=== PATIENT | male | born 1950 | race Caucasian/White ===

== ENCOUNTER 2016-08-23 11:29 | Outpatient (RCR) | payer BC ==
[2016-05-28 23:00] LABS: INR 1.6 (0.8-1.4)
[2016-06-01 10:42] LABS: INR 1.6 (0.8-1.4); PROTHROMBIN TIME PATIENT 19.2 SEC (12.2-14.7)
[2016-06-26 10:25] LABS: INR 2.5 (0.8-1.4); PROTHROMBIN TIME PATIENT 26.7 SEC (12.2-14.7)
[2016-07-26 11:50] LABS: INR 2.7 (0.8-1.4); PROTHROMBIN TIME PATIENT 28.3 SEC (12.2-14.7)
[~2016-08-23 11:29] MED LIST: AMOX1TAB12 PO; ASCO-262 PO; CLIN150C17 PO; CYAN10006 PO; DIGO0.25 PO; DIGO250T PO; FENO145T20 PO; GABA-486 PO; LORA10TA7 PO; LOSA50TA2 PO; LOSA50TA36 PO; MULT-633 PO; NEBI5TAB8 PO; OMEG-9 PO; OMEP20TA33 PO; SERT50TA2 PO; SERT50TA9 PO; WARF2.5T8 PO; WARF5TAB8 PO; [UNRECOGNIZED DRUG - OTHER] PO
[2016-08-23 12:02] LABS: INR 3.3 (0.8-1.4); PROTHROMBIN TIME PATIENT 33.7 SEC (12.2-14.7)
== END 2016-08-26 | disposition home or self-care (01) ==
LOC: LAB 11:29
PROVIDERS: ATTEND Internal Medicine Cardiovascular Disease
DX: Z48.812 Encounter for surgical aftercare following surgery on the circulatory system (principal); Z95.2 Presence of prosthetic heart valve
CPT/HCPCS: 36415; 85610

== ENCOUNTER 2016-12-17 10:28 | Outpatient (CLI) | payer BC ==
[~2016-12-17] VITALS: Ht 175.3 cm; Wt 83.7 kg
[2016-12-17] MEDS ORDERED: NEBI5TAB8 PO (10:39)
[2016-12-17 10:44] VITALS: BP 135/95
--- NOTE | 2016-12-17 19:30 | HISTORY AND PHYSICAL ---
DATE OF SERVICE: The patient is to have outpatient surgery by Dr. Gregory. CHIEF COMPLAINT: Right foot bone spur is hurting and want them corrected. ALLERGIC TO MEDICATIONS: Denies. MEDICATIONS: Now on losartan 50 mg one daily, digoxin 0.25 mg one daily, Bystolic 5 mg one daily, Zoloft 50 mg one at bedtime, Coumadin 2.5 and 5 mg at bedtime, gabapentin 100 mg one at bedtime, fenofibrate 145 mg one at bedtime, Prilosec 20 mg 30 mins before breakfast. The patient is now off his warfarin and now on enoxaparin, Lovenox daily in the evening. SURGERIES: Foot surgery, both feet, scope both knees; T and A; five bypass and aortic valve replacement; hernia on the left; three pacemaker defibrillators; bilateral cataracts. FAMILY HISTORY: Father with massive heart attack; mother age 91, has dementia now. Denies asthma, TB, diabetes, lung disease, cancer. REVIEW OF SYSTEMS: HEAD: Denies headache, dizziness or fainting. EYES, EARS, NOSE AND THROAT: Denies diplopia, sore throat and tinnitus. RESPIRATORY: Denies asthma, TB, cough, congestive, smoking, or wheezing. Did smoke previously hard, now having no heart problems, chest pain or shortness breath. GASTROINTESTINAL: Appetite is good. Denies blood in stools, diarrhea, constipation, nausea or vomiting. GENITOURINARY: Denies blood, pain or frequency. PHYSICAL EXAMINATION: GENERAL: The patient is a thin white male in no acute respiratory distress at rest. VITAL SIGNS: Pulse 72, blood pressure 110/80. HEENT: Ears are not inflamed. Eyes, no conjunctivitis or icterus. Throat is not inflamed. NECK: Thyroid not enlarged. Normal cervical lymphadenopathy noted. HEART: Regular rate and rhythm with a click. LUNGS: Clear to auscultation. ABDOMEN: Soft. Liver and spleen are not palpable. EXTREMITIES: No pretibial edema. Feet are warm. Good dorsalis pedis pulses. ASSESSMENT AND PLAN: The patient sees Dr. Tracy and said okay to have surgery. The patient is doing good. If he has any problems, will be on stand-by. Job ID: [id number] DocumentID: [id number] Dictated Date: 12/17/2016 13:45:40 Atmospheric Chemist Date: 12/17/2016 15:32:53 Dictated By: LISA STOCKTON DO
== END 2016-12-17 11:10 | disposition home or self-care (01) ==
LOC: PREOP 10:28
PROVIDERS: ATTEND Podiatrist Foot Surgery
DX: Z01.818 Encounter for other preprocedural examination (principal); Z11.2 Encounter for screening for other bacterial diseases; M20.11 Hallux valgus (acquired), right foot; M20.41 Other hammer toe(s) (acquired), right foot
CPT/HCPCS: 87081

== ENCOUNTER 2016-12-21 06:00 | Day surgery (SDC) | payer BC ==
--- NOTE | 2016-12-13 09:02 | HISTORY AND PHYSICAL ---
DATE OF SERVICE: 12/21/2016 REASON FOR ADMISSION: Outpatient surgery on November 2016 for left shoulder arthroscopy with rotator cuff repair, biceps tenodesis. HISTORY OF PRESENT ILLNESS: The patient is a 66-year-old right-hand dominant gentleman with complaints of longstanding progressive left shoulder pain. He reports for several year history of progressively worsening pain and weakness. He reports pain with overhead activities. He denies paresthesias, but does reports some night pain at times. He reports night pain began after his shoulder pain by several years. He reports marked activity limitations because of the shoulder and due to progressive symptoms and failure to improve with conservative measures and because of functional impairment, the patient has elected to proceed with surgical intervention. REVIEW OF SYSTEMS: No chest pain. No shortness of breath. No dysuria. PAST MEDICAL HISTORY: Coronary artery disease, congestive heart failure. PAST SURGICAL HISTORY: Knee arthroscopy, coronary artery bypass, herniorrhaphy, tonsillectomy. FAMILY HISTORY: Ischemic heart disease, dementia. PRIMARY CARE PROVIDER: Sonia Montoya MD. ALLERGIES: No known drug allergies. SOCIAL HISTORY: The patient denies alcohol or tobacco use. RADIOGRAPHS: No acute or chronic changes of the left shoulder. PHYSICAL EXAMINATION: GENERAL: The patient is well-developed and well-nourished, in no acute distress. HEENT: Normocephalic, atraumatic. Pupils are equal, round and reactive to light. Oropharynx is clear. NECK: Supple with no lymphadenopathy. LUNGS: Clear to auscultation bilaterally. HEART: Regular rate and rhythm. ABDOMEN: Soft, nontender, and nondistended. EXTREMITIES: The left shoulder demonstrates no gross atrophy. He has negative Spurling's maneuver. No skin lesions are noted, active forward elevation of 170 degrees, but painful beyond 90. External rotation is 80 degrees. Internal rotation is to his upper lumbar spine. He has weakness with abduction and external rotation. He has a positive [place]'s maneuver, mildly positive Neer's and positive Mohan sign. He is nontender over his acromioclavicular joint and has no pain with cross-body adduction. IMPRESSION: Left shoulder rotator cuff tear and superior labral anterior posterior tear. PLAN: Right shoulder arthroscopy, biceps tenodesis and rotator cuff repair. The risks, benefits, options, ramifications, and recovery have been discussed at length with the patient. He understands and wishes to proceed. Job ID: [id number] DocumentID: [id number] Dictated Date: 12/11/2016 09:36:50 Grain Scooper Date: 12/11/2016 11:23:25 Dictated By: CARLOS EDUARDO JOSEPH MD
[~2016-12-21] VITALS: Ht 175.3 cm; Wt 83.7 kg
--- OUTSIDE RECORDS SUMMARY | 2016-12-21 06:12 | XMS REPORT | Continuity of Care Document ---
Author Author [facility] Organization [facility] Address Unknown Phone Unavailable Allergies Active Description Code Type Severity Reaction Onset Reported/Identified Relationship to Patient Clinical Status Yes UNKNOWN ANTIBIOTIC UNKNOWN ANTIBIOTIC Drug Allergy Unknown N/A 04/21/2009 Yes No Known Drug Allergies [id number] Drug Allergy Unknown N/ A 03/10/2016 Yes No Known Allergies No Known Allergies Drug Allergy Unknown N/A 05/29/2016 Medications Problems Date Dx Coded Attending Type Code Diagnosis Diagnosed By 01/05/2010 Ot V43.3 01/05/2010 Ot V67.09 04/23/2010 Ot V43.3 04/23/2010 Ot V67.09 07/24/2010 Ot V43.3 07/24/2010 Ot V67.09 10/26/2010 Ot V43.3 HEART VALVE REPLAC NEC 10/26/2010 Ot V67.09 SURGERY FOLLOW-UP, OTHER SURGERY 02/25/2011 Ot V43.3 HEART VALVE REPLAC NEC 02/25/2011 Ot V67.09 SURGERY FOLLOW-UP, OTHER SURGERY 05/28/2011 Ot V43.3 HEART VALVE REPLAC NEC 05/28/2011 Ot V67.09 SURGERY FOLLOW-UP, OTHER SURGERY 08/27/2011 Ot V43.3 HEART VALVE REPLAC NEC 08/27/2011 Ot V67.09 SURGERY FOLLOW-UP, OTHER SURGERY 12/11/2011 Ot V43.3 HEART VALVE REPLAC NEC 12/11/2011 Ot V67.09 SURGERY FOLLOW-UP, OTHER SURGERY 03/23/2012 Ot V43.3 HEART VALVE REPLAC NEC 03/23/2012 Ot V67.09 SURGERY FOLLOW-UP, OTHER SURGERY 06/24/2012 Ot V43.3 HEART VALVE REPLAC NEC 06/24/2012 Ot V67.09 SURGERY FOLLOW-UP, OTHER SURGERY 09/28/2012 Ot V43.3 HEART VALVE REPLAC NEC 09/28/2012 Ot V67.09 SURGERY FOLLOW-UP, OTHER SURGERY 01/20/2013 ALANA MCCURDY, PERLA Sheffield Ot V43.3 HEART VALVE REPLAC NEC 01/20/2013 ALANA MCCURDY, PERLA P Ot V67.09 SURGERY FOLLOW-UP, OTHER SURGERY 04/26/2013 ALANA MCCURDY, PERLA Sheffield Ot V43.3 HEART VALVE REPLAC NEC 04/26/2013 ALANA MCCURDY, PERLA P Ot V67.09 SURGERY FOLLOW-UP, OTHER SURGERY 07/09/2013 DEE ROLAND [employer] ECONOMIST Ot 327.23 OBSTRUCTIVE SLEEP APNEA (ADULT) ( PEDIATR 07/09/2013 DEE ROLAND [employer]CIAL ECONOMIST Ot 401.9 HYPERTENSION NOS 07/26/2013 ALANA MCCURDY, PERLA P Ot V43.3 HEART VALVE REPLAC NEC 07/26/2013 ALANA MCCURDY, PERLA P Ot V67.09 SURGERY FOLLOW-UP, OTHER SURGERY 10/25/2013 ALANA MCCURDY, PERLA P Ot V43.3 HEART VALVE REPLAC NEC 10/25/2013 ALANA MCCURDY, PERLA P Ot V67.09 SURGERY FOLLOW-UP, OTHER SURGERY 02/23/2014 ALANA MCCURDY, PERLA P Ot V43.3 HEART VALVE REPLAC NEC 02/23/2014 ALANA MCCURDY, PERLA P Ot V67.09 SURGERY FOLLOW-UP, OTHER SURGERY 05/25/2014 ALANA MCCURDY, PERLA P Ot V43.3 HEART VALVE REPLAC NEC 05/25/2014 ALANA MCCURDY, PERLA P Ot V67.09 SURGERY FOLLOW-UP, OTHER SURGERY 06/29/2014 ALANA MCCURDY, PERLA P Ot V43.3 06/29/2014 ALANA MCCURDY, PERLA P Ot V67.09 06/30/2014 ALANA MCCURDY, PERLA P Ot V43.3 06/30/2014 ALANA MCCURDY, PERLA P Ot V67.09 07/01/2014 ALANA MCCURDY, PERLA P Ot V43.3 07/01/2014 ALANA MCCURDY, PERLA P Ot V67.09 08/12/2014 ALANA MCCURDY, PERLA P Ot V43.3 08/12/2014 ALANA MCCURDY, PERLA P Ot V67.09 09/27/2014 ALANA MCCURDY, PERLA P Ot V43.3 HEART VALVE REPLAC NEC 09/27/2014 ALANA MCCURDY, PERLA P Ot V67.09 SURGERY FOLLOW-UP, OTHER SURGERY 10/22/2014 ALANA MCCURDY, PERLA P Ot V43.3 10/22/2014 ALANA MCCURDY, PERLA P Ot V67.09 11/20/2014 ALANA MCCURDY, PERLA P Ot V43.3 11/20/2014 ALANA MCCURDY, PERLA P Ot V67.09 12/14/2014 ALANA MCCURDY, PERLA P Ot V43.3 12/14/2014 ALANA MCCURDY, PERLA P Ot V67.09 01/19/2015 ALANA MCCURDY, PERLA P Ot V43.3 HEART VALVE REPLAC NEC 01/19/2015 ALANA MCCURDY, PERLA Sheffield Ot V67.09 SURGERY FOLLOW-UP, OTHER SURGERY 01/24/2015 ALANA MCCURDY, PERLA P Ot V43.3 01/24/2015 ALANA MCCURDY, PERLA P Ot V67.09 01/25/2015 ALANA MCCURDY, PERLA P Ot V43.3 01/25/2015 ALANA MCCURDY, PERLA P Ot V67.09 02/01/2015 ALANA MCCURDY, PERLA P Ot V43.3 02/01/2015 ALANA MCCURDY, PERLA P Ot V67.09 03/10/2015 ALANA MCCURDY, PERLA P Ot V43.3 03/10/2015 ALANA MCCURDY, PERLA Sheffield Ot V67.09 03/23/2015 ALANA MCCURDY, PERLA Sheffield Ot V43.3 HEART VALVE REPLAC NEC 03/23/2015 ALANA MCCURDY, PERLA P Ot V67.09 SURGERY FOLLOW-UP, OTHER SURGERY 03/30/2015 Ot 780.79 03/30/2015 Ot 414.00 03/30/2015 Ot V58.61 03/30/2015 Ot V58.69 03/30/2015 Ot V43.3 03/30/2015 Ot V67.09 03/30/2015 ALANA MCCURDY, PERLA P Ot V43.3 03/30/2015 ALANA MCCURDY, PERLA P Ot V67.09 04/05/2015 ALANA MCCURDY, PERLA P Ot V43.3 04/05/2015 ALANA MCCURDY, PERLA P Ot V67.09 04/24/2015 ALANA MCCURDY, PERLA P Ot V43.3 04/24/2015 ALANA MCCURDY, PERLA P Ot V67.09 05/11/2015 ALANA MCCURDY, PERLA Sheffield Ot Z95.2 06/28/2015 ALANA MCCURDY, PERLA Sheffield Ot Z48.812 ENCNTR FOR SURGICAL AFTCR FOLLOWING SURG 06/28/2015 ALANA MCCURDY, PERLA Sheffield Ot Z95.2 PRESENCE OF PROSTHETIC HEART VALVE 06/29/2015 ALANA MCCURDY, PERLA Sheffield Ot Z95.2 06/30/2015 ALANA MCCURDY, PERLA Sheffield Ot Z95.2 08/18/2015 ALANA MCCURDY, PERLA Sheffield Ot Z95.2 09/01/2015 ALANA MCCURDY, PERLA Sheffield Ot Z48.812 09/01/2015 ALANA MCCURDY, PERLA Sheffield Ot Z95.2 09/20/2015 ALANA MCCURDY, PERLA Sheffield Ot Z48.812 09/20/2015 ALANA MCCURDY, PERLA Sheffield Ot Z95.2 09/27/2015 ALANA MCCURDY, PERLA Sheffield Ot Z48.812 ENCNTR FOR SURGICAL AFTCR FOLLOWING SURG 09/27/2015 ALANA MCCURDY, PERLA Sheffield Ot Z95.2 PRESENCE OF PROSTHETIC HEART VALVE 11/09/2015 TANESHA MCCURDY, SILAS Araiza Ot Z48.812 ENCNTR FOR SURGICAL AFTCR FOLLOWING SURG 11/09/2015 SILAS ALMENDAREZ MD Ot Z95.2 PRESENCE OF PROSTHETIC HEART VALVE 11/23/2015 SILAS ALMENDAREZ MD Ot Z48.812 ENCNTR FOR SURGICAL AFTCR FOLLOWING SURG 11/23/2015 SILAS ALMENDAREZ MD Ot Z95.2 PRESENCE OF PROSTHETIC HEART VALVE 01/27/2016 ALANA MCCURDY, PERLA Sheffield Ot Z48.812 ENCNTR FOR SURGICAL AFTCR FOLLOWING SURG 01/27/2016 PERLA WARNER MD Ot Z95.2 PRESENCE OF PROSTHETIC HEART VALVE 01/31/2016 ALANA MCCURDY, PERLA Sheffield Ot Z48.812 ENCNTR FOR SURGICAL AFTCR FOLLOWING SURG 01/31/2016 ALANA MCCURDY, PERLA Sheffield Ot Z95.2 PRESENCE OF PROSTHETIC HEART VALVE 03/10/2016 Ot 414.00 CORON ATHEROSCLER NOS TYPE VESSEL, NATIV 03/10/2016 Ot V58.61 ANTICOAGULANTS,LT,CURRENT USE 03/10/2016 Ot V58.69 OTH MED,LT,CURRENT USE 03/10/2016 Ot V43.3 HEART VALVE REPLAC NEC 03/10/2016 Ot V67.09 SURGERY FOLLOW-UP, OTHER SURGERY 03/10/2016 SILAS ALMENDAREZ MD Ot Z48.812 ENCNTR FOR SURGICAL AFTCR FOLLOWING SURG 03/10/2016 SILAS ALMENDAREZ MD Ot Z95.2 PRESENCE OF PROSTHETIC HEART VALVE 03/10/2016 PERLA WARNER MD Ot Z48.812 ENCNTR FOR SURGICAL AFTCR FOLLOWING SURG 03/10/2016 PERLA WARNER MD Ot Z95.2 PRESENCE OF PROSTHETIC HEART VALVE 03/10/2016 Ot V43.3 HEART VALVE REPLAC NEC 03/10/2016 Ot V67.09 SURGERY FOLLOW-UP, OTHER SURGERY 03/10/2016 Ot 414.00 CORON ATHEROSCLER NOS TYPE VESSEL, NATIV 03/10/2016 Ot V58.61 ANTICOAGULANTS,LT,CURRENT USE 03/10/2016 Ot V58.69 OTH MED,LT,CURRENT USE 03/10/2016 Ot V43.3 HEART VALVE REPLAC NEC 03/10/2016 Ot V67.09 SURGERY FOLLOW-UP, OTHER SURGERY 03/10/2016 TANESHA MCCURDY, SILAS Araiza Ot Z48.812 ENCNTR FOR SURGICAL AFTCR FOLLOWING SURG 03/10/2016 SILAS ALMENDAREZ MD Ot Z95.2 PRESENCE OF PROSTHETIC HEART VALVE 03/10/2016 PERLA WARNER MD Ot Z48.812 ENCNTR FOR SURGICAL AFTCR FOLLOWING SURG 03/10/2016 PERLA WARNER MD Ot Z95.2 PRESENCE OF PROSTHETIC HEART VALVE 03/12/2016 MIREILLE MCCURDY, JACKIE Moscoso Ot I10 ESSENTIAL (PRIMARY) HYPERTENSION 03/12/2016 MIREILLE MCCURDY, JACKIE Moscoso Ot L03.114 CELLULITIS OF LEFT UPPER LIMB 03/12/2016 JACKIE KENDRICK MD Ot M70.22 OLECRANON BURSITIS, LEFT ELBOW 03/12/2016 JACKIE KENDRICK MD Ot Z79.01 NURSING HOME (CURRENT) USE OF ANTICOAGULANT 03/12/2016 JACKIE KENDRICK MD Ot Z87.891 PERSONAL HISTORY OF NICOTINE DEPENDENCE 03/12/2016 JACKIE KENDRICK MD Ot Z95.1 PRESENCE OF AORTOCORONARY BYPASS GRAFT 03/12/2016 JACKIE KENDRICK MD Ot Z95.2 PRESENCE OF PROSTHETIC HEART VALVE 03/12/2016 JACKIE KENDRICK MD Ot Z95.810 PRESENCE OF AUTOMATIC (IMPLANTABLE) CARD 04/02/2016 PERLA WARNER MD Ot Z48.812 ENCNTR FOR SURGICAL AFTCR FOLLOWING SURG 04/02/2016 PERLA WARNER MD Ot Z95.2 PRESENCE OF PROSTHETIC HEART VALVE 04/12/2016 GALICHIA MD, PERLA P Ot Z48.812 ENCNTR FOR SURGICAL AFTCR FOLLOWING SURG 04/12/2016 ALANA MCCURDY, PERLA P Ot Z95.2 PRESENCE OF PROSTHETIC HEART VALVE 05/23/2016 ALANA MCCURDY, PERLA P Ot Z48.812 ENCNTR FOR SURGICAL AFTCR FOLLOWING SURG 05/23/2016 ALANA MCCURDY, PERLA P Ot Z95.2 PRESENCE OF PROSTHETIC HEART VALVE 05/24/2016 ALANA MCCURDY, PERLA P Ot Z48.812 ENCNTR FOR SURGICAL AFTCR FOLLOWING SURG 05/24/2016 ALANA MCCURDY, PERLA P Ot Z95.2 PRESENCE OF PROSTHETIC HEART VALVE 05/29/2016 ALANA MCCURDY, PERLA P Ot Z48.812 ENCNTR FOR SURGICAL AFTCR FOLLOWING SURG 05/29/2016 ALANA MCCURDY, PERLA P Ot Z95.2 PRESENCE OF PROSTHETIC HEART VALVE 07/03/2016 ALANA MCCURDY, PERLA P Ot Z48.812 ENCNTR FOR SURGICAL AFTCR FOLLOWING SURG 07/03/2016 ALANA MCCURDY, PERLA P Ot Z95.2 PRESENCE OF PROSTHETIC HEART VALVE 07/16/2016 ALANA MCCURDY, PERLA P Ot Z48.812 ENCNTR FOR SURGICAL AFTCR FOLLOWING SURG 07/16/2016 ALANA MCCURDY, PERLA P Ot Z95.2 PRESENCE OF PROSTHETIC HEART VALVE 08/08/2016 ALANA MCCURDY, PERLA P Ot Z48.812 ENCNTR FOR SURGICAL AFTCR FOLLOWING SURG 08/08/2016 PERLA WARNER MD P Ot Z95.2 PRESENCE OF PROSTHETIC HEART VALVE 08/26/2016 PERLA WARNER MD P Ot Z48.812 ENCNTR FOR SURGICAL AFTCR FOLLOWING SURG 08/26/2016 PERLA WARNER MD P Ot Z95.2 PRESENCE OF PROSTHETIC HEART VALVE 10/22/2016 ALANA MCCURDY, PERLA P Ot Z48.812 ENCNTR FOR SURGICAL AFTCR FOLLOWING SURG 10/22/2016 ALANA MCCURDY, PERLA P Ot Z95.2 PRESENCE OF PROSTHETIC HEART VALVE 10/22/2016 ALANA MCCURDY, PERLA P Ot Z48.812 ENCNTR FOR SURGICAL AFTCR FOLLOWING SURG 10/22/2016 ALANA MCCURDY, PERLA P Ot Z95.2 PRESENCE OF PROSTHETIC HEART VALVE 10/29/2016 ALANA MCCURDY, PERLA P Ot Z48.812 ENCNTR FOR SURGICAL AFTCR FOLLOWING SURG 10/29/2016 PERLA WARNER MD, Ot Z95.2 PRESENCE OF PROSTHETIC HEART VALVE 11/08/2016 PERLA WARNER MD, Ot Z48.812 ENCNTR FOR SURGICAL AFTCR FOLLOWING SURG 11/08/2016 PERLA WARNER MD Ot Z95.2 PRESENCE OF PROSTHETIC HEART VALVE 12/05/2016 PERLA WARNER MD, Ot Z48.812 ENCNTR FOR SURGICAL AFTCR FOLLOWING SURG 12/05/2016 PERLA WARNER MD, Ot Z95.2 PRESENCE OF PROSTHETIC HEART VALVE Procedures Results Test Result Range PT panel in platelet poor plasma by coagulation assay - 01/23/16 11:03 Prothrombin time (PT) in platelet poor plasma by coagulation assay 33.6 s 12.2-14.7 INR in platelet poor plasma or blood by coagulation assay 3.3 0.8-1.4 PT panel in platelet poor plasma by coagulation assay - 02/23/16 15:47 Prothrombin time (PT) in platelet poor plasma by coagulation assay 38.6 s 12.2-14.7 INR in platelet poor plasma or blood by coagulation assay 3.9 0.8-1.4 Body fluid cell count - 03/10/16 11:38 Specimen source identification of body fluid SYNOVIAL NRG Evaluation of color of body fluid RED NRG Determination of appearance of body fluid MOD CLDY NRG Body fluid leukocytes count (number/volume) QNS NRG Body fluid erythrocytes count (number/volume) QNS NRG * Body fluid crystals type by light microscopy - 03/10/16 11:38 * Body fluid crystals type by light microscopy NOT SEEN NRG Gram stain microscopy - 03/10/16 11:38 GRAM STAIN RESULT NO BACTERIA NRG Bacterial body fluid culture - 03/10/16 11:38 Bacterial body fluid culture [facility] Complete blood count (CBC) with automated white blood cell (WBC) differential - 03/10/16 11:44 Blood leukocytes automated count (number/volume) 6.1 10*3/ uL 4.3-11.0 Blood erythrocytes automated count (number/volume) 3.87 10*6 /uL 4.35-5.85 Venous blood hemoglobin measurement (mass/volume) 12.8 g/dL 13.3-17.7 Blood hematocrit (volume fraction) 36 % 40-54 Automated erythrocyte mean corpuscular volume 93 [foz_us] 80-99 Automated erythrocyte mean corpuscular hemoglobin (mass per erythrocyte) 33 pg 25-34 Automated erythrocyte mean corpuscular hemoglobin concentration measurement ( mass/volume) 36 g/dL 32-36 Automated erythrocyte distribution width ratio 12.2 % 10.0-14.5 Automated blood platelet count (count/volume) 198 10*3/uL 130-400 Automated blood platelet mean volume measurement 10.6 [foz_ us] 7.4-10.4 Automated blood neutrophils/100 leukocytes 65 % 42-75 Automated blood lymphocytes/100 leukocytes 21 % 12-44 Blood monocytes/100 leukocytes 12 % 0-12 Automated blood eosinophils/100 leukocytes 2 % 0-10 Automated blood basophils/100 leukocytes 0 % 0-10 Blood neutrophils automated count (number/volume) 4.0 10*3 1.8-7.8 Blood lymphocytes automated count (number/volume) 1.3 10*3 1.0-4.0 Blood monocytes automated count (number/volume) 0.7 10*3 0.0-1.0 Automated eosinophil count 0.1 10*3/uL 0.0-0.3 Automated blood basophil count (count/volume) 0.0 10*3/uL 0.0-0.1 PT panel in platelet poor plasma by coagulation assay - 03/10/16 11:44 Prothrombin time (PT) in platelet poor plasma by coagulation assay 36.8 s 12.2-14.7 INR in platelet poor plasma or blood by coagulation assay 3.7 0.8-1.4 Comprehensive metabolic panel - 03/10/16 11:44 Serum or plasma sodium measurement (moles/volume) 136 mmol/ L 135-145 Serum or plasma potassium measurement (moles/volume) 4.0 mmol/L 3.6-5.0 Serum or plasma chloride measurement (moles/volume) 106 mmol /L 98-107 Carbon dioxide 19 mmol/L 21-32 Serum or plasma anion gap determination (moles/volume) 11 mmol/L 5-14 Serum or plasma urea nitrogen measurement (mass/volume) 20 mg/dL 7-18 Serum or plasma creatinine measurement (mass/volume) 1.31 mg /dL 0.60-1.30 Serum or plasma urea nitrogen/creatinine mass ratio 15 NRG Serum or plasma creatinine measurement with calculation of estimated glomerular filtration rate 55 NRG Serum or plasma glucose measurement (mass/volume) 115 mg/dL 70-105 Serum or plasma calcium measurement (mass/volume) 8.9 mg/dL 8.5-10.1 Serum or plasma total bilirubin measurement (mass/volume) 0.7 mg/dL 0.1-1.0 Serum or plasma alkaline phosphatase measurement (enzymatic activity/volume) 83 U/L 40-136 Serum or plasma aspartate aminotransferase measurement (enzymatic activity/ volume) 78 U/L 5-34 Serum or plasma alanine aminotransferase measurement (enzymatic activity/volume ) 71 U/L 0-55 Serum or plasma protein measurement (mass/volume) 6.7 g/dL 6.4-8.2 Serum or plasma albumin measurement (mass/volume) 3.9 g/dL 3.2-4.5 Bacterial blood culture - 03/10/16 11:44 Bacterial blood culture NG NRG Bacterial blood culture - 03/10/16 12:00 Bacterial blood culture NG NR PT panel in platelet poor plasma by coagulation assay - 03/11/16 07:10 Prothrombin time (PT) in platelet poor plasma by coagulation assay 30.7 s 12.2-14.7 INR in platelet poor plasma or blood by coagulation assay 3.0 0.8-1.4 Vancomycin trough - 03/11/16 11:25 Vancomycin trough 9.8 ug/mL 10.0-20.0 PT panel in platelet poor plasma by coagulation assay - 03/12/16 07:44 Prothrombin time (PT) in platelet poor plasma by coagulation assay 26.9 s 12.2-14.7 INR in platelet poor plasma or blood by coagulation assay 2.5 0.8-1.4 Vancomycin trough - 03/12/16 10:54 Vancomycin trough 17.5 ug/mL 10.0-20.0 PT panel in platelet poor plasma by coagulation assay - 03/15/16 08:42 Prothrombin time (PT) in platelet poor plasma by coagulation assay 26.4 s 12.2-14.7 INR in platelet poor plasma or blood by coagulation assay 2.5 0.8-1.4 PT panel in platelet poor plasma by coagulation assay - 04/09/16 09:33 Prothrombin time (PT) in platelet poor plasma by coagulation assay 41.2 s 12.2-14.7 INR in platelet poor plasma or blood by coagulation assay 4.3 0.8-1.4 PT panel in platelet poor plasma by coagulation assay - 04/24/16 15:00 Prothrombin time (PT) in platelet poor plasma by coagulation assay 36.7 s 12.2-14.7 INR in platelet poor plasma or blood by coagulation assay 3.7 0.8-1.4 PT panel in platelet poor plasma by coagulation assay - 05/28/16 17:23 Prothrombin time (PT) in platelet poor plasma by coagulation assay 19.0 s 12.2-14.7 INR in platelet poor plasma or blood by coagulation assay 1.6 0.8-1.4 PT panel in platelet poor plasma by coagulation assay - 05/28/16 18:00 Prothrombin time (PT) in platelet poor plasma by coagulation assay 19.0 s 12.2-14.7 INR in platelet poor plasma or blood by coagulation assay 1.6 0.8-1.4 CBC W/DIFF - 05/29/16 13:24 EOSINOPHIL # 0.1 k/cumm 0.1-0.5 EOSINOPHIL % 2 % 2-4 GRANULOCYTE # 3.1 k/cumm 2.0-9.0 GRANULOCYTE % 54 % 50-75 LYMPHOCYTE # 1.8 k/cumm 1.0-4.0 LYMPHOCYTE % 32 % 20-30 MEAN CELL HGB 32.5 pg 27.0-33.0 MEAN CELL HGB CONCENTRATION 35.9 g/dL 32.0-37.0 MEAN CELL VOLUME 90.4 fl 80.0-100.0 MONOCYTE # 0.7 k/cumm 0.1-1.0 MONOCYTE % 12 % 4-6 RED BLOOD CELL 4.28 m/cumm 4.00-6.00 RED CELL DISTRIBUTION WIDTH 12.5 % 11.0- 15.6 WHITE BLOOD CELL 5.8 k/cumm 5.0-10.0 HEMOGLOBIN 13.9 gm/dL 14.0-18.0 HEMATOCRIT 38.7 % 40.0-54.0 PLATELET COUNT 199 k/cumm 150-450 METABOLIC PANEL, BASIC - 05/29/16 13:24 POTASSIUM 4.1 mmol/L 3.5-5.3 EST GFR (MDRD) > 60 mL/min > 59 ANION GAP 10 mmol/L 5-15 EST CrCl (CG) > 60 mL/min > 59 GLUCOSE 98 mg/dL 70-99 CALCIUM 9.3 mg/dL 8.5-10.1 BLOOD UREA NITROGEN 26 mg/dL 7-20 CREATININE 1.2 mg/dL 0.7-1.3 SODIUM 137 mmol/L 135-148 CHLORIDE 102 mmol/L 98-110 CARBON DIOXIDE 25 mmol/L 21-32 LIPID PANEL - 05/29/16 13:24 CHOLESTEROL/HDL RATIO 4.1 < 5.0 LDL CHOLESTEROL 112 mg/dL < 100 VLDL CHOLESTEROL 32 mg/dL < 30 TRIGLYCERIDES 162 mg/dL < 150 CHOLESTEROL 191 mg/dL < 200 HDL CHOLESTEROL 47 mg/dL > 39 PROTHROMBIN TIME WITH INR - 05/29/16 13:24 INTERNATIONAL NORMAL RATIO 1.4 0.9-1.1 PROTHROMBIN TIME 15.9 sec 10.0-12.9 PT panel in platelet poor plasma by coagulation assay - 06/01/16 10:24 Prothrombin time (PT) in platelet poor plasma by coagulation assay 19.2 s 12.2-14.7 INR in platelet poor plasma or blood by coagulation assay 1.6 0.8-1.4 PT panel in platelet poor plasma by coagulation assay - 06/26/16 10:04 Prothrombin time (PT) in platelet poor plasma by coagulation assay 26.7 s 12.2-14.7 INR in platelet poor plasma or blood by coagulation assay 2.5 0.8-1.4 PT panel in platelet poor plasma by coagulation assay - 07/26/16 11:37 Prothrombin time (PT) in platelet poor plasma by coagulation assay 28.3 s 12.2-14.7 INR in platelet poor plasma or blood by coagulation assay 2.7 0.8-1.4 PT panel in platelet poor plasma by coagulation assay - 08/23/16 11:35 Prothrombin time (PT) in platelet poor plasma by coagulation assay 33.7 s 12.2-14.7 INR in platelet poor plasma or blood by coagulation assay 3.3 0.8-1.4 PT panel in platelet poor plasma by coagulation assay - 09/24/16 10:49 Prothrombin time (PT) in platelet poor plasma by coagulation assay 37.7 s 12.2-14.7 INR in platelet poor plasma or blood by coagulation assay 3.8 0.8-1.4 PT panel in platelet poor plasma by coagulation assay - 10/22/16 10:01 Prothrombin time (PT) in platelet poor plasma by coagulation assay 43.8 s 12.2-14.7 INR in platelet poor plasma or blood by coagulation assay 4.6 0.8-1.4 PT panel in platelet poor plasma by coagulation assay - 10/30/16 09:20 Prothrombin time (PT) in platelet poor plasma by coagulation assay 25.3 s 12.2-14.7 INR in platelet poor plasma or blood by coagulation assay 2.3 0.8-1.4 PT panel in platelet poor plasma by coagulation assay - 11/23/16 09:44 Prothrombin time (PT) in platelet poor plasma by coagulation assay 34.6 s 12.2-14.7 INR in platelet poor plasma or blood by coagulation assay 3.4 0.8-1.4 Methicillin resistant Staphylococcus aureus (MRSA) screening culture - 10:50 Methicillin resistant Staphylococcus aureus (MRSA) screening culture NEG NRG Encounters ACCT No. Visit Date/Time Discharge Status Pt. Type Provider Facility Loc./Unit Complaint [id number] 08/23/2016 11:29:00 2016 00:01:00 DIS Outpatient PERLA WARNER MD [facility] LAB HEART VALVE REPLACEMENT [id number] 04/24/2016 14:45:00 2015 00:01:00 DIS Outpatient PERLA WARNER MD [facility] HEART VALVE REPLACEMENT [id number] 03/10/2016 12:21:00 2015 14:35:00 DIS Inpatient JACKIE KENDRICK MD [facility] 4TH CELLULITIS L ELBOW [id number] 01/23/2016 11:11:00 2015 00:01:00 DIS Outpatient PERLA WARNER MD [facility] LAB HEART VALVE REPLACEMENT [id number] 09/27/2015 11:09:00 2015 00:01:00 DIS Outpatient PERLA WARNER MD [facility] LAB HEART VALVE REPLACEMENT [id number] 04/25/2015 11:21:00 2015 00:01:00 DIS Outpatient PERLA WARNER MD [facility] HEART VALVE REPLACEMENT [id number] 02/22/2015 14:17:00 2014 00:01:00 DIS Outpatient PERLA WARNER MD [facility] LAB HEART VALVE REPLACEMENT [id number] 12/22/2014 11:01:00 2014 00:01:00 DIS Outpatient PERLA WARNER MD [facility] LAB HEART VALVE REPLACEMENT [id number] 08/23/2014 11:21:00 2014 00:01:00 DIS Outpatient PERLA WARNER MD [facility] LAB HEART VALVE REPLACEMENT [id number] 05/24/2014 15:07:00 2013 00:01:00 DIS Outpatient PERLA WARNER MD [facility] LAB HEART VALVE REPLACEMENT [id number] 02/08/2014 11:40:00 2013 00:01:00 DIS Outpatient PERLA WARNER MD [facility] HEART VALVE REPLACEMENT [id number] 09/24/2013 10:35:00 2013 00:01:00 DIS Outpatient PERLA WARNER MD [facility] LAB HEART VALVE REPLACEMENT [id number] 06/25/2013 11:57:00 2013 00:01:00 DIS Outpatient PERLA WARNER MD [facility] LAB HEART VALVE REPLACEMENT [id number] 07/08/2013 20:42:00 2013 05:20:00 DIS Outpatient DEE ROLAND [facility] SLEEP SNORING,HTN [id number] 03/30/2013 10:38:00 2012 00:01:00 DIS Outpatient PERLA WARNER MD [facility] LAB HEART VALVE REPLACEMENT [id number] 12/24/2012 10:07:00 2012 00:01:00 DIS Outpatient PERLA WARNER MD [facility] LAB HEART VALVE REPLACEMENT [id number] 12/21/2016 08:00:00 PEN Preadmit LISA DÍAZ DPM [facility] HALLUX VALGUS DEFORMITY [id number] 12/17/2016 10:30:00 PEN Preadmit LISA DÍAZ DPM [facility] PREOP HALLUX VALGUS DEFORMITY, HAMMERTOE RIGHT FOOT [id number] 11/23/2016 09:41:00 ACT Outpatient ALANA MCCURDY PERLA Sheffield [facility] LAB HEART VALVE REPLACEMENT [id number] 11/08/2015 11:12:00 ACT Outpatient TANESHA MCCURDY , SILAS Araiza [facility] LAB AV REPLACEMENT [id number] 03/30/2015 15:13:00 Document Registration [id number] 02/24/2014 00:00:00 Document Registration [id number] 09/23/2012 09:29:00 Document Registration [id number] 05/28/2012 09:50:00 Document Registration [id number] 02/27/2012 10:02:00 Document Registration [id number] 08/27/2011 10:41:00 Document Registration [id number] 04/24/2011 14:01:00 Document Registration [id number] 02/05/2011 10:37:00 Document Registration [id number] 11/16/2010 07:49:00 Document Registration [id number] 10/26/2010 10:25:00 Document Registration [id number] 06/30/2010 11:17:00 Document Registration [id number] 06/30/2010 11:03:00 Document Registration [id number] 03/27/2010 14:22:00 Document Registration [id number] 12/23/2009 10:17:00 Document Registration
[2016-12-21 06:20] VITALS: BP 133/86
[2016-12-21] MEDS ORDERED: ceFAZolin 2 GM/50 ML NS 50 ML ONE (06:20)
[2016-12-21] MEDS ORDERED: fentaNYL INJECTION 100 MCG/2 ML AMP ONE (06:22)
[2016-12-21] MEDS ORDERED: ONDANSETRON 4 MG/2 ML (SDV) Z0FRAN ONE (06:22)
[2016-12-21] MEDS ORDERED: SEVOFLURANE (ULTANE) 15 ML INHAL SOLN ONE (06:22)
[2016-12-21] MEDS ORDERED: MIDAZOLAM 2 MG/2 ML (VERSED) VIAL ONE (06:22)
[2016-12-21] MEDS ORDERED: proPOfol 200 MG/20 ML (DIPRIVAN) VIAL IV ONE (06:22)
[2016-12-21] MEDS ORDERED: LACTATED RINGERS 1,000 ML IV ONE (06:22)
[2016-12-21 06:44] LABS: PROTHROMBIN TIME PATIENT 12.8 SEC (12.2-14.7)
[2016-12-21] MEDS ORDERED: PROPOFOL INJECTION 50 ML IV ONE ×2 (06:50→08:18)
[2016-12-21] MEDS ORDERED: FAMOTIDINE 20MG/2ML IV (PEPCID) IV ONE (07:00)
[2016-12-21] MEDS: LACTATED RINGERS 1,000 ML IV PRN ×2 (07:00→08:38)
[2016-12-21] MEDS ORDERED: ceFAZolin 2 GM/NS 50 ML IV ONE (07:00)
[2016-12-21] MEDS ORDERED: MEPIVACAINE (CARBOCAINE) 2% 50 ML VIAL ONE (07:10)
[2016-12-21] MEDS ORDERED: BUPIVACAINE 0.5% 30 ML (SENSORCAINE) VIAL ONE (07:11)
--- NOTE | 2016-12-21 07:29 | Progress Note-Pre Operative ---
Pre-Operative Progress Note H&P Reviewed The H&P was reviewed, patient examined and no changes noted. Date Seen by Provider: Dec 21, 2016 Time Seen by Provider: 07:25 Date H&P Reviewed: Dec 21, 2016 Time H&P Reviewed: 07:26 Pre-Operative Diagnosis: hallux rigidis right foot, osteophytic lipping of second metatarsdal head r LISA DÍAZ DPM Dec 21, 2016 7:29 am
[2016-12-21] MEDS ORDERED: DEXAMETHASONE PF 10 MG/ML (DECADRON) VIAL ONE (08:37)
[2016-12-21] MEDS ORDERED: ONDANSETRON 4 MG/2 ML (SDV) Z0FRAN IVP PRN (09:15)
[2016-12-21] MEDS ORDERED: morphine INJ 10 MG/ML 1ML (SYR OR VIAL) IVP PRN ×2 (09:15→15:45)
[2016-12-21] MEDS ORDERED: MEPERIDINE (DEMEROL) INJ 50 MG/ML IVP PRN (09:15)
--- NOTE | 2016-12-21 09:16 | Progress Note-Post Operative ---
Post-Operative Progess Note Surgeon (s)/Adjunct Lecturer (s) Surgeon LISA DÍAZ DPM Adjunct Lecturer: none Pre-Operative Diagnosis hallux rigidis right foot, osteophytic lipping of second metatarsdal head r Post-Operative Diagnosis same Procedure & Operative Findings Date of Procedure 12/21/16 Procedure Performed/Findings wiley bunionectomy right foot capsulotomy and cheilectomy 2nd mpj right foot bLOCKED WITH RIGHT HALLUX AND SECOND DIGIT WITH 10 CC OF 50/50/ MIX OF 1% CARBOCAINE PLAIN AND .5%MARCAINE PLAIN WITH ANETHESIA ASSIST. STEIRLE PREP AND DRAP AND ROBERTH BANDAGE APPLIED ABOVE THE NIKI. A 7 CM LINEAR INCISION MADE MED TO THE EHL TENDON EXTENDED ONTO THE HALLUX AND DEEPOENED WITH SHARP AND BLUNT DISSECTION VITAL STRUCTURES IDENTIFIED AND RETRACTED SUPERFICIAL VEINS CAUTERIZED. DISSECTION DEP TO THE MPJ JOINT CAPSULE AND A LINEAR INCISION MADE INTO THE CAPSULE. CAPSULE AND PERIOSTEUM FREED FROM THE FIRST METATARSALHEAD AND THE BASE OF THE DISTAL PHALANX. FIRSH HEAD REMODELED TO NORMAL CONTOURS AND THE BASE OFD THE PROXIMAL PHALANX RESECTED 6MM DISTAL TO THE ARTICULAR SURFACE. BASE OF THE PHALANX RESECTED. DRILL HOLE PLACED IN THE PLANT MED CORTEX OF THE PROXIMAL PHALANX 2-0 PROLINE USED TO SECURE THE BASE OF THE PHALANX TO THE MED HEAD OF THE SHORT FLEXOR. INCIISON FLUSHED AND CAPSULE CLOSED WITH CONT LOCK SUTURE OF 3-0 VICRYL. SUP FASCIA CLOSED WITH 4-0 VICRYL AND SKIN REAPPROX WITH DERMABOND. 4 CM CURVOLINEAR INCISION MADE OVER THE 2ND MPJ RIGHT DEEPENED WITHSHARP AND LBUNT DISSECTION THE CAPSULE INCISED LINEARLLY AND CAPSULE AND PERIOSTEUM FREED FROM THE BONE THE HEAD OF THE SECOND METATARSAL AND THE BASE OF THE PROXIMLA PHALANX WERE REMODELED AND SEVERAL OSTEOPHYTIES WERE RESECTED WITH RONGEUR. ROM WAS RESTORED AND INCISION FLUSED WITH SALINE. CAPSULE CLOSED WITH CONTINUOUS SUTURE OF 3-0 VICRYL, SUPERFICIAL FASCIA AND SKIN CLOSED WITH CONT SUTURE OF 4- 0 VICRYL. TOURNIQUET REMOVED,BLOOD FLOW RETURN WNL, ADAPTIC, BETADINE WET/DRY DRESSING APPLIED AND CARRIED ABOVE THE NIKI, COVERED WITH COBAN. THE PT TOLERATED THE PROCEDURE WELL AND LEFT THE OR TO PAR IN GOOD CONDITION. Anesthesia Type regional with assist Estimated Blood Loss Estimated blood loss (mL): min Specimens/Packing Specimens Removed none LISA DÍAZ DPM Dec 21, 2016 9:16 am
[2016-12-21] MEDS ORDERED: LACTATED RINGERS 1,000 ML IV SCH (09:17)
[2016-12-21] MEDS ORDERED: hydrALAZINE (APESOLINE) 20 MG/ML VIAL ONE (09:18)
--- NOTE | 2016-12-21 09:19 | Discharge Instructions ---
Discharge Instructions Discharge Medications New, Converted or Re-Newed RX: RX Given to Pt/Family Patient Instructions Patient Instructions 1. Follow up in office in 2 weeks. 2. Diet as tolerated. 3. Activity as tolerated. Activity & Diet Activity as Tolerated: Yes LISA DÍAZ DPM Dec 21, 2016 9:19 am
[2016-12-21] MEDS ORDERED: HYDROcodone/APAP 5 MG/325 MG (LORTAB) TAB PO PRN (09:30)
[2016-12-21 09:40] VITALS: BP 150/95
[2016-12-21] MEDS ORDERED: HYDR-3816 PO (09:58)
[2016-12-21] MEDS ORDERED: hydrALAZINE (APESOLINE) 20 MG/ML VIAL IV ONE (10:00)
[2016-12-21 10:10] VITALS: BP 158/95
[2016-12-21] MEDS ORDERED: fentaNYL INJECTION 100 MCG/2 ML AMP IVP PRN (15:45)
--- NOTE | 2016-12-21 17:48 | Diagnostic Imaging Report ---
Two views of the right foot. INDICATION: Correction for hallux valgus. FINDINGS: There is osteotomy noted at the proximal aspect of the proximal phalanx of the great toe and suggestion of osteotomies along the head of the first metatarsal. The alignment at this point is satisfactory. There is otherwise no fracture, dislocation or radiopaque foreign body. There is slightly flattened plantar arch. IMPRESSION: Post corrective surgery and osteotomies for hallux valgus in good alignment at this point. Dictated by: Dictated on workstation # [id number]
== END 2016-12-21 10:25 | disposition home or self-care (01) ==
LOC: SDC 06:00
PROVIDERS: ATTEND Podiatrist Foot Surgery
DX: M20.11 Hallux valgus (acquired), right foot (principal); M25.774 Osteophyte, right foot; I25.10 Atherosclerotic heart disease of native coronary artery without angina pectoris; I50.9 Heart failure, unspecified; Z95.1 Presence of aortocoronary bypass graft
CPT/HCPCS: 36415; 73620; 85610

== ENCOUNTER 2016-12-24 05:50 | Outpatient (CLI) | payer BC ==
[~2016-12-24] VITALS: Ht 175.3 cm; Wt 83.2 kg
[~2016-12-24 05:50] MED LIST changes: +HYDR-3816 PO
[2016-12-24 08:49] VITALS: BP 133/90
== END 2016-12-24 08:50 | disposition home or self-care (01) ==
LOC: PREOP 05:50
PROVIDERS: ATTEND Orthopaedic Surgery
DX: Z01.818 Encounter for other preprocedural examination (principal); Z11.2 Encounter for screening for other bacterial diseases; M75.102 Unspecified rotator cuff tear or rupture of left shoulder, not specified as traumatic; M75.82 Other shoulder lesions, left shoulder
CPT/HCPCS: 87081

== ENCOUNTER 2016-12-26 07:25 | Day surgery (SDC) | payer BC ==
[~2016-12-26] VITALS: Ht 175.3 cm; Wt 83.2 kg
--- NOTE | 2016-12-26 07:32 | Progress Note-Pre Operative ---
Pre-Operative Progress Note H&P Reviewed The H&P was reviewed, patient examined and no changes noted. Date Seen by Provider: Dec 26, 2016 Time Seen by Provider: 07:32 Date H&P Reviewed: Dec 26, 2016 Time H&P Reviewed: 07:32 Pre-Operative Diagnosis: left rotator cuff tear and SLAP tear CARLOS EDUARDO JOSEPH MD Dec 26, 2016 07:32
--- NOTE | 2016-12-26 07:33 | Progress Note-Post Operative ---
Post-Operative Progess Note Surgeon (s)/Griddle Attendant (s) Surgeon CARLOS EDUARDO JOSEPH MD Griddle Attendant: None Pre-Operative Diagnosis left rotator cuff tear and SLAP tear Post-Operative Diagnosis left shoulder SLAP tear and labral tear Procedure & Operative Findings Date of Procedure 12/26/16 Procedure Performed/Findings left shoulder arthroscopic assisted biceps tenodesis and arthroscopic labral debridement Anesthesia Type GETA Estimated Blood Loss Estimated blood loss (mL): minimal Specimens/Packing Specimens Removed none Packing: none CARLOS EDUARDO JOSEPH MD Dec 26, 2016 07:33
[2016-12-26] MEDS ORDERED: OXYC-197 PO (07:35)
[2016-12-26 07:40] VITALS: BP 137/86
[2016-12-26] MEDS ORDERED: oxyCODONE/APAP 5/325MG (PERCOCET 5) TABLET PO PRN (07:45)
[2016-12-26] MEDS ORDERED: FAMOTIDINE 20MG/2ML IV (PEPCID) ONE (07:53)
[2016-12-26] MEDS ORDERED: CATHETER FLUSH 10 ML SYR IV PRN (08:00)
[2016-12-26] MEDS ORDERED: ceFAZolin 1 GM/NS 50 ML IVPB IV ONE ×2 (08:00)
[2016-12-26] MEDS ORDERED: LACTATED RINGERS 1,000 ML IV PRN (08:01)
[2016-12-26] MEDS ORDERED: FAMOTIDINE 20MG/2ML IV (PEPCID) IV ONE (08:15)
[2016-12-26] MEDS ORDERED: fentaNYL INJECTION 100 MCG/2 ML AMP ONE (08:38)
[2016-12-26] MEDS ORDERED: DEXAMETHASONE PF 10 MG/ML (DECADRON) VIAL ONE (08:38)
[2016-12-26] MEDS ORDERED: LIDOCAINE PF 2% 5 ML (XYLOCAINE) VIAL ONE (08:38)
[2016-12-26] MEDS ORDERED: proPOfol 200 MG/20 ML (DIPRIVAN) VIAL IV ONE (08:38)
[2016-12-26] MEDS ORDERED: ONDANSETRON 4 MG/2 ML (SDV) Z0FRAN ONE (08:38)
[2016-12-26] MEDS ORDERED: MIDAZOLAM 2 MG/2 ML (VERSED) VIAL ONE (08:39)
[2016-12-26] MEDS ORDERED: morphine PF (DURAMORPH) 10 MG/10 ML AMP ONE (09:06)
[2016-12-26] MEDS ORDERED: BUPIVACAINE 0.5% 30 ML (SENSORCAINE) VIAL ONE (09:06)
[2016-12-26] MEDS ORDERED: LACTATED RINGERS 1,000 ML IV ONE ×2 (09:07→10:36)
[2016-12-26] MEDS ORDERED: SEVOFLURANE (ULTANE) 15 ML INHAL SOLN ONE ×5 (09:07→10:36)
[2016-12-26] MEDS ORDERED: PHENYLEPHRINE 100 MCG/ML 10 ML (ANESTHESIA) SYR ONE (09:47)
[2016-12-26] MEDS ORDERED: NEOSTIGMINE (BLOXIVERZ ) 1 MG/1ML 10 ML VIAL ONE (10:36)
[2016-12-26] MEDS ORDERED: GLYCOPYRROLATE 0.2 MG/ML (ROBINUL) 2 ML VIAL ONE (10:36)
[2016-12-26] MEDS ORDERED: ONDANSETRON 4 MG/2 ML (SDV) Z0FRAN IVP PRN (11:00)
[2016-12-26] MEDS ORDERED: fentaNYL INJECTION 100 MCG/2 ML AMP IVP PRN (11:00)
[2016-12-26] MEDS: morphine INJ 10 MG/ML 1ML (SYR OR VIAL) IVP PRN ×2 (11:15→11:20)
[2016-12-26 11:50] VITALS: BP 154/91
[2016-12-26 12:20] VITALS: BP 153/95
[2016-12-26 12:50] VITALS: BP 155/93
--- NOTE | 2016-12-26 13:11 | OPERATIVE REPORT ---
PROCEDURE PHYSICIAN: CARLOS EDUARDO JOSEPH DATE OF PROCEDURE: PREOPERATIVE DIAGNOSES: 1. Left shoulder SLAP tear. 2. Left shoulder rotator cuff tear. POSTOPERATIVE DIAGNOSES: 1. Left shoulder SLAP tear. 2. Left shoulder rotator cuff tear. 3. Left shoulder labral tear. PROCEDURE: 1. Left shoulder arthroscopic-assisted biceps tenodesis. 2. Left shoulder arthroscopic labral debridement. SURGEON: Dr. Joseph. COLOR DRUM WORKER: None. ANESTHESIA: General endotracheal by Melina Mariscal CRNA ESTIMATED BLOOD LOSS: Minimal. DRAINS: None. COMPLICATIONS: None. POSTOPERATIVE PLAN: Sling wear for 2 weeks with passive range of motion followed by active range of motion at week 3. The patient was transported to the recovery room, awake, in stable condition. STATEMENT OF MEDICAL NECESSITY: The patient is a 66-year-old, [id number] gentleman with complaints of left shoulder pain, worse with overhead activities. He had a positive [place]'s maneuver, pain with apprehension and also a positive Neer and positive Mohan sign. It is felt that the patient likely had a SLAP tear with probable rotator cuff tear and due to functional impairment, the patient elected to proceed with surgical intervention. Examination under anesthesia revealed forward elevation of 170 degrees, external rotation 90 degrees and internal rotation 70 degrees. Arthroscopic findings demonstrated a type II SLAP tear with a longitudinal split of the biceps into the bicipital groove with 50% detachment. In addition, there was an anterior labral tear at the 9 o'clock position, but no further detachment of the capsule labral complex. The glenoid and humeral head demonstrated no gross chondral abnormalities. The rotator cuff was intact throughout. PROCEDURE: After risks and benefits of the procedure were discussed and questions were answered, an informed consent was signed and placed on the chart. The operative site was confirmed in the preoperative holding and initialed by the surgeon. The patient was then transported to the operating room and after adequate levels of general endotracheal anesthetic were seen at obtained, a timeout was called confirming the operative site. Examination under anesthesia was performed with the above findings noted. The left shoulder and upper extremity were prepped and draped usual sterile fashion. The shoulder joint was injected 20 mL of fluid and a standard posterior portal was placed under direct visualization. Anterior portal was created in the interval between biceps subscapularis and glenoid. The biceps anchor was released and the stump was debrided with a shaver. The anterior labral flap was debrided with a shaver, back to a stable edge as well. The shoulder joint was then copiously irrigated. The portal sites were closed with 4-0 nylon in simple interrupted fashion. A longitudinal incision was then made just distal to the pectoralis major insertion on the upper medial aspect of the arm. The underlying soft tissues were carefully dissected. The long head of the biceps was identified and pulled into the wound. This was then whipstitch from the musculotendinous approximately 2.5 cm proximally. A unicortical drill hole was then made just distal to the pectoralis in the bicipital groove. The suture ends were passed through the endo-button device which was then passed unicortically and flipped. This brought the biceps to the cortical surface. This was then oversewn on itself. The excessive tendon was excised. The elbow was taken through range of motion as was the shoulder and the repair was found to be stable. The wound was copiously irrigated and closed with 4-0 nylon in running, alternating horizontal mattress fashion. The incisions were infiltrated with plain Marcaine. The shoulder joint was injected with Duramorph. A soft dressing and sling were applied. The patient was transported to the recovery room, awake, in stable condition. Job ID: [id number] Dictated Date: 12/26/2016 10:48:33 Head Housekeeper Date: 12/26/2016 12:47:22 / clint
--- NOTE | 2016-12-27 09:25 | HISTORY AND PHYSICAL ---
DATE OF SERVICE: 12/21/2016 REASON FOR ADMISSION: Outpatient surgery on November 2016 for left shoulder arthroscopy with rotator cuff repair, biceps tenodesis. HISTORY OF PRESENT ILLNESS: The patient is a 66-year-old right-hand dominant gentleman with complaints of longstanding progressive left shoulder pain. He reports for several year history of progressively worsening pain and weakness. He reports pain with overhead activities. He denies paresthesias, but does reports some night pain at times. He reports night pain began after his shoulder pain by several years. He reports marked activity limitations because of the shoulder and due to progressive symptoms and failure to improve with conservative measures and because of functional impairment, the patient has elected to proceed with surgical intervention. REVIEW OF SYSTEMS: No chest pain. No shortness of breath. No dysuria. PAST MEDICAL HISTORY: Coronary artery disease, congestive heart failure. PAST SURGICAL HISTORY: Knee arthroscopy, coronary artery bypass, herniorrhaphy, tonsillectomy. FAMILY HISTORY: Ischemic heart disease, dementia. PRIMARY CARE PROVIDER: Sonia Montoya MD. ALLERGIES: No known drug allergies. SOCIAL HISTORY: The patient denies alcohol or tobacco use. RADIOGRAPHS: No acute or chronic changes of the left shoulder. PHYSICAL EXAMINATION: GENERAL: The patient is well-developed and well-nourished, in no acute distress. HEENT: Normocephalic, atraumatic. Pupils are equal, round and reactive to light. Oropharynx is clear. NECK: Supple with no lymphadenopathy. LUNGS: Clear to auscultation bilaterally. HEART: Regular rate and rhythm. ABDOMEN: Soft, nontender, and nondistended. EXTREMITIES: The left shoulder demonstrates no gross atrophy. He has negative Spurling's maneuver. No skin lesions are noted, active forward elevation of 170 degrees, but painful beyond 90. External rotation is 80 degrees. Internal rotation is to his upper lumbar spine. He has weakness with abduction and external rotation. He has a positive Gage's maneuver, mildly positive Neer's and positive Mohan sign. He is nontender over his acromioclavicular joint and has no pain with cross-body adduction. IMPRESSION: Left shoulder rotator cuff tear and superior labral anterior posterior tear. PLAN: Right shoulder arthroscopy, biceps tenodesis and rotator cuff repair. The risks, benefits, options, ramifications, and recovery have been discussed at length with the patient. He understands and wishes to proceed. Job ID: [id number] DocumentID: [id number] Dictated Date: 12/11/2016 09:36:50 Land Planner Date: 12/11/2016 11:23:25 Dictated By: CARLOS EDUARDO JOSEPH MD <Dictated by CARLOS EDUARDO JOSEPH MD> <Electronically signed by CARLOS EDUARDO JOSEPH MD> 12/13/16 1935
== END 2016-12-26 13:15 | disposition home or self-care (01) ==
LOC: SDC 07:25
PROVIDERS: ATTEND Orthopaedic Surgery
DX: M75.102 Unspecified rotator cuff tear or rupture of left shoulder, not specified as traumatic (principal); S43.432A Superior glenoid labrum lesion of left shoulder, initial encounter; I50.9 Heart failure, unspecified; I25.10 Atherosclerotic heart disease of native coronary artery without angina pectoris; Z95.1 Presence of aortocoronary bypass graft; Z79.899 Other long term (current) drug therapy; Z87.891 Personal history of nicotine dependence; K21.9 Gastro-esophageal reflux disease without esophagitis

== ENCOUNTER 2016-12-31 10:07 | Outpatient (RCR) | payer BC ==
[2016-09-24 11:08] LABS: INR 3.8 (0.8-1.4); PROTHROMBIN TIME PATIENT 37.7 SEC (12.2-14.7)
[2016-10-22 10:18] LABS: INR 4.6 (0.8-1.4); PROTHROMBIN TIME PATIENT 43.8 SEC (12.2-14.7)
[2016-10-30 09:35] LABS: INR 2.3 (0.8-1.4); PROTHROMBIN TIME PATIENT 25.3 SEC (12.2-14.7)
[2016-11-23 10:03] LABS: INR 3.4 (0.8-1.4); PROTHROMBIN TIME PATIENT 34.6 SEC (12.2-14.7)
[2016-12-28 09:45] LABS: PROTHROMBIN TIME PATIENT 13.3 SEC (12.2-14.7)
[~2016-12-31 10:07] MED LIST changes: +OXYC-197 PO
[2016-12-31 12:26] LABS: INR 2.2 (0.8-1.4); PROTHROMBIN TIME PATIENT 24.3 SEC (12.2-14.7)
== END 2017-01-20 | disposition home or self-care (01) ==
LOC: LAB 10:07
PROVIDERS: ATTEND Internal Medicine Cardiovascular Disease
DX: Z48.812 Encounter for surgical aftercare following surgery on the circulatory system (principal); Z95.2 Presence of prosthetic heart valve
CPT/HCPCS: 36415; 85610

== ENCOUNTER 2017-02-22 10:36 | Outpatient (RCR) | payer BC ==
[2017-01-23 10:10] LABS: INR 3.9 (0.8-1.4); PROTHROMBIN TIME PATIENT 38.2 SEC (12.2-14.7)
[2017-02-04 10:26] LABS: PROTHROMBIN TIME PATIENT 31.1 SEC (12.2-14.7)
[2017-02-22 11:04] LABS: INR 2.3 (0.8-1.4); PROTHROMBIN TIME PATIENT 25.4 SEC (12.2-14.7)
== END 2017-03-23 | disposition home or self-care (01) ==
LOC: LAB 10:36
PROVIDERS: ATTEND Internal Medicine Cardiovascular Disease
DX: Z48.812 Encounter for surgical aftercare following surgery on the circulatory system (principal); Z95.2 Presence of prosthetic heart valve
CPT/HCPCS: 36415; 85610

== ENCOUNTER → 2017-03-04 | Outpatient (CLI) | payer BC ==
--- NOTE | 2017-03-04 10:31 | Diagnostic Imaging Report ---
PROCEDURE: CT cervical spine without contrast. TECHNIQUE: Multiple contiguous axial images were obtained through the cervical spine without the use of intravenous contrast. Sagittal and coronal reformations were then performed. INDICATION: Left-sided neck pain. FINDINGS: There is straightening of cervical lordosis without listheses. There is no cervical fracture or facet dislocation. There is chronic Atherosclerotic carotid vascular calcifications greater left than right. The Visualized mastoid air cells clear. Skull base appeared intact. There was no cervical fracture or paravertebral hemorrhage. The craniocervical relationship to C1-C2 level appeared unremarkable. C2-C3: There is moderate right and mild left foraminal stenosis. The canal patent. C3-C4: There is mild biforaminal stenosis perhaps greater on the left. No substantial canal narrowing. C4-C5: Left greater than right facet arthrosis is present with moderate left and mild/ moderate right foraminal stenosis. No significant canal narrowing. C5-C6: There is mild canal stenosis with mild degrees of biforaminal narrowing relatively symmetric. C6-C7: There is mild canal stenosis with at least moderate severity right and mild/moderate left foraminal narrowing owing to uncovertebral joint spurring and disc material. C7-T1: Unremarkable. IMPRESSION: Marcus-cervical spondylosis, facet arthrosis, and uncovertebral joint spurring and hypertrophy result in multilevels of canal and foraminal encroachment as described. No fracture or acute bony abnormality. Dictated by: Dictated on workstation # [id number]
== END ==
LOC: RAD 08:09
PROVIDERS: ATTEND Nurse Practitioner
DX: M47.812 Spondylosis without myelopathy or radiculopathy, cervical region (principal); M48.02 Spinal stenosis, cervical region
CPT/HCPCS: 72125

== ENCOUNTER → 2017-03-15 | Outpatient (CLI) | payer BC ==
[~2017-03-15] MED LIST changes: +IOHEXOL 350 MG/ML 150 ML (OMNIPAQUE 350) VIAL IV ONE; +NS 100 ML (IVPB) BAG IV ONE
[2017-03-15 07:07] LABS: BLOOD UREA NITROGEN 28 MG/DL (7-18); BUN/CREATININE RATIO 26; CREATININE SERUM 1.07 MG/DL (0.60-1.30); GFR ESTIMATED > 60
--- NOTE | 2017-03-15 11:36 | Diagnostic Imaging Report ---
PROCEDURE: CT angiography of the chest with contrast. TECHNIQUE: Multiple contiguous axial images were obtained through the chest after uneventful bolus administration of intravenous contrast. Reconstructed CTA MIP acquisitions were also performed. INDICATION: Aortic dilatation. COMPARISON: I have no previous for comparison. FINDINGS: Apparent postsurgical changes to the aortic valve. Ascending aorta is dilated measuring 4.9 cm maximal. Root measures maximal transverse diameter 4.6 cm at its sinotubular junction. Previous sternotomy appears healed. There is tortuosity of the aortic arch with immediate post ductal arch measuring a diameter of 3 cm, the proximal descending thoracic aorta 3.6 cm. Descending aorta just above the hiatus is 2.5 cm. The descending aorta as well as its arch are very tortuous. No dissection, mural hemorrhage or vessel rupture. There is no pleural or mediastinal fluid. No pericardial effusion. No suspicious lung mass. There is some mild air trapping. No acute infiltrate. No thoracic adenopathy. Visualized upper abdomen reveals atherosclerotic upper abdominal aorta with no acute appearing abnormality. IMPRESSION: Aneurysmal dilatation of the ascending aorta. Ectasia and tortuosity of the descending aorta. No dissection, rupture or mural hemorrhage. Previous surgical changes with no acute chest wall pathology. Air trapping and COPD with no mass or infiltrate. No pleural or pericardial effusion. Dictated by: Dictated on workstation # [id number]
== END ==
LOC: RAD 06:37
PROVIDERS: ATTEND Internal Medicine Cardiovascular Disease
DX: I71.4 Abdominal aortic aneurysm, without rupture; J44.9 Chronic obstructive pulmonary disease, unspecified
CPT/HCPCS: 36415; 71275; 82565; 84520

== ENCOUNTER 2017-05-28 09:28 | Outpatient (RCR) | payer BC ==
[2017-03-26 11:11] LABS: INR 2.6 (0.8-1.4); PROTHROMBIN TIME PATIENT 27.5 SEC (12.2-14.7)
[2017-04-24 10:06] LABS: INR 3.1 (0.8-1.4); PROTHROMBIN TIME PATIENT 31.9 SEC (12.2-14.7)
[~2017-05-28 09:28] MED LIST changes: -IOHEXOL 350 MG/ML 150 ML (OMNIPAQUE 350) VIAL IV ONE; -NS 100 ML (IVPB) BAG IV ONE
[2017-05-28 09:46] LABS: INR 2.8 (0.8-1.4); PROTHROMBIN TIME PATIENT 29.2 SEC (12.2-14.7)
== END 2017-06-24 | disposition home or self-care (01) ==
LOC: LAB 09:28
PROVIDERS: ATTEND Internal Medicine Cardiovascular Disease
DX: Z48.812 Encounter for surgical aftercare following surgery on the circulatory system (principal); Z95.2 Presence of prosthetic heart valve
CPT/HCPCS: 36415; 85610

== ENCOUNTER 2017-08-20 10:50 | Outpatient (RCR) | payer BC ==
[2017-06-25 10:54] LABS: INR 3.4 (0.8-1.4); PROTHROMBIN TIME PATIENT 33.7 SEC (12.2-14.7)
[2017-07-29 16:48] LABS: INR 4.2 (0.8-1.4); PROTHROMBIN TIME PATIENT 39.9 SEC (12.2-14.7)
[~2017-08-20 10:50] MED LIST changes: +HYDR-34 PO; -HYDR-3816 PO
[2017-08-20 11:19] LABS: PROTHROMBIN TIME PATIENT 30.9 SEC (12.2-14.7)
== END 2017-09-23 | disposition home or self-care (01) ==
LOC: LAB 10:50
PROVIDERS: ATTEND Internal Medicine Cardiovascular Disease
DX: Z48.812 Encounter for surgical aftercare following surgery on the circulatory system (principal); Z95.2 Presence of prosthetic heart valve
CPT/HCPCS: 36415; 85610

== ENCOUNTER 2017-09-30 19:58 | Emergency (ER) | payer BC ==
[~2017-09-30] VITALS: Ht 177.8 cm; Wt 86.2 kg
--- OUTSIDE RECORDS SUMMARY | 2017-09-30 20:06 | XMS REPORT | Continuity of Care Document ---
Author Author [facility] Organization [facility] Address Unknown Phone Unavailable Allergies Active Description Code Type Severity Reaction Onset Reported/Identified Relationship to Patient Clinical Status Yes UNKNOWN ANTIBIOTIC UNKNOWN ANTIBIOTIC Drug Allergy Unknown N/A 2008 Yes No Known Allergies No Known Allergies Drug Allergy Unknown N/A 2015 Yes No Known Drug Allergies [id number] Drug Allergy Unknown N/A 12/17/2016 Medications There is no data. Problems Date Dx Coded Attending Type Code [...] FOLLOW-UP, OTHER SURGERY 01/20/2013 ALANA MCCURDY, PERLA P Ot V43.3 HEART VALVE REPLAC NEC 01/20/2013 ALANA MCCURDY, PERLA P Ot V67.09 SURGERY FOLLOW-UP, OTHER SURGERY 04/26/2013 ALANA MCCURDY, PERLA [place] Ot V43.3 HEART VALVE REPLAC NEC 04/26/2013 ALANA MCCURDY, PERLA P Ot V67.09 SURGERY FOLLOW-UP, OTHER SURGERY 07/09/2013 DEE ROLAND CRIME LABORATORY ANALYST Ot 327.23 OBSTRUCTIVE SLEEP APNEA (ADULT) (PEDIATR 07/09/2013 DEE ROLAND CRIME LABORATORY ANALYST Ot 401.9 HYPERTENSION NOS 07/26/2013 ALANA MCCURDY, PERLA [place] Ot V43.3 HEART VALVE REPLAC NEC 07/26/2013 ALANA MCCURDY, PERLA P Ot V67.09 SURGERY FOLLOW-UP, OTHER SURGERY 10/25/2013 ALANA MCCURDY, PERLA [place] Ot V43.3 HEART VALVE REPLAC NEC 10/25/2013 ALANA MCCURDY, PERLA P Ot V67.09 SURGERY FOLLOW-UP, OTHER SURGERY 02/23/2014 PERLA WARNER MD Ot V43.3 HEART VALVE REPLAC NEC 02/23/2014 ALANA MCUCRDY, PERLA P Ot V67.09 SURGERY FOLLOW-UP, OTHER [...] P Ot V67.09 01/19/2015 ALANA MCCURDY, PERLA Sheffield Ot V43.3 HEART VALVE REPLAC NEC 01/19/2015 [...] P Ot V43.3 03/10/2015 ALANA MCCURDY, PERLA P Ot V67.09 03/23/2015 ALANA MCCURDY, PERLA [place] Ot V43.3 HEART VALVE REPLAC NEC 03/23/2015 ALANA MCCURDY, PERLA P Ot V67.09 SURGERY FOLLOW-UP, OTHER SURGERY 03/30/2015 Ot 780.79 03/30/2015 Ot 414.00 03/30/2015 Ot V58.61 03/30/2015 Ot V58.69 03/30/2015 Ot V43.3 03/30/2015 Ot V67.09 03/30/2015 ALANA MCCURDY, PERLA [place] Ot V43.3 03/30/2015 ALANA MCCURDY, PERLA P [...] PROSTHETIC HEART VALVE 06/29/2015 ALANA MCCURDY, PERLA P Ot Z95.2 06/30/2015 ALANA MCCURDY, PERLA P Ot Z95.2 08/18/2015 ALANA MCCURDY, PERLA P Ot Z95.2 09/01/2015 ALANA MCCURDY, PERLA P Ot Z48.812 09/01/2015 ALANA MCCURDY, PERLA P Ot Z95.2 09/20/2015 ALANA MCCURDY, PERLA [place] Ot Z48.812 09/20/2015 ALANA MCCURDY, PERLA [place] Ot Z95.2 09/27/2015 ALANA MCCURDY, PERLA P Ot Z48.812 ENCNTR [...] ENCNTR FOR SURGICAL AFTCR FOLLOWING SURG 01/27/2016 ALANA MCCURDY, PERLA Sheffield Ot Z95.2 PRESENCE OF PROSTHETIC HEART VALVE 01/31/2016 ALANA MCCURDY, PERLA Sheffield Ot Z48.812 ENCNTR FOR SURGICAL AFTCR FOLLOWING SURG 01/31/2016 ALANA MCCURDY, PERLA Sheffield Ot Z95.2 PRESENCE OF PROSTHETIC HEART VALVE 03/10/2016 Ot 414.00 CORON ATHEROSCLER NOS TYPE VESSEL, NATIV 03/10/2016 Ot V58.61 ANTICOAGULANTS,LT,CURRENT USE 03/10/2016 Ot V58.69 OTH MED,LT, CURRENT USE 03/10/2016 Ot V43.3 HEART VALVE REPLAC NEC 03/10/2016 Ot V67.09 SURGERY FOLLOW-UP, OTHER SURGERY 03/10/2016 SILAS ALMENDAREZ MD Ot Z48.812 ENCNTR FOR SURGICAL AFTCR FOLLOWING SURG 03/10/2016 SILAS ALMENDAREZ MD Ot Z95.2 PRESENCE OF PROSTHETIC HEART VALVE 03/10/2016 PERLA WARNER MD Ot Z48.812 ENCNTR FOR SURGICAL AFTCR FOLLOWING SURG 03/10/2016 ALANA MCCURDY, PERLA Sheffield Ot Z95.2 PRESENCE OF PROSTHETIC HEART VALVE 03/10/2016 Ot V43.3 HEART VALVE REPLAC NEC 03/10/2016 Ot V67.09 SURGERY FOLLOW-UP, OTHER SURGERY 03/10/2016 Ot 414.00 CORON ATHEROSCLER NOS TYPE VESSEL, NATIV 03/10/2016 Ot V58.61 ANTICOAGULANTS,LT,CURRENT USE 03/10/2016 Ot V58.69 OTH MED,LT, CURRENT USE 03/10/2016 Ot V43.3 HEART VALVE REPLAC [...] Ot M70.22 OLECRANON BURSITIS, LEFT ELBOW 03/12/2016 MIREILLE MCCURDY, JACKIE Moscoso Ot Z79.01 MCC (CURRENT) USE OF ANTICOAGULANT 03/12/2016 MIREILLE MCCURDY, JACKIE Moscoso Ot Z87.891 PERSONAL HISTORY OF NICOTINE DEPENDENCE 03/12/2016 MIREILLE MCCURDY, JACKIE Moscoso Ot Z95.1 PRESENCE OF AORTOCORONARY BYPASS GRAFT 03/12/2016 MIREILLE MCCURDY, JACKIE Moscoso Ot Z95.2 PRESENCE OF PROSTHETIC HEART VALVE 03/12/2016 JACKIE KENDRICK MD Ot Z95.810 PRESENCE OF AUTOMATIC (IMPLANTABLE) CARD 04/02/2016 PERLA WARNER MD Ot Z48.812 ENCNTR FOR SURGICAL AFTCR FOLLOWING SURG 04/02/2016 PERLA WARNER MD Ot Z95.2 PRESENCE OF PROSTHETIC HEART VALVE 04/12/2016 ALANA MCCURDY, PERLA P Ot Z48.812 ENCNTR [...] ENCNTR FOR SURGICAL AFTCR FOLLOWING SURG 08/08/2016 ALANA MCCURDY, PERLA P Ot Z95.2 PRESENCE OF PROSTHETIC HEART VALVE 08/26/2016 ALANA MCCURDY, PERLA P Ot Z48.812 ENCNTR FOR SURGICAL AFTCR FOLLOWING SURG 08/26/2016 ALANA MCCURDY, PERLA P Ot Z95.2 PRESENCE [...] ENCNTR FOR SURGICAL AFTCR FOLLOWING SURG 10/29/2016 ALANA MCCURDY, PERLA [place] Ot Z95.2 PRESENCE OF PROSTHETIC HEART VALVE 11/08/2016 ALANA MCCURDY, PERLA [place] Ot Z48.812 ENCNTR FOR SURGICAL AFTCR FOLLOWING SURG 11/08/2016 ALANA MCCURDY, PERLA [place] Ot Z95.2 PRESENCE OF PROSTHETIC HEART VALVE 12/05/2016 ALANA MCCURDY, PERLA [place] Ot Z48.812 ENCNTR FOR SURGICAL AFTCR FOLLOWING SURG 12/05/2016 ALANA MCCURDY, PERLA [place] Ot Z95.2 PRESENCE OF PROSTHETIC HEART VALVE 12/17/2016 Ot V43.3 HEART VALVE REPLAC NEC 12/17/2016 Ot V67.09 SURGERY FOLLOW-UP, OTHER SURGERY 12/17/2016 DÍAZ DPJonas, LISA P Ot M20.11 HALLUX VALGUS (ACQUIRED), RIGHT FOOT 12/17/2016 DÍAZ DPM, LISA P Ot M20.41 OTHER HAMMER TOE(S) (ACQUIRED), RIGHT FO 12/17/2016 DÍAZ DPM, LISA P Ot Z01.818 ENCOUNTER FOR OTHER PREPROCEDURAL EXAMIN 12/17/2016 DÍAZ DPM, LISA P Ot Z11.2 ENCOUNTER FOR SCREENING FOR OTHER BACTER 12/18/2016 DÍAZ DPM, LISA P Ot M20.11 HALLUX VALGUS (ACQUIRED), RIGHT FOOT 12/18/2016 DÍAZ DPM, LISA P Ot M20.41 OTHER HAMMER TOE(S) (ACQUIRED), RIGHT FO 12/18/2016 DÍAZ DPM, LISA P Ot Z01.818 ENCOUNTER FOR OTHER PREPROCEDURAL EXAMIN 12/18/2016 DÍAZ DPM, LISA P Ot Z11.2 ENCOUNTER FOR SCREENING FOR OTHER BACTER 12/21/2016 DÍAZ DPM, LISA P Ot I25.10 ATHSCL HEART DISEASE OF [place] CORONARY 12/21/2016 DÍAZ DPM, LISA P Ot I50.9 HEART FAILURE, UNSPECIFIED 12/21/2016 DÍAZ DPM, LISA P Ot M20.11 HALLUX VALGUS (ACQUIRED), RIGHT FOOT 12/21/2016 DÍAZ DPM, LISA P Ot M25.774 OSTEOPHYTE, RIGHT FOOT 12/21/2016 DÍAZ DPM, LISA P Ot Z95.1 PRESENCE OF AORTOCORONARY BYPASS GRAFT 12/24/2016 ZACARLOS EDUARDO GALLO MD, Ot M75.102 UNSP ROTATR-CUFF TEAR/RUPTR OF LEFT SHOU 12/24/2016 CARLOS EDUARDO JOSEPH MD Ot M75.82 OTHER SHOULDER LESIONS, LEFT SHOULDER 12/24/2016 CARLOS EDUARDO JOSEPH MD, Ot Z01.818 ENCOUNTER FOR OTHER PREPROCEDURAL EXAMIN 12/24/2016 CARLOS EDUARDO JOSEPH MD, Ot Z11.2 ENCOUNTER FOR SCREENING FOR OTHER BACTER 12/24/2016 LISA DÍAZ DPM Ot I25.10 ATHSCL HEART DISEASE OF [place] CORONARY 12/24/2016 LISA DÍAZ DPM Ot I50.9 HEART FAILURE, UNSPECIFIED 12/24/2016 LISA DÍAZ DPM Ot M20.11 HALLUX VALGUS (ACQUIRED), RIGHT FOOT 12/24/2016 LISA DÍAZ DPM Ot M25.774 OSTEOPHYTE, RIGHT FOOT 12/24/2016 LISA DÍAZ DPM Ot Z95.1 PRESENCE OF AORTOCORONARY BYPASS GRAFT 12/26/2016 CARLOS EDUARDO JOSEPH MD Ot I25.10 ATHSCL HEART DISEASE OF [place] CORONARY 12/26/2016 CARLOS EDUARDO JOSEPH MD, Ot I50.9 HEART FAILURE, UNSPECIFIED 12/26/2016 CARLOS EDUARDO JOSEPH MD Ot K21.9 GASTRO-ESOPHAGEAL REFLUX DISEASE WITHOUT 12/26/2016 CARLOS EDUARDO JOSEPH MD, Ot M75.102 UNSP ROTATR-CUFF TEAR/RUPTR OF LEFT SHOU 12/26/2016 CARLOS EDUARDO JOSEPH MD Ot S43.432A SUPERIOR GLENOID LABRUM LESION OF LEFT S 12/26/2016 CARLOS EDUARDO JOSEPH MD Ot Z79.899 OTHER FLIGHT TEST MECHANIC (CURRENT) DRUG THERAPY 12/26/2016 CARLOS EDUARDO JOSEPH MD, Ot Z87.891 PERSONAL HISTORY OF NICOTINE DEPENDENCE 12/26/2016 CARLOS EDUARDO JOSEPH MD Ot Z95.1 PRESENCE OF AORTOCORONARY BYPASS GRAFT 12/27/2016 LISA DÍAZ DPM Ot I25.10 ATHSCL HEART DISEASE OF [place] CORONARY 12/27/2016 LISA DÍAZ DPM Ot I50.9 HEART FAILURE, UNSPECIFIED 12/27/2016 LISA DÍAZ DPM Ot M20.11 HALLUX VALGUS (ACQUIRED), RIGHT FOOT 12/27/2016 LISA DÍAZ DPM Ot M25.774 OSTEOPHYTE, RIGHT FOOT 12/27/2016 ARJUN NATION, LISA [place] Ot Z95.1 PRESENCE OF AORTOCORONARY BYPASS GRAFT 12/27/2016 CARLOS EDUARDO JOSEPH MD Ot I25.10 ATHSCL HEART DISEASE OF [place] CORONARY 12/27/2016 CARLOS EDUARDO JOSEPH MD, Ot I50.9 HEART FAILURE, UNSPECIFIED 12/27/2016 CARLOS EDUARDO JOSEPH MD Ot K21.9 GASTRO-ESOPHAGEAL REFLUX DISEASE WITHOUT 12/27/2016 CARLOS EDUARDO JOSEPH MD Ot M75.102 UNSP ROTATR-CUFF TEAR/RUPTR OF LEFT SHOU 12/27/2016 CARLOS EDUARDO JOSEPH MD Ot S43.432A SUPERIOR GLENOID LABRUM LESION OF LEFT S 12/27/2016 CARLOS EDUARDO JOSEPH MD Ot Z79.899 OTHER MCC (CURRENT) DRUG THERAPY 12/27/2016 CARLOS EDUARDO JOSEPH MD Ot Z87.891 PERSONAL HISTORY OF NICOTINE DEPENDENCE 12/27/2016 CARLOS EDUARDO JOSEPH MD Ot Z95.1 PRESENCE OF AORTOCORONARY BYPASS GRAFT 12/28/2016 CARLOS EDUARDO JOSEPH MD Ot I25.10 ATHSCL HEART DISEASE OF [place] CORONARY 12/28/2016 CARLOS EDUARDO JOSEPH MD, Ot I50.9 HEART FAILURE, UNSPECIFIED 12/28/2016 CARLOS EDUARDO JOSEPH MD, Ot K21.9 GASTRO-ESOPHAGEAL REFLUX DISEASE WITHOUT 12/28/2016 CARLOS EDUARDO JOSEPH MD Ot M75.102 UNSP ROTATR-CUFF TEAR/RUPTR OF LEFT SHOU 12/28/2016 CARLOS EDUARDO JOSEPH MD Ot S43.432A SUPERIOR GLENOID LABRUM LESION OF LEFT S 12/28/2016 CARLOS EDUARDO JOSEPH MD Ot Z79.899 OTHER MCC (CURRENT) DRUG THERAPY 12/28/2016 CARLOS EDUARDO JOSEPH MD Ot Z87.891 PERSONAL HISTORY OF NICOTINE DEPENDENCE 12/28/2016 CARLOS EDUARDO JOSEPH MD Ot Z95.1 PRESENCE OF AORTOCORONARY BYPASS GRAFT 01/20/2017 PERLA WARNER MD, Ot Z48.812 ENCNTR FOR SURGICAL AFTCR FOLLOWING SURG 01/20/2017 PERLA WARNER MD Ot Z95.2 PRESENCE OF PROSTHETIC HEART VALVE 01/23/2017 GALICHIA MD, PERLA P Ot Z48.812 ENCNTR FOR SURGICAL AFTCR FOLLOWING SURG 01/23/2017 PERLA WARNER MD Ot Z95.2 PRESENCE OF PROSTHETIC HEART VALVE 01/28/2017 ALANA MCCURDY, PERLA [place] Ot Z48.812 ENCNTR FOR SURGICAL AFTCR FOLLOWING SURG 01/28/2017 PERLA WARNER MD Ot Z95.2 PRESENCE OF PROSTHETIC HEART VALVE 02/27/2017 PERLA WARNER MD Ot Z48.812 ENCNTR FOR SURGICAL AFTCR FOLLOWING SURG 02/27/2017 PERLA WARNER MD Ot Z95.2 PRESENCE OF PROSTHETIC HEART VALVE 03/04/2017 Ot V43.3 HEART VALVE REPLAC NEC 03/04/2017 Ot V67.09 SURGERY FOLLOW-UP, OTHER SURGERY 03/04/2017 SILAS ALMENDAREZ MD, Ot Z48.812 ENCNTR FOR SURGICAL AFTCR FOLLOWING SURG 03/04/2017 SILAS ALMENDAREZ MD Ot Z95.2 PRESENCE OF PROSTHETIC HEART VALVE 03/04/2017 PERLA WARNER MD Ot Z48.812 ENCNTR FOR SURGICAL AFTCR FOLLOWING SURG 03/04/2017 ALANA MCCURDY, PERLA [place] Ot Z95.2 PRESENCE OF PROSTHETIC HEART VALVE 03/05/2017 DEE ROLANDP Ot M47.812 SPONDYLOSIS W/O MYELOPATHY OR RADICULOPA 03/05/2017 DEE ROLANDP Ot M48.02 SPINAL STENOSIS, CERVICAL REGION 03/06/2017 PERLA WARNER MD Ot Z48.812 ENCNTR FOR SURGICAL AFTCR FOLLOWING SURG 03/06/2017 PERLA WARNER MD Ot Z95.2 PRESENCE OF PROSTHETIC HEART VALVE 03/15/2017 Ot V43.3 HEART VALVE REPLAC NEC 03/15/2017 Ot V67.09 SURGERY FOLLOW-UP, OTHER SURGERY 03/15/2017 SILAS ALMENDAREZ MD, Ot Z48.812 ENCNTR FOR SURGICAL AFTCR FOLLOWING SURG 03/15/2017 SILAS ALMENDAREZ MD Ot Z95.2 PRESENCE OF PROSTHETIC HEART VALVE 03/15/2017 PERLA WARNER MD Ot Z48.812 ENCNTR FOR SURGICAL AFTCR FOLLOWING SURG 03/15/2017 PERLA WARNER MD Ot Z95.2 PRESENCE OF PROSTHETIC HEART VALVE 03/15/2017 DEE ROLANDP Ot M47.812 SPONDYLOSIS W/O MYELOPATHY OR RADICULOPA 03/15/2017 DEE ROLANDP Ot M48.02 SPINAL STENOSIS, CERVICAL REGION 03/20/2017 TANESHA MCCURDY, SILAS Araiza Ot I71.4 ABDOMINAL AORTIC ANEURYSM, WITHOUT RUPTU 03/20/2017 TANESHA MCCURDY, SILAS Araiza Ot J44.9 CHRONIC OBSTRUCTIVE PULMONARY DISEASE, U 03/20/2017 DEE ROLANDP Ot M47.812 SPONDYLOSIS W/O MYELOPATHY OR RADICULOPA 03/20/2017 DEE ROLANDP Ot M48.02 SPINAL STENOSIS, CERVICAL REGION 03/23/2017 PERLA WARNER MD Ot Z48.812 ENCNTR FOR SURGICAL AFTCR FOLLOWING SURG 03/23/2017 PERLA WARNER MD Ot Z95.2 PRESENCE OF PROSTHETIC HEART VALVE 03/27/2017 TANESHA MCCURDY, SILAS Araiza Ot I71.4 ABDOMINAL AORTIC ANEURYSM, WITHOUT RUPTU 03/27/2017 SILAS ALMENDAREZ MD, Ot J44.9 CHRONIC OBSTRUCTIVE PULMONARY DISEASE, U 05/10/2017 PERLA WARNER MD Ot Z48.812 ENCNTR FOR SURGICAL AFTCR FOLLOWING SURG 05/10/2017 PERLA WARNER MD Ot Z95.2 PRESENCE OF PROSTHETIC HEART VALVE 05/14/2017 PERLA WARNER MD Ot Z48.812 ENCNTR FOR SURGICAL AFTCR FOLLOWING SURG 05/14/2017 PERLA WARNER MD Ot Z95.2 PRESENCE OF PROSTHETIC HEART VALVE 05/23/2017 PERLA WARNER MD Ot Z48.812 ENCNTR FOR SURGICAL AFTCR FOLLOWING SURG 05/23/2017 PERLA WARNER MD Ot Z95.2 PRESENCE OF PROSTHETIC HEART VALVE 06/24/2017 PERLA WARNER MD Ot Z48.812 ENCNTR FOR SURGICAL AFTCR FOLLOWING SURG 06/24/2017 PERLA WARNER MD Ot Z95.2 PRESENCE OF PROSTHETIC HEART VALVE 08/02/2017 PERLA WARNER MD Ot Z48.812 ENCNTR FOR SURGICAL AFTCR FOLLOWING SURG 08/02/2017 PERLA WARNER MD Ot Z95.2 PRESENCE OF PROSTHETIC HEART VALVE 08/06/2017 PERLA WARNER MD Ot Z48.812 ENCNTR FOR SURGICAL AFTCR FOLLOWING SURG 08/06/2017 PERLA WARNER MD Ot Z95.2 PRESENCE OF PROSTHETIC HEART VALVE 08/14/2017 PERLA WARNER MD Ot Z48.812 ENCNTR FOR SURGICAL AFTCR FOLLOWING SURG 08/14/2017 PERLA WARNER MD Ot Z95.2 PRESENCE OF PROSTHETIC HEART VALVE 08/29/2017 DEE ROLAND CRIME LABORATORY ANALYST Ot M54.2 CERVICALGIA 09/24/2017 PERLA WARNER MD Ot Z48.812 ENCNTR FOR SURGICAL AFTCR FOLLOWING SURG 09/24/2017 PERLA WARNER MD Ot Z95.2 PRESENCE OF PROSTHETIC HEART VALVE 09/24/2017 PERLA WARNER MD Ot Z48.812 ENCNTR FOR SURGICAL AFTCR FOLLOWING SURG 09/24/2017 PERLA WARNER MD Ot Z95.2 PRESENCE OF PROSTHETIC HEART VALVE Procedures There is no data. Results Test Result Range PT panel in [...] - 03/10/16 11:38 Bacterial body fluid culture NG NRG Complete blood count (CBC) with automated white blood cell (WBC) differential - 03/10/16 11:44 Blood leukocytes automated count (number/volume) 6.1 10*3/uL 4.3-11.0 Blood erythrocytes automated count (number/volume) 3.87 10*6/uL 4.35-5.85 Venous blood hemoglobin measurement (mass/volume) 12.8 [...] Automated blood platelet mean volume measurement 10.6 [foz_us] 7.4-10.4 Automated blood neutrophils/100 leukocytes 65 % [...] Serum or plasma sodium measurement (moles/volume) 136 mmol/L 135-145 Serum or plasma potassium measurement (moles/volume) 4.0 mmol/L 3.6-5.0 Serum or plasma chloride measurement (moles/volume) 106 mmol/L 98-107 Carbon dioxide 19 mmol/L 21-32 Serum or plasma anion gap determination (moles/volume) 11 mmol/L 5-14 Serum or plasma urea nitrogen measurement (mass/volume) 20 mg/dL 7-18 Serum or plasma creatinine measurement (mass/volume) 1.31 mg/dL 0.60-1.30 Serum or plasma urea nitrogen/creatinine mass [...] - 03/10/16 12:00 Bacterial blood culture NG NRG PT panel in platelet poor plasma by [...] 4.00-6.00 RED CELL DISTRIBUTION WIDTH 12.5 % 11.0-15.6 WHITE BLOOD CELL 5.8 k/cumm 5.0-10.0 HEMOGLOBIN [...] Staphylococcus aureus (MRSA) screening culture NEG NRG PT panel in platelet poor plasma by coagulation assay - 12/21/16 06:25 Prothrombin time (PT) in platelet poor plasma by coagulation assay 12.8 s 12.2-14.7 INR in platelet poor plasma or blood by coagulation assay 1.0 0.8-1.4 Methicillin resistant Staphylococcus aureus (MRSA) screening culture - 08:46 Methicillin resistant Staphylococcus aureus (MRSA) screening culture NEG NRG PT panel in platelet poor plasma by coagulation assay - 12/28/16 09:30 Prothrombin time (PT) in platelet poor plasma by coagulation assay 13.3 s 12.2-14.7 INR in platelet poor plasma or blood by coagulation assay 1.0 0.8-1.4 PT panel in platelet poor plasma by coagulation assay - 12/31/16 10:11 Prothrombin time (PT) in platelet poor plasma by coagulation assay 24.3 s 12.2-14.7 INR in platelet poor plasma or blood by coagulation assay 2.2 0.8-1.4 PT panel in platelet poor plasma by coagulation assay - 01/23/17 09:55 Prothrombin time (PT) in platelet poor plasma by coagulation assay 38.2 s 12.2-14.7 INR in platelet poor plasma or blood by coagulation assay 3.9 0.8-1.4 PT panel in platelet poor plasma by coagulation assay - 02/04/17 10:09 Prothrombin time (PT) in platelet poor plasma by coagulation assay 31.1 s 12.2-14.7 INR in platelet poor plasma or blood by coagulation assay 3.0 0.8-1.4 PT panel in platelet poor plasma by coagulation assay - 02/22/17 10:41 Prothrombin time (PT) in platelet poor plasma by coagulation assay 25.4 s 12.2-14.7 INR in platelet poor plasma or blood by coagulation assay 2.3 0.8-1.4 [id number] - 03/15/17 06:48 Serum or plasma urea nitrogen measurement (mass/volume) 28 mg/dL 7-18 Serum or plasma creatinine measurement (mass/volume) 1.07 mg/dL 0.60-1.30 Serum or plasma urea nitrogen/creatinine mass ratio 26 NRG Serum or plasma creatinine measurement with calculation of estimated glomerular filtration rate > NRG PT panel in platelet poor plasma by coagulation assay - 03/26/17 10:50 Prothrombin time (PT) in platelet poor plasma by coagulation assay 27.5 s 12.2-14.7 INR in platelet poor plasma or blood by coagulation assay 2.6 0.8-1.4 PT panel in platelet poor plasma by coagulation assay - 04/24/17 09:52 Prothrombin time (PT) in platelet poor plasma by coagulation assay 31.9 s 12.2-14.7 INR in platelet poor plasma or blood by coagulation assay 3.1 0.8-1.4 PT panel in platelet poor plasma by coagulation assay - 05/28/17 09:31 Prothrombin time (PT) in platelet poor plasma by coagulation assay 29.2 s 12.2-14.7 INR in platelet poor plasma or blood by coagulation assay 2.8 0.8-1.4 PT panel in platelet poor plasma by coagulation assay - 06/25/17 10:32 Prothrombin time (PT) in platelet poor plasma by coagulation assay 33.7 s 12.2-14.7 INR in platelet poor plasma or blood by coagulation assay 3.4 0.8-1.4 PT panel in platelet poor plasma by coagulation assay - 08/20/17 10:46 Prothrombin time (PT) in platelet poor plasma by coagulation assay 30.9 s 12.2-14.7 INR in platelet poor plasma or blood by coagulation assay 3.0 0.8-1.4 PT panel in platelet poor plasma by coagulation assay - 09/24/17 10:46 Prothrombin time (PT) in platelet poor plasma by coagulation assay 27.6 s 12.2-14.7 INR in platelet poor plasma or blood by coagulation assay 2.6 0.8-1.4 Encounters ACCT No. Visit Date/Time Discharge Status Pt. Type Provider Facility Loc./Unit Complaint [id number] 09/26/2017 08:39:00 09/26/2017 23:59:59 CLS Outpatient DEE ROLAND [facility] REHAB CHRONIC NECK PAIN [id number] 09/24/2017 10:47:00 09/24/2017 23:59:59 CLS Outpatient PERLA WARNER MD [facility] LAB HEART VALVE REPLACEMENT [id number] 08/20/2017 10:50:00 09/23/2017 00:01:00 DIS Outpatient PERLA WARNER MD [facility] LAB HEART VALVE REPLACEMENT [id number] 05/28/2017 09:28:00 06/24/2017 00:01:00 DIS Outpatient PERLA WARNER MD [facility] LAB HEART VALVE REPLACEMENT [id number] 02/22/2017 10:36:00 03/23/2017 00:01:00 DIS Outpatient PERLA WARNER MD [facility] LAB HEART VALVE REPLACEMENT [id number] 03/15/2017 06:37:00 03/15/2017 23:59:59 CLS Outpatient SILAS ALMENDAREZ MD [facility] RAD DILATED ASCENDING AORTA [id number] 03/04/2017 08:09:00 03/04/2017 23:59:59 CLS Outpatient DEE ROLAND [facility] RAD DEGENERATIVE DISC DISEASE CERVICAL SPINE [id number] 12/31/2016 10:07:00 12/31/2016 23:59:59 CLS Outpatient PERLA WARNER MD [facility] LAB HEART VALVE REPLACEMENT [id number] 12/26/2016 07:25:00 12/26/2016 13:15:00 DIS Outpatient CARLOS EDUARDO JOSEPH MD [facility] LT. SHOULDER TORN ROTATOR CUFF AND TORN LABRUM [id number] 12/24/2016 05:50:00 12/24/2016 08:50:00 DIS Outpatient CARLOS EDUARDO JOSEPH MD [facility] PREOP LT.SHOULDER ROTATOR CUFF [id number] 12/21/2016 06:00:00 12/21/2016 10:25:00 DIS Outpatient LISA DÍAZ DPM [facility] HALLUX VALGUS DEFORMITY [id number] 12/17/2016 10:28:00 12/17/2016 11:10:00 DIS Outpatient LISA DÍAZ DPM [facility] PREOP HALLUX VALGUS DEFORMITY, [place] RIGHT FOOT [id number] 08/23/2016 11:29:00 08/26/2016 00:01:00 DIS Outpatient PERLA WARNER MD [facility] HEART VALVE REPLACEMENT [id number] 04/24/2016 14:45:00 05/23/2016 00:01:00 DIS Outpatient PERLA WARNER MD [facility] HEART VALVE REPLACEMENT [id number] 03/10/2016 12:21:00 03/12/2016 14:35:00 DIS Inpatient MIREILLE MCCURDY, JACKIE Moscoso [facility] 4TH CELLULITIS L ELBOW [id number] 01/23/2016 11:11:00 01/31/2016 00:01:00 DIS Outpatient PERLA WARNER MD [facility] HEART VALVE REPLACEMENT [id number] 11/08/2015 11:12:00 11/08/2015 23:59:59 CLS Outpatient SILAS ALMENDAREZ MD [facility] LAB AV REPLACEMENT [id number] 09/27/2015 11:09:00 09/27/2015 00:01:00 DIS Outpatient PERLA WARNER MD [facility] HEART VALVE REPLACEMENT [id number] 04/25/2015 11:21:00 06/28/2015 00:01:00 DIS Outpatient PERLA WARNER MD [facility] LAB HEART VALVE REPLACEMENT [id number] 02/22/2015 14:17:00 03/23/2015 00:01:00 DIS Outpatient PERLA WARNER MD [facility] LAB HEART VALVE REPLACEMENT [id number] 12/22/2014 11:01:00 01/19/2015 00:01:00 DIS Outpatient PERLA WARNER MD [facility] HEART VALVE REPLACEMENT [id number] 08/23/2014 11:21:00 09/27/2014 00:01:00 DIS Outpatient PERLA WARNER MD [facility] HEART VALVE REPLACEMENT [id number] 05/24/2014 15:07:00 05/25/2014 00:01:00 DIS Outpatient PERLA WARNER MD [facility] HEART VALVE REPLACEMENT [id number] 02/08/2014 11:40:00 02/23/2014 00:01:00 DIS Outpatient PERLA WARNER MD [facility] HEART VALVE REPLACEMENT [id number] 09/24/2013 10:35:00 10/25/2013 00:01:00 DIS Outpatient PERLA WARNER MD [facility] HEART VALVE REPLACEMENT [id number] 06/25/2013 11:57:00 07/26/2013 00:01:00 DIS Outpatient PERLA WARNER MD [facility] HEART VALVE REPLACEMENT [id number] 07/08/2013 20:42:00 07/09/2013 05:20:00 DIS Outpatient DEE ROLAND [facility] SLEEP SNORING,HTN [id number] 03/30/2013 10:38:00 04/26/2013 00:01:00 DIS Outpatient PERLA WARNER MD [facility] LAB HEART VALVE REPLACEMENT [id number] 12/24/2012 10:07:00 01/20/2013 00:01:00 DIS Outpatient PERLA WARNER MD [facility] HEART VALVE REPLACEMENT [id number] 03/30/2015 15:13:00 Document Registration [id number] 02/24/2014 00:00:00 Document Registration [id number] 09/23/2012 09:29:00 Document Registration [id number] 05/28/2012 09:50:00 Document Registration [id number] 02/27/2012 10:02:00 Document Registration [id number] 08/27/2011 10:41:00 Document Registration [id number] 04/24/2011 14:01:00 Document Registration [id number] 02/05/2011 10:37:00 Document Registration [id number] 11/16/2010 07:49:00 Document Registration [id number] 10/26/2010 10:25:00 Document Registration [id number] 06/30/2010 11:17:00 Document Registration [id number] 06/30/2010 11:03:00 Document Registration [id number] 03/27/2010 14:22:00 Document Registration [id number] 12/23/2009 10:17:00 Document Registration [id number] 03/30/2015 15:12:58 ACT Document Registration [id number] 05/29/2016 12:56:00 05/30/2016 07:22:00 DIS Outpatient Josesito MCCURDY, Jackie Anderson [facility] & JOSÉ LUIS NICHOLAS
--- NOTE | 2017-09-30 20:43 | ED General ---
General Chief Complaint: Lower Extremity Stated Complaint: L ANKLE SWELLING Nursing Triage Note: PATIENT STATES THAT TODAY AT 3PM HE STARTED HAVING PAIN AND SWELLING IN HIS LEFT LOWER LEG/ANKLE. Nursing Sepsis Screen: No Definite Risk Source of Information: Patient, Family, Spouse Exam Limitations: No Limitations History of Present Illness Date Seen by Provider: Sep 30, 2017 Time Seen by Provider: 20:42 Initial Comments 66 yo male patient presents to the ED in transfer from [facility]. Report received from Jimy Kulkarni APRN. Patient reports having sudden onset of LLE swelling, pain and claudications today at 1500. Patient is on Coumadin for a prosthetic heart valve. INR at [facility] noted to be 3.5. Timing/Duration: Other (1500 today) Modifying Factors: worse with Other (worse with ambulation.) Allergies and Home Medications Allergies Coded Allergies: No Known Drug Allergies (Unverified , 12/17/16) Home Medications Ascorbate Calcium 500 Mg Tablet, 500 MG PO DAILY, (Reported) Cyanocobalamin (Vitamin B-12) 1,000 Mcg Tablet, 1,000 MCG PO DAILY, (Reported) Digoxin 250 Mcg Tablet, 250 MCG PO DAILY, (Reported) Fenofibrate Nanocrystallized 145 Mg Tablet, 145 MG PO HS, (Reported) Gabapentin 100 Mg Capsule, 100 MG PO HS, (Reported) Loratadine 10 Mg Tablet, 10 MG PO DAILY, (Reported) Losartan Potassium 50 Mg Tablet, 50 MG PO DAILY, (Reported) Multivitamin 1 Each Tablet, 1 TAB PO DAILY, (Reported) Nebivolol HCl 5 Mg Tablet, 5 MG PO DAILY, (Reported) [place]-3/Dha/Epa/Fish Oil 1 Each Capsule.dr, 4,200 MG PO DAILY, (Reported) TAKES 3 (1400MG) CAPSULES Omeprazole Magnesium 20 Mg Tablet.dr, 20 MG PO DAILY, (Reported) Oxycodone HCl/Acetaminophen 1 Each Tablet, 1 EACH PO Q4H Prescribed by: CARLOS EDUARDO JOSEPH on 12/26/16 0735 Oxycodone HCl/Acetaminophen 1 Each Tablet, 1 EACH PO Q4H PRN for pain Prescribed by: PATRICK LEPE on 09/30/17 3707 Sertraline HCl 50 Mg Tablet, 50 MG PO HS, (Reported) [[place]] , 1 TAB PO DAILY, (Reported) Patient Home Medication List Home Medication List Reviewed: Yes Review of Systems Constitutional: no symptoms reported Respiratory: No cough, No dyspnea on exertion, No orthopnea, No short of breath Cardiovascular: No chest pain, edema, No palpitations, No syncope, other ((+) claudication.) Gastrointestinal: no symptoms reported Genitourinary: no symptoms reported Musculoskeletal: see HPI, other (LLE swelling and pain. ) Skin: no symptoms reported Psychiatric/Neurological: No Symptoms Reported All Other Systems Reviewed Negative Unless Noted: Yes (Negative excepted noted.) Past [id number] Hx Patient Social History Type Used: Cigarettes Former Smoker, Quit: Aug 23, 1991 Recent Foreign Travel: No Contact w/Someone Who Travel: No Recent Infectious Disease Expo: No Recent Hopitalizations: No Immunizations Up To Date Tetanus Booster (TDap): Unknown Date of Pneumonia Vaccine: Dec 18, 2011 Date of Influenza Vaccine: Apr 02, 2016 Seasonal Allergies Seasonal Allergies: No Past Medical History Surgeries: Yes (heart valve replacement) Adenoidectomy, CABG, Tonsillectomy Respiratory: Yes Sleep Apnea Cardiac: Yes Coronary Artery Disease, Heart Attack, Hypertension, Valvular Heart Disease Neurological: No Reproductive Disorders: No Sexually Transmitted Disease: No HIV/AIDS: No Genitourinary: No Gastrointestinal: Yes Gastroesophageal Reflux, Chronic Diarrhea, Irritable Bowel Musculoskeletal: Yes Arthritis Endocrine: No Loss of Vision: Bilateral Hearing Impairment: Denies Cancer: No Psychosocial: Yes Anxiety Integumentary: No Adverse Reaction/Blood Tranf: No (N/A) Family Medical History Reviewed and Corrections made FH: heart disease 19 FATHER ( in 1989 ) FH: stroke 19 FATHER, Onset:40's - 50 Myocardial infarction 19 FATHER, Onset:60 years & older Physical Exam Vital Signs Vital Signs - First Documented 09/30/17 20:29 Temp 98.0 Pulse 90 Resp 18 B/P (MAP) 0/0 (0) Pulse Ox 98 Capillary Refill : Less Than 3 Seconds General Appearance: No Apparent Distress, WD/WN HEENT: PERRL/EOMI, Pharynx Normal Neck: Normal Inspection, Supple Respiratory: Lungs Clear, Normal Breath Sounds, No Accessory Muscle Use, No Respiratory Distress Cardiovascular: Regular Rate, Rhythm, No Murmur Gastrointestinal: Normal Bowel Sounds, No Organomegaly, Non Tender, Soft Back: Normal Inspection Extremity: Normal Capillary Refill, Non Tender, No Calf Tenderness, Pedal Edema (LLE swelling. left dorsalis pedis and posterior tibialis pulses 1+.) Neurologic/Psychiatric: Alert, Oriented x3, No Motor/Sensory Deficits, Normal Mood/Affect Skin: Normal Color, Warm/Dry Progress/Results/Core Measures Suspected Sepsis Recent Fever Within 48 Hours: No Infection Criteria Present: None New/Unexplained Altered Menta: No Sepsis Screen: No Definite Risk Sepsis Diagnosis: SIRS Temperature:98.0 Pulse: 90 Respiratory Rate: 18 Laboratory Tests 09/30/17 21:30: White Blood Count 9.1 Blood Pressure 0 /0 Mean: 0 Laboratory Tests 09/30/17 21:30: Creatinine 1.18, Platelet Count 207, Total Bilirubin 0.8 Results/Orders Lab Results Laboratory Tests Test 09/30/17 21:30 Range/Units White Blood Count 9.1 4.3-11.0 10^3/uL Red Blood Count 4.20 L 4.35-5.85 10^6/uL Hemoglobin 13.8 13.3-17.7 G/DL Hematocrit 38 L 40-54 % Mean Corpuscular Volume 91 80-99 FL Mean Corpuscular Hemoglobin 33 25-34 PG Mean Corpuscular Hemoglobin Concent 36 32-36 G/DL Red Cell Distribution Width 12.8 10.0-14.5 % Platelet Count 207 130-400 10^3/uL Mean Platelet Volume 10.2 7.4-10.4 FL Neutrophils (%) (Auto) 59 42-75 % Lymphocytes (%) (Auto) 28 12-44 % Monocytes (%) (Auto) 11 0-12 % Eosinophils (%) (Auto) 2 0-10 % Basophils (%) (Auto) 0 0-10 % Neutrophils # (Auto) 5.4 1.8-7.8 X 10^3 Lymphocytes # (Auto) 2.6 1.0-4.0 X 10^3 Monocytes # (Auto) 1.0 0.0-1.0 X 10^3 Eosinophils # (Auto) 0.2 0.0-0.3 10^3/uL Basophils # (Auto) 0.0 0.0-0.1 10^3/uL Erythrocyte Sedimentation Rate 6 0-30 MM/HR D-Dimer 0.31 0.00-0.49 UG/ML Sodium Level 140 135-145 MMOL/L Potassium Level 3.8 3.6-5.0 MMOL/L Chloride Level 103 98-107 MMOL/L Carbon Dioxide Level 27 21-32 MMOL/L Anion Gap 10 5-14 MMOL/L Blood Urea Nitrogen 24 H 7-18 MG/DL Creatinine 1.18 0.60-1.30 MG/DL Estimat Glomerular Filtration Rate > 60 BUN/Creatinine Ratio 20 Glucose Level 96 70-105 MG/DL Uric Acid 4.9 2.6-7.2 MG/DL Calcium Level 9.5 8.5-10.1 MG/DL Total Bilirubin 0.8 0.1-1.0 MG/DL Aspartate Amino Transf (AST/SGOT) 37 H 5-34 U/L Alanine Aminotransferase (ALT/SGPT) 53 0-55 U/L Alkaline Phosphatase 51 40-136 U/L C-Reactive Protein High Sensitivity 0.24 0.00-0.50 MG/DL Total Protein 7.5 6.4-8.2 GM/DL Albumin 4.6 H 3.2-4.5 GM/DL My Orders Orders - PATRICK LEPE Us Venous Lower Ext Lt (09/30/17 20:12) Saline Lock/Iv-Start (09/30/17 21:24) Cbc With Automated Diff (09/30/17 21:24) Comprehensive Metabolic Panel (09/30/17 21:24) Hs C Reactive Protein (09/30/17 21:24) Fibrin Degradation Products (09/30/17 21:24) Erythrocyte Sedimentation Rate (09/30/17 21:24) Tibia/Fibula, Left, 2 Views (09/30/17 21:24) Foot, Left, 3 Views (09/30/17 21:24) Ketorolac Injection (Toradol Injection) (09/30/17 21:24) Uric Acid (09/30/17 21:58) Rx-Oxycodone/Apap 5-325 Mg (Rx-Percocet (09/30/17 23:45) Morphine Injection (Morphine Injection (09/30/17 23:44) Medications Given in ED Current Medications Medications Dose Ordered Sig/Cassandra Route Start Time Stop Time Status Last Admin Dose Admin Oxycodone/ Acetaminophen 1 ea Q4H PRN PO 09/30/17 23:45 10/01/17 00:00 DC 09/30/17 23:53 1 EA Vital Signs/I&O 09/30/17 10/01/17 20:29 00:00 Temp 98.0 98.0 Pulse 90 90 Resp 18 18 B/P (MAP) 0/0 (0) 0/0 (0) Pulse Ox 98 98 Capillary Refill : Less Than 3 Seconds Blood Pressure Mean: 0 Diagnostic Imaging Diagonstic Imaging: Ultrasound Plain Films/CT/US/NM/MRI: leg Comments US VENOUS LOWER EXT LT EXAMINATION: Left lower extremity venous Doppler dated . TECHNIQUE: Multiple real-time grayscale images were obtained over the left lower extremity in various projections. Additional duplex Doppler and color Doppler images were also obtained. INDICATION: Left ankle swelling. FINDINGS: There is no evidence for deep vein thrombosis with normal compressibility, augmentation and spontaneity of all visualized venous structures. IMPRESSION: 1. No evidence for deep vein thrombosis. Dictated by: Dictated on workstation # [id number] Reviewed: Reviewed by Me (radiology report reviewed by me) Diagonstic Imaging: Xray Plain Films/CT/US/NM/MRI: leg Comments FINDINGS: Four views of the tibia and fibula demonstrate postoperative changes with clips noted and atherosclerotic disease, as well. The osseous structures are well aligned. Densities anterior and posterior to the distal tibia are likely chronic as they appear well-corticated. No acute fractures or dislocations appreciated IMPRESSION: 1. Chronic change. No acute osseous abnormality. Dictated by: Dictated on workstation # [id number] Reviewed: Reviewed by Me (radiology report reviewed by me) Diagonstic Imaging: Xray Plain Films/CT/US/NM/MRI: other (foot) Comments negative for acute bony abnormality. Reviewed: Reviewed by Me (radiology report reviewed by me) Departure Communication (Admissions) Patient seen and evaluated. [facility] records reviewed. Patient is noted to be negative for DVT. Patient does have a h/o PVD. Patient now states he did have 1 episode of his left 1st and 2nd toes looking "a little purple". States it only lasted a couple of minutes. Patient's LLE is pink, warm, with a <3 sec capillary refill. Plan for discharge to home with follow- up tomorrow morning at Dr. Gross's office. Patient will contact Dr. Gross first thing in the morning for appointment time. Patient case discussed with Dr. Danielson, he agrees with the plan of care. Impression Primary Impression: Claudication of left lower extremity Additional Impression: Peripheral vascular disease Disposition: 01 HOME, SELF-CARE Condition: Improved Departure-Patient Inst. Decision time for Depature: 22:53 Referrals: NO,LOCAL PHYSICIAN (PCP) Primary Care Physician DEE ROLAND (Family) Primary Care Physician Patient Instructions: Peripheral Vascular (Arterial) Disease (DC) Add. Discharge Instructions: All discharge instructions reviewed with patient and/or family. Voiced understanding. Medications as instructed. Continue usual medications. Elevate the left lower extremity on pillows above the level of the heart. Follow-up with Dr. Ginny Gil for further evaluation and management. Call his office first thing in the morning for appointment time. Return to the emergency department immediately for worsened symptoms, increased pain, discoloration of the foot, swelling, chest pain, shortness of air, dizziness, or any other concerns. Scripts Oxycodone HCl/Acetaminophen (Oxycodone-Acetaminophen 10-325) 1 Each Tablet 1 EACH PO Q4H Y for pain, #20 TAB 0 Refills Prov: PATRICK LEPE 09/30/17 PATRICK LEPE Sep 30, 2017 20:43
--- NOTE | 2017-09-30 21:05 | Diagnostic Imaging Report ---
EXAMINATION: Left lower extremity venous Doppler dated 09/30/2017. TECHNIQUE: Multiple real-time grayscale images were obtained over the left lower extremity in various projections. Additional duplex Doppler and color Doppler images were also obtained. INDICATION: Left ankle swelling. FINDINGS: There is no evidence for deep vein thrombosis with normal compressibility, augmentation and spontaneity of all visualized venous structures. IMPRESSION: 1. No evidence for deep vein thrombosis. Dictated by: Dictated on workstation # [id number]
[2017-09-30] MEDS ORDERED: KETOROLAC 30 MG/ML VIAL IVP STA (21:24)
[2017-09-30 21:40] LABS: BASOPHILS % (AUTO) 0 % (0-10); EOSINOPHILS # (AUTO) 0.2 10^3/uL (0.0-0.3); EOSINOPHILS % (AUTO) 2 % (0-10); HEMATOCRIT 38 % (40-54); HEMOGLOBIN 13.8 G/DL (13.3-17.7); LYMPHOCYTES # (AUTO) 2.6 X 10^3 (1.0-4.0); LYMPHOCYTES % (AUTO) 28 % (12-44); MEAN CORPUSCULAR HEMOGLOBIN 33 PG (25-34); MEAN CORPUSCULAR HGB CONC 36 G/DL (32-36); MEAN CORPUSCULAR VOLUME 91 FL (80-99); MEAN PLATELET VOLUME 10.2 FL (7.4-10.4); MONOCYTES % (AUTO) 11 % (0-12); NEUTROPHILS # (AUTO) 5.4 X 10^3 (1.8-7.8); NEUTROPHILS % (AUTO) 59 % (42-75); PLATELET COUNT 207 10^3/uL (130-400); RED CELL DISTRIBUTION WIDTH 12.8 % (10.0-14.5); WHITE BLOOD COUNT 9.1 10^3/uL (4.3-11.0)
[2017-09-30 22:00] LABS: ERYTHROCYTE SEDIMENTATION RATE 6 MM/HR (0-30)
[2017-09-30 22:02] LABS: ALANINE AMINOTRANSFERASE 53 U/L (0-55); ALBUMIN 4.6 GM/DL (3.2-4.5); ALKALINE PHOSPHATASE 51 U/L (40-136); BILIRUBIN,TOTAL 0.8 MG/DL (0.1-1.0); BUN/CREATININE RATIO 20; CALCIUM 9.5 MG/DL (8.5-10.1); CARBON DIOXIDE 27 MMOL/L (21-32); CHLORIDE 103 MMOL/L (98-107); CREATININE SERUM 1.18 MG/DL (0.60-1.30); GFR ESTIMATED > 60; GLUCOSE 96 MG/DL (70-105); POTASSIUM 3.8 MMOL/L (3.6-5.0); SODIUM 140 MMOL/L (135-145); TOTAL PROTEIN 7.5 GM/DL (6.4-8.2)
--- NOTE | 2017-09-30 22:38 | Diagnostic Imaging Report ---
INDICATION: Pain and swelling left lower extremity. EXAMINATION: Left tibia-fibula 09/30/2017 FINDINGS: Four views of the tibia and fibula demonstrate postoperative changes with clips noted and atherosclerotic disease, as well. The osseous structures are well aligned. Densities anterior and posterior to the distal tibia are likely chronic as they appear well-corticated. No acute fractures or dislocations appreciated IMPRESSION: 1. Chronic change. No acute osseous abnormality. Dictated by: Dictated on workstation # [id number]
[2017-09-30] MEDS ORDERED: morphine INJ 10 MG/ML 1ML (SYR OR VIAL) IVP STA (23:44)
[2017-09-30] MEDS ORDERED: RX-OXYCODONE/APAP 5-325 MG #4 TAB PK PO PRN (23:45)
[2017-09-30] MEDS ORDERED: OXYC-465 PO (23:47)
[2017-10-01] VITALS: BP 0/0
--- NOTE | 2017-10-01 07:49 | Diagnostic Imaging Report ---
INDICATION: Left foot pain. COMPARISON: None available. TECHNIQUE: Three views of the left foot were obtained without weightbearing. FINDINGS: Severe osteoarthritis of the first MTP. No osseous erosions. No fracture or evidence of metatarsal stress fracture. Extensive vascular calcifications are seen. IMPRESSION: 1. No acute osseous abnormality in the left foot. 2. Severe osteoarthritis of the first MTP. Dictated by: Dictated on workstation # [id number]
== END 2017-10-01 | disposition home or self-care (01) ==
LOC: EDUNIT# 19:58 → ER 19:59
DX: I73.9 Peripheral vascular disease, unspecified (principal); G47.30 Sleep apnea, unspecified; I25.10 Atherosclerotic heart disease of native coronary artery without angina pectoris; I25.2 Old myocardial infarction; F41.9 Anxiety disorder, unspecified; I10 Essential (primary) hypertension; K21.9 Gastro-esophageal reflux disease without esophagitis; Z87.19 Personal history of other diseases of the digestive system; Z95.0 Presence of cardiac pacemaker; Z82.49 Family history of ischemic heart disease and other diseases of the circulatory system; Z79.01 Long term (current) use of anticoagulants; Z87.891 Personal history of nicotine dependence; Z90.89 Acquired absence of other organs; Z95.1 Presence of aortocoronary bypass graft
CPT/HCPCS: 36415; 73590; 73630; 80053; 84550; 85025; 85379; 85652; 86141; 96374; 96375

== ENCOUNTER 2017-10-21 10:29 | Outpatient (RCR) | payer BC ==
[~2017-10-21 10:29] MED LIST changes: -FENO145T20 PO; +FENO145T37 PO; +OXYC-465 PO
== END 2017-11-21 15:58 | disposition home or self-care (01) ==
PROVIDERS: ATTEND Nurse Practitioner
DX: M54.2 Cervicalgia (principal)

== ENCOUNTER → 2017-12-23 | Outpatient (RCR) | payer BC ==
[2017-09-24 11:04] LABS: INR 2.6 (0.8-1.4); PROTHROMBIN TIME PATIENT 27.6 SEC (12.2-14.7)
[2017-10-28 10:53] LABS: INR 3.6 (0.8-1.4); PROTHROMBIN TIME PATIENT 35.9 SEC (12.2-14.7)
[2017-11-25 11:03] LABS: INR 3.6 (0.8-1.4); PROTHROMBIN TIME PATIENT 36.1 SEC (12.2-14.7)
[2017-12-23 09:02] LABS: INR 3.5 (0.8-1.4); PROTHROMBIN TIME PATIENT 35.7 SEC (12.2-14.7)
== END | disposition home or self-care (01) ==
LOC: LAB 09-24 10:47
PROVIDERS: ATTEND Internal Medicine Cardiovascular Disease
DX: Z48.812 Encounter for surgical aftercare following surgery on the circulatory system (principal); Z95.2 Presence of prosthetic heart valve
CPT/HCPCS: 36415; 85610

== ENCOUNTER 2018-02-26 14:29 | Outpatient (RCR) | payer BC ==
[2018-01-06 10:25] LABS: INR 1.3 (0.8-1.4); PROTHROMBIN TIME PATIENT 16.4 SEC (12.2-14.7)
[2018-01-09 08:21] LABS: INR 2.2 (0.8-1.4); PROTHROMBIN TIME PATIENT 24.2 SEC (12.2-14.7)
[2018-01-16 13:21] LABS: INR 4.8 (0.8-1.4)
[2018-01-16 13:34] LABS: PROTHROMBIN TIME PATIENT 45.2 SEC (12.2-14.7)
[2018-01-23 14:03] LABS: INR 6.5 (0.8-1.4); PROTHROMBIN TIME PATIENT 57.3 SEC (12.2-14.7)
[2018-01-28 10:08] LABS: INR 4.2 (0.8-1.4); PROTHROMBIN TIME PATIENT 40.7 SEC (12.2-14.7)
[2018-02-03 12:51] LABS: INR 2.4 (0.8-1.4); PROTHROMBIN TIME PATIENT 26.1 SEC (12.2-14.7)
[2018-02-06 10:34] LABS: INR 3.3 (0.8-1.4); PROTHROMBIN TIME PATIENT 33.7 SEC (12.2-14.7)
[2018-02-11 10:47] LABS: INR 2.7 (0.8-1.4); PROTHROMBIN TIME PATIENT 28.4 SEC (12.2-14.7)
[2018-02-18 11:29] LABS: INR 3.6 (0.8-1.4); PROTHROMBIN TIME PATIENT 36.3 SEC (12.2-14.7)
[~2018-02-26 14:29] MED LIST changes: -LOSA50TA36 PO; +LOSA50TA7 PO; -OXYC-197 PO; +OXYC1TAB87 PO
[2018-02-26 15:04] LABS: INR 3.2 (0.8-1.4); PROTHROMBIN TIME PATIENT 33.3 SEC (12.2-14.7)
[2018-03-24 16:03] LABS: PROTHROMBIN TIME PATIENT 39.5 SEC (12.2-14.7)
[2018-03-31 09:19] LABS: INR 2.8 (0.8-1.4); PROTHROMBIN TIME PATIENT 29.4 SEC (12.2-14.7)
== END 2018-04-06 | disposition home or self-care (01) ==
LOC: LAB 14:29
PROVIDERS: ATTEND Thoracic Surgery (Cardiothoracic Vascular Surgery)
DX: Z95.2 Presence of prosthetic heart valve (principal)
CPT/HCPCS: 36415; 85610

== ENCOUNTER → 2020-02-01 | Outpatient (CLI) | payer BC, MEDICARE ==
[~2020-02-01] MED LIST changes: +CYAN-41 PO; -CYAN10006 PO; -DIGO250T PO; +DIGO250T3 PO; +FENO145T26 PO; -FENO145T37 PO; +LOSA50TA63 PO; -LOSA50TA7 PO; -WARF5TAB8 PO; +WRF5T PO
== END ==
LOC: LABNPT 08:18
PROVIDERS: ATTEND Orthopaedic Surgery
DX: Z11.59 Encounter for screening for other viral diseases (principal)
CPT/HCPCS: 87635

== ENCOUNTER 2021-08-28 06:15 | Outpatient (CLI) | payer MEDICARE ==
[~2021-08-28] VITALS: Ht 175.3 cm; Wt 83.6 kg
[~2021-08-28 06:15] MED LIST changes: -CLIN150C17 PO; +CLIN150C20 PO; -OXYC-465 PO; +OXYC-556 PO; +SERT-413 PO; -SERT50TA9 PO
[2021-09-11] MEDS ORDERED: ROSU10TA28 PO (14:37)
[2021-09-11] MEDS ORDERED: BACI1TAB3 PO (14:37)
[2021-09-11] MEDS ORDERED: ALFU10TA12 PO (14:37)
[2021-09-11] MEDS ORDERED: PANT40TA52 PO (14:37)
[2021-09-11] MEDS ORDERED: GABA300C PO (14:37)
[2021-09-11] MEDS ORDERED: DULO60CA59 PO (14:37)
[2021-09-11] MEDS ORDERED: POTA99TA26 PO (14:37)
[2021-09-11] MEDS ORDERED: WARF2.5T8 PO (14:37)
== END 2021-09-11 14:40 | disposition home or self-care (01) ==
LOC: PREOP 06:15
PROVIDERS: ATTEND Internal Medicine
DX: Z01.818 Encounter for other preprocedural examination (principal)

== ENCOUNTER 2021-09-14 08:28 | Inpatient (IN) | payer MEDICARE, OTHER ==
[~2021-09-14] VITALS: Ht 175.3 cm; Wt 82.7 kg
[2021-09-14] VITALS (11 sets, daily range): BP systolic 110–155; BP diastolic 68–123
[~2021-09-14 08:28] MED LIST changes: +ALFU10TA12 PO; +BACI1TAB3 PO; +DULO60CA59 PO; +GABA300C PO; +PANT40TA52 PO; +POTA99TA26 PO; +ROSU10TA28 PO
[2021-09-14 08:44] LABS: BASOPHILS % (AUTO) 0 % (0-10); EOSINOPHILS # (AUTO) 0.1 10^3/uL (0.0-0.3); EOSINOPHILS % (AUTO) 1 % (0-10); HEMATOCRIT 38 % (40-54); HEMOGLOBIN 12.4 g/dL (13.3-17.7); LYMPHOCYTES # (AUTO) 1.6 10^3/uL (1.0-4.0); LYMPHOCYTES % (AUTO) 18 % (12-44); MEAN CORPUSCULAR HEMOGLOBIN 29 pg (25-34); MEAN CORPUSCULAR HGB CONC 33 g/dL (32-36); MEAN CORPUSCULAR VOLUME 90 fL (80-99); MEAN PLATELET VOLUME 9.8 fL (9.0-12.2); MONOCYTES # (AUTO) 0.8 10^3/uL (0.0-1.0); MONOCYTES % (AUTO) 9 % (0-12); NEUTROPHILS # (AUTO) 6.3 10^3/uL (1.8-7.8); NEUTROPHILS % (AUTO) 71 % (42-75); PLATELET COUNT 219 10^3/uL (130-400); WHITE BLOOD COUNT 8.9 10^3/uL (4.3-11.0)
[2021-09-14] MEDS ORDERED: HOLD METFORMIN - RECEIVED CONTRAST 20 ML VIAL IV SCH (08:45)
[2021-09-14] MEDS ORDERED: IOHEXOL 350 MG/ML 150 ML (OMNIPAQUE 350) VIAL IV ONE (08:45)
[2021-09-14] MEDS ORDERED: NS 100 ML (IVPB) BAG IV ONE (08:45)
[2021-09-14] MEDS ORDERED: CATHETER FLUSH 10 ML SYR IV PRN (08:45)
--- NOTE | 2021-09-14 08:50 | ED Neurological Problem ---
General Chief Complaint: Neuro-Stroke Like Symptoms Stated Complaint: POSSIBLE STROKE Nursing Triage Note: WOKE UP THIS AM AT 0600 WITH RIGHT ARM BEING FLACID AND STATES HIS BALLANCE IS OFF. WENT TO BED NORMAL AT 1000 LAST NIGHT. 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 Last known well time was 2200 last night when he went to bed. He did wake up once in the night and states he "did not feel right" but did not note specific symptoms. Patient has held his warfarin dosing for the past 2 days in preparation for colonoscopy. Colonoscopy was scheduled with Dr. Kendrick. Sonia Montoya is his primary care provider. Dr. Galarza is his maintenance welder. Dr. Andino is his primary correctional therapy director. Allergies and Home Medications Allergies Coded Allergies: No Known Drug Allergies (Unverified , 12/17/16) Patient Home Medication List Home Medication List Reviewed: Yes Alfuzosin HCl (Alfuzosin HCl ER) 10 Mg Tab.er.24h, 10 MG PO HS, (Reported) Entered as Reported by: YUNIER MUNGUIA on 09/11/21 1437 Last Action: Continued Ascorbate Calcium (Vitamin C) 500 Mg Tablet, 500 MG PO DAILY, (Reported) Entered as Reported by: GREER GEORGE on 03/12/16 1021 Last Action: Held Coffee Xt/Phosphatidyl Serine (Neuriva Original 100-100Mg Cap) 1 Each Capsule, 1 EACH PO DAILY, (Reported) Entered as Reported by: GEM DANIELS on 09/14/21 1551 Last Action: Held Cyanocobalamin (Vitamin B-12) (Vitamin B-12) 1,000 Mcg Tablet, 1,000 MCG PO DAILY, (Reported) Entered as Reported by: GREER GEORGE on 03/12/16 1021 Last Action: Held Digoxin (Digoxin) 250 Mcg Tablet, 250 MCG PO DAILY, (Reported) Entered as Reported by: GREER GEORGE on 03/12/16 1020 Last Action: Continued Duloxetine HCl (Duloxetine HCl) 60 Mg Capsule.dr, 60 MG PO HS, (Reported) Entered as Reported by: YUNIER MUNGUIA on 09/11/211436 Last Action: Converted Fenofibrate Nanocrystallized (Fenofibrate) 145 Mg Tablet, 145 MG PO DAILY, (Reported) Entered as Reported by: GREER GEORGE on 03/12/16 1020 Last Action: Converted Fluticasone Propionate (Fluticasone Propionate) 16 Gm [place].susp, 1-2 SPRAY NSEACH DAILY PRN for CONGESTION, (Reported) Entered as Reported by: GEM DANIELS on 09/14/21 155 Last Action: Continued Gabapentin (Neurontin) 300 Mg Capsule, 300 MG PO HS, (Reported) Entered as Reported by: YUNIER MUNGUIA on 09/11/211436 Last Action: Continued Lactobacillus Combination No.4 (Probiotic) 1 Each Capsule, 1 EACH PO DAILY, (Reported) Entered as Reported by: GEM DANIELS on 09/14/21 155 Last Action: Converted Loratadine (Loratadine) 10 Mg Tablet, 10 MG PO DAILY, (Reported) Entered as Reported by: GREER GEORGE on 03/12/16 1021 Last Action: Continued Losartan Potassium (Losartan Potassium) 50 Mg Tablet, 50 MG PO DAILY, (Reported) Entered as Reported by: GEM DANIELS on 09/14/211550 Last Action: Continued Multivitamin (Daily Value) 1 Each Tablet, 1 TAB PO DAILY, (Reported) Entered as Reported by: GREER GEORGE on 03/12/16 1021 Last Action: Converted Nebivolol HCl (Nebivolol HCl) 5 Mg Tablet, 5 MG PO DAILY, (Reported) Entered as Reported by: GEM DANIELS on 09/14/21 155 Last Action: Continued Pantoprazole Sodium (Pantoprazole Sodium) 40 Mg Tablet.dr, 40 MG PO DAILY, (Reported) Entered as Reported by: YUNIER MUNGUIA on 09/11/211436 Last Action: Continued Potassium Gluconate (Potassium) 99 Mg Tablet, 396 MG PO DAILY, (Reported) Entered as Reported by: YUNIER MUNGUIA on 09/11/211436 Last Action: Converted Rosuvastatin Calcium (Rosuvastatin Calcium) 10 Mg Tablet, 10 MG PO HS, (Reported) Entered as Reported by: YUNIER MUNGUIA on 09/11/211436 Last Action: Continued Tizanidine HCl (Tizanidine HCl) 4 Mg Tablet, 4 MG PO Q8H PRN for MUSCLE SPASMS, (Reported) Entered as Reported by: GEM DANIELS on 09/14/211552 Last Action: Continued Warfarin Sodium (Jantoven) 5 Mg Tablet, 5 MG PO TUE,SAT @HS, (Reported) Entered as Reported by: GEM DANIELS on 09/14/211550 Last Action: Reviewed Warfarin Sodium (Warfarin Sodium) 5 Mg Tablet, 2.5 MG PO ROACH,MO,WE,TH,FR @HS, (Reported) Entered as Reported by: GEM DANIELS on 09/14/211550 Last Action: Continued Discontinued Medications Bacillus Coagulans (Probiotic) 1 Each Tab.chew, 1 EACH PO DAILY, (Reported) Discontinued Reason: Duplicate Order Entered as Reported by: YUNIER MUNGUIA on 09/11/211436 Last Action: Discontinued Cetirizine HCl (Allergy Relief) 10 Mg Tablet, 10 MG PO DAILY, (Reported) Discontinued Reason: Duplicate Order Entered as Reported by: GEM DANIELS on 09/14/211550 Last Action: Discontinued Gabapentin (Gabapentin) 100 Mg Capsule, 100 MG PO HS, (Reported) Discontinued Reason: Prescription changed Entered as Reported by: GREER GEORGE on 03/12/16 1020 Losartan Potassium (Cozaar) 50 Mg Tablet, 50 MG PO DAILY, (Reported) Discontinued Reason: No Longer Taking Entered as Reported by: GREER GEORGE on 03/12/16 1020 Last Action: Discontinued Nebivolol HCl (Bystolic) 5 Mg Tablet, 5 MG PO DAILY, (Reported) Discontinued Reason: No Longer Taking Entered as Reported by: STERLING AWAN on 12/17/16 1039 Last Action: Discontinued [place]-3/Dha/Epa/Fish Oil (Fish Oil 1,400 mg Softgel) 1 Each Capsule.dr, 4,200 MG PO DAILY, (Reported) Discontinued Reason: No Longer Taking Entered as Reported by: GREER GEORGE on 03/12/16 1023 Omeprazole Magnesium (Prilosec Otc) 20 Mg Tablet.dr, 20 MG PO DAILY, (Reported) Discontinued Reason: No Longer Taking Entered as Reported by: GREER GEORGE on 03/12/16 1021 Oxycodone HCl/Acetaminophen (Percocet 5-325 mg Tablet) 1 Each Tablet, 1 EACH PO Q4H Discontinued Reason: No Longer Taking Prescribed by: CARLOS EDUARDO JOSEPH on 12/26/16 0735 Oxycodone HCl/Acetaminophen (Oxycodone-Acetaminophen 10-325) 1 Each Tablet, 1 EACH PO Q4H PRN for pain Discontinued Reason: No Longer Taking Prescribed by: PATRICK LEPE on 09/30/17 2347 Sertraline HCl (Zoloft) 50 Mg Tablet, 50 MG PO HS, (Reported) Discontinued Reason: No Longer Taking Entered as Reported by: GREER GEORGE on 03/12/16 1020 Warfarin Sodium (Jantoven) 2.5 Mg Tablet, 2.5 MG PO HS, (Reported) Discontinued Reason: Duplicate Order Entered as Reported by: YUNIER MUNGUIA on 09/11/21 1437 Last Action: Discontinued [Aloecure] , 1 TAB PO DAILY, (Reported) Discontinued Reason: No Longer Taking Entered as Reported by: GREER GEORGE on 03/12/16 1022 Review of Systems Review of Systems Constitutional: no symptoms reported Eyes: See HPI Ears, Nose, Mouth, Throat: no symptoms reported Respiratory: no symptoms reported Cardiovascular: see HPI; No chest pain Gastrointestinal: no symptoms reported Genitourinary: no symptoms reported Musculoskeletal: no symptoms reported Skin: no symptoms reported Psychiatric/Neurological: See HPI Endocrine: No Symptoms Reported Hematologic/Lymphatic: No Symptoms Reported Past Parvwtu-Froqwn-Spurvy Hx Patient Social History Tobacco Use?: No Substance use?: No Immunizations Up To Date Tetanus Booster (TDap): Unknown Seasonal Allergies Seasonal Allergies: No Past Medical History Surgeries: Yes (heart valve replacement) Adenoidectomy, CABG, Tonsillectomy, Valve Replacement (mechanical aortic valve) Respiratory: Yes Sleep Apnea Cardiac: Yes (Ascending aortic aneurysm) Coronary Artery Disease, Heart Attack, Hypertension, Valvular Heart Disease Neurological: No Reproductive Disorders: No Sexually Transmitted Disease: No HIV/AIDS: No Genitourinary: No Gastrointestinal: Yes Gastroesophageal Reflux, Chronic Diarrhea, Irritable Bowel Musculoskeletal: Yes Arthritis Endocrine: No Loss of Vision: Bilateral Hearing Impairment: Denies Cancer: No Psychosocial: Yes Anxiety Integumentary: No Blood Disorders: No Adverse Reaction/Blood Tranf: No (N/A) Family Medical History FH: heart disease 19 FATHER ( in 1989 ) FH: stroke 19 FATHER, Onset:40's - 50 Myocardial infarction 19 FATHER, Onset:60 years & older Physical Exam Vital Signs Vital Signs - First Documented 09/14/21 08:28 Temp 36.3 Pulse 64 Resp 16 B/P (MAP) 164/91 (115) Pulse Ox 99 O2 Delivery Room Air Capillary Refill : Less Than 3 Seconds Height, Weight, BMI Height: 5'10.00" Weight: 190lbs. 0oz. 86.593113ad; 27.00 BMI Method:Stated General Appearance: WD/WN, no apparent distress HEENT: PERRL/EOMI, normal ENT inspection Neck: normal inspection Respiratory: lungs clear, normal breath sounds, no respiratory distress Cardiovascular: regular rate, rhythm, no edema, no JVD, systolic murmur (with valve click) Gastrointestinal: normal bowel sounds, non tender, soft Back: normal inspection Extremities: normal inspection, no pedal edema, no calf tenderness Neurologic/Psychiatric: roughener II-XII nml as tested, alert, normal mood/affect, oriented x 3, motor weakness (LUE) Crainal Nerves: normal hearing, normal speech, PERRL Coordination/Gait: normal finger to nose, normal gait Motor/Sensory: no sensory deficit, weak motor strength LUE Skin: normal color, warm/dry Stroke NIH Stroke Scale Assessment Select: Post CT Level of Consciousness: 0=Alert (0), Level of Consciousness-Questions: 0=Answers both month/age (0), LOC Commands: 0=Performs both tasks (0), Gaze: Normal (0), Visual Zuniga: 0=No visual loss (0), Facial Movement (Facial Paresis): 0=Normal symmetrical mnt (0), Motor Function-Arms Right: 0=No drift (0), Motor Function-Arms Left: 0=No drift (0), Motor Function-Legs Right: 0=No drift (0), Motor Function-Legs Left: 0=No drift (0), Limb Ataxia: 0=Absent (0), Sensory: 0=Normal:no loss (0), Best Language: 0=No aphasia (0), Dysarthria: 0=Normal (0), Extinction & Inattention: 0=No abnormality (0), Total: 0 Progress/Results/Core Measures Results/Orders Lab Results Laboratory Tests Test 09/14/21 08:35 09/14/21 08:41 09/14/21 09:15 Range/Units White Blood Count 8.9 4.3-11.0 10^3/uL Red Blood Count 4.23 L 4.30-5.52 10^6/uL Hemoglobin 12.4 L 13.3-17.7 g/dL Hematocrit 38 L 40-54 % Mean Corpuscular Volume 90 80-99 fL Mean Corpuscular Hemoglobin 29 25-34 pg Mean Corpuscular Hemoglobin Concent 33 32-36 g/dL Red Cell Distribution Width 13.8 10.0-14.5 % Platelet Count 219 130-400 10^3/uL Mean Platelet Volume 9.8 9.0-12.2 fL Immature Granulocyte % (Auto) 0 % Neutrophils (%) (Auto) 71 42-75 % Lymphocytes (%) (Auto) 18 12-44 % Monocytes (%) (Auto) 9 0-12 % Eosinophils (%) (Auto) 1 0-10 % Basophils (%) (Auto) 0 0-10 % Neutrophils # (Auto) 6.3 1.8-7.8 10^3/uL Lymphocytes # (Auto) 1.6 1.0-4.0 10^3/uL Monocytes # (Auto) 0.8 0.0-1.0 10^3/uL Eosinophils # (Auto) 0.1 0.0-0.3 10^3/uL Basophils # (Auto) 0.0 0.0-0.1 10^3/uL Immature Granulocyte # (Auto) 0.0 0.0-0.1 10^3/uL Prothrombin Time 23.2 H 12.2-14.7 SEC INR Comment 2.0 H 0.8-1.4 Activated Partial Thromboplast Time 49 H 24-35 SEC D-Dimer 0.59 H 0.00-0.49 UG/ML Sodium Level 135 135-145 MMOL/L Potassium Level 4.5 3.6-5.0 MMOL/L Chloride Level 102 98-107 MMOL/L Carbon Dioxide Level 22 21-32 MMOL/L Anion Gap 11 5-14 MMOL/L Blood Urea Nitrogen 30 H 7-18 MG/DL Creatinine 1.08 0.60-1.30 MG/DL Estimat Glomerular Filtration Rate 74 BUN/Creatinine Ratio 28 Glucose Level 116 H 70-105 MG/DL Calcium Level 9.2 8.5-10.1 MG/DL Corrected Calcium 9.3 8.5-10.1 MG/DL Total Bilirubin 0.7 0.1-1.0 MG/DL Aspartate Amino Transf (AST/SGOT) 23 5-34 U/L Alanine Aminotransferase (ALT/SGPT) 28 0-55 U/L Alkaline Phosphatase 74 40-136 U/L Troponin I < 0.028 <0.028 NG/ML Total Protein 7.3 6.4-8.2 GM/DL Albumin 3.9 3.2-4.5 GM/DL Glucometer 114 H 70-110 MG/DL Urine Color YELLOW Urine Clarity CLEAR Urine pH 6.5 5-9 Urine Specific [place] 1.010 L 1.016-1.022 Urine Protein NEGATIVE NEGATIVE Urine Glucose (UA) NEGATIVE NEGATIVE Urine Ketones NEGATIVE NEGATIVE Urine Nitrite NEGATIVE NEGATIVE Urine Bilirubin NEGATIVE NEGATIVE Urine Urobilinogen 0.2 < = 1.0 MG/DL Urine Leukocyte Esterase NEGATIVE NEGATIVE Urine RBC (Auto) NEGATIVE NEGATIVE Urine RBC NONE /HPF Urine WBC NONE /HPF Urine Squamous Epithelial Cells NONE /HPF Urine Crystals NONE /LPF Urine Bacteria NEGATIVE /HPF Urine Casts NONE /LPF Urine Mucus NEGATIVE /LPF Urine Culture Indicated NO My Orders Orders - JACQUELINE OBRIEN MD Cbc With Automated Diff (09/14/21 08:35) Protime With Inr (09/14/21 08:35) Partial Thromboplastin Time (09/14/21 08:35) Comprehensive Metabolic Panel (09/14/21 08:35) Fibrin Degradation Products (09/14/21 08:35) Troponin I Gail (09/14/21 08:35) Ua Culture If Indicated (09/14/21 08:35) Chest 1 View, Ap/Pa Only (09/14/21 08:35) Ekg Tracing (09/14/21 08:35) Nothing By Mouth (09/14/21 Breakfast) Accucheck Stat ONCE (09/14/21 08:35) Ed Iv/Invasive Line Start (09/14/21 08:35) Ed Iv/Invasive Line Start (09/14/21 08:35) Vital Signs Stroke Patient Q15M (09/14/21 08:35) Ct Head Wo-R/O Stroke (09/14/21 08:35) O2 (09/14/21 08:35) Intake & Output 06,14,22 (09/14/21 08:35) Monitor-Rhythm Ecg Trace Only (09/14/21 08:35) Dysphagia Screening Tool Q10MX1 (09/14/21 08:35) Post Thrombolytic Adminstratio (09/14/21 08:35) Lipid Panel (09/15/21 06:00) Ct Angio Head/Neck (09/14/21 08:36) Ct Head Perfusion W/ Contrast (09/14/21 08:36) Iohexol Injection (Omnipaque 350 Mg/Ml 1 (09/14/21 08:45) Received Contrast (Hold Metformin- Contr (09/14/21 08:45) Sodium Chloride Flush (Catheter Flush Sy (09/14/21 08:45) Ns (Ivpb) (Sodium Chloride 0.9% Ivpb Bag (09/14/21 08:45) Ct Chest Wo (09/14/21 08:51) Warfarin Tablet (Coumadin Tablet) (09/14/21 11:30) Ed Admission (Communication) (09/14/21 11:19) Medications Given in ED Vital Signs/I&O 09/14/21 08:28 Temp 36.3 Pulse 64 Resp 16 B/P (MAP) 164/91 (115) Pulse Ox 99 O2 Delivery Room Air Blood Pressure Mean: 115 FSBG Bedside Testing Finger Stick Blood Glucose: 114 Progress Progress Note #1: Time: 08:49 Progress Note Stroke activation was paged. Patient was taken promptly to CT scan. CT was reviewed by me and Dr. Kang at this time. No acute hemorrhages were identified. No mass lesions were identified. We are now moving into CT angiogram head and neck and CT perfusion scan. Patient has a history of a sending aortic dissection. We will move directly into CT scan of the chest hoping to take advantage of some remaining contrast after the head and neck images are obtained. Progress Note #2: Time: 10:[address] imaging was negative for hemorrhage, mass, or large vessel occlusion. There is no carotid stenosis. 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 He reported some minimal sensation of disequilibrium when walking to the bathroom but it does not affect his gait. I will be placing a call to the stroke neurologist at [facility] for further direction. Progress Note #3: Time: 11:25 Progress Note After review of CT scan the case was discussed with Dr. Fish, stroke neurologist at [facility]. Recommendations based on that conversation are as follows. Dr. Snyder has been present in the ER to assess and admit the patient. 1. Admit to the hospital for observation. The nature of this TIA versus stroke could be from a pontine lesion. These lesions can have stuttering symptoms. Admission is appropriate to monitor for rebound or worsening symptoms. If symptoms worsen, she does not recommend repeating imaging unless there are new symptoms. Symptoms on presentation included some flashes in his vision, minor headache, left arm weakness, and sensation of disequilibrium. 2. In light of the 2 episodes of TIA versus stroke in the last 2 months, he should increase his target INR range from 2.03.0 up to 2.53.5. 3. MRI of the brain within the next 24 hours. 4. For future procedures that have inherent bleeding risk, patient should be admitted to the hospital on heparin drip. He should then be bridged back to t herapeutic INR after the procedure. Patient appears to have a high risk of stroke/TIA when INR is as low as 2.0. He states he previously had an INR target range of 2.5-3.5 until a couple of years ago. He did not have any problems while on the higher range. 5. No transfer or endovascular/IR therapies are recommended at this time. 6. Colonoscopy during this admission is not recommended as he may have an acute stroke syndrome at this time that could be confounded or worsened by sedation, bowel prep, etc. If MRI is completely negative for acute stroke, this might be reconsidered. There should be serious discussion with the inpatient team if colonoscopy is reconsidered. Progress Note #4: Time: 11:30 Progress Note The radiology department informed us he may not have MRI because of his pacemaker. Patient will be admitted to the ICU. Dr. Snyder was updated. Initial ECG Impression Date: Sep 14, 2021 Initial ECG Impression Time: 08:30 Initial ECG Rate: 70 Comment AV dual paced rhythm with no ST elevation or depression. Diagnostic Imaging Diagonstic Imaging: CT Plain Films/CT/US/NM/MRI: head Comments Noncontrast CT head viewed by me and report reviewed. See report below: NAME: MADI SAMUELS MED REC#: [id number] PT STATUS: REG ER : 1950 PHYSICIAN: JACQUELINE OBRIEN MD ADMIT DATE: 09/14/21/ER Signed Date of Exam:09/14/21 CT HEAD WO-R/O STROKE EXAMINATION: CT head without contrast. TECHNIQUE: Multiple contiguous axial images were obtained through the brain without the use of intravenous contrast. All CT scans use one or more of the following dose optimizing techniques: automated exposure control, MA and/or KvP adjustment based on patient size and exam type or iterative reconstruction. HISTORY: Left-sided weakness. Stroke alert. COMPARISON: None available. FINDINGS: No large acute territorial ischemia, mass, or hemorrhage. No midline shift or mass effect. Decreased attenuation is seen in the periventricular and subcortical white matter. The ventricles and cortical sulci are prominent. The basilar cisterns are patent and unremarkable. The orbits are normal. Paranasal sinuses are normal. Mastoid air cells are clear. No soft tissue abnormality is seen. No osseus lesions or fractures are seen. IMPRESSION: 1. No large acute territorial ischemia, mass, or hemorrhage. 2. Chronic microvascular disease. 3. Generalized parenchymal volume loss. Dictated by: Dictated on workstation # [id number] Dict: 09/14/21900 Trans: 09/14/21914 [facility] [id number] Interpreted by: KEVIN GUZMAN DO Electronically signed by: KEVIN GUZMAN DO 09/14/2115 Diagonstic Imaging: Xray Plain Films/CT/US/NM/MRI: chest Comments Chest x-ray report reviewed. See report below: NAME: MADI SAMUELS [facility] REC#: [id number] PT STATUS: REG ER : 1950 PHYSICIAN: JACQUELINE OBRIEN MD ADMIT DATE: 09/14/21/ER Signed Date of Exam:09/14/21 CHEST 1 VIEW, AP/PA ONLY EXAMINATION: Chest radiograph, portable AP view. DATE: 09/14/2021 9:11 AM INDICATION: 70-year-old male, altered balance. COMPARISON: CT chest September 14, 2021. FINDINGS: There are median sternotomy wires. There is a left-sided cardiac assist device with leads. There is no identified pneumothorax. There is no large pleural effusion. There is no identified focal airspace consolidation. Lung volumes are somewhat low. There is prominence of the aortic contours. IMPRESSION: 1. Prominent aortic contours which may reflect thoracic aortic aneurysm. 2. No focal airspace consolidation. Dictated by: Dictated on workstation # [id number] Dict: 09/14/2115 Trans: 09/14/21 1058 [facility] [phone] Interpreted by: CARMELO MARTINEZ MD Electronically signed by: CARMELO MARTINEZ MD 09/14/21 1058 Diagonstic Imaging: CT Plain Films/CT/US/NM/MRI: head (Perfusion study) Comments CT perfusion study of head report reviewed. See report below: NAME: MADI SAMUELS [facility] REC#: [id number] PT STATUS: REG ER : 1950 PHYSICIAN: JACQEULINE OBRIEN MD ADMIT DATE: 09/14/21/ER Signed Date of Exam:09/14/21 CT HEAD PERFUSION W/ CONTRAST INDICATION: Left-sided abnormalities and vision issues. COMPARISON: Noncontrast CT head from earlier same day. TECHNIQUE: Post contrast CT head perfusion scan was performed. All CT scans use one or more of the following dose optimizing techniques: automated exposure control, MA and/or KvP adjustment based on patient size and exam type or iterative reconstruction. FINDINGS: Total CBF less than 30% volume: 0 mL. Total Tmax greater than 6 seconds volume: 0 mL. Total mismatch difference: 0 mL. Total mismatch ratio: None. Hypoperfusion index: Not applicable. Source images were also created and reviewed and show no large defect on the Tmax, cerebral blood flow, nor cerebral volume images. Comparison of the different sequences also demonstrates no appreciable mismatch. IMPRESSION: 1. Normal CT head perfusion study. Dictated by: Dictated on workstation # [id number] Dict: 09/14/21901 Trans: 09/14/[address] [place] [address] [phone] Interpreted by: NEENA MUJICA DO Electronically signed by: NEENA MUJICA DO 09/14/21 1038 Diagonstic Imaging: CT Plain Films/CT/US/NM/MRI: other (Angiogram head and neck) Comments CT angiogram head and neck report reviewed. See report below: NAME: MADI SAMUELS [facility] REC#: [id number] PT STATUS: REG ER : 1950 PHYSICIAN: JACQUELINE OBRIEN MD ADMIT DATE: 09/14/21/ER Signed Date of Exam:09/14/21 CT ANGIO HEAD/NECK PROCEDURE: CT angiography of the head and CT angiography of the neck with and without contrast. TECHNIQUE: Contiguous noncontrast images were obtained from the skull base through the vertex. After intravenous contrast administration, helical CT angiography of the neck was performed. Source data was reformatted into 3D MIP projections. Delayed post contrast acquisition was also obtained. Auto Exposure Controls were utilized during the CT exam to meet ALARA standards for radiation dose reduction. INDICATION: Left-sided weakness. Stroke alert. COMPARISON: CT head performed earlier the same date. FINDINGS: CTA Neck: The visualized portions of the aortic arch demonstrate no evidence of aneurysm or dissection. There is common origin of the carotid arteries consistent with bovine arch. The brachiocephalic artery is normal in course and caliber. The right and left common carotid origins are unremarkable. The origin of the left subclavian artery is patent. The common carotid arteries and internal carotid arteries demonstrate a tortuous course. There is calcified atherosclerotic plaque in the bilateral carotid bulbs and proximal internal carotid arteries without flow-limiting stenosis. No evidence of dissection in the carotid systems. The external carotid arteries are patent and unremarkable. The vertebral arteries are codominant. The origin of the right vertebral artery is seen and is unremarkable. The origin of the left vertebral artery is seen and is unremarkable. There is no focal stenosis seen within the neck. There is no dissection. The vertebral arteries are well visualized to up to the level of the basilar artery. The osseous structures of the cervical spine are unremarkable. Included views through the lung apices demonstrate no focal consolidation. CTA brain: Atherosclerotic plaque is seen in the del cid of the bilateral terminal internal carotid arteries without significant stenosis. No stenosis is seen in the bilateral anterior, middle, and posterior cerebral arteries. No evidence of aneurysm the [place]. In the posterior circulation, both of the vertebral arteries demonstrate normal opacification. Both the right and left PICA arteries are identified. The basilar artery is normal in course and caliber. The terminal branch vessels including the superior cerebellar arteries unremarkable. IMPRESSION: 1. No stenosis or aneurysm in the [place]. No evidence of large vessel occlusion. 2. No stenosis or dissection the bilateral carotid and vertebral arteries. Dictated by: Dictated on workstation # [id number] Dict: 09/14/21912 Trans: 09/14/21922 [facility] [phone] Interpreted by: KEVIN GUZMAN DO Electronically signed by: KEVIN GUZMAN DO 09/14/21922 Diagonstic Imaging: CT Plain Films/CT/US/NM/MRI: chest Comments CT chest report reviewed. See report below: NAME: MADI SAMUELS [facility] REC#: [id number] PT STATUS: REG ER : 1950 PHYSICIAN: JACQUELINE OBRIEN MD ADMIT DATE: 09/14/21/ER Signed Date of Exam:09/14/21 CT CHEST WO EXAMINATION: CT chest without contrast. TECHNIQUE: Multiple contiguous axial images were obtained through the chest without the use of intravenous contrast. All CT scans use one or more of the following dose optimizing techniques: automated exposure control, MA and/or KvP adjustment based on patient size and exam type or iterative reconstruction. HISTORY: History of ascending thoracic aorta. Left-sided weakness. COMPARISON: 03/15/2017. FINDINGS: There is dilation of the ascending thoracic aorta measuring 4.4 cm in transverse diameter, previously measuring 5.0 cm. No periaortic inflammatory changes are visualized. The heart size is prominent with post-CABG changes and aortic valve replacement. No pericardial effusion is present. There is calcified aortic and coronary atherosclerotic plaque. There is no mediastinal, hilar, or axillary lymphadenopathy. The lungs demonstrate no pulmonary nodules or masses. There are no focal areas of consolidation. Small amount of dependent atelectasis is seen in the lung bases. No central endobronchial obstructing lesions are identified. Trace right-sided pleural effusion is seen. There is no pneumothorax. The osseous structures demonstrate no acute abnormalities. Limited views of the upper abdominal structures demonstrate no acute abnormalities. A benign hepatic cyst is seen in the central liver measuring 1.2 cm. Both adrenal glands are unremarkable. IMPRESSION: 1. Ascending thoracic aortic aneurysm measuring 4.4 cm, previously measuring 5.0 cm. No periaortic inflammatory changes are seen. 2. 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 3. Trace right-sided pleural effusion. Dictated by: Dictated on workstation # [id number] Dict: 09/14/21914 Trans: 09/14/21933 [facility] [id number] Interpreted by: KEVIN GUZMAN DO Electronically signed by: KEVIN GUZMAN DO 09/14/2134 CT Read Date: Sep 14, 2021 CT Read Time: 08:49 CT Results/Progress Notes Negative initial CT head. Departure Communication (Admissions) Time/Spoke to Admitting Phy: 11:15 Dr. Snyder Impression Primary Impression: Left arm weakness Additional Impressions: Disequilibrium Vision changes Mechanical heart valve present Anticoagulated Disposition: ADMITTED INPATIENT Condition: Improved Admissions Decision to Admit Reason: Admit from ER (General) Decision to Admit/Date: Sep 14, 2021 Time/Decision to Admit Time: 11:15 Departure-Patient Inst. Referrals: NO,LOCAL PHYSICIAN (PCP/Family) Primary Care Physician Copy Copies To 1: JACKIE KENDRICK MD, JOSHUA T MD Sep 14, 2021 08:50
[2021-09-14 08:55] LABS: ALBUMIN 3.9 GM/DL (3.2-4.5); CHLORIDE 102 MMOL/L (98-107); POTASSIUM 4.5 MMOL/L (3.6-5.0); SODIUM 135 MMOL/L (135-145)
[2021-09-14 08:56] LABS: CALCIUM 9.2 MG/DL (8.5-10.1)
[2021-09-14 08:57] LABS: GLUCOSE 116 MG/DL (70-105)
[2021-09-14 08:58] LABS: FIBRIN DEGRADATION PRODUCTS 0.59 UG/ML (0.00-0.49); PROTHROMBIN TIME PATIENT 23.2 SEC (12.2-14.7); TOTAL PROTEIN 7.3 GM/DL (6.4-8.2)
[2021-09-14 08:59] LABS: BILIRUBIN,TOTAL 0.7 MG/DL (0.1-1.0); CARBON DIOXIDE 22 MMOL/L (21-32)
[2021-09-14 09:01] LABS: ALKALINE PHOSPHATASE 74 U/L (40-136); CREATININE SERUM 1.08 MG/DL (0.60-1.30); GFR ESTIMATED 74
[2021-09-14 09:02] LABS: BUN/CREATININE RATIO 28
[2021-09-14 09:04] LABS: ALANINE AMINOTRANSFERASE 28 U/L (0-55)
--- NOTE | 2021-09-14 09:07 | Diagnostic Imaging Report ---
INDICATION: Left-sided abnormalities and vision issues. COMPARISON: Noncontrast CT head from earlier same day. TECHNIQUE: Post contrast CT head perfusion scan was performed. All CT scans use one or more of the following dose optimizing techniques: automated exposure control, MA and/or KvP adjustment based on patient size and exam type or iterative reconstruction. FINDINGS: Total CBF less than 30% volume: 0 mL. Total Tmax greater than 6 seconds volume: 0 mL. Total mismatch difference: 0 mL. Total mismatch ratio: None. Hypoperfusion index: Not applicable. Source images were also created and reviewed and show no large defect on the Tmax, cerebral blood flow, nor cerebral volume images. Comparison of the different sequences also demonstrates no appreciable mismatch. IMPRESSION: 1. Normal CT head perfusion study. Dictated by: Dictated on workstation # [id number]
--- NOTE | 2021-09-14 09:13 | Diagnostic Imaging Report ---
EXAMINATION: CT head without contrast. TECHNIQUE: Multiple contiguous axial images were obtained through the brain without the use of intravenous contrast. All CT scans use one or more of the following dose optimizing techniques: automated exposure control, MA and/or KvP adjustment based on patient size and exam type or iterative reconstruction. HISTORY: Left-sided weakness. Stroke alert. COMPARISON: None available. FINDINGS: No large acute territorial ischemia, mass, or hemorrhage. No midline shift or mass effect. Decreased attenuation is seen in the periventricular and subcortical white matter. The ventricles and cortical sulci are prominent. The basilar cisterns are patent and unremarkable. The orbits are normal. Paranasal sinuses are normal. Mastoid air cells are clear. No soft tissue abnormality is seen. No osseus lesions or fractures are seen. IMPRESSION: 1. No large acute territorial ischemia, mass, or hemorrhage. 2. Chronic microvascular disease. 3. Generalized parenchymal volume loss. Dictated by: Dictated on workstation # [id number]
--- NOTE | 2021-09-14 09:17 | Diagnostic Imaging Report ---
PROCEDURE: CT angiography of the head and CT angiography of the neck with and without contrast. TECHNIQUE: Contiguous noncontrast images were obtained from the skull base through the vertex. After intravenous contrast administration, helical CT angiography of the neck was performed. Source data was reformatted into 3D MIP projections. Delayed post contrast acquisition was also obtained. Auto Exposure Controls were utilized during the CT exam to meet ALARA standards for radiation dose reduction. INDICATION: Left-sided weakness. Stroke alert. COMPARISON: CT head performed earlier the same date. FINDINGS: CTA Neck: The visualized portions of the aortic arch demonstrate no evidence of aneurysm or dissection. There is common origin of the carotid arteries consistent with bovine arch. The brachiocephalic artery is normal in course and caliber. The right and left common carotid origins are unremarkable. The origin of the left subclavian artery is patent. The common carotid arteries and internal carotid arteries demonstrate a tortuous course. There is calcified atherosclerotic plaque in the bilateral carotid bulbs and proximal internal carotid arteries without flow-limiting stenosis. No evidence of dissection in the carotid systems. The external carotid arteries are patent and unremarkable. The vertebral arteries are codominant. The origin of the right vertebral artery is seen and is unremarkable. The origin of the left vertebral artery is seen and is unremarkable. There is no focal stenosis seen within the neck. There is no dissection. The vertebral arteries are well visualized to up to the level of the basilar artery. The osseous structures of the cervical spine are unremarkable. Included views through the lung apices demonstrate no focal consolidation. CTA brain: Atherosclerotic plaque is seen in the del cid of the bilateral terminal internal carotid arteries without significant stenosis. No stenosis is seen in the bilateral anterior, middle, and posterior cerebral arteries. No evidence of aneurysm the [place]. In the posterior circulation, both of the vertebral arteries demonstrate normal opacification. Both the right and left PICA arteries are identified. The basilar artery is normal in course and caliber. The terminal branch vessels including the superior cerebellar arteries unremarkable. IMPRESSION: 1. No stenosis or aneurysm in the [place]. No evidence of large vessel occlusion. 2. No stenosis or dissection the bilateral carotid and vertebral arteries. Dictated by: Dictated on workstation # [id number]
--- NOTE | 2021-09-14 09:20 | Diagnostic Imaging Report ---
EXAMINATION: Chest radiograph, portable AP view. DATE: 09/14/2021 9:11 AM INDICATION: 70-year-old male, altered balance. COMPARISON: CT chest September 14, 2021. FINDINGS: There are median sternotomy wires. There is a left-sided cardiac assist device with leads. There is no identified pneumothorax. There is no large pleural effusion. There is no identified focal airspace consolidation. Lung volumes are somewhat low. There is prominence of the aortic contours. IMPRESSION: 1. Prominent aortic contours which may reflect thoracic aortic aneurysm. 2. No focal airspace consolidation. Dictated by: Dictated on workstation # [id number]
[2021-09-14 09:24] LABS: BILIRUBIN,URINE NEGATIVE (NEGATIVE); CLARITY,URINE CLEAR; COLOR,URINE YELLOW; GLUCOSE, URINE (UA) NEGATIVE (NEGATIVE); KETONES,URINE NEGATIVE (NEGATIVE); LEUKOCYTE ESTERASE ,URINE NEGATIVE (NEGATIVE); NITRITE,URINE NEGATIVE (NEGATIVE); PH,URINE 6.5 (5-9); PROTEIN,URINE NEGATIVE (NEGATIVE)
--- NOTE | 2021-09-14 09:27 | Diagnostic Imaging Report ---
EXAMINATION: CT chest without contrast. TECHNIQUE: Multiple contiguous axial images were obtained through the chest without the use of intravenous contrast. All CT scans use one or more of the following dose optimizing techniques: automated exposure control, MA and/or KvP adjustment based on patient size and exam type or iterative reconstruction. HISTORY: History of ascending thoracic aorta. Left-sided weakness. COMPARISON: 03/15/2017. FINDINGS: There is dilation of the ascending thoracic aorta measuring 4.4 cm in transverse diameter, previously measuring 5.0 cm. No periaortic inflammatory changes are visualized. The heart size is prominent with post-CABG changes and aortic valve replacement. No pericardial effusion is present. There is calcified aortic and coronary atherosclerotic plaque. There is no mediastinal, hilar, or axillary lymphadenopathy. The lungs demonstrate no pulmonary nodules or masses. There are no focal areas of consolidation. Small amount of dependent atelectasis is seen in the lung bases. No central endobronchial obstructing lesions are identified. Trace right-sided pleural effusion is seen. There is no pneumothorax. The osseous structures demonstrate no acute abnormalities. Limited views of the upper abdominal structures demonstrate no acute abnormalities. A benign hepatic cyst is seen in the central liver measuring 1.2 cm. Both adrenal glands are unremarkable. IMPRESSION: 1. Ascending thoracic aortic aneurysm measuring 4.4 cm, previously measuring 5.0 cm. No periaortic inflammatory changes are seen. 2. 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 3. Trace right-sided pleural effusion. Dictated by: Dictated on workstation # [id number]
[2021-09-14 09:33] LABS: BACTERIA,URINE NEGATIVE /HPF
[2021-09-14] MEDS ORDERED: warFARin 2.5 MG (COUMADIN) TAB PO ONE (11:30)
--- NOTE | 2021-09-14 12:33 | Consultation-Cardiology ---
HPI-Cardiology Cardiology Consultation: Date of Consultation 09/14/21 Time Seen by a Provider: 12:15 Date of Admission 09-14-21 Attending Physician Linda Snyder MD Admitting Physician No,Local Physician Consulting Physician Shivam Vicente MD HPI: Chief Complaint: CVA Mr. Wong is a 70 yr old male admitted to ICU 1 from the ED with TIA vs CVA. He reports he went to bed last night and was feeling well. He reports he woke up this morning and noted weakness and numbness in his left arm. He states he had some central vision disturbance in his left eye. He reports his balance was o ff. He states the numbness in his left arm has improved and his vision. He reports he went to have a haircut and continued to feel off balance and therefore came to the ED. He states he was been off his warfarin in anticipation of a colonoscopy tomorrow for the last 3 days. No c/o CP, palpitations, syncope or near syncope. Review of Systems-Cardiology Review of Systems Constitutional: No chills, No fever, No malaise Eyes: As described under HPI Ears/Nose/Throat: No epistaxis, No nasal drainage, No recent hearing loss Respiratory: As described under HPI Cardiovascular: As described under HPI Gastrointestinal: No constipation, No diarrhea, No nausea, No vomiting Genitourinary: No dysuria, No hematuria Skin: No rash on exposed areas, No ulcerations on exposed areas Psychiatric/Neurological: As described under HPI Hematologic: No bleeding abnormalities [id number] Hx Patient Social History 2nd Hand Smoke Exposure: No Have you traveled recently?: No Immunizations Up To Date Tetanus Booster (TDap): Unknown Date of Pneumonia Vaccine: Dec 18, 2011 Date of Influenza Vaccine: Apr 02, 2016 Past Medical History PMH As described under Assessment. Family Medical History Family Medical History: Documented family h/o father having CAD and stroke. Family History: FH: heart disease 19 FATHER ( in 1989 ) FH: stroke 19 FATHER, Onset:40's - 50 Myocardial infarction 19 FATHER, Onset:60 years & older Allergies and Home Medications Allergies Coded Allergies: No Known Drug Allergies (Unverified , 12/17/16) Patient Home Medication List Alfuzosin HCl (Alfuzosin HCl ER) 10 Mg Tab.er.24h, 10 MG PO HS, (Reported) Entered as Reported by: YUNIER MUNGUIA on 09/11/211436 Last Action: Reviewed Ascorbate Calcium (Vitamin C) 500 Mg Tablet, 500 MG PO DAILY, (Reported) Entered as Reported by: GREER GEORGE on 03/12/16 102 Last Action: Reviewed Coffee Xt/Phosphatidyl Serine (Neuriva Original 100-100Mg Cap) 1 Each Capsule, 1 EACH PO DAILY, (Reported) Entered as Reported by: GEM DANIELS on 09/14/211550 Last Action: Reviewed Cyanocobalamin (Vitamin B-12) (Vitamin B-12) 1,000 Mcg Tablet, 1,000 MCG PO DAILY, (Reported) Entered as Reported by: GREER GEORGE on 03/12/16 102 Last Action: Reviewed Digoxin (Digoxin) 250 Mcg Tablet, 250 MCG PO DAILY, (Reported) Entered as Reported by: GREER GEORGE on 03/12/16 102 Last Action: Reviewed Duloxetine HCl (Duloxetine HCl) 60 Mg Capsule.dr, 60 MG PO HS, (Reported) Entered as Reported by: YUNIER MUNGUIA on 09/11/211436 Last Action: Reviewed Fenofibrate Nanocrystallized (Fenofibrate) 145 Mg Tablet, 145 MG PO DAILY, (Reported) Entered as Reported by: GREER GEORGE on 03/12/16 102 Last Action: Reviewed Fluticasone Propionate (Fluticasone Propionate) 16 Gm [place].susp, 1-2 SPRAY NSEACH DAILY PRN for CONGESTION, (Reported) Entered as Reported by: GEM DANIELS on 09/14/211552 Last Action: Reviewed Gabapentin (Neurontin) 300 Mg Capsule, 300 MG PO HS, (Reported) Entered as Reported by: YUNIER MUNGUIA on 09/11/211436 Last Action: Reviewed Lactobacillus Combination No.4 (Probiotic) 1 Each Capsule, 1 EACH PO DAILY, (Reported) Entered as Reported by: GEM DANIELS on 09/14/211550 Last Action: Reviewed Loratadine (Loratadine) 10 Mg Tablet, 10 MG PO DAILY, (Reported) Entered as Reported by: GREER GEORGE on 03/12/16 102 Last Action: Reviewed Losartan Potassium (Losartan Potassium) 50 Mg Tablet, 50 MG PO DAILY, (Reported) Entered as Reported by: GEM DANIELS on 09/14/211550 Last Action: Reviewed Multivitamin (Daily Value) 1 Each Tablet, 1 TAB PO DAILY, (Reported) Entered as Reported by: GREER GEORGE on 03/12/16 1021 Last Action: Reviewed Nebivolol HCl (Nebivolol HCl) 5 Mg Tablet, 5 MG PO DAILY, (Reported) Entered as Reported by: GEM DANIELS on 09/14/211550 Last Action: Reviewed Pantoprazole Sodium (Pantoprazole Sodium) 40 Mg Tablet.dr, 40 MG PO DAILY, (Reported) Entered as Reported by: YUNIER MUNGUIA on 09/11/211436 Last Action: Reviewed Potassium Gluconate (Potassium) 99 Mg Tablet, 396 MG PO DAILY, (Reported) Entered as Reported by: YUNIER MUNGUIA on 09/11/211436 Last Action: Reviewed Rosuvastatin Calcium (Rosuvastatin Calcium) 10 Mg Tablet, 10 MG PO HS, (Reported) Entered as Reported by: YUNIER MUNGUIA on 09/11/211436 Last Action: Reviewed Tizanidine HCl (Tizanidine HCl) 4 Mg Tablet, 4 MG PO Q8H PRN for MUSCLE SPASMS, (Reported) Entered as Reported by: GEM DANIELS on 09/14/211552 Last Action: Reviewed Warfarin Sodium (Jantoven) 5 Mg Tablet, 5 MG PO TUE,SAT @HS, (Reported) Entered as Reported by: GEM DANIELS on 09/14/211550 Last Action: Reviewed Warfarin Sodium (Warfarin Sodium) 5 Mg Tablet, 2.5 MG PO ROACH,MO,WE,TH,FR @HS, (Reported) Entered as Reported by: GEM DANIELS on 09/14/211550 Last Action: Reviewed Discontinued Medications Bacillus Coagulans (Probiotic) 1 Each Tab.chew, 1 EACH PO DAILY, (Reported) Discontinued Reason: Duplicate Order Entered as Reported by: YUNIER MUNGUIA on 09/11/211436 Last Action: Discontinued Cetirizine HCl (Allergy Relief) 10 Mg Tablet, 10 MG PO DAILY, (Reported) Discontinued Reason: Duplicate Order Entered as Reported by: GEM DANIELS on 09/14/211550 Last Action: Discontinued Gabapentin (Gabapentin) 100 Mg Capsule, 100 MG PO HS, (Reported) Discontinued Reason: Prescription changed Entered as Reported by: GREER GEORGE on 03/12/16 1020 Losartan Potassium (Cozaar) 50 Mg Tablet, 50 MG PO DAILY, (Reported) Discontinued Reason: No Longer Taking Entered as Reported by: GREER GEORGE on 03/12/16 1020 Last Action: Discontinued Nebivolol HCl (Bystolic) 5 Mg Tablet, 5 MG PO DAILY, (Reported) Discontinued Reason: No Longer Taking Entered as Reported by: STERLING AWAN on 12/17/16 1039 Last Action: Discontinued [place]-3/Dha/Epa/Fish Oil (Fish Oil 1,400 mg Softgel) 1 Each Capsule.dr, 4,200 MG PO DAILY, (Reported) Discontinued Reason: No Longer Taking Entered as Reported by: GREER GEORGE on 03/12/16 1023 Omeprazole Magnesium (Prilosec Otc) 20 Mg Tablet.dr, 20 MG PO DAILY, (Reported) Discontinued Reason: No Longer Taking Entered as Reported by: GREER GEORGE on 03/12/16 1021 Oxycodone HCl/Acetaminophen (Percocet 5-325 mg Tablet) 1 Each Tablet, 1 EACH PO Q4H Discontinued Reason: No Longer Taking Prescribed by: CARLOS EDUARDO JOSEPH on 12/26/16 0735 Oxycodone HCl/Acetaminophen (Oxycodone-Acetaminophen 10-325) 1 Each Tablet, 1 EACH PO Q4H PRN for pain Discontinued Reason: No Longer Taking Prescribed by: PATRICK LEPE on 09/30/17 2347 Sertraline HCl (Zoloft) 50 Mg Tablet, 50 MG PO HS, (Reported) Discontinued Reason: No Longer Taking Entered as Reported by: GREER GEORGE on 03/12/16 1020 Warfarin Sodium (Jantoven) 2.5 Mg Tablet, 2.5 MG PO HS, (Reported) Discontinued Reason: Duplicate Order Entered as Reported by: YUNIER MUNGUIA on 09/11/21 1437 Last Action: Discontinued [[place]] , 1 TAB PO DAILY, (Reported) Discontinued Reason: No Longer Taking Entered as Reported by: GREER GEORGE on 03/12/16 1022 Physical Exam-Cardiology Physical Exam Vital Signs/I&O 3/24/22 3/24/22 3/24/22 3/24/22 08:28 11:50 12:09 13:00 Temp 36.3 36.0 Pulse 64 73 69 68 Resp 16 16 16 16 B/P (MAP) 164/91 (115) 163/93 138/123 (128) 141/90 (107) Pulse Ox 99 97 100 99 O2 Delivery Room Air Room Air Room Air Room Air 09/14/21 09/14/21 09/14/21 09/14/21 14:00 14:45 15:48 16:00 Temp 35.9 Pulse 64 63 60 Resp 32 24 15 B/P (MAP) 149/88 (108) 144/90 (108) Pulse Ox 97 98 97 O2 Delivery Room Air Room Air Room Air Capillary Refill : Less Than 3 Seconds Constitutional: AAO x 3, well-developed, well-nourished HEENT: PERRL, hearing is well preserved, oral hygience is good Neck: No carotid bruit; carotid pulses are 2 + bilaterally Respiratory: No accessory muscle use, No respiratory distress; chest expansion is symmetric, chest is bilaterally symmetric, lungs clear to auscultation Cardiovascular: regular rate-rhythm; No JVD; S1 and S2 Gastrointestinal: No tender; soft, round, audible bowel sounds Extremities: no lower extremity edema bilateral Neurologic/Psychiatric: other (moves all extremities) Skin: No rash on exposed areas, No ulcerations on exposed areas Data Review Labs Laboratory Tests 09/14/21 08:35: White Blood Count 8.9, Red Blood Count 4.23L, Hemoglobin 12.4L, Hematocrit 38L, Mean Corpuscular Volume 90, Mean Corpuscular Hemoglobin 29, Mean Corpuscular Hemoglobin Concent 33, Red Cell Distribution Width 13.8, Platelet Count 219, Mean Platelet Volume 9.8, Immature Granulocyte % (Auto) 0, Neutrophils (%) (Auto) 71, Lymphocytes (%) (Auto) 18, Monocytes (%) (Auto) 9, Eosinophils (%) (Auto) 1, Basophils (%) (Auto) 0, Neutrophils # (Auto) 6.3, Lymphocytes # (Auto) 1.6, Monocytes # (Auto) 0.8, Eosinophils # (Auto) 0.1, Basophils # (Auto) 0.0, Immature Granulocyte # (Auto) 0.0, Prothrombin Time 23.2H, INR Comment 2.0H, Act ivated Partial Thromboplast Time 49H, D-Dimer 0.59H, Sodium Level 135, Potassium Level 4.5, Chloride Level 102, Carbon Dioxide Level 22, Anion Gap 11, Blood Urea Nitrogen 30H, Creatinine 1.08, Estimat Glomerular Filtration Rate 74, BUN/Creatinine Ratio 28, Glucose Level 116H, Calcium Level 9.2, Corrected Calci um 9.3, Total Bilirubin 0.7, Aspartate Amino Transf (AST/SGOT) 23, Alanine Aminotransferase (ALT/SGPT) 28, Alkaline Phosphatase 74, Troponin I < 0.028, Total Protein 7.3, Albumin 3.9 09/14/21 08:41: Glucometer 114H 09/14/21 09:15: Urine Color YELLOW, Urine Clarity CLEAR, Urine pH 6.5, Urine Specific [place] 1.010L, Urine Protein NEGATIVE, Urine Glucose (UA) NEGATIVE, Urine Ketones NEGATIVE, Urine Nitrite NEGATIVE, Urine Bilirubin NEGATIVE, Urine Urobilinogen 0.2, Urine Leukocyte Esterase NEGATIVE, Urine RBC (Auto) NEGATIVE, Urine RBC NONE, Urine WBC NONE, Urine Squamous Epithelial Cells NONE, Urine Crystals NONE, Urine Bacteria NEGATIVE, Urine Casts NONE, Urine Mucus NEGATIVE, Urine Culture Indicated NO 09/14/21 16:11: Glucometer 86 Radiology NAME: MADI WONG [facility] REC#: [id number] PT STATUS: REG ER : 1950 PHYSICIAN: JACQUELINE OBRIEN MD ADMIT DATE: 09/14/21/ER Signed Date of Exam:09/14/21 CT HEAD PERFUSION W/ CONTRAST INDICATION: Left-sided abnormalities and vision issues. COMPARISON: Noncontrast CT head from earlier same day. TECHNIQUE: Post contrast CT head perfusion scan was performed. All CT scans use one or more of the following dose optimizing techniques: automated exposure control, MA and/or KvP adjustment based on patient size and exam type or iterative reconstruction. FINDINGS: Total CBF less than 30% volume: 0 mL. Total Tmax greater than 6 seconds volume: 0 mL. Total mismatch difference: 0 mL. Total mismatch ratio: None. Hypoperfusion index: Not applicable. Source images were also created and reviewed and show no large defect on the Tmax, cerebral blood flow, nor cerebral volume images. Comparison of the different sequences also demonstrates no appreciable mismatch. IMPRESSION: 1. Normal CT head perfusion study. Dictated by: Dictated on workstation # [id number] Dict: 09/14/21 0902 Trans: 09/14/21 1038 FAYE [id number] Interpreted by: NEENA MUJICA DO Electronically signed by: NEENA MUJICA DO 09/14/21 1038 NAME: MADI WONG [facility] REC#: [id number] PT STATUS: REG ER : 1950 PHYSICIAN: JACQUELINE OBRIEN MD ADMIT DATE: 09/14/21/ER Signed Date of Exam:09/14/21 CT ANGIO HEAD/NECK PROCEDURE: CT angiography of the head and CT angiography of the neck with and without contrast. TECHNIQUE: Contiguous noncontrast images were obtained from the skull base through the vertex. After intravenous contrast administration, helical CT angiography of the neck was performed. Source data was reformatted into 3D MIP projections. Delayed post contrast acquisition was also obtained. Auto Exposure Controls were utilized during the CT exam to meet ALARA standards for radiation dose reduction. INDICATION: Left-sided weakness. Stroke alert. COMPARISON: CT head performed earlier the same date. FINDINGS: CTA Neck: The visualized portions of the aortic arch demonstrate no evidence of aneurysm or dissection. There is common origin of the carotid arteries consistent with bovine arch. The brachiocephalic artery is normal in course and caliber. The right and left common carotid origins are unremarkable. The origin of the left subclavian artery is patent. The common carotid arteries and internal carotid arteries demonstrate a tortuous course. There is calcified atherosclerotic plaque in the bilateral carotid bulbs and proximal internal carotid arteries without flow-limiting stenosis. No evidence of dissection in the carotid systems. The external carotid arteries are patent and unremarkable. The vertebral arteries are codominant. The origin of the right vertebral artery is seen and is unremarkable. The origin of the left vertebral artery is seen and is unremarkable. There is no focal stenosis seen within the neck. There is no dissection. The vertebral arteries are well visualized to up to the level of the basilar artery. The osseous structures of the cervical spine are unremarkable. Included views through the lung apices demonstrate no focal consolidation. CTA brain: Atherosclerotic plaque is seen in the del cid of the bilateral terminal internal carotid arteries without significant stenosis. No stenosis is seen in the bilateral anterior, middle, and posterior cerebral arteries. No evidence of aneurysm the [place]. In the posterior circulation, both of the vertebral arteries demonstrate normal opacification. Both the right and left PICA arteries are identified. The basilar artery is normal in course and caliber. The terminal branch vessels including the superior cerebellar arteries unremarkable. IMPRESSION: 1. No stenosis or aneurysm in the [place]. No evidence of large vessel occlusion. 2. No stenosis or dissection the bilateral carotid and vertebral arteries. Dictated by: Dictated on workstation # [id number] Dict: 09/14/21912 Trans: 09/14/21922 [facility] [id number] Interpreted by: KEVIN GUZMAN DO Electronically signed by: KEVIN GUZMAN DO 09/14/21922 A/P-Cardiology Assessment/Admission Diagnosis CVA - Left eye visual disturbance, left arm weakness, disturbance of balance - sy mptoms improving - Mangement per stroke team - No stenosis or dissection the bilateral carotid and vertebral arteries per CTA of 09-14-21 CAD - H/O CABG x 5 vessel in March 2006 in [place], [place] - reports most recent stress test in summer 2020 in [place], [place] by Dr. Galarza Aortic valve dz - mechanical replacement done at time of CABG in March 2006 in [place], [place] - Warfarin tx - managed by Dr. Galarza H/O aortic aneurysm - repair by Dr. Galarza in [place], [place] 3 years ago ICM - AICD/PPM in place - most recent pulse gen change out in December 2019 in [place], [place] - followed by Dr. Galarza - resolved per pt report - most recent echo 2-[address] Galarza in [place], [place] HTN - controlled HLD - statin tx Discussion and Recomendations CVA/TIA - management per stroke team - likely d/t withholding warfarin in anticipation of colonoscopy tomorrow We are advising ASA 81 mg - he reports he is intolerant d/t h/o increased bleeding We advise INR goal of 2.5-3.5 Lovenox bridging to get INR to goal of 2.5 Dr. Vicente has discussed this with Dr Snyder and we are leaving the final decision regarding our recs to the medical services We will request records from Dr. Galarza in [place], [place] Monitor lab Further recs will be based on his hospital course We would like to thank medical services for this consult GLENDY VIVAS Sep 14, 2021 12:33
--- NOTE | 2021-09-14 12:40 | History & Physical-Hospitalist ---
History of Present Illness HPI/Chief Complaint Pt is a 70yoCM with a PMH of aortic valve replacement, HTN, HLD who presented to the ER due to left arm weakness. Patient states that he slept with his arm up over his head and thought it was due to his arm falling asleep but when he went to get his haircut his mendoza noticed that he was not quite acting right and his balance was off. He drove himself to the emergency room and was activated as a code stroke. Symptoms have been improving and his NIH was a [address] head noncontrast was done and was negative. Case was discussed with stroke neurology by the ER team and a CTA head and neck was recommended. He was supposed to have a colonoscopy tomorrow and had been off of his warfarin since his last dose Saturday. His INR on Saturday was 2.9 and today was 2.0. 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 MRI was attempted but unable to be done due to pacemaker. He is being admitted for observation overnight. Source: patient Date Seen 09/14/21 Time Seen by a Provider: 12:34 Attending Physician Christoph Snyder MD PCP No,Local Physician Referring Physician Date of Admission Sep 14, 2021 at 11:20 Home Medications & Allergies Home Medications Reviewed patient Home Medication Reconciliation performed by pharmacy medication reconciliations dealer support technician and/or nursing. Patients Allergies have been reviewed. Allergies Allergies Coded Allergies No Known Drug Allergies (Unverified12/17/16) Past Qeokvyr-Hfyfnz-Pkiqhd Hx Patient Social History Marrital Status: Employed/Student: retired Smoking Status: Unknown if Ever Smoked Immunizations Up To Date Date of Influenza Vaccine: Apr 02, 2016 First/Initial COVID19 Vaccinat: n/a Second COVID19 Vaccination John: n/a Date of Pneumonia Vaccine: Dec 18, 2011 Seasonal Allergies Seasonal Allergies: No Current Status Primary Language: [place] Preferred Spoken Language: Uruguayan Past Medical History Surgeries: Adenoidectomy, CABG, Tonsillectomy, Valve Replacement Sleep Apnea Coronary Artery Disease, Heart Attack, Hypertension, Valvular Heart Disease Sexually Transmitted Disease: No HIV/AIDS: No Gastroesophageal Reflux, Chronic Diarrhea, Irritable Bowel Arthritis Loss of Vision: Bilateral Hearing Impairment: Denies Anxiety Blood Disorders: No Adverse Reaction/Blood Tranf: No (N/A) Family Medical History Reviewed Nursing Family Hx FH: heart disease 19 FATHER ( in 1989 ) FH: stroke 19 FATHER, Onset:40's - 50 Myocardial infarction 19 FATHER, Onset:60 years & older Review of Systems Constitutional: No chills, No fever, No malaise EENTM: no symptoms reported Respiratory: no symptoms reported Cardiovascular: no symptoms reported Genitourinary: no symptoms reported Musculoskeletal: no symptoms reported Skin: no symptoms reported Psychiatric/Neurological: Headache, Numbness, Paresthesia; Denies Pre-Existing Deficit, Denies Seizure; Weakness Physical Exam Physical Exam Vital Signs Vital Signs - First Documented 09/14/21 08:28 Temp 36.3 Pulse 64 Resp 16 B/P (MAP) 164/91 (115) Pulse Ox 99 O2 Delivery Room Air Capillary Refill : Less Than 3 Seconds Height, Weight, BMI Height: 5'10.00" Weight: 190lbs. 0oz. 86.351376nb; 27.00 BMI Method:Stated General Appearance: No Apparent Distress, WD/WN HEENT: PERRL/EOMI, Moist Mucous Membranes Neck: Normal Inspection, Supple Respiratory: Lungs Clear, No Accessory Muscle Use, No Respiratory Distress Cardiovascular: Regular Rate, Rhythm, No JVD, Systolic Murmur Gastrointestinal: Normal Bowel Sounds, Non Tender, Soft Extremity: No Calf Tenderness, No Pedal Edema Neurologic/Psychiatric: Alert, Oriented x3, Normal Mood/Affect Results Results/Procedures Labs Laboratory Tests 09/14/21 08:35 Patient resulted labs reviewed. Imaging: Reviewed Imaging Report Imaging [facility], [place] NAME: MADI SAMUELS [facility] REC#: [id number] PT STATUS: REG ER : 1950 PHYSICIAN: JACQUELINE OBRIEN MD ADMIT DATE: 09/14/21/ER Signed Date of Exam:09/14/21 CHEST 1 VIEW, AP/PA ONLY EXAMINATION: Chest radiograph, portable AP view. DATE: 09/14/2021 9:11 AM INDICATION: 70-year-old male, altered balance. COMPARISON: CT chest September 14, 2021. FINDINGS: There are median sternotomy wires. There is a left-sided cardiac assist device with leads. There is no identified pneumothorax. There is no large pleural effusion. There is no identified focal airspace consolidation. Lung volumes are somewhat low. There is prominence of the aortic contours. IMPRESSION: 1. Prominent aortic contours which may reflect thoracic aortic aneurysm. 2. No focal airspace consolidation. Dictated by: Dictated on workstation # [id number] Dict: 09/14/21914 Trans: 09/14/211057 ACB [id number] Interpreted by: CARMELO MARTINEZ MD Electronically signed by: CARMELO MARTINEZ MD 09/14/211057 [facility], [place] NAME: MADI SAMUELS [facility] REC#: [id number] PT STATUS: REG ER : 1950 PHYSICIAN: JACQUELINE OBRIEN MD ADMIT DATE: 09/14/21/ER Signed Date of Exam:09/14/21 CT HEAD WO-R/O STROKE EXAMINATION: CT head without contrast. TECHNIQUE: Multiple contiguous axial images were obtained through the brain without the use of intravenous contrast. All CT scans use one or more of the following dose optimizing techniques: automated exposure control, MA and/or KvP adjustment based on patient size and exam type or iterative reconstruction. HISTORY: Left-sided weakness. Stroke alert. COMPARISON: None available. FINDINGS: No large acute territorial ischemia, mass, or hemorrhage. No midline shift or mass effect. Decreased attenuation is seen in the periventricular and subcortical white matter. The ventricles and cortical sulci are prominent. The basilar cisterns are patent and unremarkable. The orbits are normal. Paranasal sinuses are normal. Mastoid air cells are clear. No soft tissue abnormality is seen. No osseus lesions or fractures are seen. IMPRESSION: 1. No large acute territorial ischemia, mass, or hemorrhage. 2. Chronic microvascular disease. 3. Generalized parenchymal volume loss. Dictated by: Dictated on workstation # [id number] Dict: 09/14/21900 Trans: 09/14/21914 FAYE [id number] Interpreted by: KEVIN GUZMAN DO Electronically signed by: KEVIN GUZMAN DO 09/14/2115 [facility], [place] NAME: MADI SAMUELS [facility] REC#: [id number] PT STATUS: REG ER : 1950 PHYSICIAN: JACQUELINE OBRIEN MD ADMIT DATE: 09/14/21/ER Signed Date of Exam:09/14/21 CT HEAD PERFUSION W/ CONTRAST INDICATION: Left-sided abnormalities and vision issues. COMPARISON: Noncontrast CT head from earlier same day. TECHNIQUE: Post contrast CT head perfusion scan was performed. All CT scans use one or more of the following dose optimizing techniques: automated exposure control, MA and/or KvP adjustment based on patient size and exam type or iterative reconstruction. FINDINGS: Total CBF less than 30% volume: 0 mL. Total Tmax greater than 6 seconds volume: 0 mL. Total mismatch difference: 0 mL. Total mismatch ratio: None. Hypoperfusion index: Not applicable. Source images were also created and reviewed and show no large defect on the Tmax, cerebral blood flow, nor cerebral volume images. Comparison of the different sequences also demonstrates no appreciable mismatch. IMPRESSION: 1. Normal CT head perfusion study. Dictated by: Dictated on workstation # [id number] Dict: 09/14/21 0902 Trans: 09/14/21 1038 FAYE [id number] Interpreted by: NEENA MUJICA DO Electronically signed by: NEENA MUJICA DO 09/14/21 1038 [facility], [place] NAME: MADI SAMUELS [facility] REC#: [id number] PT STATUS: REG ER : 1950 PHYSICIAN: JACQUELINE OBRIEN MD ADMIT DATE: 09/14/21/ER Signed Date of Exam:09/14/21 CT ANGIO HEAD/NECK PROCEDURE: CT angiography of the head and CT angiography of the neck with and without contrast. TECHNIQUE: Contiguous noncontrast images were obtained from the skull base through the vertex. After intravenous contrast administration, helical CT angiography of the neck was performed. Source data was reformatted into 3D MIP projections. Delayed post contrast acquisition was also obtained. Auto Exposure Controls were utilized during the CT exam to meet ALARA standards for radiation dose reduction. INDICATION: Left-sided weakness. Stroke alert. COMPARISON: CT head performed earlier the same date. FINDINGS: CTA Neck: The visualized portions of the aortic arch demonstrate no evidence of aneurysm or dissection. There is common origin of the carotid arteries consistent with bovine arch. The brachiocephalic artery is normal in course and caliber. The right and left common carotid origins are unremarkable. The origin of the left subclavian artery is patent. The common carotid arteries and internal carotid arteries demonstrate a tortuous course. There is calcified atherosclerotic plaque in the bilateral carotid bulbs and proximal internal carotid arteries without flow-limiting stenosis. No evidence of dissection in the carotid systems. The external carotid arteries are patent and unremarkable. The vertebral arteries are codominant. The origin of the right vertebral artery is seen and is unremarkable. The origin of the left vertebral artery is seen and is unremarkable. There is no focal stenosis seen within the neck. There is no dissection. The vertebral arteries are well visualized to up to the level of the basilar artery. The osseous structures of the cervical spine are unremarkable. Included views through the lung apices demonstrate no focal consolidation. CTA brain: Atherosclerotic plaque is seen in the del cid of the bilateral terminal internal carotid arteries without significant stenosis. No stenosis is seen in the bilateral anterior, middle, and posterior cerebral arteries. No evidence of aneurysm the [place]. In the posterior circulation, both of the vertebral arteries demonstrate normal opacification. Both the right and left PICA arteries are identified. The basilar artery is normal in course and caliber. The terminal branch vessels including the superior cerebellar arteries unremarkable. IMPRESSION: 1. No stenosis or aneurysm in the [place]. No evidence of large vessel occlusion. 2. No stenosis or dissection the bilateral carotid and vertebral arteries. Dictated by: Dictated on workstation # [id number] Dict: 09/14/21912 Trans: 09/14/21922 [facility] [id number] Interpreted by: KEVIN GUZMAN DO Electronically signed by: KEVIN GUZMAN DO 09/14/21922 [facility] [place], [place] NAME: MADI SAMUELS [facility] REC#: [id number] PT STATUS: REG ER : 1950 PHYSICIAN: JACQUELINE OBRIEN MD ADMIT DATE: 09/14/21/ER Signed Date of Exam:09/14/21 CT CHEST WO EXAMINATION: CT chest without contrast. TECHNIQUE: Multiple contiguous axial images were obtained through the chest without the use of intravenous contrast. All CT scans use one or more of the following dose optimizing techniques: automated exposure control, MA and/or KvP adjustment based on patient size and exam type or iterative reconstruction. HISTORY: History of ascending thoracic aorta. Left-sided weakness. COMPARISON: 03/15/2017. FINDINGS: There is dilation of the ascending thoracic aorta measuring 4.4 cm in transverse diameter, previously measuring 5.0 cm. No periaortic inflammatory changes are visualized. The heart size is prominent with post-CABG changes and aortic valve replacement. No pericardial effusion is present. There is calcified aortic and coronary atherosclerotic plaque. There is no mediastinal, hilar, or axillary lymphadenopathy. The lungs demonstrate no pulmonary nodules or masses. There are no focal areas of consolidation. Small amount of dependent atelectasis is seen in the lung bases. No central endobronchial obstructing lesions are identified. Trace right-sided pleural effusion is seen. There is no pneumothorax. The osseous structures demonstrate no acute abnormalities. Limited views of the upper abdominal structures demonstrate no acute abnormalities. A benign hepatic cyst is seen in the central liver measuring 1.2 cm. Both adrenal glands are unremarkable. IMPRESSION: 1. Ascending thoracic aortic aneurysm measuring 4.4 cm, previously measuring 5.0 cm. No periaortic inflammatory changes are seen. 2. 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 3. Trace right-sided pleural effusion. Dictated by: Dictated on workstation # [id number] Dict: 09/14/21914 Trans: 09/14/2134 [facility] [id number] Interpreted by: KEVIN GUZMAN DO Electronically signed by: KEVIN GUZMAN DO 09/14/21 0934 Assessment/Plan Admission Diagnosis Left upper extremity weakness Admission Status: Observation Assessment and Plan Left upper extremity weakness Rule out CVA vs TIA NIH 0 on arrival and only has very mild left waiter/waitress captain weakness now Will monitor overnight in ICU do to stuttering presentation concern per [facility] stroke neurologist ER discussed with [facility] stroke neurology Recommend MRI but unable to do due to pacemaker Recommended resuming Warfarin but not to bridge with Lovenox just yet AVR HTN HLD [place] Telemetry Cardiology consulted, appreciate recs Resume Warfarin Resume home meds when med rec done DVT ppx: On Warfarin Diagnosis/Problems Diagnosis/Problems (1) Essential (primary) hypertension (2) HLD (hyperlipidemia) Qualifiers: Hyperlipidemia type: mixed hyperlipidemia Qualified Codes: E78.2 - Mixed hyperlipidemia (3) Prophylactic measure (4) Left arm weakness (5) Anticoagulated Status: Acute (6) Disequilibrium Status: Acute (7) Mechanical heart valve present Status: Acute CHRISTOPH SNYDER MD Sep 14, 2021 12:39
[2021-09-14] MEDS ORDERED: PATIENT MAY USE OWN MEDS, ALL MC SCH (12:45)
[2021-09-14] MEDS ORDERED: ASPIRIN 81 MG CHEW (CHILDREN'S ASA) PO ONE (13:45)
--- NOTE | 2021-09-14 13:56 | Consultation-Cardiology ---
HPI-Cardiology Cardiology Consultation: Date of Consultation 09/14/21 Time Seen by a Provider: 13:05 Date of Admission Attending Physician Linda Snyder MD Admitting Physician No,Local Physician Consulting Physician LINDSAY LEMA MD, MA, FACP, FACC, [facility], CCDS Physician requesting consult: Dr Snyder HPI: Chief Complaint: Transient numbness and weakness in the L arm Mr. Wong is a 70 yr old male admitted to ICU 1 from the ED with TIA vs CVA. He reports he went to bed last night and was feeling well. He reports he woke up this morning and noted weakness and numbness in his left arm. He states he had some central vision disturbance in his left eye. He reports his balance was off. He states the numbness in his left arm has improved and his vision. He reports he went to have a haircut and continued to feel off balance and theref ore came to the ED. He states he was been off his warfarin in anticipation of a colonoscopy tomorrow for the last 3 days. No c/o CP, palpitations, syncope or near syncope. Review of Systems-Cardiology Review of Systems Constitutional: No chills, No fever, No malaise Eyes: As described under HPI Ears/Nose/Throat: No epistaxis, No nasal drainage, No recent hearing loss Respiratory: As described under HPI Cardiovascular: As described under HPI Gastrointestinal: No constipation, No diarrhea, No nausea, No vomiting Genitourinary: No dysuria, No hematuria Skin: No rash on exposed areas, No ulcerations on exposed areas Psychiatric/Neurological: As described under HPI Hematologic: No bleeding abnormalities PUI-Cdeixy-Ztbtgn Hx Patient Social History Marrital Status: Employed/Student: retired Smoking Status: Unknown if Ever Smoked 2nd Hand Smoke Exposure: No Have you traveled recently?: No Immunizations Up To Date Tetanus Booster (TDap): Unknown Date of Pneumonia Vaccine: Dec 18, 2011 Date of Influenza Vaccine: Apr 02, 2016 Past Medical History PMH As described under Assessment. Family Medical History Family Medical History: Documented family h/o father having CAD and stroke. Family History: FH: heart disease 19 FATHER ( in 1989 ) FH: stroke 19 FATHER, Onset:40's - 50 Myocardial infarction 19 FATHER, Onset:60 years & older Allergies and Home Medications Allergies Coded Allergies: No Known Drug Allergies (Unverified , 12/17/16) Patient Home Medication List Home Medication List Reviewed: Yes Alfuzosin HCl (Alfuzosin HCl ER) 10 Mg Tab.er.24h, 10 MG PO HS, (Reported) Entered as Reported by: YUNIER MUNGUIA on 09/11/21 1437 Ascorbate Calcium (Vitamin C) 500 Mg Tablet, 500 MG PO DAILY, (Reported) Entered as Reported by: GREER GEORGE on 03/12/16 1021 Bacillus Coagulans (Probiotic) 1 Each Tab.chew, 1 EACH PO DAILY, (Reported) Entered as Reported by: YUNIER MUNGUIA on 09/11/21 1437 Cyanocobalamin (Vitamin B-12) (Vitamin B-12) 1,000 Mcg Tablet, 1,000 MCG PO DAILY, (Reported) Entered as Reported by: GREER GEORGE on 03/12/16 1021 Digoxin (Digoxin) 250 Mcg Tablet, 250 MCG PO DAILY, (Reported) Entered as Reported by: GREER GEORGE on 03/12/16 1020 Duloxetine HCl (Duloxetine HCl) 60 Mg Capsule.dr, 60 MG PO HS, (Reported) Entered as Reported by: YUNIER MUNGUIA on 09/11/21 1437 Fenofibrate Nanocrystallized (Fenofibrate) 145 Mg Tablet, 145 MG PO DAILY, (Reported) Entered as Reported by: GREER GEORGE on 03/12/16 1020 Gabapentin (Neurontin) 300 Mg Capsule, 300 MG PO HS, (Reported) Entered as Reported by: YUNIER MUNGUIA on 09/11/21 1437 Loratadine (Loratadine) 10 Mg Tablet, 10 MG PO DAILY, (Reported) Entered as Reported by: GREER GEORGE on 03/12/16 1021 Losartan Potassium (Cozaar) 50 Mg Tablet, 50 MG PO DAILY, (Reported) Entered as Reported by: GREER GEORGE on 03/12/16 1020 Multivitamin (Daily Value) 1 Each Tablet, 1 TAB PO DAILY, (Reported) Entered as Reported by: GREER GEORGE on 03/12/16 1021 Nebivolol HCl (Bystolic) 5 Mg Tablet, 5 MG PO DAILY, (Reported) Entered as Reported by: STERLING AWAN on 12/17/16 1039 Pantoprazole Sodium (Pantoprazole Sodium) 40 Mg Tablet.dr, 40 MG PO DAILY, (Reported) Entered as Reported by: YUNIER MUNGUIA on 09/11/21 1437 Potassium Gluconate (Potassium) 99 Mg Tablet, 396 MG PO DAILY, (Reported) Entered as Reported by: YUNIER MUNGUIA on 09/11/21 1437 Rosuvastatin Calcium (Rosuvastatin Calcium) 10 Mg Tablet, 10 MG PO HS, (Reported) Entered as Reported by: YUNIER MUNGUIA on 09/11/21 1437 Warfarin Sodium (Jantoven) 2.5 Mg Tablet, 2.5 MG PO HS, (Reported) Entered as Reported by: YUNIER MUNGUIA on 09/11/21 1437 Discontinued Medications Gabapentin (Gabapentin) 100 Mg Capsule, 100 MG PO HS, (Reported) Discontinued Reason: Prescription changed Entered as Reported by: GREER GEORGE on 03/12/16 1020 Zortman-3/Dha/Epa/Fish Oil (Fish Oil 1,400 mg Softgel) 1 Each Capsule.dr, 4,200 MG PO DAILY, (Reported) Discontinued Reason: No Longer Taking Entered as Reported by: GREER GEORGE on 03/12/16 1023 Omeprazole Magnesium (Prilosec Otc) 20 Mg Tablet.dr, 20 MG PO DAILY, (Reported) Discontinued Reason: No Longer Taking Entered as Reported by: GREER GEORGE on 03/12/16 1021 Oxycodone HCl/Acetaminophen (Percocet 5-325 mg Tablet) 1 Each Tablet, 1 EACH PO Q4H Discontinued Reason: No Longer Taking Prescribed by: CARLOS EUDARDO JOSEPH on 12/26/16 0735 Oxycodone HCl/Acetaminophen (Oxycodone-Acetaminophen 10-325) 1 Each Tablet, 1 EACH PO Q4H PRN for pain Discontinued Reason: No Longer Taking Prescribed by: PATRICK LEPE on 09/30/17 2347 Sertraline HCl (Zoloft) 50 Mg Tablet, 50 MG PO HS, (Reported) Discontinued Reason: No Longer Taking Entered as Reported by: GREER GEORGE on 03/12/16 1020 [Aloecure] , 1 TAB PO DAILY, (Reported) Discontinued Reason: No Longer Taking Entered as Reported by: GREER GEORGE on 9/19/16 1022 Physical Exam-Cardiology Physical Exam Vital Signs/I&O 09/14/21 09/14/21 09/14/21 08:28 11:50 12:09 Temp 36.3 36.0 Pulse 64 73 69 Resp 16 16 16 B/P (MAP) 164/91 (115) 163/93 138/123 (128) Pulse Ox 99 97 100 O2 Delivery Room Air Room Air Room Air Capillary Refill : Less Than 3 Seconds Constitutional: AAO x 3, well-developed, well-nourished HEENT: PERRL, hearing is well preserved, oral hygience is good Neck: No carotid bruit; carotid pulses are 2 + bilaterally Respiratory: No accessory muscle use, No respiratory distress; chest expansion is symmetric, chest is bilaterally symmetric, lungs clear to auscultation Cardiovascular: regular rate-rhythm; No JVD; S1 and S2 Gastrointestinal: No tender; soft, round, audible bowel sounds Extremities: no lower extremity edema bilateral Neurologic/Psychiatric: other (moves all extremities) Skin: No rash on exposed areas, No ulcerations on exposed areas Data Review Labs Laboratory Tests 09/14/21 08:35: White Blood Count 8.9, Red Blood Count 4.23L, Hemoglobin 12.4L, Hematocrit 38L, Mean Corpuscular Volume 90, Mean Corpuscular Hemoglobin 29, Mean Corpuscular Hemoglobin Concent 33, Red Cell Distribution Width 13.8, Platelet Count 219, Mean Platelet Volume 9.8, Immature Granulocyte % (Auto) 0, Neutrophils (%) (Auto) 71, Lymphocytes (%) (Auto) 18, Monocytes (%) (Auto) 9, Eosinophils (%) (Auto) 1, Basophils (%) (Auto) 0, Neutrophils # (Auto) 6.3, Lymphocytes # (Auto) 1.6, Monocytes # (Auto) 0.8, Eosinophils # (Auto) 0.1, Basophils # (Auto) 0.0, Immature Granulocyte # (Auto) 0.0, Prothrombin Time 23.2H, INR Comment 2.0H, Activated Partial Thromboplast Time 49H, D-Dimer 0.59H, Sodium Level 135, Potassium Level 4.5, Chloride Level 102, Carbon Dioxide Level 22, Anion Gap 11, Blood Urea Nitrogen 30H, Creatinine 1.08, Estimat Glomerular Filtration Rate 74, BUN/Creatinine Ratio 28, Glucose Level 116H, Calcium Level 9.2, Corrected Calcium 9.3, Total Bilirubin 0.7, Aspartate Amino Transf (AST/SGOT) 23, Alanine Aminotransferase (ALT/SGPT) 28, Alkaline Phosphatase 74, Troponin I < 0.028, Total Protein 7.3, Albumin 3.9 09/14/21 08:41: Glucometer 114H 09/14/21 09:15: Urine Color YELLOW, Urine Clarity CLEAR, Urine pH 6.5, Urine Specific [place] 1.010L, Urine Protein NEGATIVE, Urine Glucose (UA) NEGATIVE, Urine Ketones NEGATIVE, Urine Nitrite NEGATIVE, Urine Bilirubin NEGATIVE, Urine Urobilinogen 0.2, Urine Leukocyte Esterase NEGATIVE, Urine RBC (Auto) NEGATIVE, Urine RBC NONE, Urine WBC NONE, Urine Squamous Epithelial Cells NONE, Urine Crystals NONE, Urine Bacteria NEGATIVE, Urine Casts NONE, Urine Mucus NEGATIVE, Urine Culture Indicated NO A/P-Cardiology Assessment/Admission Diagnosis CVA/TIA - Left eye visual disturbance, left arm weakness, disturbance of balance - symptoms improving/resolved - Mangement per Dr Snyder - No stenosis or dissection the bilateral carotid and vertebral arteries per CTA of 09-14-21 CAD - H/O CABG x 5 vessel in March 2006 in [place], [place] - reports most recent stress test in summer 2020 in [place], [place] by Dr. Galarza Aortic valve dz - mechanical replacement done at time of CABG in March 2006 in [place], [place] - Warfarin tx - managed by Dr. Galarza H/O aortic aneurysm - repair in [place], [place] 3 years ago, according to Mr Wong ICM - AICD/PPM in place - most recent pulse gen change out in December 2019 in [place], [place] - followed by Dr. Galarza - resolved per pt report - most recent echo 2-[address] Galarza in [place], [place] HTN - controlled HLD - statin tx Discussion and Recomendations - Complex management due to multiple comorbidities - Cardiac recs are as follows: * maintain INR between 2.5 - 3.5 * consider Lovenox bridge to INR 2.5. Discussed with Dr Snyder who has discussed the case with Neurology at who have not recommended Lovenox and have asked for continuation of warfarin at previous dose. Will leave to Dr Snyder's discretion * We also recommend addition of low dose ASA, given carotid arterial disease (albeit nonobstructive) on CTA of head and neck today * I have personally communicated all these recommendations to Dr Snyder who is currently patient's attending physician - Monitor labs - There was some question of a transiently low heart beat on monitor lasting only a second or two. No documentation. Suspect gap between a PVC and next beat caused a low calculated rate by the computer that lasted only an instant. Device has regularly been followed his EP Dr Galarza and has been functioning normally - Further recs will be based on his hospital course - We would like to thank Dr Snyder for this consult LINDSAY LEMA MD FACP FAC CCDS Sep 14, 2021 13:56
--- NOTE | 2021-09-14 14:25 | Physical Therapy Evaluation ---
PT Evaluation-General Medical Diagnosis Admission Date Sep 14, 2021 at 11:20 Medical Diagnosis: Possible CVA Onset Date: Sep 14, 2021 Therapy Diagnosis Therapy Diagnosis: LUE weakness Height/Weight Height (Feet): 5 Height (Inches): 10.00 Weight (Pounds): 190 Weight (Ounces): 0 Precautions Precautions/Isolations: Standard Precautions Weight Bear Status Full Weight Bearing Full Weight Bearing Referral Reason for Referral: Evaluation/Treatment Medical History Pertinent Medical History: CABG, CAD, HTN, [place] Current History ER secondary to L arm weakness. Reviewed History: Yes Social History Home: Single Level Current Living Status: Alone Prior Prior Level of Function SCALE: Activities may be completed with or without assistive devices. 1-Vnncwfjaxq-ooyanjw completes the activity by him/herself with no assistance from a helper. 5-Set-up or Clean-up Assistance-helper sets up or cleans up; patient completes activity. [place] assists only prior to or following the activity. 4-Supervision or Touching Assistance-helper provides verbal cues and/or touching/steadying and/or contact guard assistance as patient completes activity. Assistance may be provided throughout the activity or intermittently. 3-Partial/Moderate Assistance-helper does LESS THAN HALF the effort. [place] lifts, holds or supports trunk or limbs, but provides less than half the effort. 2-Substantial/Maximal Assistance-helper does MORE THAN HALF the effort. [place] lifts or holds trunk or limbs and provides more than half the effort. 8-Weqedcmay-xmtuwx does ALL the effort. Patient does none of the effort to complete the activity. Or, the assistance of 2 or more helpers is required for the patient to complete the activity. If activity was not attempted, code reason: 7-Patient Refused. 9-Not Applicable-not attempted and the patient did not perform the activity before the current illness, exacerbation or injury. 10-Not Attempted due to Environmental Limitations-(lack of equipment, weather restraints, etc.). 88-Not Attempted due to Medical Conditions or Safety Concerns. Bed Mobility: 6 Transfers (B,C,W/C): 6 Gait: 6 Stairs: 6 Indoor Mobility (Ambulation): Independent Stairs: Independent Prior Devices Use: None PT Evaluation-Current Subjective Patient reports that he is feeling good, and strong. Patient had daughter with him. Pain Numeric Pain Scale: 0-No Pain Location: No Pain Reported Objective Patient Orientation: Person, Place, Time, Situation ROM/Strength ROM Lower Extremities Grossly WFL Strength Lower Extremities RLE: (hip flexion 5/5, Knee extension 5/5, Knee Flexion 5/5, DF 5/5); LLE: (Hip flexion 4+/5, Knee extension 5/5, Knee flexion 4+/5, DF 4+/5) Integumentary/Posture Bowel Incontinence: No Bladder Incontinence: No Posture Hips translated anteriorly Neuromuscular (Tone, Coordination, Reflexes) intact Sensory Vision: Functional Hearing: Functional Sensation Right Lower Extremit: Intact Sensation Left Lower Extremity: Intact Transfers Roll Left to Right (QC): 6 Sit to Lying (QC): 6 Lying to Sitting/Side of Bed(Q: 6 Sit to Stand (QC): 6 Chair/Zpt-wy-Whmke Xfer(QC): 6 Toilet Transfer (QC): 6 Car Transfer (QC): 6 Gait Does the Patient Walk?: Yes Mode of Locomotion: Walk Anticipated Mode of Locomotion: Walk Walk 10 feet (QC): 6 Walk 50 ft with 2 Turns(QC): 6 Walk 150 ft (QC): 6 Distance: 500' Gait Assistive Device: None Wheelchair Training Does the Pt Use a Wheelchair?: No Type of Wheelchair: N/A Balance Sitting Static: Normal Sitting Dynamic: Normal Standing Static: Normal Standing Dynamic: Normal Treatment Ambulation Assessment/Needs Very slight weakness was noted on LLE during MMT. Patient had good balance sitting and standing. Patient was able to ambulate without difficulty for a long distance. Patient was left in bed with daughter. no skilled PT indicated at this time. Rehab Potential: Good PT Shuttler Goals Half-Way Goals Does the Patient Walk: Yes Does the Pt use WC or Scooter?: No Type: N/A Type: N/A PT Plan Treatment/Plan Treatment Plan: Discontinue PT, goals met Treatment Duration: Sep 14, 2021 Frequency: 1 time per week Patient and/or Family Agrees t: Yes Time/GCodes Time In: 1345 Time Out: 1357 Total Billed Treatment Time: 12 Total Billed Treatment 1 visit EV low 12min AR TERRAZAS PT Sep 14, 2021 14:25
--- NOTE | 2021-09-14 14:41 | Tele-ICU Consult ---
History of Present Illness History of Present Illness Date Seen by Provider: Sep 14, 2021 Time Seen by Provider: 14:41 Date of Admission (Tele-ICU Physician , consultation) Available chart/ vitals / labs / Images reviewed H&P is from ER notes Patient's information available about PMH, Shx, Fhx allergy reviewed in EMR. ROS as per chart and RN report Now in ICU, hemodynamically stable Video assessment done using teleICU camera, rest of exam as per RN Discussed with RN. A/P CVA/TIA - Left eye visual disturbance, left arm weakness, disturbance of balance - symptoms improving/resolved - as per notes: discussed the case with Neurology at by Dr Snyder - will keep permissiobe hypertension for now Aortic valve dz - MVR - Warfarin tx -was on hold for colonoscopy - INR 2 , as per cards - maintain INR between 2.5 - 3.5 Plans in collaboration with bedside consultants and IM MDs. Discussed with RN to reach out if any questions or concerns A total of 20minutes of critical care time was devoted to this patient today, required to treat and/or prevent further deterioration of critical care condition ( as above ) Allergies and Home Medications Allergies Coded Allergies: No Known Drug Allergies (Unverified , 12/17/16) Home Medications Alfuzosin HCl 10 Mg Tab.er.24h, 10 MG PO HS, (Reported) Ascorbate Calcium 500 Mg Tablet, 500 MG PO DAILY, (Reported) Bacillus Coagulans 1 Each Tab.chew, 1 EACH PO DAILY, (Reported) Cyanocobalamin (Vitamin B-12) 1,000 Mcg Tablet, 1,000 MCG PO DAILY, (Reported) Digoxin 250 Mcg Tablet, 250 MCG PO DAILY, (Reported) Duloxetine HCl 60 Mg Capsule.dr, 60 MG PO HS, (Reported) Fenofibrate Nanocrystallized 145 Mg Tablet, 145 MG PO DAILY, (Reported) Gabapentin 300 Mg Capsule, 300 MG PO HS, (Reported) Loratadine 10 Mg Tablet, 10 MG PO DAILY, (Reported) Losartan Potassium 50 Mg Tablet, 50 MG PO DAILY, (Reported) Multivitamin 1 Each Tablet, 1 TAB PO DAILY, (Reported) Nebivolol HCl 5 Mg Tablet, 5 MG PO DAILY, (Reported) Pantoprazole Sodium 40 Mg Tablet.dr, 40 MG PO DAILY, (Reported) Potassium Gluconate 99 Mg Tablet, 396 MG PO DAILY, (Reported) Rosuvastatin Calcium 10 Mg Tablet, 10 MG PO HS, (Reported) Warfarin Sodium 2.5 Mg Tablet, 2.5 MG PO HS, (Reported) Past Medical/Social/Family Hx Patient Social History Marrital Status: Employed/Student: retired Smoking Status: Unknown if Ever Smoked Immunizations Up To Date First/Initial COVID19 Vaccinat: n/a Second COVID19 Vaccination John: n/a Date of Pneumonia Vaccine: Dec 18, 2011 Current Status Primary Language: Bahamian Preferred Spoken Language: Bahamian Review of Systems Constitutional: see HPI Focused Exam Height, Weight, BMI Height: 5'10.00" Weight: 190lbs. 0oz. 86.792764zr; 27.00 BMI Method:Stated Exam Exam Patient acknowledged, consented, and participated in this virtual visit which was conducted using real time audio/video Vital Signs Date Time Temp Pulse Resp B/P (MAP) Pulse Ox O2 Delivery O2 Flow Rate FiO2 09/14/21 12:09 36.0 69 16 138/123 (128) 100 Room Air 09/14/21 11:50 73 16 163/93 97 Room Air 09/14/21 08:28 36.3 64 16 164/91 (115) 99 Room Air Height & Weight Height: 5'10.00" Weight: 190lbs. 0oz. 86.844261cd; 27.00 BMI Method:Stated General Appearance: No Apparent Distress, WD/WN HEENT: PERRL/EOMI, Moist Mucous Membranes Neck: Normal Inspection, Supple Respiratory: Lungs Clear, No Accessory Muscle Use, No Respiratory Distress Cardiovascular: Regular Rate, Rhythm, No JVD, Systolic Murmur Capillary Refill: Less Than 3 Seconds Extremity: No Calf Tenderness, No Pedal Edema Neurologic/Psychiatric: Alert, Oriented x3, Normal Mood/Affect Results Lab Laboratory Tests 09/14/21 08:35 Assessment/Plan Assessment/Plan ` DELPHINE BENAVIDEZ MD Sep 14, 2021 14:41
--- NOTE | 2021-09-14 15:04 | Occupational Therapy Eval ---
OT Evaluation-General/PLF Medical Diagnosis Admission Date Sep 14, 2021 at 11:20 Medical Diagnosis: Possible CVA Onset Date: Sep 14, 2021 Therapy Diagnosis Therapy Diagnosis: n/a Height/Weight Height (Feet): 5 Height (Inches): 10.00 Weight (Pounds): 190 Weight (Ounces): 0 Precautions Precautions/Isolations: Standard Precautions Referral Physician: Claudio Referral Reason: Evaluation/Treatment Medical History Pertinent Medical History: CABG, CAD, HTN, [place] Additional Medical History aortic valve replacement, HTN, HLD, CAD, heart attack, valvular heart disease, GERD, Arthritis Current History Pt drove himself to ED due to L arm weakness Social History Home: Single Level Current Living Status: Alone ADL-Prior Level of Function SCALE: Activities may be completed with or without assistive devices. 2-Uissdleoke-fsvcevs completes the activity by him/herself with no assistance from a helper. 5-Set-up or Clean-up Assistance-helper sets up or cleans up; patient completes activity. [place] assists only prior to or following the activity. 4-Supervision or Touching Assistance-helper provides verbal cues and/or touching/steadying and/or contact guard assistance as patient completes activity. Assistance may be provided throughout the activity or intermittently. 3-Partial/Moderate Assistance-helper does LESS THAN HALF the effort. [place] lifts, holds or supports trunk or limbs, but provides less than half the effort. 2-Substantial/Maximal Assistance-helper does MORE THAN HALF the effort. [place] lifts or holds trunk or limbs and provides more than half the effort. 9-Vobvyndue-eopbjf does ALL the effort. Patient does none of the effort to complete the activity. Or, the assistance of 2 or more helpers is required for the patient to complete the activity. If activity was not attempted, code reason: 7-Patient Refused. 9-Not Applicable-not attempted and the patient did not perform the activity before the current illness, exacerbation or injury. 10-Not Attempted due to Environmental Limitations-(lack of equipment, weather restraints, etc.). 88-Not Attempted due to Medical Conditions or Safety Concerns. Self Care: Independent Functional Cognition: Independent DME/Equipment Comments none OT Current Status Subjective Pt laying in bed, agreeable to OT evaluation. Pt reports he feels pretty much back to normal except slight sensation changes in L forearm through hand Mental Status/Objective Patient Orientation: Normal For Age Current Hand Dominance: Right Upper Extremity ROM WFL, BUE shoulder flexion to approx 160 degrees Upper Extremity Coordination Slightly decreased due to sensation changes L hand. Pt's LUE also very slightly lagged behind his RUE with overhead movements. Upper Extremity Sensation numbness/decreased feeling in L forearm through fingertips Upper Extremity Strength LUE grossly 4+/5 RUE grossly 5/5 Other Treatments Pt in bed, agreeable to OT Tx. Pt provided information about PLOF. Pt indicates he has no concerns with his ability to complete ADLs at this time. He feels like his L arm has improved a lot since he has been at the hospital and the only residual deficit is decreased sensation in L arm. Pt participated in UE screen and MMT. Pt provided pt with UE exercises to complete in order to focus on increasing coordination and function of LUE, he verbalized understanding. Per PT evaluation, pt ambulated 500' without AD, independently. Post tx, pt in bed, call light in reach and all needs met. Education OT Patient Education: Correct positioning, Energy conservation, Progress toward Goal/Update tx plan, Purpose of tx/functional activities, Rehab process Teaching Recipient: Patient Teaching Methods: Discussion Response to Teaching: Verbalize Understanding OT Care Home Goals Maritime Officer Goals 1=Demonstrate adherence to instructed precautions during ADL tasks. 2=Patient will verbalize/demonstrate understanding of assistive devices/modifications for ADL. 3=Patient will improve strength/tolerance for activity to enable patient to perform ADL's. OT Education/Plan Problem List/Assessment Assessment: No Skilled OT Needs ID'd Pt has very slight weakness/sensation changes in LUE, but this has improved a lot since initial ED visit. OT provided pt with exercise program for LUE. Pt is independent [facility] ADLs and functional mobility. No further skilled OT services indicated at this time. Please send new OT orders if pt has change in status and need for OT arises. Discharge Recommendations Plan/Recommendations: Continue POC Treatment Plan/Plan of Care Patient would benefit from OT for education, treatment and training to promote independence in ADL's, mobility, safety and/or upper extremity function for ADL's. Plan of Care: ADL Retraining, Functional Mobility, UE Funct Exercise/Act Treatment Duration: Sep 14, 2021 Frequency: 1 time per week (eval only) Estimated Hrs Per Day: .25 hour per day Rehab Potential: Good Time/GCodes Start Time: 14:40 Stop Time: 14:51 Total Time Billed (hr/min): 11 Billed Treatment Time 1, CLYDE LAMA OT Sep 14, 2021 15:04
[2021-09-14] MEDS ORDERED: CETI-458 PO (15:51)
[2021-09-14] MEDS ORDERED: COFF1CAP3 PO (15:51)
[2021-09-14] MEDS ORDERED: NEBI5TAB11 PO (15:51)
[2021-09-14] MEDS ORDERED: WRF5T PO (15:51)
[2021-09-14] MEDS ORDERED: WARF-48 PO (15:51)
[2021-09-14] MEDS ORDERED: LOSA50TA63 PO (15:51)
[2021-09-14] MEDS ORDERED: LACT1CAP74 PO (15:51)
[2021-09-14] MEDS ORDERED: FLUT16SP22 NSEACH (15:53)
[2021-09-14] MEDS ORDERED: TIZA-186 PO (15:53)
[2021-09-14] MEDS ORDERED: ASPIRIN 81 MG CHEW (CHILDREN'S ASA) ONE (16:29)
[2021-09-14] MEDS: ACETAMINOPHEN 325 MG TABLET PO PRN (16:36)
[2021-09-14] MEDS ORDERED: FLUTICASONE NASAL SPRAY (FLONASE) 16 GM BTL NS PRN (16:45)
[2021-09-14] MEDS ORDERED: FLU QUAD HIGH DOSE 240 MCG/0.7 ML 2021-22 (FLUZONE) IM ONE (17:45)
[2021-09-14] MEDS ORDERED: ALFUZOSIN HCL 10 MG TAB (UROXATRAL) PO SCH (21:00)
[2021-09-14] MEDS ORDERED: ROSUVASTATIN 10 MG (CRESTOR) TABLET PO SCH (21:00)
[2021-09-14] MEDS ORDERED: GABAPENTIN 300 MG (NEURONTIN) CAP PO SCH (21:00)
[2021-09-14] MEDS ORDERED: [UNRECOGNIZED DRUG - REMARK] PO SCH (21:00)
[2021-09-14] MEDS ORDERED: MELATONIN 10 MG TABLET PO SCH (23:26)
[2021-09-15] VITALS (9 sets, daily range): BP systolic 121–154; BP diastolic 72–98
[2021-09-15] MEDS: ACETAMINOPHEN 325 MG TABLET PO PRN (04:33)
[2021-09-15 04:34] LABS: HEMATOCRIT 36 % (40-54); HEMOGLOBIN 11.8 g/dL (13.3-17.7); MEAN CORPUSCULAR HEMOGLOBIN 29 pg (25-34); MEAN CORPUSCULAR HGB CONC 33 g/dL (32-36); MEAN CORPUSCULAR VOLUME 89 fL (80-99); MEAN PLATELET VOLUME 9.9 fL (9.0-12.2); PLATELET COUNT 198 10^3/uL (130-400); WHITE BLOOD COUNT 7.8 10^3/uL (4.3-11.0)
[2021-09-15 04:40] LABS: ALBUMIN 3.6 GM/DL (3.2-4.5); INR 1.9 (0.8-1.4); POTASSIUM 4.1 MMOL/L (3.6-5.0); PROTHROMBIN TIME PATIENT 22.2 SEC (12.2-14.7)
[2021-09-15 04:41] LABS: CALCIUM 8.7 MG/DL (8.5-10.1)
[2021-09-15 04:43] LABS: TOTAL PROTEIN 6.5 GM/DL (6.4-8.2)
[2021-09-15 04:44] LABS: BILIRUBIN,TOTAL 0.5 MG/DL (0.1-1.0)
[2021-09-15 04:46] LABS: CREATININE SERUM 1.05 MG/DL (0.60-1.30); PHOSPHORUS 2.8 MG/DL (2.3-4.7)
[2021-09-15 04:49] LABS: MAGNESIUM 2.3 MG/DL (1.6-2.4)
[2021-09-15] MEDS ORDERED: KCL 20 MEQ TAB (K-DUR) PO SCH (06:00)
[2021-09-15] MEDS ORDERED: POTASSIUM CL 10MEQ/50ML IVPB 50 ML IV SCH (06:00)
[2021-09-15] MEDS ORDERED: MAGNESIUM 1 GM/100 ML IVPB 100 ML IV SCH (06:00)
[2021-09-15] MEDS ORDERED: MULTIVIT W/MINERALS TAB (THERAGRAN M) PO SCH (07:00)
--- NOTE | 2021-09-15 08:11 | Tele-ICU Progress Note ---
Subjective Date Seen by a Provider: Sep 15, 2021 Time Seen by a Provider: 08:55 Subjective/Events-last exam Possible CVA with left sided weakness, CTA and CT head ok BP this am 135-150/90 On Biviolol and Losartin Sepsis Event Evaluation Height, Weight, BMI Height: 5'10.00" Weight: 190lbs. 0oz. 86.435284lt; 27.07 BMI Method:Stated Exam Exam Patient acknowledged, consented, and participated in this virtual visit which was conducted using real time audio/video Vital Signs Date Time Temp Pulse Resp B/P (MAP) Pulse Ox O2 Delivery O2 Flow Rate FiO2 09/15/21 08:00 36.7 09/15/21 08:00 69 13 154/98 (116) 95 Room Air 09/15/21 07:00 69 09/15/21 07:00 64 21 152/90 (110) 95 Room Air 09/15/21 06:00 60 17 136/86 (103) 94 Room Air 09/15/21 05:00 96 16 145/83 (103) 94 Room Air 09/15/21 04:00 100 Room Air 09/15/21 04:00 65 16 136/81 (99) 96 Room Air 09/15/21 03:00 64 18 122/72 (89) 93 Room Air 09/15/21 02:00 65 16 127/73 (91) 95 Room Air 09/15/21 01:00 64 16 127/75 (92) 93 Room Air 09/15/21 01:00 64 09/15/21 00:00 100 Room Air 09/15/21 00:00 68 17 121/72 (88) 94 Room Air 09/14/21 23:00 67 21 123/68 (86) 94 Room Air 09/14/21 22:00 60 20 147/84 (105) 94 Room Air 09/14/21 21:00 66 27 128/82 (97) 96 Room Air 09/14/21 20:00 69 22 110/71 (84) 95 Room Air 09/14/21 19:33 37.2 09/14/21 19:24 100 Room Air 09/14/21 19:00 62 20 139/77 (97) 95 Room Air 09/14/21 19:00 62 09/14/21 18:00 59 16 154/87 (109) 96 Room Air 09/14/21 17:00 64 22 155/108 (124) 98 Room Air 09/14/21 16:00 100 Room Air 09/14/21 16:00 60 15 144/90 (108) 97 Room Air 09/14/21 15:48 35.9 09/14/21 14:45 63 24 149/88 (108) 98 Room Air 09/14/21 14:00 64 32 97 Room Air 09/14/21 13:00 68 16 141/90 (107) 99 Room Air 09/14/21 12:09 36.0 69 16 138/123 (128) 100 Room Air 09/14/21 12:00 100 Room Air 09/14/21 11:50 73 16 163/93 97 Room Air 09/14/21 08:28 36.3 64 16 164/91 (115) 99 Room Air I & O 09/15/21 06:59 Intake Total 1240 ml Output Total 875 ml Balance 365 ml Height & Weight Height: 5'10.00" Weight: 190lbs. 0oz. 86.141266cr; 27.07 BMI Method:Stated General Appearance: No Apparent Distress, WD/WN HEENT: PERRL/EOMI, Moist Mucous Membranes Neck: Normal Inspection, Supple Respiratory: Lungs Clear, No Accessory Muscle Use, No Respiratory Distress Cardiovascular: Regular Rate, Rhythm, No JVD, Systolic Murmur, Other (has paced rthym) Capillary Refill: Less Than 3 Seconds Gastrointestinal: normal bowel sounds, non tender, soft Extremity: No Calf Tenderness, No Pedal Edema Neurologic/Psychiatric: Alert, Oriented x3, Normal Mood/Affect, Other (slight weakness in left wrist) Results Lab Laboratory Tests 09/14/21 08:35 09/15/21 04:15 Assessment/Plan Assessment/Plan Possible CVA s/p CABG s/p aortic valve repair Pt to go home today Critical Care: Critically Ill Patient PERLA CARRILLO MD Sep 15, 2021 08:11
--- NOTE | 2021-09-15 08:22 | Speech Therapy Progress Note ---
Therapy Progress Note 0820: The speech pathologist received the clinical bedside swallowing consult and reviewed the chart extensively (including most recent CXR and head CT). Following a review, the clinician contacted the patient's RN. The patient is currently receiving a heart healthy regular consistency diet and appears to be tolerating the recommendations well. At this time, skilled speech pathology is not warranted. The RN was encouraged to contact the clinician with any changes or concerns. STERLING SOMMERS Sep 15, 2021 08:22
--- NOTE | 2021-09-15 08:57 | Discharge Summary ---
Diagnosis/Chief Complaint Date of Admission Sep 14, 2021 at 11:20 Date of Discharge Discharge Date: Sep 15, 2021 Admission Diagnosis Left upper extremity weakness Primary Care Misty Montoya Discharge Diagnosis (1) Essential (primary) hypertension (2) HLD (hyperlipidemia) (3) Prophylactic measure (4) Left arm weakness (5) Anticoagulated Status: Acute (6) Disequilibrium Status: Acute (7) Mechanical heart valve present Status: Acute Discharge Summary Discharge Physical Exam Allergies: Coded Allergies: No Known Drug Allergies (Unverified , 12/17/16) Vitals & I&Os Vital Signs Date Time Temp Pulse Resp B/P (MAP) Pulse Ox O2 Delivery O2 Flow Rate FiO2 09/15/21 09:35 09/15/21 09:00 67 16 97 Room Air 09/15/21 08:00 36.7 General Appearance: No Apparent Distress, WD/WN Respiratory: Lungs Clear, No Respiratory Distress Cardiovascular: Regular Rate, Rhythm, Systolic Murmur Neurologic/Psychiatric: Alert, Oriented x3; No Motor Weakness, No Sensory Deficit Hospital Course Patient was admitted to the hospital due to left-sided weakness. He underwent CT head, CT perfusion scan, and a CTA of his head and neck for further evaluation with no acute findings. His symptoms resolved in the emergency depa rtment and he had an NIH of 0. An MRI was attempted but was unable to be obtained due to his pacemaker. He was observed overnight and did well with complete resolution of symptoms. He had been holding his anticoagulation for an upcoming colonoscopy and his INR was 2.0 on presentation. He has a known mechanical valve and was advised to resume his warfarin and it was started in [facility]. Cardiology was consulted and I also spoke with his primary care provider Sonia Montoya APRN. He was advised to follow-up with her to follow-up this hospital stay. He is also advised to reschedule his colonoscopy with Dr. Yang and to discuss possible bridging for next time. He was discharged home in stable and improved condition at his request. Labs (last 24 hrs) Patient resulted labs reviewed. Pending Labs Imaging: Reviewed Imaging Report Discussion & Recommendations Discharge Planning: >30 minutes discharge planning Discharge Home Medications: Active Scripts Active Children's Aspirin (Aspirin) 81 Mg Tab.chew 81 Mg PO DAILY Reported Fluticasone Propionate 16 Gm [place].susp 1-2 [place] NSEACH DAILY PRN Tizanidine HCl 4 Mg Tablet 4 Mg PO Q8H PRN Neuriva Original 100-100Mg Cap (Coffee Xt/Phosphatidyl Serine) 1 Each Capsule 1 Each PO DAILY Probiotic (Lactobacillus Combination No.4) 1 Each Capsule 1 Each PO DAILY Warfarin Sodium 5 Mg Tablet 2.5 Mg PO ROACH,MO,WE,TH,FR @HS TAKES OF A 5MG TAB Jantoven (Warfarin Sodium) 5 Mg Tablet 5 Mg PO TUE,SAT @HS Nebivolol HCl 5 Mg Tablet 5 Mg PO DAILY Losartan Potassium 50 Mg Tablet 50 Mg PO DAILY Potassium (Potassium Gluconate) 99 Mg Tablet 396 Mg PO DAILY TAKES 4 (99MG) TABS Duloxetine HCl 60 Mg Capsule.dr 60 Mg PO HS Rosuvastatin Calcium 10 Mg Tablet 10 Mg PO HS Alfuzosin HCl ER (Alfuzosin HCl) 10 Mg Tab.er.24h 10 Mg PO HS Pantoprazole Sodium 40 Mg Tablet.dr 40 Mg PO DAILY Neurontin (Gabapentin) 300 Mg Capsule 300 Mg PO HS Loratadine 10 Mg Tablet 10 Mg PO DAILY Daily Value (Multivitamin) 1 Each Tablet 1 Tab PO DAILY Vitamin C (Ascorbate Calcium) 500 Mg Tablet 500 Mg PO DAILY Vitamin B-12 (Cyanocobalamin (Vitamin B-12)) 1,000 Mcg Tablet 1,000 Mcg PO DAILY Fenofibrate (Fenofibrate Nanocrystallized) 145 Mg Tablet 145 Mg PO DAILY Digoxin 250 Mcg Tablet 250 Mcg PO DAILY Instructions to patient/family Please see electronic discharge instructions given to patient. Copy Copies To 1: Dr Andino; Sonia Montoya Problem Qualifiers (1) HLD (hyperlipidemia): Hyperlipidemia type: mixed hyperlipidemia Qualified Codes: E78.2 - Mixed hype rlipidemia CHRISTOPH BENNETT MD Sep 15, 2021 08:56
[2021-09-15] MEDS ORDERED: warFARin 5 MG (COUMADIN) TAB PO SCH ×2 (09:00→21:00)
[2021-09-15] MEDS ORDERED: LACTOBACILLUS ACIDOPHILUS (PROBIOTIC) CAPSULE PO SCH (09:00)
[2021-09-15] MEDS ORDERED: DIGOXIN 0.25 MG (LANOXIN) TAB PO SCH (09:00)
[2021-09-15] MEDS ORDERED: [UNRECOGNIZED DRUG - REMARK] PO SCH (09:00)
[2021-09-15] MEDS ORDERED: [UNRECOGNIZED DRUG - REMARK] PO SCH (09:00)
[2021-09-15] MEDS ORDERED: ASPIRIN 81 MG CHEW (CHILDREN'S ASA) PO SCH (09:00)
[2021-09-15] MEDS ORDERED: PANTOPRAZOLE 40 MG (PROTONIX) TAB PO SCH (09:00)
[2021-09-15] MEDS ORDERED: LORATADINE (CLARITIN) 10 MG TAB PO SCH (09:00)
[2021-09-15] MEDS ORDERED: LOSARTAN 50 MG (COZAAR) TAB PO SCH (09:00)
[2021-09-15] MEDS ORDERED: POTASSIUM GLUCONATE PO SCH (09:00)
[2021-09-15] MEDS ORDERED: ASPI81TA64 PO (09:02)
--- NOTE | 2021-09-15 09:06 | Discharge Inst-Simple/Standard ---
Discharge Inst-Standard Discharge Medications New, Converted or Re-Newed RX: Transmitted to Pharmacy Patient Instructions/Follow Up Plan of Care/Instructions/FU: Please continue to take your medications as written. Please follow up with your primary care doctor to follow up this hospital stay. Activity as Tolerated: Yes Discharge Diet: Cardiac Diet Return to The Hospital For: Weakness, slurred speech, confusion, headache, if you feel you are getting worse. CHRISTOPH BENNETT MD Sep 15, 2021 09:06
[2021-09-15] MEDS ORDERED: ROSUVASTATIN 10 MG (CRESTOR) TABLET PO SCH (21:00)
[2021-09-16] MEDS ORDERED: warFARin 5 MG (COUMADIN) TAB PO SCH (21:00)
== END 2021-09-15 09:40 | disposition home or self-care (01) | DRG 948 ==
LOC: EDUNIT# 08:28 → ER 08:29 → ICU 11:20
PROVIDERS: ADMIT Family Medicine; ATTEND Family Medicine
DX: R53.1 Weakness (principal); Z95.2 Presence of prosthetic heart valve; Z79.01 Long term (current) use of anticoagulants; Z95.1 Presence of aortocoronary bypass graft; I25.10 Atherosclerotic heart disease of native coronary artery without angina pectoris; I25.2 Old myocardial infarction; I10 Essential (primary) hypertension; K21.9 Gastro-esophageal reflux disease without esophagitis; K58.9 Irritable bowel syndrome, unspecified; R47.81 Slurred speech; R51.9 Headache, unspecified; R41.0 Disorientation, unspecified; E87.8 Other disorders of electrolyte and fluid balance, not elsewhere classified
CPT/HCPCS: 0042T; 36415; 70450; 70496; 70498; 71045; 71250; 80053; 80061; 81000; 82947; 83735; 84100; 84484; 85025; 85027; 85379; 85610; 85730; 93005; 93041

== ENCOUNTER 2021-10-12 05:35 | Outpatient (CLI) | payer MEDICARE ==
[~2021-10-12] VITALS: Ht 175.3 cm; Wt 83.9 kg
[~2021-10-12 05:35] MED LIST changes: +ASPI81TA64 PO; +CETI-458 PO; +COFF1CAP3 PO; +FLUT16SP22 NSEACH; +LACT1CAP74 PO; +NEBI5TAB11 PO; +TIZA-186 PO; +WARF-48 PO
== END 2021-10-12 11:11 | disposition home or self-care (01) ==
LOC: PREOP 05:35
PROVIDERS: ATTEND Internal Medicine
DX: Z01.818 Encounter for other preprocedural examination (principal)

== ENCOUNTER → 2021-11-15 | Outpatient (CLI) | payer MEDICARE | END | disposition home or self-care (01) | LOC: PREOP 06:21 | PROVIDERS: ATTEND Internal Medicine | DX: Z01.818 Encounter for other preprocedural examination (principal) ==

== ENCOUNTER 2021-11-24 07:18 | Day surgery (SDC) | payer MEDICARE, OTHER ==
--- NOTE | 2021-09-06 15:51 | HISTORY AND PHYSICAL ---
DATE OF SERVICE: COLONOSCOPY HISTORY AND PHYSICAL DATE OF ADMISSION: 09/15/2021 HISTORY OF PRESENT ILLNESS: The patient is a 70-year-old white male referred by Dr. Pastor for diagnostic colonoscopy due to a positive Cologuard. This was not triggered by symptoms with the screening. In review of his electronic medical record, he had had one other colonoscopy in [address] Garcia that was reported as normal with no evidence for neoplasia. He has noted no bright red blood per rectum, melena. There has been no change in bowel habit or abdominal pain. PAST MEDICAL HISTORY: Significant for hypertension, hyperlipidemia and aortic valve replacement for aortic stenosis in 2005 for which he is on Coumadin. PAST SURGICAL HISTORY: Aortic valve replacement in 2005. He then had proximal ascending aortic aneurysm repair with graft. He has had left inguinal hernia repair in the distant past, shoulder surgeries, arthroscopic as well as several arthroscopic knee surgeries and several foot surgeries. SOCIAL HISTORY: The patient is a retired insurance coder, [id number] smoking history, quit many years ago. No significant alcohol intake reported. FAMILY HISTORY: The patient reports no family history of colon cancer or colon polyps that he is aware of. REVIEW OF SYSTEMS: CONSTITUTIONAL: Denies night sweats, chills, fever, change in weight. GASTROINTESTINAL: As noted in the HPI. PULMONARY: Denies cough, wheezing or shortness of breath. CARDIOVASCULAR: Denies chest pain, orthopnea, PND, pedal edema or syncope. PHYSICAL EXAMINATION: GENERAL: Reveals a well-appearing white male in no acute distress. VITAL SIGNS: Weight 184 pounds and blood pressure 120/80. HEENT: Unremarkable. Sclerae nonicteric. CHEST: Clear to auscultation. NECK: Reveals a metallic S1, S2, soft 1 to 2/6 systolic ejection murmur, heard best at the second right intercostal space. ABDOMEN: Soft, supple without mass, organomegaly or tenderness. No distention noted. No bruits appreciated. IMPRESSION: The patient is being set up for diagnostic colonoscopy due to positive Cologuard. Discussed the ramifications and what typical findings were with positive Cologuard with around 5% chance of malignancy. We will have the patient continue his current Coumadin dose with repeat INR next Saturday. With the goal of doing the procedure with an INR of around 2, making recommendations for Coumadin adjustment depending on what his INR is on Saturday. I thank you for the referral of this pleasant gentleman. Job ID: [id number] DocumentID: [id number] Dictated Date: 08/24/2021 11:46:20 Design Agent Date: 08/24/2021 12:30:34 Dictated By: JACKIE KENDRICK MD MTDD
--- NOTE | 2021-09-21 13:52 | HISTORY AND PHYSICAL ---
DATE OF SERVICE: ADDENDUM COLONOSCOPY HISTORY AND PHYSICAL HISTORY OF PRESENT ILLNESS: The patient is a 70-year-old white male who had been scheduled for colonoscopy for positive Cologuard study when he developed left-sided numbness and weakness. This lasted for more than 24 hours and it did occur after he had held the Coumadin for 24 hours. His INR at that time was 2. He has a history of aortic valve replacement, his reason for Coumadin anticoagulation. I had not performed bridging therapy. The plan was to do him with an INR in the 2 to 2.5 range and he had been scheduled to have colonoscopy on the day that this INR was drawn in the emergency room prior to the procedure. CTA of the head and neck were unremarkable, symptoms did take longer than 24 hours to fully get back to baseline, although they were significantly improved after 1 to 2 hours of onset per his report. He had no associated headache with this. He reports that he feels well and is concerned about positive Cologuard and wants to proceed with the test. PHYSICAL EXAMINATION: GENERAL: Reveals a white male, appeared to be in no acute distress. VITAL SIGNS: Blood pressure 122/72, weight 185 pounds. CHEST: Clear. CARDIOVASCULAR: Reveals a regular rate and rhythm, metallic S1, S2. No diastolic murmurs noted. No S3, S4 noted. Soft 1 to 2/6 systolic ejection murmur, unchanged over the aortic outflow tract. ABDOMEN: Soft, supple without mass, organomegaly or tenderness. ASSESSMENT AND PLAN: Advised that we wait until 10/19/2021 provided he has no further neurologic symptoms and this time, we will perform bridging therapy with Lovenox, which he has done in the past. He will obtain an INR the Saturday before his Saturday schedule colonoscopy and based on that level, we will likely have him discontinue Coumadin on Saturday starting Lovenox 80 mg subcutaneous q.12h. Saturday evening, only holding his Saturday morning dose of Lovenox and we will need to likely continue Lovenox through the weekend with resumption of Coumadin and repeating INR the following Saturday. Instructions were written out for the patient and will be looking for his INR level around the 10/14/2021. Job ID: [id number] DocumentID: [id number] Dictated Date: 09/21/2021 11:38:21 Waste Machine Tender Date: 09/21/2021 12:30:32 Dictated By: JACKIE KENDRICK MD MTDD
[~2021-11-24] VITALS: Ht 175.3 cm; Wt 83.9 kg
[2021-11-24] MEDS ORDERED: LACTATED RINGERS 1,000 ML IV STA (07:23)
[2021-11-24 07:42] VITALS: BP 133/84
--- NOTE | 2021-11-24 08:04 | Pre-Op Note & Conscious Sedat ---
Pre-Operative Progress Note H&P Reviewed The H&P was reviewed, patient examined and no changes noted. Date H&P Reviewed: Nov 24, 2021 Time H&P Reviewed: 08:04 Conscious Sedation Pre-Proced ASA Score 3 For ASA 3 and 4: Consider anesthesia and medical clearance. Also, for patients with a history of failed moderate sedation consider anesthesia. Airway Lungs Heart ASA score ASA 1: a normal healthy patient ASA 2: a patient with a mild systemic disease (mid diabetes, controlled hypertension, obesity ASA 3: a patient with a severe systemic disease that limits activity (angina, COPD, prior Myocardial infarction) ASA 4: a patient with an incapacitating disease that is a constant threat to life (CHF, renal failure) ASA 5: a moribund patient not expected to survive 24 hrs. (ruptured aneurysm) ASA 6: a declared brain- patient whose organs are being harvested. For emergent operations, add the letter E after the classification Mallampati Classification Grade 2 Sedation Plan Analgesia, Amnesia, Plan communicated to team members, Discussed options with patient/fam, Discussed risks with patient/fam The patient is an appropriate candidate to undergo the planned procedure, sedation, and anesthesia. The patient immediately re-assessed prior to indication. JACKIE KENDRICK MD Nov 24, 2021 08:04
[2021-11-24] MEDS ORDERED: MIDAZOLAM 2 MG/2 ML (VERSED) VIAL ONE (08:39)
[2021-11-24] MEDS ORDERED: PROPOFOL INJECTION 50 ML IV ONE (08:39)
[2021-11-24 09:14] VITALS: BP 93/55
--- NOTE | 2021-11-24 09:17 | Anesthesia-General Post-Op ---
MAC Patient Condition Mental Status/LOC: Same as Preop Cardiovascular: Satisfactory Nausea/Vomiting: Absent Respiratory: Satisfactory Pain: Controlled Complications: Absent Post Op Complications Complications None Follow Up Care/Instructions Patient Instructions None needed. Anesthesiology Discharge Order Discharge Order Patient is doing well, no complaints, stable vital signs, no apparent adverse anesthesia problems. No complications reported per nursing. KARLA GOMEZ CRNA Nov 24, 2021 09:17
[2021-11-24 09:19] VITALS: BP 98/57
[2021-11-24 09:24] VITALS: BP 106/58
[2021-11-24 09:27] VITALS: BP 106/58
[2021-11-24 09:41] VITALS: BP 106/58
--- NOTE | 2021-11-24 16:29 | OPERATIVE REPORT ---
DATE OF SERVICE: COLONOSCOPY SUMMARY INDICATION FOR THE PROCEDURE: Positive Cologuard. The patient was placed in the left lateral decubitus position. Prior to undergoing colonoscopy, digital rectal evaluation was performed. Anal sphincter tone was normal. Perianal reflexes intact. Prostate was anodular and nontender, unremarkable to digital inspection. No other abnormalities were noted on digital inspection. The colonoscope was then inserted into the rectum and under direct visualization advanced to the cecum. The cecum was identified by identification of the ileocecal valve and cecal strap. Photographic documentation was obtained. Careful inspection was made as colonoscope was withdrawn. Quality of prep was good. FINDINGS: The patient had several grade I-II internal hemorrhoid complexes noted. No evidence for thrombosis. The rectum was unremarkable. At the rectosigmoid junction were three or four small hyperplastic appearing polyps that were left due to this patient's anticoagulation status, age and medical comorbidities. Moderate severe diverticular disease was present throughout the sigmoid colon without evidence for diverticulitis. Present in the distal descending colon was a 6 mm sessile adenomatous appearing polyp without evidence for ulceration. It was photographed and biopsied and ablated with no subsequent blood loss. The remainder of the descending colon was unremarkable. Several distal transverse colonic diverticulum were noted. No other transverse colonic abnormalities were appreciated. The hepatic flexure was unremarkable as was the ascending colon. There was a 3 mm periappendiceal polyp removed via cold forceps, also adenomatous in appearance. There was no subsequent bleeding post-cold polypectomy. ASSESSMENT: Two benign appearing adenomatous polyps were removed most significant one from the descending colon as noted above. As long as there are no surprises on histopathology report, I will not advocate future surveillance colonoscopy considering this patient's age and medical comorbidities and anticoagulation status. Moderate to severe diverticular disease predominantly sigmoid colon was noted with several in the distal transverse colon as well without evidence of diverticulitis. The prostate was unremarkable to digital inspection. Several grade I to II internal hemorrhoid complexes were noted. Job ID: [id number] DocumentID: [id number] Dictated Date: 11/24/2021 09:17:14 Ultrasound Specialist Date: 11/24/2021 16:28:51 Dictated By: JACKIE KENDRICK MD [facility]
== END 2021-11-24 10:14 | disposition home or self-care (01) ==
LOC: ENDO 07:18
PROVIDERS: ATTEND Internal Medicine
DX: D12.4 Benign neoplasm of descending colon (principal); K63.5 Polyp of colon; K57.30 Diverticulosis of large intestine without perforation or abscess without bleeding; K64.1 Second degree hemorrhoids; Z79.01 Long term (current) use of anticoagulants; Z87.891 Personal history of nicotine dependence; Z95.1 Presence of aortocoronary bypass graft; Z95.2 Presence of prosthetic heart valve

== ENCOUNTER → 2021-12-08 | Outpatient (CLI) | payer MEDICARE, OTHER ==
--- NOTE | 2021-12-08 09:41 | Diagnostic Imaging Report ---
PROCEDURE: CT angiography of the head and CT angiography of the neck with and without contrast. TECHNIQUE: Contiguous noncontrast images were obtained from the skull base through the vertex. After intravenous contrast administration, helical CT angiography of the neck was performed. Source data was reformatted into 3D MIP projections. Delayed post contrast acquisition was also obtained. Auto Exposure Controls were utilized during the CT exam to meet ALARA standards for radiation dose reduction. INDICATION: Left-sided weakness 8 weeks ago. TIA or stroke. Follow-up. Comparison: 09/14/2021. FINDINGS: CTA Neck: The visualized portions of the aortic arch demonstrate no evidence of aneurysm or dissection. There is common origin of the carotid arteries, consistent with bovine arch. The brachiocephalic artery is normal in course and caliber. The right and left common carotid origins are unremarkable. The origin of the left subclavian artery is patent. The common carotid arteries and internal carotid arteries demonstrate a tortuous course. There is calcified atherosclerotic plaque in the bilateral carotid bulbs and proximal internal carotid arteries without flow-limiting stenosis. No evidence of dissection in the carotid systems. The external carotid arteries are patent and unremarkable. The vertebral arteries are codominant. The origin of the right vertebral artery is seen and is unremarkable. The origin of the left vertebral artery is seen and is unremarkable. There is no focal stenosis seen within the neck. There is no dissection. The vertebral arteries are well visualized to up to the level of the basilar artery. The osseous structures of the cervical spine are unremarkable. Included views through the lung apices demonstrate no focal consolidation. CTA brain: Atherosclerotic plaque is seen in the del cid of the bilateral terminal internal carotid arteries without significant stenosis. No stenosis is seen in the bilateral anterior, middle, and posterior cerebral arteries. No evidence of aneurysm the [place]. In the posterior circulation, both of the vertebral arteries demonstrate normal opacification. Both the right and left PICA arteries are identified. The basilar artery is normal in course and caliber. The terminal branch vessels including the superior cerebellar arteries unremarkable. CT head: There has been interval development of a subacute to chronic infarct involving the left frontal lobe. No evidence of acute hemorrhage. No midline shift. The ventricles and cortical sulci are mildly prominent. Scattered chronic microvascular disease is seen in the periventricular and subcortical white matter. The paranasal sinuses and mastoid air cells are clear. The globes and orbits are symmetric and unremarkable. The scalp and calvarium are intact. IMPRESSION: 1. No stenosis or aneurysm in the [place]. No large vessel occlusion. 2. No stenosis or dissection the bilateral carotid and vertebral arteries. 3. Development of a subacute to chronic infarct involving the left frontal lobe. 4. No acute hemorrhage or mass effect. Dictated by: Dictated on workstation # [id number]
== END ==
LOC: RAD 08:15
PROVIDERS: ATTEND Nurse Practitioner
DX: R53.1 Weakness (principal)
CPT/HCPCS: 70496; 70498

== ENCOUNTER → 2022-01-18 | Outpatient (CLI) | payer MEDICARE, OTHER | LOC: CARD 14:19 | PROVIDERS: ATTEND Internal Medicine Cardiovascular Disease | DX: I63.9 Cerebral infarction, unspecified (principal) | CPT/HCPCS: 93225; 93226 ==

== ENCOUNTER → 2022-01-23 | Outpatient (CLI) | payer MEDICARE, OTHER | LOC: LABNPT 08:00 | PROVIDERS: ATTEND Internal Medicine Cardiovascular Disease | DX: Z01.89 Encounter for other specified special examinations (principal); Z20.822 Contact with and (suspected) exposure to COVID-19 | CPT/HCPCS: 87636 ==

== ENCOUNTER 2022-01-25 21:10 | Outpatient (CLI) | payer MEDICARE, OTHER | END 2022-01-26 06:16 | disposition home or self-care (01) | LOC: SLEEP 21:10 | PROVIDERS: ATTEND Internal Medicine Cardiovascular Disease | DX: Z01.89 Encounter for other specified special examinations (principal); G47.33 Obstructive sleep apnea (adult) (pediatric) | CPT/HCPCS: 95810 ==

== ENCOUNTER 2022-01-27 12:53 | Observation (INO) | payer MEDICARE, OTHER ==
[~2022-01-27] VITALS: Ht 175 cm; Wt 83.0 kg
[2022-01-27 13:10] LABS: BASOPHILS % (AUTO) 1 % (0-10); EOSINOPHILS # (AUTO) 0.1 10^3/uL (0.0-0.3); EOSINOPHILS % (AUTO) 2 % (0-10); HEMATOCRIT 33 % (40-54); HEMOGLOBIN 10.5 g/dL (13.3-17.7); LYMPHOCYTES # (AUTO) 1.4 10^3/uL (1.0-4.0); LYMPHOCYTES % (AUTO) 21 % (12-44); MEAN CORPUSCULAR HEMOGLOBIN 27 pg (25-34); MEAN CORPUSCULAR HGB CONC 32 g/dL (32-36); MEAN CORPUSCULAR VOLUME 86 fL (80-99); MEAN PLATELET VOLUME 10.6 fL (9.0-12.2); MONOCYTES # (AUTO) 0.4 10^3/uL (0.0-1.0); MONOCYTES % (AUTO) 7 % (0-12); NEUTROPHILS # (AUTO) 4.5 10^3/uL (1.8-7.8); NEUTROPHILS % (AUTO) 70 % (42-75); PLATELET COUNT 203 10^3/uL (130-400); WHITE BLOOD COUNT 6.5 10^3/uL (4.3-11.0)
--- NOTE | 2022-01-27 13:16 | ED Neurological Problem ---
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 Source: patient Exam Limitations: no limitations History of Present Illness Date Seen by Provider: Jan 27, 2022 Time Seen by Provider: 13:10 Initial Comments Patient is a 71-year-old male with a history of CVA, coronary artery disease, aortic aneurysm who presents ED with right arm weakness. Cute onset 30 minutes upon arrival. States he was out in the garage at the time when this developed. Patient states he started having weakness and was having difficulty moving his right arm. States he felt unbalanced at the time. Patient drove to the ER. He states he had a CVA 4 months ago was seen here in the ER. Had negative CT angio head and neck but does have a pacemaker so MRI was contradicted. Patient is taking warfarin daily. History of heart valve disease, coronary artery disease. Patient is normotensive. Denies of any trauma, fever, chills, chest pain, s hortness of breath, Headache, syncope, visual disturbance, vomiting , confusion Allergies and Home Medications Allergies Coded Allergies: No Known Drug Allergies (Unverified , 12/17/16) Patient Home Medication List Home Medication List Reviewed: Yes Alfuzosin HCl (Alfuzosin HCl ER) 10 Mg Tab.er.24h, 10 MG PO HS, (Reported) Entered as Reported by: YUNIER MUNGUIA on 09/11/21 1437 Ascorbate Calcium (Vitamin C) 500 Mg Tablet, 500 MG PO DAILY, (Reported) Entered as Reported by: GREER GEORGE on 03/12/16 1021 Aspirin (Children's Aspirin) 81 Mg Tab.chew, 81 MG PO DAILY Prescribed by: CHRISTOPH BENNETT on 09/15/21 0902 Coffee Xt/Phosphatidyl Serine (Neuriva Original 100-100Mg Cap) 1 Each Capsule, 1 EACH PO DAILY, (Reported) Entered as Reported by: GEM DANIELS on 09/14/21 1551 Cyanocobalamin (Vitamin B-12) (Vitamin B-12) 1,000 Mcg Tablet, 1,000 MCG PO DAILY, (Reported) Entered as Reported by: GREER GEORGE on 03/12/16 1021 Duloxetine HCl (Duloxetine HCl) 60 Mg Capsule.dr, 60 MG PO HS, (Reported) Entered as Reported by: YUNIER MUNGUIA on 09/11/21 143 Fenofibrate Nanocrystallized (Fenofibrate) 145 Mg Tablet, 145 MG PO DAILY, (Reported) Entered as Reported by: GREER GEORGE on 03/12/16 1020 Fluticasone Propionate (Fluticasone Propionate) 16 Gm [place].susp, 1-2 SPRAY NSEACH DAILY PRN for CONGESTION, (Reported) Entered as Reported by: GEM DANIELS on 09/14/21 155 Gabapentin (Neurontin) 300 Mg Capsule, 300 MG PO HS, (Reported) Entered as Reported by: YUNIER MUNGUIA on 09/11/21 143 Lactobacillus Combination No.4 (Probiotic) 1 Each Capsule, 1 EACH PO DAILY, (Reported) Entered as Reported by: GEM DANIELS on 09/14/21 155 Loratadine (Loratadine) 10 Mg Tablet, 10 MG PO DAILY, (Reported) Entered as Reported by: GREER GEORGE on 03/12/16 1021 Losartan Potassium (Losartan Potassium) 50 Mg Tablet, 50 MG PO DAILY, (Reported) Entered as Reported by: GEM DANIELS on 09/14/21 155 Multivitamin (Daily Value) 1 Each Tablet, 1 TAB PO DAILY, (Reported) Entered as Reported by: GREER GEORGE on 03/12/16 1021 Nebivolol HCl (Nebivolol HCl) 5 Mg Tablet, 5 MG PO DAILY, (Reported) Entered as Reported by: GEM DANIELS on 09/14/21 155 Pantoprazole Sodium (Pantoprazole Sodium) 40 Mg Tablet.dr, 40 MG PO DAILY, (Reported) Entered as Reported by: YUNIER MUNGUIA on 09/11/21 143 Potassium Gluconate (Potassium) 99 Mg Tablet, 396 MG PO DAILY, (Reported) Entered as Reported by: YUNIER MUNGUIA on 09/11/21 143 Rosuvastatin Calcium (Rosuvastatin Calcium) 10 Mg Tablet, 10 MG PO HS, (Reported) Entered as Reported by: YUNIER MUNGUIA on 09/11/21 143 Tizanidine HCl (Tizanidine HCl) 4 Mg Tablet, 4 MG PO Q8H PRN for MUSCLE SPASMS, (Reported) Entered as Reported by: GEM DANIELS on 09/14/21 155 Warfarin Sodium (Jantoven) 5 Mg Tablet, 5 MG PO TUE,SAT @HS, (Reported) Entered as Reported by: GEM DANIELS on 09/14/21 155 Warfarin Sodium (Warfarin Sodium) 5 Mg Tablet, 2.5 MG PO ROACH,MO,WE,TH,FR @HS, (Reported) Entered as Reported by: GEM DANIELS on 09/14/21 155 Discontinued Medications Digoxin (Digoxin) 250 Mcg Tablet, 250 MCG PO DAILY, (Reported) Entered as Reported by: GREER GEORGE on 03/12/16 1020 Review of Systems Review of Systems Constitutional: No chills, No diaphoresis, No malaise, No weakness Eyes: Denies Blurred Vision, Denies Decreased Acuity Ears, Nose, Mouth, Throat: denies ear pain, denies ear discharge Respiratory: No dyspnea on exertion Cardiovascular: No chest pain Gastrointestinal: No abdominal pain, No diarrhea, No nausea, No vomiting Genitourinary: No decreased output, No discharge Musculoskeletal: No back pain, No joint pain; muscle pain All Other Systems Reviewed Negative Unless Noted: Yes Past Skjbwow-Nglszv-Oslbhy Hx Immunizations Up To Date Tetanus Booster (TDap): Unknown First/Initial COVID19 Vaccinat: n/a Second COVID19 Vaccination John: n/a Third COVID19 Vaccination Date: n/a Seasonal Allergies Seasonal Allergies: No Past Medical History Surgeries: Yes (heart valve replacement, KNEE SCOPE, FOOT SX, SHOULDER SX, L ING HERNIA) Adenoidectomy, CABG, Tonsillectomy, Valve Replacement Respiratory: Yes Sleep Apnea Currently Using CPAP: No Cardiac: Yes (Ascending aortic aneurysm) Coronary Artery Disease, Heart Attack, Hypertension, Valvular Heart Disease Neurological: No Reproductive Disorders: No Sexually Transmitted Disease: No HIV/AIDS: No Genitourinary: No Gastrointestinal: Yes Gastroesophageal Reflux Musculoskeletal: Yes Arthritis Endocrine: No HEENT: No Loss of Vision: Bilateral Hearing Impairment: Denies Cancer: No Psychosocial: Yes Anxiety Integumentary: No Blood Disorders: No Adverse Reaction/Blood Tranf: No (N/A) Family Medical History FH: heart disease 19 FATHER ( in 1989 ) FH: stroke 19 FATHER, Onset:40's - 50 Myocardial infarction 19 FATHER, Onset:60 years & older Physical Exam Vital Signs Vital Signs - First Documented 01/27/22 12:57 Temp 36.7 Pulse 90 Resp 18 B/P (MAP) 120/76 (91) Pulse Ox 97 O2 Delivery Room Air Capillary Refill : Less Than 3 Seconds Height, Weight, BMI Height: 5'10.00" Weight: 190lbs. 0oz. 86.845231ya; 26.00 BMI Method:Stated General Appearance: No WD/WN, No no apparent distress HEENT: No PERRL/EOMI, No normal ENT inspection, No TMs normal, No pharynx normal Neck: No non-tender, No full range of motion, No supple, No normal inspection Respiratory: No chest non-tender, No lungs clear, No no respiratory distress Cardiovascular: No regular rate, rhythm, No no edema, No no gallop, No no JVD Gastrointestinal: No normal bowel sounds, No non tender, No soft, No no organomegaly Back: No normal inspection, No no CVA tenderness Extremities: No normal range of motion, No non-tender, No normal inspection Neurologic/Psychiatric: 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, No no motor/sensory deficits; alert, normal mood/affect, oriented x 3, other (Decreased motor function of the right arm.) Skin: normal color, warm/dry Stroke Onset of Symptoms Time of Symptom Onset: 12:40 Onset of Symptoms: Yes NIH Stroke Scale Assessment Select: Initial Level of Consciousness: 0=Alert (0), Level of Consciousness- Questions: 0=Answers both month/age (0), LOC Commands: 0=Performs both tasks (0), Gaze: Normal (0), Visual Zuniga: 0=No visual loss (0), Facial Movement (Facial Paresis): 0=Normal symmetrical mnt (0), Motor Function-Arms Right: 2=Some effort/gravity (2), Motor Function-Arms Left: 0=No drift (0), Motor Function-Legs Right: 0=No drift (0), Motor Function-Legs Left: 0=No drift (0), Limb Ataxia: 1=Present in one limb (1), Best Language: 0=No aphasia (0), Dysarthria: 0=Normal (0), Extinction & Inattention: 0=No abnormality (0), Total: 3 Progress/Results/Core Measures Results/Orders Lab Results Laboratory Tests Test 01/27/22 13:00 01/27/22 13:02 01/27/22 13:40 Range/Units White Blood Count 6.5 4.3-11.0 10^3/uL Red Blood Count 3.84 L 4.30-5.52 10^6/uL Hemoglobin 10.5 L 13.3-17.7 g/dL Hematocrit 33 L 40-54 % Mean Corpuscular Volume 86 80-99 fL Mean Corpuscular Hemoglobin 27 25-34 pg Mean Corpuscular Hemoglobin Concent 32 32-36 g/dL Red Cell Distribution Width 15.0 H 10.0-14.5 % Platelet Count 203 130-400 10^3/uL Mean Platelet Volume 10.6 9.0-12.2 fL Immature Granulocyte % (Auto) 0 % Neutrophils (%) (Auto) 70 42-75 % Lymphocytes (%) (Auto) 21 12-44 % Monocytes (%) (Auto) 7 0-12 % Eosinophils (%) (Auto) 2 0-10 % Basophils (%) (Auto) 1 0-10 % Neutrophils # (Auto) 4.5 1.8-7.8 10^3/uL Lymphocytes # (Auto) 1.4 1.0-4.0 10^3/uL Monocytes # (Auto) 0.4 0.0-1.0 10^3/uL Eosinophils # (Auto) 0.1 0.0-0.3 10^3/uL Basophils # (Auto) 0.0 0.0-0.1 10^3/uL Immature Granulocyte # (Auto) 0.0 0.0-0.1 10^3/uL Prothrombin Time 29.1 H 12.2-14.7 SEC INR Comment 2.7 H 0.8-1.4 Activated Partial Thromboplast Time 66 H 24-35 SEC D-Dimer 1.37 H 0.00-0.49 UG/ML Sodium Level 135 135-145 MMOL/L Potassium Level 4.0 3.6-5.0 MMOL/L Chloride Level 102 98-107 MMOL/L Carbon Dioxide Level 22 21-32 MMOL/L Anion Gap 11 5-14 MMOL/L Blood Urea Nitrogen 26 H 7-18 MG/DL Creatinine 1.45 H 0.60-1.30 MG/DL Estimat Glomerular Filtration Rate 52 BUN/Creatinine Ratio 18 Glucose Level 123 H 70-105 MG/DL Calcium Level 9.0 8.5-10.1 MG/DL Corrected Calcium 9.0 8.5-10.1 MG/DL Total Bilirubin 0.7 0.1-1.0 MG/DL Aspartate Amino Transf (AST/SGOT) 24 5-34 U/L Alanine Aminotransferase (ALT/SGPT) 22 0-55 U/L Alkaline Phosphatase 86 40-136 U/L Troponin I 0.052 H <0.028 NG/ML Total Protein 7.3 6.4-8.2 GM/DL Albumin 4.0 3.2-4.5 GM/DL Glucometer 119 H 70-110 MG/DL Urine Color YELLOW Urine Clarity CLEAR Urine pH 6.0 5-9 Urine Specific [place] 1.020 1.016-1.022 Urine Protein NEGATIVE NEGATIVE Urine Glucose (UA) NEGATIVE NEGATIVE Urine Ketones NEGATIVE NEGATIVE Urine Nitrite NEGATIVE NEGATIVE Urine Bilirubin NEGATIVE NEGATIVE Urine Urobilinogen 1.0 < = 1.0 MG/DL Urine Leukocyte Esterase NEGATIVE NEGATIVE Urine RBC (Auto) NEGATIVE NEGATIVE Urine RBC NONE /HPF Urine WBC NONE /HPF Urine Crystals NONE /LPF Urine Bacteria NEGATIVE /HPF Urine Casts NONE /LPF Urine Mucus SMALL H /LPF Urine Culture Indicated NO My Orders Orders - RUBINA DAVIS PA Cbc With Automated Diff (01/27/22 13:03) Protime With Inr (01/27/22 13:03) Partial Thromboplastin Time (01/27/22 13:03) Comprehensive Metabolic Panel (01/27/22 13:03) Fibrin Degradation Products (01/27/22 13:03) Troponin I Gail (01/27/22 13:03) Ua Culture If Indicated (01/27/22 13:03) Chest 1 View, Ap/Pa Only (01/27/22 13:03) Ekg Tracing (01/27/22 13:03) Accucheck Stat ONCE (01/27/22 13:03) Ed Iv/Invasive Line Start (01/27/22 13:03) Ed Iv/Invasive Line Start (01/27/22 13:03) Vital Signs Stroke Patient Q15M (01/27/22 13:03) Ct Head Wo-R/O Stroke (01/27/22 13:03) O2 (01/27/22 13:03) Intake & Output 06,14, (01/27/22 13:03) Monitor-Rhythm Ecg Trace Only (01/27/22 13:03) Dysphagia Screening Tool Q10MX1 (01/27/22 13:03) Lipid Panel (01/28/22 06:00) Ct Angio Head/Neck (01/27/22 13:39) Ct Angio Chst/Abd/Pelv W (01/27/22 13:39) Iohexol Injection (Omnipaque 350 Mg/Ml 1 (01/27/22 14:15) Di Iv Start (Assessment) .IV start (01/27/22 14:09) Received Contrast (Hold Metformin- Contr (01/27/22 14:15) Ns (Ivpb) (Sodium Chloride 0.9% Ivpb Bag (01/27/22 14:15) Ct Angio Neck W (01/27/22 15:19) Ns Iv 500 Ml (Sodium Chloride 0.9%) (01/27/22 16:04) Ed Admission (Communication) (01/27/22 16:15) Medications Given in ED Vital Signs/I&O 01/27/22 12:57 Temp 36.7 Pulse 90 Resp 18 B/P (MAP) 120/76 (91) Pulse Ox 97 O2 Delivery Room Air 2 Blood Pressure Mean: 91 FSBG Bedside Testing Finger Stick Blood Glucose: 119 Blood Glucose Action Taken: SUSAN INFORMED Comment Atrial pacemaker, ventricular pacemaker, 93 bpm, QRS duration 185 MS, QTc 516 MS with frequent PVCs Departure Communication (Admissions) Time/Spoke to Admitting Phy: 16:17 Dr. Abreu accepts Communication (PCP) Patient initially complaining of weakness to his right arm. Does have notable weakness not able to make a fist. Patient does have some resistance against gravity. Exam otherwise benign. States he had some back discomfort today used a roller to help with the back pain. Denied of any chest pain. States he was working in the garage felt dizzy fell to the floor denies hitting his head but this weakness started immediately afterwards. He states he feels like he is getting some strength back. Patient was activated as a stroke. NIH of 3 secondary to weakness of the right arm and ataxia of the right right arm. EKG showed atrial ventricular paced rhythm with frequent PVCs. He does follow Dr. Mendez. Extensive cardiac history history of mechanical heart valve currently on warfarin, thoracic aortic aneurysm with repair. He states he scheduled for cardiac cath next week by Dr. Mendez and will be started on Lovenox next week. Patient lab work showed acute kidney injury. Elevated troponin 0.053. Elevated D-dimer. CT scan of the head was negative for any acute abnormality. Old infarct. Discussed patient with Dr. Mcdermott neurologist at [facility]. States patient is not a tPA candidate secondary to the warfarin which is at 2.7. Patient is not able to have an MRI secondary to his pacemaker that is noncompatible. Had a stroke 4 months ago was admitted to our facility and regain strength and function of his left arm. Patient chest x-ray unremarkable. CT angio of the head and neck was somewhat nondiagnostic of the neck. Discussed this with the radiologist that read the CT angio and states he did not see any large occlusion in the head. This was limited in the neck. He was not able to note any significant large occlusion of the neck. Had a CT angio head and neck in November that was unremarkable. Recommended a second attempt of the neck which was again nondiagnostic. Due to elevated D-dimer and back pain CT angio of the chest and abdomen was ordered which did not show any evidence of pulmonary embolism. Otherwise unremarkable with chronic findings. Trace bilateral pleural effusions. Discussed patient with Dr. Mendez who agrees for trending troponin. Patient is currently anticoagulated. Atrial ventricular paced rhythm noted on EKG with PVCs. Discussed patient with Dr. Abreu who accepts patient. Did discuss with neurology as long as a CT angio head and neck did not show any large occlusion recommends admission for stroke work-up. Patient had a reassuring CT angio of the head and neck in November. Patient started regaining function of his right arm but still does have some weakness. Will likely need PT OT. Further trending troponins Impression Primary Impression: Stroke-like symptoms Additional Impression: Elevated troponin Disposition: ADMITTED INPATIENT Condition: Stable Admissions Decision to Admit Reason: Admit from ER (General) Decision to Admit/Date: Jan 27, 2022 Time/Decision to Admit Time: 16:17 Departure-Patient Inst. Referrals: DEE ROLAND (PCP/Family) Primary Care Physician RUBINA DAVIS Jan 27, 2022 13:16
[2022-01-27 13:26] LABS: TOTAL PROTEIN 7.3 GM/DL (6.4-8.2)
[2022-01-27 13:27] LABS: FIBRIN DEGRADATION PRODUCTS 1.37 UG/ML (0.00-0.49); INR 2.7 (0.8-1.4); PROTHROMBIN TIME PATIENT 29.1 SEC (12.2-14.7)
[2022-01-27 13:28] LABS: BILIRUBIN,TOTAL 0.7 MG/DL (0.1-1.0)
[2022-01-27 13:30] LABS: CREATININE SERUM 1.45 MG/DL (0.60-1.30)
--- NOTE | 2022-01-27 13:35 | Diagnostic Imaging Report ---
PROCEDURE: CT head wo r/o stroke. TECHNIQUE: Multiple contiguous axial images were obtained through the brain without the use of intravenous contrast. Auto Exposure Controls were utilized during the CT exam to meet ALARA standards for radiation dose reduction. DATE: January 27, 2022. COMPARISON: CT angiography head and neck December 08, 2021. CT head without contrast September 14, 2021. INDICATION: 71-year-old male, right arm weakness. History of left-sided weakness after stroke 4 months ago. FINDINGS: There are findings of encephalomalacia in the left frontal lobe. There is an area of near CSF-like attenuation in the right frontal lobe subcortical white matter which also could relate to site of prior lacunar infarct. There are probable findings of chronic small vessel ischemic disease. There is no identified abnormal extra-axial fluid collection. There is no evidence of acute intracranial hemorrhage. There is no mass effect or midline shift. There are vascular calcifications. There is no identified hyperdense vessel sign. The visualized portions of the paranasal sinuses, mastoid air cells, and middle ears are well aerated. IMPRESSION: 1. Findings of encephalomalacia in the left frontal lobe and probable remote prior right frontal lobe subcortical white matter infarct. 2. No identified acute intracranial abnormality. 3. Probable findings of chronic small vessel ischemic disease. Dictated by: Dictated on workstation # [id number]
[2022-01-27 13:51] LABS: BILIRUBIN,URINE NEGATIVE (NEGATIVE); CLARITY,URINE CLEAR; COLOR,URINE YELLOW; GLUCOSE, URINE (UA) NEGATIVE (NEGATIVE); KETONES,URINE NEGATIVE (NEGATIVE); LEUKOCYTE ESTERASE ,URINE NEGATIVE (NEGATIVE); NITRITE,URINE NEGATIVE (NEGATIVE); PROTEIN,URINE NEGATIVE (NEGATIVE)
--- NOTE | 2022-01-27 13:55 | Diagnostic Imaging Report ---
Indication: Stroke. Comparison is made with prior exam of 09/14/2021. Findings: There is cardiomegaly. There has been a previous median sternotomy and heart valve replacement. There is no pleural effusion, pneumothorax or pneumonia. Mediastinum is unremarkable. Pacemaker overlies the left hemithorax IMPRESSION: No acute cardiopulmonary abnormality. Cardiomegaly. Dictated by: Dictated on workstation # [id number]
[2022-01-27 13:58] LABS: BACTERIA,URINE NEGATIVE /HPF
[2022-01-27] MEDS ORDERED: HOLD METFORMIN - RECEIVED CONTRAST 20 ML VIAL IV SCH (14:15)
[2022-01-27] MEDS ORDERED: NS 100 ML (IVPB) BAG IV ONE (14:15)
[2022-01-27] MEDS ORDERED: IOHEXOL 350 MG/ML 150 ML (OMNIPAQUE 350) VIAL IV ONE (14:15)
--- NOTE | 2022-01-27 14:39 | Diagnostic Imaging Report ---
Procedure: CT angiography of the head and CT angiography of the neck with and without contrast. Technique: Contiguous noncontrast images were obtained from the skull base through the vertex. After intravenous contrast administration, helical CT angiography of the neck was performed. Source data was reformatted into 3D MIP projections. Delayed post contrast acquisition was also obtained. Auto Exposure Controls were utilized during the CT exam to meet ALARA standards for radiation dose reduction. Date: January 27, 2022. Indication: 71-year-old male, right arm weakness. History of stroke with left-sided weakness four months ago. Comparison: CT head without contrast January 27, 2023 Findings: There are significant limitations to the exam relating to difficulties with timing of the contrast bolus. There is venous opacification at the level of the neck as well as collateral vessels opacified. There is little to no arterial contrast opacification of the aortic arch or arterial head or neck vasculature on the angiography portion of the exam. Delayed postcontrast imaging of the head was performed which does have some arterial opacification present. The imaged portions of the bilateral vertebral arteries are patent. The basilar artery is patent. The right posterior cerebral artery appears patent. The left posterior cerebral artery appears patent. The visualized portions of the left internal carotid artery appear patent. The left middle cerebral artery appears patent in its M1 and M2 segments. The left anterior cerebral artery appears patent. The right anterior cerebral artery appears patent. The right middle cerebral artery appears patent in its M2 and M1 segments. The right internal carotid artery appears patent in its imaged extent. There are limitations of the arterial head vasculature given thick slice imaging. There is nondiagnostic CT angiography evaluation of the neck. There is encephalomalacia in the left frontal lobe. There is no area of abnormal intracranial enhancement. Impression: 1. The angiography portion of the exam is nondiagnostic at the level of the neck and has limitations at the level of the head, as mentioned above. This relates to difficulties with timing of the contrast bolus. 2. No identified large vessel occlusion at the level of the head on somewhat limited assessment. Dictated by: Dictated on workstation # [id number]
--- NOTE | 2022-01-27 15:01 | Diagnostic Imaging Report ---
Procedure: CT angiography of the chest with contrast and CT abdomen and pelvis with contrast. Technique: Multiple contiguous axial images were obtained through the chest, abdomen and pelvis after administration of intravenous contrast. 3D MIP reconstructed CT angiography acquisitions of the aorta were then performed. Auto Exposure Controls were utilized during the CT exam to meet ALARA standards for radiation dose reduction. Date: January 27, 2022. Indication: 71-year-old male, right arm weakness. Chest and abdominal pain. Comparison: Chest radiograph January 27, 2022. CT chest September 14, 2021. Findings: There is no identified pulmonary nodule or lung mass. There are trace bilateral pleural effusions. There are mild linear dependent opacities in the right and left lower lobes most consistent with mild atelectasis. There is no pneumothorax. The more central airways are patent. There is limited evaluation for pulmonary embolus given the timing of the contrast bolus. There is no identified central pulmonary embolus. There is nondiagnostic assessment for segmental and subsegmental pulmonary emboli. The main pulmonary artery diameter measures just beyond upper limits of normal at 3.0 cm. This can be seen with pulmonary artery hypertension. There is no pericardial effusion. There are coronary artery calcifications and additional areas of atherosclerotic disease. There is no identified abnormally enlarged mediastinal, hilar or axillary lymph node meeting CT size criteria for adenopathy. The liver is unremarkable in size and contour. There is a low-attenuation lesion in the left lobe of the liver on axial image 95 measuring 1.2 cm in size with internal attenuation value of 19 Hounsfield units. This did demonstrate an internal attenuation value consistent with a benign cyst on the prior exam. The main, right and left portal veins are patent. There is cholelithiasis without evidence of acute cholecystitis. There is no biliary ductal dilation. The main pancreatic duct is not abnormally dilated. Unremarkable appearance of the pancreatic parenchyma. The spleen is normal in size. The adrenal glands are unremarkable. There is a low-attenuation left renal lesion on axial image 147 which measures 12 mm in size. Internal attenuation is measured at 19 Hounsfield units which is technically indeterminate. There is a subcentimeter right renal lesion on axial image 134 which is too small to characterize. There is contrast in the collecting systems relating to the recent contrast administration. There is no hydronephrosis. The urinary bladder is unremarkable. There is prominent diverticulosis without evidence of acute diverticulitis. The appendix is unremarkable. There are small fat-containing bilateral inguinal hernias. There is a fat-containing umbilical hernia. There is no free intraperitoneal air. There is no drainable fluid collection. There is a trace amount of free pelvic fluid. There is a sclerotic lesion in the left iliac bone on axial image 211 measuring 1.8 cm in size. Internal attenuation is 1256 Hounsfield units. This may reflect a benign bone island although it is difficult to definitively diagnose. There are additional smaller sclerotic lesions in the iliac bones bilaterally as well as a sclerotic subcentimeter focus in the L3 vertebral body and also at the level of L2. There is no identified acute bony abnormality. Impression: 1. No identified central pulmonary embolus. Limited evaluation for segmental and subsegmental pulmonary emboli given timing of the contrast bolus. 2. Mildly dilated main pulmonary diameter which can be seen with pulmonary artery hypertension. 3. Trace bilateral pleural effusions. 4. No identified acute abnormality in the abdomen or pelvis. 5. Incidental findings as above. Dictated by: Dictated on workstation # [id number]
[2022-01-27] MEDS ORDERED: NS IV 500 ML 500 ML IV STA (16:04)
--- NOTE | 2022-01-27 16:39 | Diagnostic Imaging Report ---
Exam: CT angiography of neck with intravenous contrast. Date: January 27, 2022. Indication: 71-year-old male, right arm weakness. Evaluation for stroke. Comparison: CT angiography of the head and neck January 27, 2022 at 1409 hours. December 08, 2021. Findings: Unfortunately, there were again problems with timing of the contrast bolus. There is venous opacification again noted as well as contrast opacified collateral vessels. There is no arterial contrast opacification of the arterial neck vasculature with nondiagnostic current assessment of the arterial neck vasculature as a result. Impression: Nondiagnostic assessment of the arterial neck vasculature relating to difficulties with timing of the contrast bolus. There are contrast opacified collateral vessels noted. Dictated by: Dictated on workstation # [id number]
[2022-01-27] MEDS ORDERED: ACETAMINOPHEN 325 MG TABLET PO PRN (17:00)
[2022-01-27] MEDS ORDERED: NS IV 500 ML 500 ML IV PRN (17:00)
[2022-01-27] MEDS ORDERED: MILK OF MAGNESIA 400 MG/5 ML 30 ML UDC PO PRN (17:00)
[2022-01-27] MEDS ORDERED: polyethylene glycoL POWDER 17 GM (MIRALAX) PACK PO PRN (17:00)
[2022-01-27] MEDS ORDERED: warFARin 5 MG (COUMADIN) TAB PO ONE (17:00)
[2022-01-27] MEDS ORDERED: diphenhydrAMINE 25 MG TAB (BENADRYL) PO PRN (17:00)
[2022-01-27] MEDS ORDERED: MELATONIN 3 MG TABLET PO PRN (17:00)
[2022-01-27] MEDS ORDERED: diphenhydrAMINE 50 MG/ML INJ (BENADRYL) IVP PRN (17:00)
[2022-01-27] MEDS ORDERED: ONDANSETRON 4 MG/2 ML (SDV) Z0FRAN IV PRN (17:00)
[2022-01-27] MEDS ORDERED: LACTULOSE SYRUP 10GM/15ML (ENULOSE) 30ML UDC PO PRN (17:00)
[2022-01-27] MEDS ORDERED: CALCIUM CARBONATE 500 MG (TUMS) TAB.CHEW PO PRN (17:00)
[2022-01-27] MEDS ORDERED: BISACODYL 10 MG SUPP (DULCOLAX) PR PRN (17:00)
[2022-01-27] MEDS ORDERED: ONDANSETRON 4 MG (ZOFRAN) ORAL DISSOLVE TAB PO PRN (17:00)
[2022-01-27] MEDS ORDERED: ANTACID SUSP 30 ML UDC (MYLANTA) PO PRN (17:00)
[2022-01-27 17:10] VITALS: BP 130/82
[2022-01-27] MEDS ORDERED: warFARin 5 MG (COUMADIN) TAB ONE (17:23)
[2022-01-27 19:29] VITALS: BP 130/74
[2022-01-27] MEDS: SENNOSIDES 8.6 MG (SENOKOT) TAB PO SCH (20:36)
[2022-01-27] MEDS: DOCUSATE SODIUM 100 MG (COLACE) CAP PO SCH (20:36)
[2022-01-27] MEDS ORDERED: ROSUVASTATIN 5 MG (CRESTOR) TABLET PO SCH (21:00)
[2022-01-27 23:08] VITALS: BP 127/78
[2022-01-28 03:16] VITALS: BP 139/78
[2022-01-28 04:53] LABS: HEMATOCRIT 34 % (40-54); HEMOGLOBIN 10.9 g/dL (13.3-17.7); MEAN CORPUSCULAR HEMOGLOBIN 27 pg (25-34); MEAN CORPUSCULAR HGB CONC 32 g/dL (32-36); MEAN CORPUSCULAR VOLUME 84 fL (80-99); MEAN PLATELET VOLUME 10.4 fL (9.0-12.2); PLATELET COUNT 222 10^3/uL (130-400)
[2022-01-28 05:01] LABS: POTASSIUM 4.2 MMOL/L (3.6-5.0)
[2022-01-28 05:03] LABS: CALCIUM 8.8 MG/DL (8.5-10.1); INR 3.2 (0.8-1.4); PROTHROMBIN TIME PATIENT 33.1 SEC (12.2-14.7)
[2022-01-28 05:07] LABS: CREATININE SERUM 1.19 MG/DL (0.60-1.30)
[2022-01-28] MEDS ORDERED: POTASSIUM CL 10MEQ/50ML IVPB 50 ML IV SCH (06:00)
[2022-01-28] MEDS ORDERED: KCL 20 MEQ TAB (K-DUR) PO SCH (06:00)
[2022-01-28] MEDS ORDERED: MAGNESIUM 1 GM/100 ML IVPB 100 ML IV SCH (06:00)
[2022-01-28] MEDS ORDERED: PANTOPRAZOLE 40 MG (PROTONIX) TAB PO SCH (07:00)
[2022-01-28 08:25] VITALS: BP 137/95
[2022-01-28] MEDS: DOCUSATE SODIUM 100 MG (COLACE) CAP PO SCH (08:41)
[2022-01-28] MEDS: SENNOSIDES 8.6 MG (SENOKOT) TAB PO SCH (08:41)
[2022-01-28] MEDS ORDERED: DIGOXIN 0.25 MG (LANOXIN) TAB PO SCH (09:00)
[2022-01-28] MEDS ORDERED: ASPIRIN 81 MG CHEW (CHILDREN'S ASA) PO SCH (09:00)
[2022-01-28] MEDS ORDERED: LOSARTAN 25 MG (COZAAR) TAB PO SCH (09:00)
[2022-01-28 12:00] VITALS: BP 139/79
--- NOTE | 2022-01-28 12:46 | Consultation-Cardiology ---
HPI-Cardiology Cardiology Consultation: Date of Consultation 01/28/22 Date of Admission 01/27/22 Attending Physician Misty Montoya Admitting Physician Admitting Physician: Chichi Abreu MD Attending Physician: Chichi Abreu MD Consulting Physician ELLIE DUBON JR, MD HPI: Time Seen by a Provider: 12:40 Chief Complaint: REASON FOR CONSULTATION: Transient ischemic attack. I had the pleasure of seeing Raoul on the medical/surgical unit at [facility] in [place], [place] today. He is well-known to me from the office setting. He has an extensive past cardiac history. I actually just saw him last week to follow-up for ventricular tachycardia. I was planning on having him undergo a cardiac catheterization later this week. When I had seen him in the office about 1 month ago, he asked if he could stop aspirin because he was getting easy bruising. We did in fact stop low strength aspirin about 1 month ago. He remains on warfarin. Yesterday he was eating lunch and suddenly could not move his right arm. He denies any other neurologic complaints. He drove himself to the hospital. Within a short period of time, he was regained use of his right arm. His right arm feels completely back to normal today. He wants to know if he can go home. He was supposed to stop his warfarin tomorrow and start on enoxaparin to prepare for the cardiac catheterization later this week. He denies chest pain, dyspnea, paroxysmal nocturnal dyspnea, orthopnea, palpitations, lightheadedness, syncope, or ankle edema. Certain portions of this document may have been dictated utilizing voice recognition technology. Inherent to this technology, typographical and grammatical errors may exist. As much as I am diligent to identify and correct these mistakes, some errors may remain in the document. Review of Systems-Cardiology Review of Systems Other comments Review of 10 organ systems is as per the history of present illness, otherwise negative. All Other Systems Reviewed Negative Unless Noted: Yes RPI-Ofzpej-Oxuimo Hx Patient Social History Marrital Status: single Smoking Status: Former Smoker 2nd Hand Smoke Exposure: No Have you traveled recently?: No Alcohol Use?: Yes Pt feels they are or have been: No Immunizations Up To Date Tetanus Booster (TDap): Unknown Date of Pneumonia Vaccine: Dec 18, 2011 Date of Influenza Vaccine: Apr 02, 2021 Past Medical History PMH As described under Assessment. Family Medical History Family Medical History: Documented family h/o father having CAD and stroke. Family History: FH: heart disease 19 FATHER ( in 1989 ) FH: stroke 19 FATHER, Onset:40's - 50 Myocardial infarction 19 FATHER, Onset:60 years & older Allergies and Home Medications Allergies Coded Allergies: No Known Drug Allergies (Unverified , 12/17/16) Patient Home Medication List Home Medication List Reviewed: Yes Alfuzosin HCl (Alfuzosin HCl ER) 10 Mg Tab.er.24h, 10 MG PO HS, (Reported) Entered as Reported by: YUNIER MUNGUIA on 09/11/21 1437 Ascorbate Calcium (Vitamin C) 500 Mg Tablet, 500 MG PO DAILY, (Reported) Entered as Reported by: GREER GEORGE on 03/12/16 1021 Aspirin (Children's Aspirin) 81 Mg Tab.chew, 81 MG PO DAILY Prescribed by: CHRISTOPH BENNETT on 09/15/21 0902 Coffee Xt/Phosphatidyl Serine (Neuriva Original 100-100Mg Cap) 1 Each Capsule, 1 EACH PO DAILY, (Reported) Entered as Reported by: GEM DANIELS on 09/14/21 1551 Cyanocobalamin (Vitamin B-12) (Vitamin B-12) 1,000 Mcg Tablet, 1,000 MCG PO RONALD LY, (Reported) Entered as Reported by: GREER GEORGE on 03/12/16 1021 Digoxin (Digoxin) 250 Mcg Tablet, 250 MCG PO DAILY, (Reported) Entered as Reported by: GREER GEORGE on 03/12/16 1020 Duloxetine HCl (Duloxetine HCl) 60 Mg Capsule.dr, 60 MG PO HS, (Reported) Entered as Reported by: YUNIER MUNGUIA on 09/11/21 1437 Fenofibrate Nanocrystallized (Fenofibrate) 145 Mg Tablet, 145 MG PO DAILY, (Reported) Entered as Reported by: GREER GEORGE on 03/12/16 1020 Fluticasone Propionate (Fluticasone Propionate) 16 Gm [place].susp, 1-2 SPRAY NSEACH DAILY PRN for CONGESTION, (Reported) Entered as Reported by: GEM DANIELS on 09/14/21 1553 Gabapentin (Neurontin) 300 Mg Capsule, 300 MG PO HS, (Reported) Entered as Reported by: YUNIER MUNGUIA on 09/11/211436 Lactobacillus Combination No.4 (Probiotic) 1 Each Capsule, 1 EACH PO DAILY, (Reported) Entered as Reported by: GEM DANIELS on 09/14/211550 Loratadine (Loratadine) 10 Mg Tablet, 10 MG PO DAILY, (Reported) Entered as Reported by: GREER GEORGE on 03/12/16 102 Losartan Potassium (Losartan Potassium) 50 Mg Tablet, 50 MG PO DAILY, (Reported) Entered as Reported by: GEM DANIELS on 09/14/211550 Multivitamin (Daily Value) 1 Each Tablet, 1 TAB PO DAILY, (Reported) Entered as Reported by: GREER GEORGE on 03/12/16 102 Nebivolol HCl (Nebivolol HCl) 5 Mg Tablet, 5 MG PO DAILY, (Reported) Entered as Reported by: GEM DANIELS on 09/14/211550 Pantoprazole Sodium (Pantoprazole Sodium) 40 Mg Tablet.dr, 40 MG PO DAILY, (Reported) Entered as Reported by: YUNIER MUNGUIA on 09/11/211436 Potassium Gluconate (Potassium) 99 Mg Tablet, 396 MG PO DAILY, (Reported) Entered as Reported by: YUNIER MUNGUIA on 09/11/211436 Rosuvastatin Calcium (Rosuvastatin Calcium) 10 Mg Tablet, 10 MG PO HS, (Reported) Entered as Reported by: YUNIER MUNGUIA on 09/11/211436 Tizanidine HCl (Tizanidine HCl) 4 Mg Tablet, 4 MG PO Q8H PRN for MUSCLE SPASMS, (Reported) Entered as Reported by: GEM DANIELS on 09/14/211552 Warfarin Sodium (Jantoven) 5 Mg Tablet, 5 MG PO TUE,SAT @HS, (Reported) Entered as Reported by: GEM DANIELS on 09/14/211550 Warfarin Sodium (Warfarin Sodium) 5 Mg Tablet, 2.5 MG PO ROACH,MO,WE,TH,FR @HS, (Reported) Entered as Reported by: GEM DANIELS on 09/14/211550 Exam Vital Signs Vital Signs Date Time Temp Pulse Resp B/P (MAP) Pulse Ox O2 Delivery O2 Flow Rate FiO2 01/28/22 12:26 80 01/28/22 12:00 36.9 18 139/79 (99) 100 Room Air Physical Exam General: Alert. No acute distress. Well nourished and appears stated age. Eye: Extraocular movements are intact. Conjunctivae are clear. There are no xanthelasma. HENT: Normocephalic. Atraumatic. Carotid pulsations 2/2 without bruits. Neck: Jugular venous pressure does not appear elevated. No thyromegaly appreciated. Respiratory: Lungs are clear to auscultation. Respirations are non-labored. Breath sounds are equal. Symmetrical chest wall expansion. Cardiovascular: Normal rate. Regular rhythm. Metallic S2. 2/6 systolic ejection murmur. No gallop. Point of maximal impulse is not appear displaced. Good pulses equal in all extremities. No edema. Gastrointestinal: Soft. Normal bowel sounds. Skin: Skin turgor is normal. There is no pallor. Musculoskeletal: No kyphosis or scoliosis appreciated. Neurologic: Alert and oriented to person, place, time. Cranial nerves 3-12 appear grossly intact. The patient has good motor tone strength in the upper and lower extremities bilaterally. Psychiatric: Cooperative. Appropriate mood & affect. Labs Laboratory Tests Test 01/27/22 13:00 01/27/22 13:02 01/27/22 13:40 01/27/22 20:47 Range/Units White Blood Count 6.5 4.3-11.0 10^3/uL Red Blood Count 3.84 L 4.30-5.52 10^6/uL Hemoglobin 10.5 L 13.3-17.7 g/dL Hematocrit 33 L 40-54 % Mean Corpuscular Volume 86 80-99 fL Mean Corpuscular Hemoglobin 27 25-34 pg Mean Corpuscular Hemoglobin Concent 32 32-36 g/dL Red Cell Distribution Width 15.0 H 10.0-14.5 % Platelet Count 203 130-400 10^3/uL Mean Platelet Volume 10.6 9.0-12.2 fL Immature Granulocyte % (Auto) 0 % Neutrophils (%) (Auto) 70 42-75 % Lymphocytes (%) (Auto) 21 12-44 % Monocytes (%) (Auto) 7 0-12 % Eosinophils (%) (Auto) 2 0-10 % Basophils (%) (Auto) 1 0-10 % Neutrophils # (Auto) 4.5 1.8-7.8 10^3/uL Lymphocytes # (Auto) 1.4 1.0-4.0 10^3/uL Monocytes # (Auto) 0.4 0.0-1.0 10^3/uL Eosinophils # (Auto) 0.1 0.0-0.3 10^3/uL Basophils # (Auto) 0.0 0.0-0.1 10^3/uL Immature Granulocyte # (Auto) 0.0 0.0-0.1 10^3/uL Prothrombin Time 29.1 H 12.2-14.7 SEC INR Comment 2.7 H 0.8-1.4 Activated Partial Thromboplast Time 66 H 24-35 SEC D-Dimer 1.37 H 0.00-0.49 UG/ML Sodium Level 135 135-145 MMOL/L Potassium Level 4.0 3.6-5.0 MMOL/L Chloride Level 102 98-107 MMOL/L Carbon Dioxide Level 22 21-32 MMOL/L Anion Gap 11 5-14 MMOL/L Blood Urea Nitrogen 26 H 7-18 MG/DL Creatinine 1.45 H 0.60-1.30 MG/DL Estimat Glomerular Filtration Rate 52 BUN/Creatinine Ratio 18 Glucose Level 123 H 70-105 MG/DL Calcium Level 9.0 8.5-10.1 MG/DL Corrected Calcium 9.0 8.5-10.1 MG/DL Total Bilirubin 0.7 0.1-1.0 MG/DL Aspartate Amino Transf (AST/SGOT) 24 5-34 U/L Alanine Aminotransferase (ALT/SGPT) 22 0-55 U/L Alkaline Phosphatase 86 40-136 U/L Troponin I 0.052 H 0.042 H <0.028 NG/ML Total Protein 7.3 6.4-8.2 GM/DL Albumin 4.0 3.2-4.5 GM/DL Glucometer 119 H 70-110 MG/DL Urine Color YELLOW Urine Clarity CLEAR Urine pH 6.0 5-9 Urine Specific [place] 1.020 1.016-1.022 Urine Protein NEGATIVE NEGATIVE Urine Glucose (UA) NEGATIVE NEGATIVE Urine Ketones NEGATIVE NEGATIVE Urine Nitrite NEGATIVE NEGATIVE Urine Bilirubin NEGATIVE NEGATIVE Urine Urobilinogen 1.0 < = 1.0 MG/DL Urine Leukocyte Esterase NEGATIVE NEGATIVE Urine RBC (Auto) NEGATIVE NEGATIVE Urine RBC NONE /HPF Urine WBC NONE /HPF Urine Crystals NONE /LPF Urine Bacteria NEGATIVE /HPF Urine Casts NONE /LPF Urine Mucus SMALL H /LPF Urine Culture Indicated NO Test 01/28/22 04:43 Range/Units White Blood Count 9.0 4.3-11.0 10^3/uL Red Blood Count 4.05 L 4.30-5.52 10^6/uL Hemoglobin 10.9 L 13.3-17.7 g/dL Hematocrit 34 L 40-54 % Mean Corpuscular Volume 84 80-99 fL Mean Corpuscular Hemoglobin 27 25-34 pg Mean Corpuscular Hemoglobin Concent 32 32-36 g/dL Red Cell Distribution Width 15.1 H 10.0-14.5 % Platelet Count 222 130-400 10^3/uL Mean Platelet Volume 10.4 9.0-12.2 fL Prothrombin Time 33.1 H 12.2-14.7 SEC INR Comment 3.2 H 0.8-1.4 Sodium Level 135 135-145 MMOL/L Potassium Level 4.2 3.6-5.0 MMOL/L Chloride Level 104 98-107 MMOL/L Carbon Dioxide Level 20 L 21-32 MMOL/L Anion Gap 11 5-14 MMOL/L Blood Urea Nitrogen 22 H 7-18 MG/DL Creatinine 1.19 0.60-1.30 MG/DL Estimat Glomerular Filtration Rate 66 BUN/Creatinine Ratio 18 Glucose Level 122 H 70-105 MG/DL Calcium Level 8.8 8.5-10.1 MG/DL Magnesium Level 2.0 1.6-2.4 MG/DL Troponin I 0.034 H <0.028 NG/ML Triglycerides Level 75 <150 MG/DL Cholesterol Level 77 < 200 MG/DL LDL Cholesterol Direct 38 1-129 MG/DL VLDL Cholesterol 15 5-40 MG/DL HDL Cholesterol 27 L 40-60 MG/DL ECG Impression ECG Comment Electrocardiogram from the emergency room on 01/27 shows intermittent AV sequential pacing with premature ventricular complexes and possibly some mashpee sinus beats. Diagnosis/Problems Diagnosis/Problems (1) Transient ischemic attack Assessment & Plan: He appears to have had another transient ischemic attack. His CT scans were unremarkable. His INR level has been therapeutic. I recommend he resume aspirin 81 mg daily. I recommend he see a neurology stroke specialist as an outpatient. I recommend he call [facility]. I have also asked him to contact the central office equipment engineer of his defibrillator to see whether or not his device may have provisional status for MRI. From a cardiac standpoint, he can be discharged to home. (2) Troponin level elevated Assessment & Plan: His troponin level was borderline elevated and essentially flat. This is nonspecific troponin elevation and does not represent an acute myocardial infarction. (3) History of aortic valve replacement with metallic valve Assessment & Plan: His INR has been therapeutic on warfarin which will be continued. (4) Ventricular tachycardia Assessment & Plan: He has been having a significant amount of nonsustained ventricular tachycardia noted on an outpatient external event recorder. He does have an rental manager who has been aware that the patient has been having frequent premature ventricular complexes. I was planning on a cardiac catheterization later this week but in light of the transient ischemic attack, I will postpone this procedure. He should continue on beta-karolyn. He also has a prophylactic defibrillator in place. At some point, he will need referral to an rental manager for consideration of ventricular tachycardia ablation. His current rental manager does not do hospital-based procedures. (5) History of cerebrovascular accident Assessment & Plan: He also had a previous history of a cerebrovascular accident earlier this year. As above, I recommend he resume aspirin and continue warfarin which he takes for the aortic valve replacement. (6) Coronary artery disease without angina pectoris Assessment & Plan: He has not been having any angina. Continue beta-karolyn an d statin medication. We will also resume low strength aspirin in light of the transient ischemic attack as above. (7) Primary hypertension Assessment & Plan: Continue outpatient antihypertensive medications. (8) Mixed hyperlipidemia Assessment & Plan: Continue statin and fenofibrate. His LDL level is quite low. I do not see any reason to increase his dose of statin medication at this time ELLIE DUBON JR, MD Jan 28, 2022 12:46
[2022-01-28 13:53] VITALS: BP 139/79
[2022-01-28] MEDS ORDERED: warFARin 2.5 MG (COUMADIN) TAB PO SCH (18:00)
--- NOTE | 2022-01-28 20:30 | Short Stay Summary-Hospitalist ---
History of Present Illness HPI/Chief Complaint Raoul Wong is a 71 year old male with PMH aortic valve replacement on coumadin, HTN, HLD, CAD, CVA, who presented with right arm weakness. He denies any trouble speaking or swallowing. He denies any leg weakness. Upon my exam his symptoms have completely resolved. He denies fevers, chills, shortness of breath, cough, chest pain, abdominal pain, nausea, vomiting. He has been taking his coumadin. The dose was recently decreased. He recently stopped taking his aspirin due to bleeding/bruising issues. He is supposed to have a left heart catheterization with Dr. Vanessa santamaria and he is supposed to be bridged with Lo venox. Source: patient, family Exam Limitations: no limitations Date Seen 01/28/22 Time Seen by a Provider: 12:00 Attending Physician Misty Montoya PCP Admitting Physician: Yunior Chauhan MD Attending Physician: Yunior Chauhan MD Referring Physician Date of Admission Jan 27, 2022 at 16:16 Home Medications & Allergies Home Medications Reviewed patient Home Medication Reconciliation performed by pharmacy medication reconciliations master certified rv technician and/or nursing. Patients Allergies have been reviewed. Allergies Allergies Coded Allergies No Known Drug Allergies (Unverified12/17/16) Past Xgyaoao-Rwudci-Tkvnem Hx Patient Social History Marrital Status: single Tobacco Use?: Yes Smoking Status: Former Smoker Use of E-Cig and/or Vaping dev: Yes Substance use?: No Alcohol Use?: Yes Alcohol Frequency: Once in a while Pt feels they are or have been: No Immunizations Up To Date Date of Influenza Vaccine: Apr 02, 2021 First/Initial COVID19 Vaccinat: n/a Second COVID19 Vaccination John: n/a Tetanus Booster (TDap): Unknown Hepatitis A: Yes Hepatitis B: Yes Date of Pneumonia Vaccine: Dec 18, 2011 Seasonal Allergies Seasonal Allergies: No Current Status Advance Directives: Yes Advance Directive Location: Home Communicates: Verbally Primary Language: Georgian Is interpretation needed?: No Sensory deficits: Vision impairment Implanted or Applied Medical D: Heart mechanical device, Pacemaker Past Medical History Surgeries: Adenoidectomy, CABG, Tonsillectomy, Valve Replacement Sleep Apnea Currently Using CPAP: No Coronary Artery Disease, Heart Attack, Hypertension, Valvular Heart Disease Sexually Transmitted Disease: No HIV/AIDS: No Gastroesophageal Reflux Arthritis Loss of Vision: Bilateral Hearing Impairment: Denies Anxiety Blood Disorders: No Adverse Reaction/Blood Tranf: No (N/A) Family Medical History FH: heart disease 19 FATHER ( in 1989 ) FH: stroke 19 FATHER, Onset:40's - 50 Myocardial infarction 19 FATHER, Onset:60 years & older Review of Systems Constitutional: weakness EENTM: no symptoms reported Respiratory: no symptoms reported Cardiovascular: no symptoms reported Gastrointestinal: no symptoms reported Genitourinary: no symptoms reported Physical Exam Physical Exam Vital Signs Vital Signs - First Documented 01/27/22 12:57 Temp 36.7 Pulse 90 Resp 18 B/P (MAP) 120/76 (91) Pulse Ox 97 O2 Delivery Room Air Capillary Refill : Less Than 3 Seconds Height, Weight, BMI Height: 5'10.00" Weight: 190lbs. 0oz. 86.110149in; 27.10 BMI Method:Stated General Appearance: No Apparent Distress, WD/WN HEENT: PERRL/EOMI, Pharynx Normal Neck: Normal Inspection, Supple Respiratory: Lungs Clear, Normal Breath Sounds, No Respiratory Distress Cardiovascular: Regular Rate, Rhythm, No Edema, No Murmur Gastrointestinal: Normal Bowel Sounds, Non Tender, Soft Extremity: Normal Inspection, Non Tender, No Pedal Edema Neurologic/Psychiatric: Alert, Oriented x3, No Motor/Sensory Deficits, Normal Mood/Affect, plastic molder II-XII Norm as Tested Skin: Normal Color, Warm/Dry Results Results/Procedures Labs Laboratory Tests 01/27/22 13:00 01/28/22 04:43 Patient resulted labs reviewed. Imaging: Reviewed Imaging Report Short Stay Diagnosis Discharge Diagnosis-Short Stay Admission Diagnosis Stroke like symptoms Final Discharge Diagnosis TIA Conclusion Plan TIA History of CVA Aortic valve replacement on coumadin CT/CTA head/neck negative Unable to perform MRI due to AICD Continue Coumadin Restart Aspirin Continue statin Follow up with Dr. Vanessa Kathleen with stroke neurology Outpatient carotid ultrasound ordered Diagnosis/Problems Diagnosis/Problems (1) Transient ischemic attack Status: Acute Clinical Quality Measures Stroke: Time of last known well: 12:40 YUNIOR CHAUHAN MD Jan 28, 2022 20:30
== END 2022-01-28 13:36 | disposition home or self-care (01) ==
LOC: EDUNIT# 12:53 → ER 12:56 → UNDOADMOB 16:16 → 4TH 16:16 → UNDODISOB 01-28 13:50
PROVIDERS: ADMIT Internal Medicine; ATTEND Internal Medicine
DX: G45.9 Transient cerebral ischemic attack, unspecified (principal)
CPT/HCPCS: 70450; 70496; 70498; 71045; 71275; 74174; 80048; 80053; 80061; 81000; 82947; 83735; 84484 ×2; 85025; 85027; 85379; 85610 ×2; 85730; 93005; 93041; 99284; G0378; 36415

== ENCOUNTER 2022-03-05 09:04 | Outpatient (CLI) | payer MEDICARE, OTHER | END 2022-03-05 09:30 | LOC: SLEEP 09:04 | PROVIDERS: ATTEND Otolaryngology Otolaryngology/Facial Plastic Surgery | DX: G47.33 Obstructive sleep apnea (adult) (pediatric) (principal); I25.9 Chronic ischemic heart disease, unspecified; I10 Essential (primary) hypertension; Z86.73 Personal history of transient ischemic attack (TIA), and cerebral infarction without residual deficits | CPT/HCPCS: G0399 ==

== ENCOUNTER → 2022-03-21 | Outpatient (CLI) | payer MEDICARE, OTHER ==
[~2022-03-21] MED LIST changes: +ASPI-1238 PO; +DESM0.2T29 PO; +EMPA10TA PO
[2022-03-21 09:05] LABS: BASOPHILS % (AUTO) 1 % (0-10); EOSINOPHILS # (AUTO) 0.1 10^3/uL (0.0-0.3); EOSINOPHILS % (AUTO) 2 % (0-10); HEMATOCRIT 34 % (40-54); HEMOGLOBIN 10.8 g/dL (13.3-17.7); LYMPHOCYTES # (AUTO) 1.2 10^3/uL (1.0-4.0); LYMPHOCYTES % (AUTO) 19 % (12-44); MEAN CORPUSCULAR HEMOGLOBIN 27 pg (25-34); MEAN CORPUSCULAR HGB CONC 32 g/dL (32-36); MEAN CORPUSCULAR VOLUME 84 fL (80-99); MEAN PLATELET VOLUME 9.9 fL (9.0-12.2); MONOCYTES # (AUTO) 0.5 10^3/uL (0.0-1.0); MONOCYTES % (AUTO) 8 % (0-12); NEUTROPHILS # (AUTO) 4.1 10^3/uL (1.8-7.8); NEUTROPHILS % (AUTO) 70 % (42-75); PLATELET COUNT 222 10^3/uL (130-400); WHITE BLOOD COUNT 5.9 10^3/uL (4.3-11.0)
[2022-03-21 09:16] LABS: INR 2.6 (0.8-1.4); PROTHROMBIN TIME PATIENT 28.6 SEC (12.2-14.7)
[2022-03-21 09:23] LABS: CREATININE SERUM 1.15 MG/DL (0.60-1.30)
== END ==
LOC: LAB 08:11
PROVIDERS: ATTEND Internal Medicine Cardiovascular Disease
DX: Z51.81 Encounter for therapeutic drug level monitoring (principal); I65.23 Occlusion and stenosis of bilateral carotid arteries; I25.10 Atherosclerotic heart disease of native coronary artery without angina pectoris; I63.9 Cerebral infarction, unspecified; I47.2 Ventricular tachycardia; I42.9 Cardiomyopathy, unspecified; I71.2 Thoracic aortic aneurysm, without rupture; I10 Essential (primary) hypertension; E78.2 Mixed hyperlipidemia; G47.33 Obstructive sleep apnea (adult) (pediatric); E66.3 Overweight; Z71.89 Other specified counseling; Z95.2 Presence of prosthetic heart valve; Z95.810 Presence of automatic (implantable) cardiac defibrillator
CPT/HCPCS: 36415; 80048; 85025; 85610

== ENCOUNTER 2022-03-22 09:33 | Day surgery (SDC) | payer MEDICARE, OTHER ==
[~2022-03-22] VITALS: Ht 175.3 cm; Wt 82.7 kg
[2022-03-22] VITALS (10 sets, daily range): BP systolic 118–139; BP diastolic 60–78
[~2022-03-22 09:33] MED LIST changes: -ASPI-1238 PO; -DESM0.2T29 PO; -EMPA10TA PO
[2022-03-22] MEDS ORDERED: HEParin (CATH LAB) 2,000 ML IV ONE (09:41)
[2022-03-22] MEDS ORDERED: LIDOCAINE 1% INJ 30 ML (XYLOCAINE) VIAL ONE (09:41)
[2022-03-22] MEDS ORDERED: NS IV 1000 ML 1,000 ML ONE (09:41)
[2022-03-22] MEDS ORDERED: ASPIRIN 81 MG CHEW (CHILDREN'S ASA) PO ONE (09:45)
[2022-03-22] MEDS ORDERED: CATHETER FLUSH 10 ML SYR IV PRN (09:45)
[2022-03-22] MEDS ORDERED: NS IV 1000 ML 1,000 ML IV ONE (09:45)
[2022-03-22] MEDS ORDERED: ASPIRIN 81 MG CHEW (CHILDREN'S ASA) ONE (10:05)
[2022-03-22] MEDS ORDERED: COFF1CAP3 PO (10:44)
[2022-03-22] MEDS ORDERED: WRF5T PO (10:44)
[2022-03-22] MEDS ORDERED: DESM0.2T29 PO (10:44)
[2022-03-22] MEDS ORDERED: ASPI-1238 PO (10:44)
[2022-03-22] MEDS ORDERED: EMPA10TA PO (10:44)
--- NOTE | 2022-03-22 11:44 | Pre-Op Note & Conscious Sedat ---
Pre-Operative Progress Note Date H&P Reviewed: Mar 22, 2022 Time H&P Reviewed: 11:42 History & Physical: H&P Reviewed, Patient Examed, No changes noted Changes from last HP No changes. Pre-Op Diagnosis: Coronary artery disease without angina and ventricular tachy cardia. Conscious Sedation Pre-Proced ASA Score 2 For ASA 3 and 4: Consider anesthesia and medical clearance. Also, for patients with a history of failed moderate sedation consider anesthesia. Airway Lungs Heart ASA score ASA 1: a normal healthy patient ASA 2: a patient with a mild systemic disease (mid diabetes, controlled hypertension, obesity ASA 3: a patient with a severe systemic disease that limits activity (angina, COPD, prior Myocardial infarction) ASA 4: a patient with an incapacitating disease that is a constant threat to life (CHF, renal failure) ASA 5: a moribund patient not expected to survive 24 hrs. (ruptured aneurysm) ASA 6: a declared brain- patient whose organs are being harvested. For emergent operations, add the letter E after the classification Mallampati Classification Grade 2 Sedation Plan Analgesia, Amnesia, Plan communicated to team members, Discussed options with patient/fam, Discussed risks with patient/fam The patient is an appropriate candidate to undergo the planned procedure, sedation, and anesthesia. The patient immediately re-assessed prior to indication. Given his current clinical status, he is considered vulnerable. He has no recent history of heart failure. ELLIE DUBON JR, MD Mar 22, 2022 11:44
[2022-03-22 11:46] LABS: INR 2.1 (0.8-1.4); PROTHROMBIN TIME PATIENT 24.5 SEC (12.2-14.7)
[2022-03-22] MEDS ORDERED: HEParin 1000 UNIT/ML (10ML VIAL) FOR BOLUS ONE (11:48)
[2022-03-22] MEDS ORDERED: VERAPAMIL 5 MG/2 ML (CALAN) VIAL IV ONE ×2 (11:48→12:46)
[2022-03-22] MEDS ORDERED: fentaNYL INJ 100 MCG/2 ML AMP ONE (11:48)
[2022-03-22] MEDS ORDERED: MIDAZOLAM 2 MG/2 ML (VERSED) VIAL ONE (11:48)
[2022-03-22] MEDS ORDERED: NITRO DRIP 25000 MCG/D5W 250 ML IV ONE (11:48)
[2022-03-22] MEDS ORDERED: NS IV 1000 ML 1,000 ML IV SCH (13:30)
--- NOTE | 2022-03-22 13:35 | Cardiac Cath Report ---
CARDIAC CATHETERIZATION DATE OF PROCEDURE: 03/22/2022 INDICATION: Coronary artery disease without angina and ventricular tachycardia. HISTORY: The patient is a 71 year old male with an extensive past cardiac history with known coronary artery disease and previous coronary artery bypass surgery. He recently had a stroke and as part of his evaluation underwent an event recorder that showed ventricular tachycardia. In light of these findings, he is now referred for further evaluation with a cardiac catheterization. Given his current clinical status, he is considered vulnerable. He has no recent history of heart failure. PROCEDURES PERFORMED: 1. Diagnostic cahto coronary angiography. 2. Diagnostic bypass graft angiography. PROCEDURE DESCRIPTION: After informed consent and in the fasting state, left heart catheterization was performed through the right and left radial arteries as well as the right femoral artery utilizing a 6 Beninese system by percutaneous approach. Standard 5 Beninese Becky catheters as well as a 5 Beninese AL-1 catheter and a 6 Beninese RCB and FL 5 catheter were utilized for the diagnostic portion of the procedure. All catheters were exchanged over a guidewire. Following the procedure, a vascular band was applied to the radial artery access site and the sheath was removed with good hemostasis. Also following the procedure, a right femoral artery angiogram was performed which showed the vessel to be free of significant disease and the sheath entered above the bif urcation. A Mynx closure device was deployed with good hemostasis. RESULTS: HEMODYNAMICS: The aortic pressure was 123/68 mmHg. The mechanical aortic valve was not crossed. CORONARY ANGIOGRAPHY: Left main coronary artery: There was a 90% stenosis proximally with JANETT-3 flow. Left anterior descending coronary artery: Totally occluded proximally. Left circumflex coronary artery: Totally occluded in the midsegment after the takeoff of the first obtuse marginal branch. There was a small first obtuse mar ginal branch which contained a long 80% stenosis proximally followed by 2 additional 80% stenosis in the midsegment. There was competitive flow seen in the distal segment of the branch from the bypass graft. Right coronary artery: Dominant and totally occluded proximal. BYPASS GRAFT ANGIOGRAPHY: Left internal mammary artery graft to left anterior descending coronary artery: Widely patent with good distal runoff. The cahto vessel distal to the touchdown of the graft was small in caliber. Saphenous vein graft to diagonal branch and obtuse marginal branch: This was a sequence of graft that first touchdown on a diagonal branch and then an obtuse marginal branch. There was mild disease in the proximal segment of the graft at no more than 30% stenotic and the distal cahto branches were widely patent beyond the touchdown of the graft. Saphenous vein graft to distal right coronary artery: There was a 30% stenosis in the proximal segment of the graft and the distal cahto vessels were patent with mild diffuse disease at no more than 20% stenotic. IMPRESSION: 1. Normal central aortic pressure. 2. Severe cahto three-vessel coronary artery disease as outlined above. The patient is essentially graft dependent. 3. Patent left internal mammary artery graft to left anterior descending coronary artery. 4. Patent sequential saphenous vein graft to diagonal branch and obtuse marginal branch and patent saphenous vein graft to distal right coronary artery. Certain portions of this document may have been dictated utilizing voice recognition technology. Inherent to this technology, typographical and grammatical errors may exist. As much as I am diligent to identify and correct these mistakes, some errors may remain in the document. ELLIE DUBON JR, MD Mar 22, 2022 13:35
== END 2022-03-22 17:30 ==
LOC: CATH 09:33 → SDC 13:56 → CATH 17:30
PROVIDERS: ATTEND Internal Medicine Cardiovascular Disease
DX: I25.10 Atherosclerotic heart disease of native coronary artery without angina pectoris (principal); I10 Essential (primary) hypertension; E78.2 Mixed hyperlipidemia; I65.23 Occlusion and stenosis of bilateral carotid arteries; G47.33 Obstructive sleep apnea (adult) (pediatric); I42.9 Cardiomyopathy, unspecified; I71.2 Thoracic aortic aneurysm, without rupture; Z79.82 Long term (current) use of aspirin; Z87.891 Personal history of nicotine dependence
CPT/HCPCS: 36140; 85610; 87081; 93459; C1760; C1894 ×3; 36415

== ENCOUNTER 2022-06-10 18:24 | Inpatient (IN) | payer MEDICARE, OTHER ==
[~2022-06-10] VITALS: Ht 175.3 cm; Wt 84.6 kg
[~2022-06-10 18:24] MED LIST changes: +ASPI-1238 PO; +DESM0.2T29 PO; +EMPA10TA PO
[2022-06-10 18:46] LABS: BASOPHILS % (AUTO) 0 % (0-10); EOSINOPHILS % (AUTO) 0 % (0-10); HEMATOCRIT 34 % (40-54); HEMOGLOBIN 11.1 g/dL (13.3-17.7); LYMPHOCYTES % (AUTO) 10 % (12-44); MEAN CORPUSCULAR HEMOGLOBIN 29 pg (25-34); MEAN CORPUSCULAR HGB CONC 32 g/dL (32-36); MEAN CORPUSCULAR VOLUME 88 fL (80-99); MEAN PLATELET VOLUME 10.2 fL (9.0-12.2); MONOCYTES # (AUTO) 0.5 10^3/uL (0.0-1.0); MONOCYTES % (AUTO) 5 % (0-12); NEUTROPHILS # (AUTO) 8.9 10^3/uL (1.8-7.8); NEUTROPHILS % (AUTO) 85 % (42-75); PLATELET COUNT 214 10^3/uL (130-400); WHITE BLOOD COUNT 10.4 10^3/uL (4.3-11.0)
--- NOTE | 2022-06-10 18:53 | ED General ---
General Chief Complaint: Neuro-Stroke Like Symptoms Stated Complaint: RIGHT SIDE WEAKNESS/CONFUSED/DIZZY Source of Information: Patient (SOMEWHAT LIMITED HISTORIAN) History of Present Illness Date Seen by Provider: Jun 10, 2022 Time Seen by Provider: 18:35 Initial Comments PT ARRIVES VIA POV FROM HOME, WALKS BACK TO ER ROOM WITHOUT DIFFICULTY PT STATES HE "ISN'T THINKING CLEAR" AND HAVING DIFFICULTY WITH WORD FINDING HE ALSO HAS HAD SOME RIGHT SIDED ARM WEAKNESS NO DIFFICULTY WALKING NO HEADACHE NO VISION CHANGES NO DIZZINESS NO PARESTHESIAS ANYWHERE NO CHEST PAIN NO PALPITATIONS NO SHORTNESS OF BREATH NO COUGH OR URI SYMTPOMS NO GI SYMPTOMS NO URINARY SYMPTOMS NO DIZZINESS OR SYNCOPE NO PAIN ANYWHERE PT HAS TEMP OF 100 ON ARRIVAL HERE--PT WAS UNAWARE OF FEVER DENIES COUGH OR URI SYMPTOMS PT HAS NOT HAD COVID VACCINE, BUT HAS HAD FLU VACCINE FOR THIS SEASON. PT HAS HISTORY OF PRIOR STROKE 08/2021, STATES HE HAD SOME LEFT ARM WEAKNESS, AND EXPRESSIVE APHASIA AT THAT TIME. THOSE SYMPTOMS RESOLVED COMPLETELY STATES HE HAS ALSO HAD A COUPLE OF TIA'S. PT HAS A PACEMAKER + DEFIBRILLATOR IN PLACE, FOR BRADYCARDIA AND VENTRICULAR FIBRILLATION. HE HAS ALSO HAD A CABG, WELL AORTIC VALVE REPLACEMENT, AND ASCENDING AORTA REPAIR. HE IS SCHEDULED TO SEE A SPECIALIST IN FOR POSSIBLE CARDIAC ABLATION IN 2 DAYS AT . PT'S DAUGHTERS BROUGHT HIM TO ER PT LIVES ALONE THEY WERE GETTING TOGETHER THIS EVENING FOR DINNER AT A FAMILY MEMBER'S HOUSE, AND PT HAD NOT SHOWN UP AFTER 30 MINUTES FROM THE PLANNED TIME. FAMILY REPORTS THAT HE IS NEVER LATE. FAMILY MEMBER CALLED HIM AND HE WAS HAVING DIFFICULTY WITH MEMORY/WORD FINDING. HE EVENTUALLY SHOWED UP AT FAMILY MEMBER'S HOUSE, AND HE WAS HAVING DIFFICULTY USING HIS RIGHT HAND TO EAT. THEY THEN BROUGHT HIM HERE AFTER DINNER. NO DIFFICULTY SWALLOWING NO SLURRED SPEECH, JUST PROBLEMS WITH WORD FINDING/MEMORY. LAST KNOW WELL TIME IS NOT CLEAR NO FAMILY HAD TALKED TO HIM TODAY, UNTIL THIS EVENING. DAUGHTERS ARE HERE AND ARE ABLE TO PROVIDE PAST MEDICAL INFORMATION. PT IS NOT COVID VACCINATED, BUT HE HAS HAD FLU SHOT FOR THIS SEASON PCP: HECTOR ROLAND AT [facility] RECEPTION MANAGER: DR. DUBON--SAW HIM LAST WEEK ELECTROPHYSIOLOGY RECEPTION MANAGER: DR. DOWNS" IN [place], [place]--SEEN LAST MONTH. Allergies and Home Medications Allergies Coded Allergies: No Known Drug Allergies (Unverified , 12/17/16) Patient Home Medication List Home Medication List Reviewed: Yes Alfuzosin HCl (Alfuzosin HCl ER) 10 Mg Tab.er.24h, 10 MG PO HS, (Reported) Entered as Reported by: YUNIER MUNGUIA on 09/11/21 1437 Ascorbate Calcium (Vitamin C) 500 Mg Tablet, 500 MG PO DAILY, (Reported) Entered as Reported by: GREER GEORGE on 03/12/16 1021 Aspirin (Aspirin EC) 81 Mg Tablet.dr, 81 MG PO DAILY, (Reported) Entered as Reported by: KEENAN MORE on 03/22/22 1044 Coffee Xt/Phosphatidyl Serine (Neuriva Original 100-100Mg Cap) 100 Mg-100 Mg Capsule, 1 EACH PO DAILY, (Reported) Entered as Reported by: KEENAN MORE on 03/22/22 1044 Cyanocobalamin (Vitamin B-12) (Vitamin B-12) 1,000 Mcg Tablet, 2,000 MCG PO DAILY, (Reported) Entered as Reported by: GREER GEORGE on 03/12/16 1021 Desmopressin Acetate (Desmopressin Acetate) 0.2 Mg Tablet, 0.6 MG PO HS, (Reported) Entered as Reported by: KEENAN MORE on 03/22/22 1044 Duloxetine HCl (Duloxetine HCl) 60 Mg Capsule.dr, 60 MG PO HS, (Reported) Entered as Reported by: YUNIER MUNGUIA on 09/11/21 1437 Empagliflozin (Jardiance) 10 Mg Tablet, 10 MG PO DAILY, (Reported) Entered as Reported by: KEENAN MORE on 03/22/22 1044 Fenofibrate Nanocrystallized (Fenofibrate) 145 Mg Tablet, 145 MG PO DAILY, (Reported) Entered as Reported by: GREER GEORGE on 03/12/16 1020 Fluticasone Propionate (Fluticasone Propionate) 16 Gm [place].susp, 1-2 SPRAY NSEACH DAILY PRN for CONGESTION, (Reported) Entered as Reported by: GEM DANIELS on 09/14/21 1553 Gabapentin (Neurontin) 300 Mg Capsule, 300 MG PO HS, (Reported) Entered as Reported by: YUNIER MUNUGIA on 09/11/21 1437 Lactobacillus Combination No.4 (Probiotic) 1 Each Capsule, 1 EACH PO DAILY, (Reported) Entered as Reported by: GEM DANIELS on 09/14/21 155 Loratadine (Loratadine) 10 Mg Tablet, 10 MG PO DAILY, (Reported) Entered as Reported by: GREER GEORGE on 03/12/16 102 Losartan Potassium (Losartan Potassium) 50 Mg Tablet, 50 MG PO DAILY, (Reported) Entered as Reported by: GEM DANIELS on 09/14/21 155 Multivitamin (Daily Value) 1 Each Tablet, 1 TAB PO DAILY, (Reported) Entered as Reported by: GREER GEORGE on 03/12/16 1021 Nebivolol HCl (Nebivolol HCl) 5 Mg Tablet, 5 MG PO DAILY, (Reported) Entered as Reported by: GEM DANIELS on 09/14/21 155 Pantoprazole Sodium (Pantoprazole Sodium) 40 Mg Tablet.dr, 40 MG PO DAILY, (Reported) Entered as Reported by: YUNIER MUNGUIA on 09/11/21 143 Potassium Gluconate (Potassium) 99 Mg Tablet, 396 MG PO DAILY, (Reported) Entered as Reported by: YUNIER MUNGUIA on 09/11/21 1437 Rosuvastatin Calcium (Rosuvastatin Calcium) 10 Mg Tablet, 10 MG PO Q48H, (Reported) Entered as Reported by: YUNIER MUNGUIA on 09/11/21 143 Tizanidine HCl (Tizanidine HCl) 4 Mg Tablet, 4 MG PO Q8H PRN for MUSCLE SPASMS, (Reported) Entered as Reported by: GEM DANIELS on 09/14/21 155 Warfarin Sodium (Jantoven) 5 Mg Tablet, 2.5 MG PO HS, (Reported) Entered as Reported by: KEENAN MORE on 03/22/22 1044 Review of Systems Review of Systems Constitutional: see HPI; No chills, No diaphoresis, No dizziness, No malaise, No weakness EENTM: no symptoms reported Respiratory: no symptoms reported Cardiovascular: no symptoms reported Gastrointestinal: no symptoms reported Genitourinary: no symptoms reported Musculoskeletal: no symptoms reported Skin: no symptoms reported Psychiatric/Neurological: See HPI Hematologic/Lymphatic: No Symptoms Reported Immunological/Allergic: no symptoms reported Past Bqujfho-Xsnoio-Hcxqps Hx Patient Social History Tobacco Use?: Yes Tobacco type used: Cigarettes Smoking Status: Former Smoker Use of E-Cig and/or Vaping dev: No Substance use?: No Alcohol Use?: No Pt feels they are or have been: No Immunizations Up To Date Tetanus Booster (TDap): Unknown Influenza Vaccine Up-to-Date: Yes; Up-to-Date First/Initial COVID19 Vaccinat: n/a Second COVID19 Vaccination John: n/a Third COVID19 Vaccination Date: n/a Seasonal Allergies Seasonal Allergies: Yes Past Medical History Surgery/Hospitalization HX: PACEMAKER/DEFIB, AAA, CABG, STROKE, MECHANICAL HEART VALVE, TIA Surgeries: Yes (heart valve replacement, KNEE SCOPE, FOOT SX, SHOULDER SX, L ING HERNIA) Abdominal, Adenoidectomy, Cardiac, CABG, Defibrillator, Orthopedic, Pacemaker, Tonsillectomy, Valve Replacement Respiratory: Yes Sleep Apnea Currently Using CPAP: No Cardiac: Yes (ASCENDING AORTIC ANEURYSM; V-FIB; VIANEY; CAD W/CABG; AORTIC VALVE REPLACEME) Aneurysm, Cardiomyopathy, Coronary Artery Disease, Heart Attack, High Cholesterol, Hypertension, Irregular Heartbeat, Valvular Heart Disease Neurological: Yes Stroke, TIA Reproductive Disorders: No Sexually Transmitted Disease: No HIV/AIDS: No Genitourinary: No Gastrointestinal: Yes Gastroesophageal Reflux, Diverticulosis, Hemorrhoids, Polyps, Irritable Bowel Musculoskeletal: Yes Arthritis, Chronic Back Pain Endocrine: Yes Diabetes, Non-Insulin dep HEENT: No Loss of Vision: Bilateral Hearing Impairment: Denies Cancer: No Psychosocial: Yes Anxiety Integumentary: No Blood Disorders: No Adverse Reaction/Blood Tranf: No (N/A) Family Medical History FH: heart disease 19 FATHER ( in 1989 ) FH: stroke 19 FATHER, Onset:40's - 50 Myocardial infarction 19 FATHER, Onset:60 years & older PAST SURGICAL HISTORY: 2005--5 VESSEL CABG AND AORTIC VALVE REPLACEMENT PACEMAKER + DEFIBRILLATOR PLACEMENT WITH MOST RECENT GENERATOR CHANGE IN 2019 LEFT INGUINAL HERNIA REPAIR 07/23/2007--RIGHT KNEE SCOPE BY DR. JOSEPH 07/23/2007--REMOVAL OF BROKEN STERNAL WIRE BY DR. GRIFFITHS 09/27/2008--COLONOSCOPY 12/21/2016--RIGHT FOOT SURGERY 01/05/2017--LEFT SHOULDER SURGERY BY DR. JOSEPH 2018--ASCENDING AORTIC ANEURYSM REPAIR 11/24/2021--COLONOSCOPY WITH POLYPECTOMY BY DR. KENDRICK CARDIAC CATH 03/22/[address] DUBON: RESULTS: HEMODYNAMICS: The aortic pressure was 123/68 mmHg. The mechanical aortic valve was not crossed. CORONARY ANGIOGRAPHY: Left main coronary artery: There was a 90% stenosis proximally with JANETT-3 flow. Left anterior descending coronary artery: Totally occluded proximally. Left circumflex coronary artery: Totally occluded in the midsegment after the takeoff of the first obtuse marginal branch. There was a small first obtuse marginal branch which contained a long 80% stenosis proximally followed by 2 additional 80% stenosis in the midsegment. There was competitive flow seen in the distal segment of the branch from the bypass graft. Right coronary artery: Dominant and totally occluded proximal. BYPASS GRAFT ANGIOGRAPHY: Left internal mammary artery graft to left anterior descending coronary artery: Widely patent with good distal runoff. The tunica-biloxi vessel distal to the touchdown of the graft was small in caliber. Saphenous vein graft to diagonal branch and obtuse marginal branch: This was a sequence of graft that first touchdown on a diagonal branch and then an obtuse marginal branch. There was mild disease in the proximal segment of the graft at no more than 30% stenotic and the distal tunica-biloxi branches were widely patent beyond the touchdown of the graft. Saphenous vein graft to distal right coronary artery: There was a 30% stenosis in the proximal segment of the graft and the distal tunica-biloxi vessels were patent with mild diffuse disease at no more than 20% stenotic. IMPRESSION: 1. Normal central aortic pressure. 2. Severe tunica-biloxi three-vessel coronary artery disease as outlined above. The patient is essentially graft dependent. 3. Patent left internal mammary artery graft to left anterior descending coronary artery. 4. Patent sequential saphenous vein graft to diagonal branch and obtuse marginal branch and patent saphenous vein graft to distal right coronary artery. Physical Exam Vital Signs Vital Signs - First Documented 06/10/22 18:30 Temp 37.8 Pulse 81 Resp 16 B/P (MAP) 125/77 (93) Capillary Refill : Height, Weight, BMI Height: 5'10.00" Weight: 190lbs. 0oz. [id number]; 26.91 BMI Method:Stated General Appearance: No Apparent Distress, WD/WN, Other (VERY TALKATIVE. SPEECH IS CLEAR, BUT HAVING SOME DIFFICULTY WITH WORD FINDING/MEMORY PROBLEMS. ) HEENT: PERRL/EOMI, Normal ENT Inspection Neck: Full Range of Motion, Normal Inspection, Non Tender, Supple; No Carotid Bruit, No JVD Respiratory: Normal Breath Sounds, No Accessory Muscle Use, No Respiratory Distress Cardiovascular: Regular Rate, Rhythm, No Edema, No JVD, Systolic Murmur (2/6 WITH MECHANICAL VALVULAR CLICK) Gastrointestinal: Normal Bowel Sounds, No Organomegaly, No Pulsatile Mass, Non Tender, Soft Back: Normal Inspection, No CVA Tenderness Extremity: Normal Capillary Refill, Normal Inspection, Normal Range of Motion, Non Tender, No Calf Tenderness, No Pedal Edema Neurologic/Psychiatric: Alert, Oriented x3, No Motor/Sensory Deficits, Normal Mood/Affect, glass selector II-XII Norm as Tested; No Abnormal Cerebellar Tests, No Abnormal Gait; Aphasia (EXPRESSIVE APHASIA / PROBLEMS WITH WORD FINDING AND POSSIBLE MEMORY IMPAIRMENT. ); No Disoriented, No Motor Weakness, No Sensory Deficit; Other (NIH 1) Skin: Normal Color, Warm/Dry; No Rash Focused Exam Sepsis Stage: Sepsis Reason for ruling out sepsis: POSSIBLE SEPSIS Possible Source: Unknown Lactate Level 06/10/22 19:10: Lactic Acid Level 0.81 Time of Focused Exam: 21:30 Respiratory: Normal Breath Sounds, No Accessory Muscle Use, No Respiratory Distress Cardiovascular: Regular Rate, Rhythm Capillary Refill: Less Than 3 Seconds Skin: normal color, warm/dry Lactic Acid Level Laboratory Tests Test 06/10/22 19:10 Lactic Acid Level 0.81 MMOL/L (0.50-2.00) Within 3hrs of presentation: Admin fluids, Admin ABX, Blood cultures prior to ABX's, Focus exam, Lactate level Progress/Results/Core Measures Suspected Sepsis SIRS Temperature: Pulse: Respiratory Rate: Laboratory Tests 06/10/22 18:36: White Blood Count 10.4 Blood Pressure / Mean: 06/10/22 19:10: Lactic Acid Level 0.81 Laboratory Tests 06/10/22 18:36: Creatinine 1.51H, INR Comment 2.8H, Platelet Count 214, Total Bilirubin 0.9 Results/Orders Lab Results Laboratory Tests Test 06/10/22 18:36 06/10/22 18:39 06/10/22 18:54 06/10/22 19:10 Range/Units White Blood Count 10.4 4.3-11.0 10^3/uL Red Blood Count 3.90 L 4.30-5.52 10^6/uL Hemoglobin 11.1 L 13.3-17.7 g/dL Hematocrit 34 L 40-54 % Mean Corpuscular Volume 88 80-99 fL Mean Corpuscular Hemoglobin 29 25-34 pg Mean Corpuscular Hemoglobin Concent 32 32-36 g/dL Red Cell Distribution Width 15.6 H 10.0-14.5 % Platelet Count 214 130-400 10^3/uL Mean Platelet Volume 10.2 9.0-12.2 fL Immature Granulocyte % (Auto) 0 % Neutrophils (%) (Auto) 85 H 42-75 % Lymphocytes (%) (Auto) 10 L 12-44 % Monocytes (%) (Auto) 5 0-12 % Eosinophils (%) (Auto) 0 0-10 % Basophils (%) (Auto) 0 0-10 % Neutrophils # (Auto) 8.9 H 1.8-7.8 10^3/uL Lymphocytes # (Auto) 1.0 1.0-4.0 10^3/uL Monocytes # (Auto) 0.5 0.0-1.0 10^3/uL Eosinophils # (Auto) 0.0 0.0-0.3 10^3/uL Basophils # (Auto) 0.0 0.0-0.1 10^3/uL Immature Granulocyte # (Auto) 0.0 0.0-0.1 10^3/uL Prothrombin Time 30.2 H 12.2-14.7 SEC INR Comment 2.8 H 0.8-1.4 Activated Partial Thromboplast Time 66 H 24-35 SEC D-Dimer 1.58 H 0.00-0.49 UG/ML Sodium Level 137 135-145 MMOL/L Potassium Level 3.8 3.6-5.0 MMOL/L Chloride Level 105 98-107 MMOL/L Carbon Dioxide Level 22 21-32 MMOL/L Anion Gap 10 5-14 MMOL/L Blood Urea Nitrogen 24 H 7-18 MG/DL Creatinine 1.51 H 0.60-1.30 MG/DL Estimat Glomerular Filtration Rate 49 BUN/Creatinine Ratio 16 Glucose Level 90 70-105 MG/DL Calcium Level 9.0 8.5-10.1 MG/DL Corrected Calcium 9.0 8.5-10.1 MG/DL Magnesium Level 1.8 1.6-2.4 MG/DL Total Bilirubin 0.9 0.1-1.0 MG/DL Aspartate Amino Transf (AST/SGOT) 26 5-34 U/L Alanine Aminotransferase (ALT/SGPT) 22 0-55 U/L Alkaline Phosphatase 75 40-136 U/L Troponin I 0.391 *H <0.028 NG/ML Total Protein 7.4 6.4-8.2 GM/DL Albumin 4.0 3.2-4.5 GM/DL Serum Alcohol < 10 <10 MG/DL Glucometer 101 70-110 MG/DL Influenza Type A (RT-PCR) Not Detected Not Detecte Influenza Type B (RT-PCR) Not Detected Not Detecte SARS-CoV-2 RNA (RT-PCR) Not Detected Not Detecte Lactic Acid Level 0.81 0.50-2.00 MMOL/L Test 06/10/22 19:54 06/10/22 20:23 Range/Units Procalcitonin 0.17 H <0.10 NG/ML Urine Color YELLOW Urine Clarity CLEAR Urine pH 5.5 5-9 Urine Specific [place] 1.020 1.016-1.022 Urine Protein NEGATIVE NEGATIVE Urine Glucose (UA) 3+ H NEGATIVE Urine Ketones NEGATIVE NEGATIVE Urine Nitrite NEGATIVE NEGATIVE Urine Bilirubin NEGATIVE NEGATIVE Urine Urobilinogen 0.2 < = 1.0 MG/DL Urine Leukocyte Esterase NEGATIVE NEGATIVE Urine RBC (Auto) NEGATIVE NEGATIVE Urine RBC NONE /HPF Urine WBC RARE /HPF Urine Squamous Epithelial Cells NONE /HPF Urine Crystals NONE /LPF Urine Bacteria TRACE /HPF Urine Casts NONE /LPF Urine Mucus NEGATIVE /LPF Urine Culture Indicated CULTURE PENDING My Orders Orders - DEN MARX DO Cbc With Automated Diff (06/10/22 18:39) Protime With Inr (06/10/22 18:39) Partial Thromboplastin Time (06/10/22 18:39) Comprehensive Metabolic Panel (06/10/22 18:39) Fibrin Degradation Products (06/10/22 18:39) Troponin I Gail (06/10/22 18:39) Chest 1 View, Ap/Pa Only (06/10/22 18:39) Ekg Tracing (06/10/22 18:39) Nothing By Mouth (06/10/22 Dinner) Accucheck Stat ONCE (06/10/22 18:39) Ed Iv/Invasive Line Start (06/10/22 18:39) Ed Iv/Invasive Line Start (06/10/22 18:39) Vital Signs Stroke Patient Q15M (06/10/22 18:39) Ct Head Wo-R/O Stroke (06/10/22 18:39) O2 (06/10/22 18:39) Intake & Output 06,14,22 (06/10/22 18:39) Monitor-Rhythm Ecg Trace Only (06/10/22 18:39) Dysphagia Screening Tool [id number] (06/10/22 18:39) Lipid Panel (06/11/22 06:00) Covid 19 Inhouse Test (06/10/22 18:39) Influenza A And B By Pcr (06/10/22 18:39) Isolation Central Supply Req (06/10/22 18:39) Alcohol (06/10/22 18:39) Magnesium (06/10/22 18:39) Sputum Culture (06/10/22 18:53) Urinalysis (06/10/22 18:53) Urine Culture (06/10/22 18:53) Acetaminophen Tablet (Tylenol Tablet) (06/10/22 19:00) Ed Iv/Invasive Line Start (06/10/22 18:53) Vital Signs Adult Sepsis Patie Q15M (06/10/22 18:53) O2 (06/10/22 18:53) Remove Rings In Anticipation O (06/10/22 18:53) Lactic Acid Analyzer (06/10/22 18:53) Ns Iv 1000 Ml (Sodium Chloride 0.9%) (06/10/22 19:00) Cefepime Injection (Maxipime Injection) (06/10/22 19:00) Acetaminophen Tablet (Tylenol Tablet) (06/10/22 19:45) Ct Angio Head/Neck (06/10/22 19:45) Ct Chest Wo (06/10/22 19:45) Procalcitonin (Pct) (06/10/22 19:47) Blood Culture (06/10/22 19:47) Iohexol Injection (Omnipaque 350 Mg/Ml 1 (06/10/22 20:00) Ns (Ivpb) (Sodium Chloride 0.9% Ivpb Bag (06/10/22 20:00) Straight Cath For Spec.-Adult (06/10/22 20:13) Ed Iv/Invasive Line Start (06/10/22 20:45) Lactated Ringers (Lr 1000 Ml Iv Solution (06/10/22 20:45) Ct Head Perfusion W/ Contrast (06/10/22 20:46) Iohexol Injection (Omnipaque 350 Mg/Ml 1 (06/10/22 21:15) Received Contrast (Hold Metformin- Contr (06/10/22 21:15) Ns (Ivpb) (Sodium Chloride 0.9% Ivpb Bag (06/10/22 21:15) Medications Given in ED Current Medications Medications Dose Ordered Sig/Cassandra Route Start Time Stop Time Status Last Admin Dose Admin Acetaminophen 1,000 mg ONCE PRN PO 06/10/22 19:00 06/10/22 19:26 DC 06/10/22 19:25 1,000 MG Cefepime HCl 1000 mg/Sodium Chloride 50 ml @ 100 mls/hr ONCE ONCE IV 06/10/22 19:00 06/10/22 19:29 DC 06/10/22 20:13 100 MLS/HR Iohexol 100 ml ONCE ONCE IV 06/10/22 20:00 06/10/22 20:01 DC 06/10/22 20:03 75 ML Iohexol 100 ml ONCE ONCE IV 06/10/22 21:15 06/10/22 21:16 DC 06/10/22 21:21 115 ML Lactated Ringer's 1,000 ml @ 0 mls/hr Q0M ONCE IV 06/10/22 20:45 06/10/22 20:47 DC 06/10/22 21:25 1,000 MLS/HR Sodium Chloride 100 ml ONCE ONCE IV 06/10/22 20:00 06/10/22 20:01 DC 06/10/22 20:03 80 ML Sodium Chloride 100 ml ONCE ONCE IV 06/10/22 21:15 06/10/22 21:16 DC 06/10/22 21:21 120 ML Vital Signs/I&O 06/10/22 18:30 Temp 37.8 Pulse 81 Resp 16 B/P (MAP) 125/77 (93) 06/11/22 00:00 Intake Total 1050 ml Balance 1050 ml Capillary Refill : Point of Care Testing Finger Stick Blood Glucose: 101 Progress Note : Progress Note STROKE PROTOCOL INITIATED ON ARRIVAL, FOLLOWED BY SEPSIS PROTOCOL INITIATION ON NOTING FEVER OF 100 ON ARRIVAL. GIVEN TYLENOL FOR FEVER NO DIFFICULTY SWALLOWING PILLS OR WATER PT WAS GIVEN IV FLUIDS PER SEPSIS PROTOCOL, AND DUE TO HIM RECEIVING IV CONTRAST. NO DETERIORATION IN PT'S CONDITION DURING ER STAY VITALS REMAIN STABLE PT CONTINUES TO HAVE PROBLEMS WITH EXPRESSIVE APHASIA / WORD FINDING / MEMORY ISSUES 2044--TANK TENDER HAS INFORMED ME THAT RADIOLOGIST ADVISES A REPEAT CT ANGIOGRAM OF HEAD AND NECK WITH DIFFERENT TECHNIQUE, WELL CT HEAD PERFUSION SCAN. DISCUSSED ALL TEST RESULTS, AND PLAN OF CARE WITH PT AND DAUGHTERS. VERY COMPLICATED PATIENT, WITH MULTIPLE ISSUES AT THIS TIME: -STROKE SYMPTOMS, WITH EXPRESSIVE APHASIA, AND SOME MEMORY IMPAIRMENT, AND REP ORTED DIFFICULTY USING HIS RIGHT HAND. PT HAS HISTORY OF PRIOR STROKE WITH SAME SYMPTOMS. MRI IS NOT AN OPTION DUE TO PACEMAKER/DEFIBRILLATOR IN PLACE. -ELEVATED TROPONIN. PT WITH EXTENSIVE CARDIAC HISTORY, INCLUDING CAD WITH CABG, VALVE REPLACEMENT, BRADYCARDIA AND VENTRICULAR FIBRILLATION WITH PACEMAKER AND DEFIBRILLATOR, AND ASCENDING AORTIC ANEURYSM REPAIR, HE HAS BEEN REFERRED TO SPECIALIST IN [place] FOR POSSIBLE CARDIAC ABLATION. -FEVER, WITHOUT OBVIOUS SOURCE AT THIS TIME. WILL CONTINUE FURTHER EVALUATION. PT IS ON COUMADIN, LUMBAR PUNCTURE IS NOT AN OPTION AT THIS TIME. WILL TREAT EMPIRICALLY WITH ANTIBIOTICS FOLLOWING SEPSIS PROTOCOL AT THIS TIME. ECG Initial ECG Impression Date: Jun 10, 2022 Initial ECG Impression Time: 19:14 Initial ECG Rate: 76 Initial ECG Comparisson: Unchanged Comment 100% A-V PACED. NO FURTHER INTERPRETATION Diagnostic Imaging Comments CXR--PER RADIOLOGIST REPORT AT 1943 CT HEAD--PER RADIOLOGIST REPORT AT 1943 FINDINGS: No intracranial hyperdense hemorrhage or space-occupying mass. No hydrocephalus or midline shift. Encephalomalacia in the left frontal lobe is compatible with old infarct and unchanged. Old lacunar infarcts in the right caudate and anterior limb of the internal capsule are unchanged. Ochoa-white matter differentiation is otherwise well preserved. Basilar cisterns are widely patent. No acute calvarial abnormality. IMPRESSION: 1. No acute hemorrhage or features of new large territorial infarct. 2. 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 CT CHEST--PER RADIOLOGIST REPORT AT 2043 FINDINGS: Lungs and airway: No abnormality in the trachea. There is no pneumonia or edema. No suspicious pulmonary nodule. Pleura: No pleural effusion or pneumothorax. Heart and mediastinum: No supraclavicular or axillary lymphadenopathy. Stable postoperative changes of ascending aortic aneurysm resection with graft repair. Aortic valve replacement has been performed. No recurrent aneurysm. Calcifications throughout the aorta are unchanged. Upper abdomen: Stable enlargement of the spleen. Musculoskeletal: Subacute and nondisplaced fractures in the posterior aspect of the left 11th and 10th ribs. IMPRESSION: 1. No pneumonia. 2. Subacute fractures in the posterior left 10th and 11th ribs. No pneumothorax. 3. Stable postoperative changes of ascending aortic aneurysm repair. CT ANGIOGRAM OF HEAD AND CT HEAD PERFUSION SCAN--PER RADIOLOGIST REPORTS AT 2141 CT HEAD PERFUSION: CT Head perfusion w/contrast INDICATION: Right-sided weakness. COMPARISON: None available. TECHNIQUE: CT perfusion imaging was performed. FINDINGS: No patient motion during the exam. Appropriate arterial and venous selection was made by the software. The perfusion imaging shows no areas of significantly elevated time to maximal perfusion. There is suggestion of diminished cerebral blood flow and blood volume in the left parietal lobe. IMPRESSION: 1. Potential small area of core infarct in the left frontal lobe. This is more posteriorly positioned within the area of encephalomalacia in the left frontal lobe. 2. No mismatch perfusion defect to suggest penumbra that would be amenable to intervention. CT ANGIOGRAM HEAD/NECK-- INDICATION: Right-sided weakness. COMPARISON: CTA head and neck from 01/27/2022. FINDINGS: Opacification of the neck arteries is suboptimal, but is useful to confirm that the bilateral common carotid arteries are patent. There is no high-grade stenosis of the proximal internal carotid arteries per NASCET criteria. The cervical divisions of the internal carotid arteries are patent without high-grade stenosis. Vertebral arteries are grossly patent but are suboptimally evaluated within the neck. Opacification of the intracranial arteries is more optimal within the head. Distal internal carotid arteries are patent without terminal aneurysm. M1 and M2 divisions of the middle cerebral arteries are widely patent. Anterior cerebral arteries are widely patent. No anterior communicating artery aneurysm. Basilar artery is widely patent without terminal aneurysm. Posterior cerebral arteries are patent. No pathologic enhancement on delayed phase imaging. Dural venous sinuses are patent. No change in the left frontal encephalomalacia. Lung apices are clear with the exception of mild emphysema. No cervical lymphadenopathy. No concerning abnormality in the cervical spine. IMPRESSION: 1. No intracranial large vessel occlusion or saccular aneurysm. 2. Patent dural venous sinuses. 3. Opacification of the neck arteries is suboptimal, but is diagnostic in that it can be confirmed that the major neck arteries are patent without high-grade stenosis. Reviewed: Reviewed by Me Departure Communication (Admissions) 2144--SPOKE WITH DR. LEMA, RECEPTION MANAGER GRAVITY PROSPECTOR. WILL HAVE DR. DUBON CONTACTED IN AM. HE ADVISES TO CONTINUE REGULAR MEDICATIONS AT THIS TIME 2149--SPOKE WITH DR. BENNETT, HOSPITALIST. ACCEPTS PT FOR ADMIT. ADVISES TO CONTINUE TREATMENT WITH CEFEPIME, WELL VANCOMYCIN AT THIS TIME. 2206--CALLED [facility]. SPOKE WITH DR. DELGADO, STROKE NEUROLOGIST. SHE AGREES, THAT PT IS NOT A CANDIDATE FOR ANY INTERVENTION OR THROMBOLYTICS, ADVISES REPEAT HEAD CT IN 24 HOURS, AND ECHOCARDIOGRAM Impression Primary Impression: Stroke-like symptoms Additional Impressions: Expressive aphasia Right arm weakness POSSIBLE SEPSIS /FEVER OF UNKNOWN CAUSE Elevated troponin History of cerebrovascular accident NIDDM HX OF CAD WITH CABG HX OF ASCENDING AORTIC ANEURYSM REPAIR Hx of aortic valve replacement HTN (hypertension) Hx of ventricular fibrillation Disposition: ADMITTED INPATIENT Condition: Stable Admissions Decision to Admit Reason: Admit from ER (General) Decision to Admit/Date: Jun 10, 2022 Time/Decision to Admit Time: 21:45 Departure-Patient Inst. Referrals: NO,LOCAL PHYSICIAN (PCP) Primary Care Physician DEE ROLAND (Family) Primary Care Physician DEN MARX DO Jun 10, 2022 18:53
[2022-06-10] MEDS ORDERED: NS IV 1000 ML 1,000 ML IV SCH ×2 (19:00→22:15)
[2022-06-10] MEDS ORDERED: CEFEPIME INJECTION 1,000 MG in NS (IVPB) 50 ML IV ONE (19:00)
[2022-06-10] MEDS ORDERED: ACETAMINOPHEN 500 MG TAB (TYLENOL) PO PRN (19:00)
[2022-06-10 19:03] LABS: CHLORIDE 105 MMOL/L (98-107); POTASSIUM 3.8 MMOL/L (3.6-5.0); SODIUM 137 MMOL/L (135-145)
[2022-06-10 19:06] LABS: GLUCOSE 90 MG/DL (70-105); TOTAL PROTEIN 7.4 GM/DL (6.4-8.2)
[2022-06-10 19:07] LABS: CARBON DIOXIDE 22 MMOL/L (21-32); FIBRIN DEGRADATION PRODUCTS 1.58 UG/ML (0.00-0.49); INR 2.8 (0.8-1.4); PROTHROMBIN TIME PATIENT 30.2 SEC (12.2-14.7)
[2022-06-10 19:08] LABS: BILIRUBIN,TOTAL 0.9 MG/DL (0.1-1.0)
[2022-06-10 19:09] LABS: ALKALINE PHOSPHATASE 75 U/L (40-136)
[2022-06-10 19:10] LABS: CREATININE SERUM 1.51 MG/DL (0.60-1.30); GFR ESTIMATED 49
[2022-06-10 19:11] LABS: BUN/CREATININE RATIO 16
[2022-06-10 19:12] LABS: ALANINE AMINOTRANSFERASE 22 U/L (0-55); MAGNESIUM 1.8 MG/DL (1.6-2.4)
--- NOTE | 2022-06-10 19:36 | Diagnostic Imaging Report ---
PROCEDURE: CT head w/o r/o stroke. TECHNIQUE: Multiple contiguous axial images were obtained through the brain without the use of intravenous contrast. Auto Exposure Controls were utilized during the CT exam to meet ALARA standards for radiation dose reduction. INDICATION: Right-sided weakness. COMPARISON: CT head from 01/27/2022. FINDINGS: No intracranial hyperdense hemorrhage or space-occupying mass. No hydrocephalus or midline shift. Encephalomalacia in the left frontal lobe is compatible with old infarct and unchanged. Old lacunar infarcts in the right caudate and anterior limb of the internal capsule are unchanged. Ochoa-white matter differentiation is otherwise well preserved. Basilar cisterns are widely patent. No acute calvarial abnormality. IMPRESSION: 1. No acute hemorrhage or features of new large territorial infarct. 2. 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 Dictated by: Dictated on workstation # [id number]
--- NOTE | 2022-06-10 19:39 | Diagnostic Imaging Report ---
CHEST 1 VIEW, AP/PA ONLY Indication: Stroke symptoms, right-sided weakness Comparison: 01/27/2022 Findings: Stable cardiomegaly. Left pectoral transvenous biventricular pacemaker is stable appearance. Stable changes of aortic valve replacement. Lungs are clear. No pleural effusion or pneumothorax. Impression: 1. No acute cardiopulmonary process by portable radiography. Dictated by: Dictated on workstation # [id number]
[2022-06-10] MEDS ORDERED: ACETAMINOPHEN 500 MG TAB (TYLENOL) PO ONE (19:45)
[2022-06-10] MEDS ORDERED: IOHEXOL 350 MG/ML 100 ML (OMNIPAQUE 350) VIAL IV ONE ×2 (20:00→21:15)
[2022-06-10] MEDS ORDERED: NS 100 ML (IVPB) BAG IV ONE ×2 (20:00→21:15)
[2022-06-10 20:30] LABS: BILIRUBIN,URINE NEGATIVE (NEGATIVE); CLARITY,URINE CLEAR; COLOR,URINE YELLOW; GLUCOSE, URINE (UA) 3+ (NEGATIVE); KETONES,URINE NEGATIVE (NEGATIVE); LEUKOCYTE ESTERASE ,URINE NEGATIVE (NEGATIVE); NITRITE,URINE NEGATIVE (NEGATIVE); PH,URINE 5.5 (5-9); PROTEIN,URINE NEGATIVE (NEGATIVE)
--- NOTE | 2022-06-10 20:36 | Diagnostic Imaging Report ---
CT Chest w/o TECHNIQUE: Multiple contiguous axial images were obtained through the chest without the use of intravenous contrast. All CT scans use one or more of the following dose optimizing techniques: automated exposure control, MA and/or KvP adjustment based on patient size and exam type or iterative reconstruction. INDICATION: Fever and cough. COMPARISON: CT chest of 09/14/2021. FINDINGS: Lungs and airway: No abnormality in the trachea. There is no pneumonia or edema. No suspicious pulmonary nodule. Pleura: No pleural effusion or pneumothorax. Heart and mediastinum: No supraclavicular or axillary lymphadenopathy. Stable postoperative changes of ascending aortic aneurysm resection with graft repair. Aortic valve replacement has been performed. No recurrent aneurysm. Calcifications throughout the aorta are unchanged. Upper abdomen: Stable enlargement of the spleen. Musculoskeletal: Subacute and nondisplaced fractures in the posterior aspect of the left 11th and 10th ribs. IMPRESSION: 1. No pneumonia. 2. Subacute fractures in the posterior left 10th and 11th ribs. No pneumothorax. 3. Stable postoperative changes of ascending aortic aneurysm repair. Dictated by: Dictated on workstation # [id number]
[2022-06-10 20:37] LABS: BACTERIA,URINE TRACE /HPF; WBC,URINE RARE /HPF
[2022-06-10] MEDS ORDERED: LACTATED RINGERS 1,000 ML IV ONE (20:45)
[2022-06-10] MEDS ORDERED: HOLD METFORMIN - RECEIVED CONTRAST 20 ML VIAL IV SCH (21:15)
--- NOTE | 2022-06-10 21:23 | Diagnostic Imaging Report ---
PROCEDURE: CT angiography of the head and CT angiography of the neck with and without contrast. TECHNIQUE: Contiguous noncontrast images were obtained from the skull base through the vertex. After intravenous contrast administration, helical CT angiography of the neck was performed. Source data was reformatted into 3D MIP projections. Delayed post contrast acquisition was also obtained. Auto Exposure Controls were utilized during the CT exam to meet ALARA standards for radiation dose reduction. INDICATION: Right-sided weakness. COMPARISON: CTA head and neck from 01/27/2022. FINDINGS: Opacification of the neck arteries is suboptimal, but is useful to confirm that the bilateral common carotid arteries are patent. There is no high-grade stenosis of the proximal internal carotid arteries per NASCET criteria. The cervical divisions of the internal carotid arteries are patent without high-grade stenosis. Vertebral arteries are grossly patent but are suboptimally evaluated within the neck. Opacification of the intracranial arteries is more optimal within the head. Distal internal carotid arteries are patent without terminal aneurysm. M1 and M2 divisions of the middle cerebral arteries are widely patent. Anterior cerebral arteries are widely patent. No anterior communicating artery aneurysm. Basilar artery is widely patent without terminal aneurysm. Posterior cerebral arteries are patent. No pathologic enhancement on delayed phase imaging. Dural venous sinuses are patent. No change in the left frontal encephalomalacia. Lung apices are clear with the exception of mild emphysema. No cervical lymphadenopathy. No concerning abnormality in the cervical spine. IMPRESSION: 1. No intracranial large vessel occlusion or saccular aneurysm. 2. Patent dural venous sinuses. 3. Opacification of the neck arteries is suboptimal, but is diagnostic in that it can be confirmed that the major neck arteries are patent without high-grade stenosis. Dictated by: Dictated on workstation # [id number]
--- NOTE | 2022-06-10 21:36 | Diagnostic Imaging Report ---
CT Head perfusion w/contrast INDICATION: Right-sided weakness. COMPARISON: None available. TECHNIQUE: CT perfusion imaging was performed. FINDINGS: No patient motion during the exam. Appropriate arterial and venous selection was made by the software. The perfusion imaging shows no areas of significantly elevated time to maximal perfusion. There is suggestion of diminished cerebral blood flow and blood volume in the left parietal lobe. IMPRESSION: 1. Potential small area of core infarct in the left frontal lobe. This is more posteriorly positioned within the area of encephalomalacia in the left frontal lobe. 2. No mismatch perfusion defect to suggest penumbra that would be amenable to intervention. Dictated by: Dictated on workstation # [id number]
[2022-06-10] MEDS: VANCOMYCIN INJECTION 750 MG in NS (IVPB) 250 ML IV SCH (22:27)
[2022-06-10 23:15] VITALS: BP 123/71
[2022-06-10 23:30] VITALS: BP 123/104
[2022-06-10 23:45] VITALS: BP 139/86
[2022-06-10] MEDS ORDERED: 1/2 NS IV SOLUTION 1,000 ML IV SCH (23:45)
[2022-06-10] MEDS ORDERED: NITROGLYCERIN 0.4 MG SL TABS BTL 25'S SL PRN (23:45)
[2022-06-10] MEDS ORDERED: ONDANSETRON 4 MG/2 ML (SDV) Z0FRAN IVP PRN (23:45)
[2022-06-10] MEDS ORDERED: EPINEPHrine 1 MG INJECTION 4 MG in NS (IVPB) 248 ML IV SCH (23:45)
[2022-06-11] VITALS (15 sets, daily range): BP systolic 112–136; BP diastolic 58–87
[2022-06-11] MEDS: VANCOMYCIN INJECTION 750 MG in NS (IVPB) 250 ML IV SCH (00:06)
--- NOTE | 2022-06-11 00:31 | Tele-ICU Progress Note ---
Progress Note 71 y/o male with c/o Rt sided arm weakness and difficulty word finding. Has priot Hx of CVA, Pacemaker+ defibrillator Scheduled to have cardiac ablation in 2 days. CTH with old infarcts and no new changes. INR 2.8, urine negative Empiric abx given. unclear if tele stroke was consulted or not. ABG and LA ordered and d/w the bedside nurse. Interventions Minor-Other: CVA ? sepsis ? Cardiogenic shock ? Focused Exam Lactate Level 06/10/22 19:10: Lactic Acid Level 0.81 Height, Weight, BMI Height: 5'10.00" Weight: 190lbs. 0oz. 86.398312yl; 26.91 BMI Method:Stated KAYLYNN MESA MD Jun 11, 2022 00:31
[2022-06-11 01:21] LABS: ABG BASE EXCESS -3.4 MMOL/L (-2.5-2.5); ABG OXYGEN SATURATION 95 % (94-100); ABG PCO2 37 MMHG (35-45); ABG PH 7.37 (7.37-7.43); ABG PO2 74 MMHG (79-93); ABG TCO2 22.2 MMOL/L (21.0-31.0)
[2022-06-11 01:22] LABS: ALLENS TEST YES-POS; PATIENT TEMP 36.7; VENTILATOR NO
[2022-06-11] MEDS: NOREPINEPHRINE 8 MG/250 ML 250 ML IV SCH ×2 (01:44→15:32)
[2022-06-11] MEDS: VASOPRESSIN INJECTION 20 UNIT in NS (IVPB) 100 ML IV SCH ×2 (01:44→11:09)
[2022-06-11] MEDS ORDERED: CEFEPIME 1,000 MG/NS 50 ML IVPB IV SCH ×2 (04:00)
[2022-06-11 04:18] LABS: BASOPHILS % (AUTO) 0 % (0-10); EOSINOPHILS # (AUTO) 0.1 10^3/uL (0.0-0.3); EOSINOPHILS % (AUTO) 1 % (0-10); HEMATOCRIT 29 % (40-54); HEMOGLOBIN 9.4 g/dL (13.3-17.7); LYMPHOCYTES % (AUTO) 14 % (12-44); MEAN CORPUSCULAR HEMOGLOBIN 28 pg (25-34); MEAN CORPUSCULAR HGB CONC 32 g/dL (32-36); MEAN CORPUSCULAR VOLUME 89 fL (80-99); MEAN PLATELET VOLUME 10.5 fL (9.0-12.2); MONOCYTES # (AUTO) 0.6 10^3/uL (0.0-1.0); MONOCYTES % (AUTO) 8 % (0-12); NEUTROPHILS # (AUTO) 5.5 10^3/uL (1.8-7.8); NEUTROPHILS % (AUTO) 76 % (42-75); PLATELET COUNT 156 10^3/uL (130-400); WHITE BLOOD COUNT 7.2 10^3/uL (4.3-11.0)
[2022-06-11 04:27] LABS: ALBUMIN 3.1 GM/DL (3.2-4.5)
[2022-06-11 04:28] LABS: CALCIUM 7.8 MG/DL (8.5-10.1)
[2022-06-11 04:30] LABS: TOTAL PROTEIN 5.6 GM/DL (6.4-8.2)
[2022-06-11 04:31] LABS: BILIRUBIN,TOTAL 0.8 MG/DL (0.1-1.0)
[2022-06-11 04:33] LABS: CREATININE SERUM 1.19 MG/DL (0.60-1.30)
[2022-06-11] MEDS: ASPIRIN E.C. 81 MG (ECOTRIN) TAB PO SCH (07:58)
[2022-06-11] MEDS: ACETAMINOPHEN 500 MG TAB (TYLENOL) PO PRN ×2 (08:01→18:36)
--- NOTE | 2022-06-11 08:25 | Consultation-Cardiology ---
HPI-Cardiology Cardiology Consultation: Date of Consultation 06/11/22 Date of Admission 06/10/22 Attending Physician Deysi,Local Physician Admitting Physician Admitting Physician: Linda Snyder MD Attending Physician: Chichi Abreu MD Consulting Physician ELLIE DUBON JR, MD HPI: Time Seen by a Provider: 08:20 Chief Complaint: REASON FOR CONSULTATION: Possible cerebrovascular accident and abnormal troponin level. I had the pleasure of seeing Raoul in the intensive care unit at [facility] in [place], [place] today. He is actually on the cardiac stepdown status but due to bed overflow, was admitted to the ICU. He had some slight expressive aphasia which is new and also worsening short-term memory which makes obtaining a history from him somewhat difficult. He is well-known to me from the office. He has an extensive past cardiac history including a history of coronary artery disease with previous coronary artery bypass surgery X 5 along with a mechanical aortic valve replacement at the same time in March 2006, a thoracic aortic aneurysm status post repair during a second open heart procedure in 2017, cardiomyopathy that improved, defibrillator implantation, ventricular tachycardia noted on a Holter monitor in December 2021, paroxysmal atrial fibrillation noted on his defibrillator in May 2022, a cerebrovascular accident in August 2021 followed by a transient ischemic attack in December 2021, bilateral carotid atherosclerosis, hypertension, hyperlipidemia, and mild obstructive sleep apnea not on CPAP. Apparently, according to the note from the emergency room provider, the patient did not arrive on time for a dinner with his family. He finally arrived 30 minutes late and his family noticed he had some expressive aphasia and right- sided weakness although when I talked to the patient this morning, he was telling me his left hand was weak. He underwent extensive imaging in the emergency room and then was admitted to the hospital with a presumptive diagnosis of transient ischemic attack versus stroke. He was also found to have an elevated troponin level. Because of these abnormalities, a cardiology consultation was requested. He denies any chest discomfort. He denies dyspnea, paroxysmal nocturnal dyspnea, orthopnea, palpitations, lightheadedness, syncope, or lower extremity edema. He was recently found to have elevated INR levels of unknown cause and I have been monitoring these weekly. I have not adjusted his dose of warfarin. He did recently start a new nutritional supplement and I have been waiting to get the name of this to see if there might be any interaction with his warfarin. Certain portions of this document may have been dictated utilizing voice recognition technology. Inherent to this technology, typographical and grammatical errors may exist. As much as I am diligent to identify and correct these mistakes, some errors may remain in the document. Review of Systems-Cardiology Review of Systems Other comments Review of 10 organ systems is as per the history of present illness, otherwise negative. HOD-Hrseyi-Yvfxud Hx Patient Social History Marrital Status: single Employed/Student: retired Smoking Status: Former Smoker 2nd Hand Smoke Exposure: No Have you traveled recently?: No Alcohol Use?: No Pt feels they are or have been: No Tobacco type used: Cigarettes Immunizations Up To Date Tetanus Booster (TDap): Unknown Date of Pneumonia Vaccine: Dec 18, 2011 Date of Influenza Vaccine: Apr 02, 2021 Past Medical History PMH As described under Assessment. Family Medical History Family Medical History: Documented family h/o father having CAD and stroke. Family History: FH: heart disease 19 FATHER ( in 1989 ) FH: stroke 19 FATHER, Onset:40's - 50 Myocardial infarction 19 FATHER, Onset:60 years & older Allergies and Home Medications Allergies Coded Allergies: No Known Drug Allergies (Unverified , 12/17/16) Patient Home Medication List Home Medication List Reviewed: Yes Alfuzosin HCl (Alfuzosin HCl ER) 10 Mg Tab.er.24h, 10 MG PO HS, (Reported) Entered as Reported by: YUNIER MUNGUIA on 09/11/21 1437 Ascorbate Calcium (Vitamin C) 500 Mg Tablet, 500 MG PO DAILY, (Reported) Entered as Reported by: GREER GEORGE on 03/12/16 1021 Aspirin (Aspirin EC) 81 Mg Tablet.dr, 81 MG PO DAILY, (Reported) Entered as Reported by: KEENAN MORE on 03/22/22 1044 Coffee Xt/Phosphatidyl Serine (Neuriva Original 100-100Mg Cap) 100 Mg-100 Mg Capsule, 1 EACH PO DAILY, (Reported) Entered as Reported by: KEENAN MORE on 03/22/22 1044 Cyanocobalamin (Vitamin B-12) (Vitamin B-12) 1,000 Mcg Tablet, 2,000 MCG PO DAILY, (Reported) Entered as Reported by: GREER GEORGE on 03/12/16 1021 Desmopressin Acetate (Desmopressin Acetate) 0.2 Mg Tablet, 0.6 MG PO HS, (Reported) Entered as Reported by: KEENAN MORE on 03/22/22 1044 Duloxetine HCl (Duloxetine HCl) 60 Mg Capsule.dr, 60 MG PO HS, (Reported) Entered as Reported by: YUNIER MUNGUIA on 09/11/21 1437 Empagliflozin (Jardiance) 10 Mg Tablet, 10 MG PO DAILY, (Reported) Entered as Reported by: KEENAN MORE on 03/22/22 1044 Fenofibrate Nanocrystallized (Fenofibrate) 145 Mg Tablet, 145 MG PO DAILY, (Reported) Entered as Reported by: GREER GEORGE on 03/12/16 1020 Fluticasone Propionate (Fluticasone Propionate) 16 Gm [place].susp, 1-2 SPRAY NSEACH DAILY PRN for CONGESTION, (Reported) Entered as Reported by: GEM DANIELS on 09/14/21 1553 Gabapentin (Neurontin) 300 Mg Capsule, 300 MG PO HS, (Reported) Entered as Reported by: YUNIER MUNGUIA on 09/11/21 1437 Lactobacillus Combination No.4 (Probiotic) 1 Each Capsule, 1 EACH PO DAILY, (Reported) Entered as Reported by: GEM DANIELS on 09/14/21 1551 Loratadine (Loratadine) 10 Mg Tablet, 10 MG PO DAILY, (Reported) Entered as Reported by: GREER GEORGE on 03/12/16 1021 Losartan Potassium (Losartan Potassium) 50 Mg Tablet, 50 MG PO DAILY, (Reported) Entered as Reported by: GEM DANIELS on 09/14/21 1551 Multivitamin (Daily Value) 1 Each Tablet, 1 TAB PO DAILY, (Reported) Entered as Reported by: GREER GEORGE on 03/12/16 1021 Nebivolol HCl (Nebivolol HCl) 5 Mg Tablet, 5 MG PO DAILY, (Reported) Entered as Reported by: GEM DANIELS on 09/14/21 1551 Pantoprazole Sodium (Pantoprazole Sodium) 40 Mg Tablet.dr, 40 MG PO DAILY, (Reported) Entered as Reported by: YUNIER MUNGUIA on 09/11/21 1437 Potassium Gluconate (Potassium) 99 Mg Tablet, 396 MG PO DAILY, (Reported) Entered as Reported by: YUNIER MUNGUIA on 09/11/21 1437 Rosuvastatin Calcium (Rosuvastatin Calcium) 10 Mg Tablet, 10 MG PO Q48H, (Reported) Entered as Reported by: YUNIER Jonas NILDA on 09/11/21 1437 Tizanidine HCl (Tizanidine HCl) 4 Mg Tablet, 4 MG PO Q8H PRN for MUSCLE SPASMS, (Reported) Entered as Reported by: GEM DANIELS on 09/14/21 1553 Warfarin Sodium (Jantoven) 5 Mg Tablet, 2.5 MG PO HS, (Reported) Entered as Reported by: KEENAN MROE on 03/22/22 1044 Exam Vital Signs Vital Signs Date Time Temp Pulse Resp B/P (MAP) Pulse Ox O2 Delivery O2 Flow Rate FiO2 06/11/22 08:00 91 14 118/68 (85) 96 Room Air 06/11/22 07:55 37.6 Physical Exam General: Alert. No acute distress. Well nourished and appears stated age. Eye: Extraocular movements are intact. Conjunctivae are clear. There are no xanthelasma. HENT: Normocephalic. Atraumatic. Carotid pulsations 2/2 without bruits. Neck: Jugular venous pressure does not appear elevated. No thyromegaly appreciated. Respiratory: Lungs are clear to auscultation. Respirations are non-labored. Breath sounds are equal. Symmetrical chest wall expansion. Cardiovascular: Normal rate. Regular rhythm. Metallic S2. 2/6 systolic ejection murmur. No gallop. Point of maximal impulse is not appear displaced. Good pulses equal in all extremities. No edema. Gastrointestinal: Soft. Normal bowel sounds. Skin: Skin turgor is normal. There is no pallor. Musculoskeletal: No kyphosis or scoliosis appreciated. Neurologic: Alert and oriented to person, place, time. Cranial nerves 3-12 appear grossly intact. He has some slight very slight left upper and lower extremity weakness. He has expressive aphasia which seems to be mild and also worsening short-term memory than he had in the past. Psychiatric: Cooperative. Appropriate mood & affect. Labs Laboratory Tests Test 06/10/22 18:36 06/10/22 18:39 06/10/22 18:54 06/10/22 19:10 Range/Units White Blood Count 10.4 4.3-11.0 10^3/uL Red Blood Count 3.90 L 4.30-5.52 10^6/uL Hemoglobin 11.1 L 13.3-17.7 g/dL Hematocrit 34 L 40-54 % Mean Corpuscular Volume 88 80-99 fL Mean Corpuscular Hemoglobin 29 25-34 pg Mean Corpuscular Hemoglobin Concent 32 32-36 g/dL Red Cell Distribution Width 15.6 H 10.0-14.5 % Platelet Count 214 130-400 10^3/uL Mean Platelet Volume 10.2 9.0-12.2 fL Immature Granulocyte % (Auto) 0 % Neutrophils (%) (Auto) 85 H 42-75 % Lymphocytes (%) (Auto) 10 L 12-44 % Monocytes (%) (Auto) 5 0-12 % Eosinophils (%) (Auto) 0 0-10 % Basophils (%) (Auto) 0 0-10 % Neutrophils # (Auto) 8.9 H 1.8-7.8 10^3/uL Lymphocytes # (Auto) 1.0 1.0-4.0 10^3/uL Monocytes # (Auto) 0.5 0.0-1.0 10^3/uL Eosinophils # (Auto) 0.0 0.0-0.3 10^3/uL Basophils # (Auto) 0.0 0.0-0.1 10^3/uL Immature Granulocyte # (Auto) 0.0 0.0-0.1 10^3/uL Prothrombin Time 30.2 H 12.2-14.7 SEC INR Comment 2.8 H 0.8-1.4 Activated Partial Thromboplast Time 66 H 24-35 SEC D-Dimer 1.58 H 0.00-0.49 UG/ML Sodium Level 137 135-145 MMOL/L Potassium Level 3.8 3.6-5.0 MMOL/L Chloride Level 105 98-107 MMOL/L Carbon Dioxide Level 22 21-32 MMOL/L Anion Gap 10 5-14 MMOL/L Blood Urea Nitrogen 24 H 7-18 MG/DL Creatinine 1.51 H 0.60-1.30 MG/DL Estimat Glomerular Filtration Rate 49 BUN/Creatinine Ratio 16 Glucose Level 90 70-105 MG/DL Calcium Level 9.0 8.5-10.1 MG/DL Corrected Calcium 9.0 8.5-10.1 MG/DL Magnesium Level 1.8 1.6-2.4 MG/DL Total Bilirubin 0.9 0.1-1.0 MG/DL Aspartate Amino Transf (AST/SGOT) 26 5-34 U/L Alanine Aminotransferase (ALT/SGPT) 22 0-55 U/L Alkaline Phosphatase 75 40-136 U/L Troponin I 0.391 *H <0.028 NG/ML Total Protein 7.4 6.4-8.2 GM/DL Albumin 4.0 3.2-4.5 GM/DL Serum Alcohol < 10 <10 MG/DL Glucometer 101 70-110 MG/DL Influenza Type A (RT-PCR) Not Detected Not Detecte Influenza Type B (RT-PCR) Not Detected Not Detecte SARS-CoV-2 RNA (RT-PCR) Not Detected Not Detecte Lactic Acid Level 0.81 0.50-2.00 MMOL/L Test 06/10/22 19:54 06/10/22 20:23 06/10/22 22:50 06/11/22 00:27 Range/Units Procalcitonin 0.17 H <0.10 NG/ML Urine Color YELLOW Urine Clarity CLEAR Urine pH 5.5 5-9 Urine Specific [place] 1.020 1.016-1.022 Urine Protein NEGATIVE NEGATIVE Urine Glucose (UA) 3+ H NEGATIVE Urine Ketones NEGATIVE NEGATIVE Urine Nitrite NEGATIVE NEGATIVE Urine Bilirubin NEGATIVE NEGATIVE Urine Urobilinogen 0.2 < = 1.0 MG/DL Urine Leukocyte Esterase NEGATIVE NEGATIVE Urine RBC (Auto) NEGATIVE NEGATIVE Urine RBC NONE /HPF Urine WBC RARE /HPF Urine Squamous Epithelial Cells NONE /HPF Urine Crystals NONE /LPF Urine Bacteria TRACE /HPF Urine Casts NONE /LPF Urine Mucus NEGATIVE /LPF Urine Culture Indicated CULTURE PENDING Troponin I 0.368 *H 0.346 *H <0.028 NG/ML Lactic Acid Level 0.84 0.50-2.00 MMOL/L Test 06/11/22 00:55 06/11/22 03:43 Range/Units Blood Gas Puncture Site RIGHT RADIAL Blood Gas Patient Temperature 36.7 Arterial Blood pH 7.37 7.37-7.43 Arterial Blood Partial Pressure CO2 37 35-45 MMHG Arterial Blood Partial Pressure O2 74 L 79-93 MMHG Arterial Blood HCO3 21 L 23-27 MMOL/L Arterial Blood Total CO2 22.2 21.0-31.0 MMOL/L Arterial Blood Oxygen Saturation 95 94-100 % Arterial Blood Base Excess -3.4 L -2.5-2.5 MMOL/L Todd Test YES-POS Blood Gas Ventilator Setting NO Blood Gas Inspired Oxygen NA White Blood Count 7.2 4.3-11.0 10^3/uL Red Blood Count 3.31 L 4.30-5.52 10^6/uL Hemoglobin 9.4 L 13.3-17.7 g/dL Hematocrit 29 L 40-54 % Mean Corpuscular Volume 89 80-99 fL Mean Corpuscular Hemoglobin 28 25-34 pg Mean Corpuscular Hemoglobin Concent 32 32-36 g/dL Red Cell Distribution Width 15.6 H 10.0-14.5 % Platelet Count 156 130-400 10^3/uL Mean Platelet Volume 10.5 9.0-12.2 fL Immature Granulocyte % (Auto) 0 % Neutrophils (%) (Auto) 76 H 42-75 % Lymphocytes (%) (Auto) 14 12-44 % Monocytes (%) (Auto) 8 0-12 % Eosinophils (%) (Auto) 1 0-10 % Basophils (%) (Auto) 0 0-10 % Neutrophils # (Auto) 5.5 1.8-7.8 10^3/uL Lymphocytes # (Auto) 1.0 1.0-4.0 10^3/uL Monocytes # (Auto) 0.6 0.0-1.0 10^3/uL Eosinophils # (Auto) 0.1 0.0-0.3 10^3/uL Basophils # (Auto) 0.0 0.0-0.1 10^3/uL Immature Granulocyte # (Auto) 0.0 0.0-0.1 10^3/uL Sodium Level 138 135-145 MMOL/L Potassium Level 4.0 3.6-5.0 MMOL/L Chloride Level 109 H 98-107 MMOL/L Carbon Dioxide Level 20 L 21-32 MMOL/L Anion Gap 9 5-14 MMOL/L Blood Urea Nitrogen 20 H 7-18 MG/DL Creatinine 1.19 0.60-1.30 MG/DL Estimat Glomerular Filtration Rate 66 BUN/Creatinine Ratio 17 Glucose Level 104 70-105 MG/DL Calcium Level 7.8 L 8.5-10.1 MG/DL Corrected Calcium 8.5 8.5-10.1 MG/DL Total Bilirubin 0.8 0.1-1.0 MG/DL Aspartate Amino Transf (AST/SGOT) 31 5-34 U/L Alanine Aminotransferase (ALT/SGPT) 22 0-55 U/L Alkaline Phosphatase 70 40-136 U/L Total Protein 5.6 L 6.4-8.2 GM/DL Albumin 3.1 L 3.2-4.5 GM/DL Triglycerides Level 55 <150 MG/DL Cholesterol Level 81 < 200 MG/DL LDL Cholesterol Direct 42 1-129 MG/DL VLDL Cholesterol 11 5-40 MG/DL HDL Cholesterol 27 L 40-60 MG/DL Radiology CARDIAC CATHETERIZATION (03/22/2022): 1. Normal central aortic pressure. 2. Severe [place] three-vessel coronary artery disease as outlined above. The patient is essentially graft dependent. 3. Patent left internal mammary artery graft to left anterior descending coronary artery. 4. Patent sequential saphenous vein graft to diagonal branch and obtuse marginal branch and patent saphenous vein graft to distal right coronary artery. LABS (03/21/2022): Sodium 138. Potassium 4. BUN 24. Creatinine 1.15. GFR 68. Glucose 96. Hemoglobin 10.8. MCV 84. Platelets 222,000. INR 2.6. CAROTID ANGIOGRAPHY (02/06/2022): 1. Minimal plaque burden in the right internal carotid. 2. 50-60% proximal left internal carotid. LABS (01/28/2022): Sodium 135. Potassium 4.2. BUN 22. Creatinine 1.19. GFR 66. Glucose 122. Magnesium 2. Total cholesterol 77. Triglycerides 75. HDL 27. Direct LDL 38. Hemoglobin 10.9. MCV 84. Platelets 222,000. CT ANGIOGRAPHY OF THE CHEST WITH CONTRAST AND CT ABDOMEN AND PELVIS WITH CONTRAST (01/27/2022): 1. No identified central pulmonary embolus. Limited evaluation for segmental and subsegmental pulmonary emboli given timing of the contrast bolus. 2. Mildly dilated main pulmonary diameter which can be seen with pulmonary artery hypertension. 2. Trace bilateral pleural effusions. 4. No identified acute abnormality in the abdomen or pelvis. 5. Incidental findings as above. CT ANGIOGRAPHY OF THE NECK WITH INTRAVENOUS CONTRAST (01/27/2022): 1. This was a repeat study. 2. Nondiagnostic assessment of the arterial neck vasculature relating to difficulties with timing of the contrast bolus. There are contrast opacified collateral vessels noted. CT ANGIO HEAD/NECK (01/27/2022): 1. The angiography portion of the exam is nondiagnostic at the level of the neck and has limitations at the level of the head, as mentioned above. This relates to difficulties with timing of the contrast bolus. 2. No identified large vessel occlusion at the level of the head on somewhat limited assessment. ELECTROCARDIOGRAM (01/27/2022): Dual-chamber pacing. POLYSOMNOGRAM REPORT (01/25/2022): 1. Positional obstructive sleep apnea-mild. 2. Primary snoring. 3. Daytime sleepiness. 4. Poor sleep efficiency. 24-HOUR HOLTER MONITOR (01/18/2022): 1. This is a 24-hour Holter monitor report. 2. Baseline sinus rhythm with demand atrial and ventricular pacing with an average heart rate of 89 bpm, ranging from 66-118 bpm while in sinus rhythm with frequent supraventricular ectopy as isolated and couplet beats representing 3.8% of the total recording time and frequent ventricular ectopy as isolated, couplet and triplet beats as well as numerous runs of nonsustained ventricular tachycardia with a longest duration of 6 beats and a maximum heart rate of 148 bpm with a total ventricular burden of 15%. 3. No cardiac symptoms were reported in the patient diary. CT ANGIOGRAPHY OF THE HEAD AND CT ANGIOGRAPHY OF THE NECK WITH AND WITHOUT CONTRAST (12/08/2021): 1. No stenosis or aneurysm in the [place]. No large vessel occlusion. 2. No stenosis or dissection in the bilateral carotid and vertebral arteries. 3. Development of a subacute to chronic infarct involving the left frontal lobe. 4. No acute hemorrhage or mass-effect. LABS (09/15/2021): Sodium 138. Potassium 4.1. BUN 24. Creatinine 1.05. GFR 77. Glucose 111. Liver function tests normal. Total cholesterol 112. Triglycerides 77. Direct LDL 66. HDL 36. CT HEAD PERFUSION WITHOUT CONTRAST (09/14/2021): 1. Normal CT head perfusion study. CT HEAD WITHOUT CONTRAST-RULE OUT STROKE (09/14/2021): 1. No large acute territorial ischemia, mass, or hemorrhage. 2. Chronic microvascular disease. 3. Generalized parenchymal volume loss. CT ANGIOGRAM HEAD/NECK (09/14/2021): 1. No stenosis or aneurysm in the [place]. No evidence of large vessel occlusion. 2. No stenosis or dissection of the bilateral carotid and vertebral arteries. CT CHEST WITHOUT CONTRAST (09/14/2021): 1. Ascending thoracic aortic aneurysm measuring 4.4 cm, previously measuring 5 cm. No periaortic inflammatory changes are seen. 2. Cardiomegaly with postsurgical changes of aortic valve replacement and CABG. 3. Trace right-sided pleural effusion. SINGLE VIEW CHEST X-RAY (09/14/2021): 1. Prominent aortic contours which may reflect thoracic aortic aneurysm. 2. No focal airspace consolidation LABS (09/14/2021): Hemoglobin 12.4. Platelets 219,000. ELECTROCARDIOGRAM (09/14/2021): Dual-chamber pacing. ECHOCARDIOGRAM (07/07/2021): 1. Dilated aortic root at 5 cm and ascending aorta at 5.2 cm. 2. A separate linear structure seen close to the posterior wall (flap ???). 3. Prosthetic AV opening and closing well. On cross-sectional views, possible small rounded vegetation seen moving freely. Estimated DANIELLE is 1.2 cm. Aortic valve peak velocity 3.1 m/s and a maximum peak gradient of 30 mmHg. 4. Nondilated LV with moderate concentric hypertrophy. LVEF 60% with asymmetrical LV contractility. 5. Diastolic dysfunction grade 2. 6. Mitral valve is normal with a small amount of regurgitation. 7. LA is mildly enlarged. 8. Intra-atrial septum is quite thick (reason?). 9. PA is normal with a small amount of PI. 10. PA pressure estimated at 38 mmHg. 11. RV is normal in size. 12. RA is dilated. 13. Rather severe TR is noted (3+). 14. IVC is at the upper limits of normal, measuring 2 cm. 15. Pacing wires noted. ECG Impression ECG Comment Dual-chamber, biventricular pacing. Diagnosis/Problems Diagnosis/Problems (1) Acute cerebrovascular accident Assessment & Plan: His head CT and CT angiogram did not show any acute abnormalities but he has persistent expressive aphasia and some right-sided weakness as well as what seems to be some worsening of his short-term memory recall. This is concerning for another stroke. He does have a defibrillator which makes having him undergo an MRI somewhat complicated. He has been adequately anticoagulated on warfarin which he takes for his aortic valve replacement. If anything, his INR has been elevated recently and his head CT did not show any evidence of intracerebral hemorrhage. I recommend he continue on aspirin and warfarin. (2) Elevated troponin Status: Acute Assessment & Plan: He underwent a recent cardiac catheterization as outlined above that did not show any disease requiring revascularization. He has a previous history of CABG. His troponin levels are elevated but flat. I suspect this is noncardiac elevation of the troponin due to the acute kidney injury and possibly superimposed stroke. I do not see any evidence that he has suffered a non-ST elevation myocardial infarction. (3) Coronary artery disease without angina pectoris Assessment & Plan: He is not having any angina. As above, he has an elevated troponin level that I suspect may be noncardiac elevation of the troponin and its not represent myocardial infarction. He should continue on the current guideline directed medical therapy. (4) Ventricular tachycardia Assessment & Plan: He has been having nonsustained ventricular tachycardia. Fortunately, this has not triggered any device discharges. He is awaiting a visit with electrophysiology at [facility] for c onsideration of possible ablation of the ventricular tachycardia. (5) Thoracic aortic aneurysm without rupture Assessment & Plan: He had a previous surgical repair and this appeared intact on his chest CT from this admission. (6) Primary hypertension Assessment & Plan: He was taking losartan and nebivolol at home. These should be continued. I would avoid aggressively lowering his blood pressure at this time in light of the possible cerebrovascular accident. (7) Mixed hyperlipidemia Assessment & Plan: Continue statin medication. (8) Mechanical heart valve present Status: Chronic Assessment & Plan: Continue warfarin. (9) Acute kidney injury superimposed on chronic kidney disease Assessment & Plan: He received IV fluids and his renal function is improving. ELLIE DUBON JR, MD Jun 11, 2022 08:25
[2022-06-11] MEDS: CEFEPIME 1,000 MG/NS 50 ML IVPB IV SCH ×4 (10:42→17:54)
--- NOTE | 2022-06-11 14:00 | Speech Therapy Progress Note ---
Therapy Progress Note Speech language pathology received the consultation for a clinical bedside swallowing evaluation and cognitive linguistic assessment. The patient's chart was reviewed and the assessment was attempted at 1350. Prior to the attempt, the clinician discussed the patient with the patient's RN, who stated the patient "passed" the RN Dysphagia Screen. Per patient's chart, the patient is receiving a regular consistency "heart healthy" diet with thin liquids. ST will re-attempt the assessment on the subsequent treatment date. STERLING SOMMERS Jun 11, 2022 14:00
[2022-06-11] MEDS ORDERED: WARF-48 PO (16:10)
[2022-06-11] MEDS ORDERED: COFF1CAP3 PO (16:10)
[2022-06-11] MEDS ORDERED: VANCOMYCIN 1250 MG/NS 250 ML IVPB IV SCH ×2 (16:30)
--- NOTE | 2022-06-11 21:33 | History & Physical-Hospitalist ---
History of Present Illness HPI/Chief Complaint Raoul Wong is a 71 year old male with PMH HTN, HLD, CAD s/p CABG, ischemic cardiomyopathy, ventricular tachycardia, AICD, history of TIA and CVA, who presented with aphasia. He was also having some right arm weakness. He is having difficulty with word finding. He is not having any swallowing difficulty. He denies shortness of breath. He denies chest pain. He has been compliant with his medications. His daughter is present. They have not been able to get an appointment with stroke neurology. Source: patient, family Exam Limitations: clinical condition Date Seen 06/11/22 Time Seen by a Provider: 09:30 Attending Physician No,Local Physician PCP Admitting Physician: Linda Snyder MD Attending Physician: Yunior Chauhan MD Referring Physician Date of Admission Jun 10, 2022 at 21:50 Home Medications & Allergies Home Medications Reviewed patient Home Medication Reconciliation performed by pharmacy medication reconciliations electro mechanical solar technician and/or nursing. Patients Allergies have been reviewed. Allergies Allergies Coded Allergies No Known Drug Allergies (Unverified12/17/16) Past Ynvnwub-Ivlrpv-Rtkxfu Hx Patient Social History Marrital Status: single Employed/Student: retired Tobacco Use?: Yes Tobacco type used: Cigarettes Smoking Status: Former Smoker Use of E-Cig and/or Vaping dev: No Substance use?: No Alcohol Use?: No Pt feels they are or have been: No Immunizations Up To Date Date of Influenza Vaccine: Apr 02, 2021 First/Initial COVID19 Vaccinat: n/a Second COVID19 Vaccination John: n/a Tetanus Booster (TDap): Unknown Hepatitis A: Yes Hepatitis B: Yes Date of Pneumonia Vaccine: Dec 18, 2011 Seasonal Allergies Seasonal Allergies: Yes Current Status Advance Directives: No Communicates: Verbally Primary Language: Panamanian Preferred Spoken Language: Panamanian Is interpretation needed?: No Sensory deficits: Vision impairment Implanted or Applied Medical D: Pacemaker Past Medical History Surgeries: Abdominal, Adenoidectomy, Cardiac, CABG, Defibrillator, Orthopedic, Pacemaker, Tonsillectomy, Valve Replacement Sleep Apnea Currently Using CPAP: No Aneurysm, Cardiomyopathy, Coronary Artery Disease, Heart Attack, High Cholesterol, Hypertension, Irregular Heartbeat, Valvular Heart Disease Stroke, TIA Sexually Transmitted Disease: No HIV/AIDS: No Gastroesophageal Reflux, Diverticulosis, Hemorrhoids, Polyps, Irritable Bowel Arthritis, Chronic Back Pain Diabetes, Non-Insulin dep Loss of Vision: Bilateral Hearing Impairment: Denies Anxiety Blood Disorders: No Adverse Reaction/Blood Tranf: No (N/A) Family Medical History FH: heart disease 19 FATHER ( in 1989 ) FH: stroke 19 FATHER, Onset:40's - 50 Myocardial infarction 19 FATHER, Onset:60 years & older PAST SURGICAL HISTORY: 2005--5 VESSEL CABG AND AORTIC VALVE REPLACEMENT PACEMAKER + DEFIBRILLATOR PLACEMENT WITH MOST RECENT GENERATOR CHANGE IN 2019 LEFT INGUINAL HERNIA REPAIR 07/23/2007--RIGHT KNEE SCOPE BY DR. JOSEPH 07/23/2007--REMOVAL OF BROKEN STERNAL WIRE BY DR. GRIFFITHS 09/27/2008--COLONOSCOPY 12/21/2016--RIGHT FOOT SURGERY 01/05/2017--LEFT SHOULDER SURGERY BY DR. JOSEPH 2018--ASCENDING AORTIC ANEURYSM REPAIR 11/24/2021--COLONOSCOPY WITH POLYPECTOMY BY DR. KENDRICK CARDIAC CATH 03/22/[address] DUBON: RESULTS: HEMODYNAMICS: The aortic pressure was 123/68 mmHg. The mechanical aortic valve was not crossed. CORONARY ANGIOGRAPHY: Left main coronary artery: There was a 90% stenosis proximally with JANETT-3 flow. Left anterior descending coronary artery: Totally occluded proximally. Left circumflex coronary artery: Totally occluded in the midsegment after the takeoff of the first obtuse marginal branch. There was a small first obtuse marginal branch which contained a long 80% stenosis proximally followed by 2 additional 80% stenosis in the midsegment. There was competitive flow seen in the distal segment of the branch from the bypass graft. Right coronary artery: Dominant and totally occluded proximal. BYPASS GRAFT ANGIOGRAPHY: Left internal mammary artery graft to left anterior descending coronary artery: Widely patent with good distal runoff. The wales vessel distal to the touchdown of the graft was small in caliber. Saphenous vein graft to diagonal branch and obtuse marginal branch: This was a sequence of graft that first touchdown on a diagonal branch and then an obtuse marginal branch. There was mild disease in the proximal segment of the graft at no more than 30% stenotic and the distal wales branches were widely patent beyond the touchdown of the graft. Saphenous vein graft to distal right coronary artery: There was a 30% stenosis in the proximal segment of the graft and the distal wales vessels were patent with mild diffuse disease at no more than 20% stenotic. IMPRESSION: 1. Normal central aortic pressure. 2. Severe wales three-vessel coronary artery disease as outlined above. The patient is essentially graft dependent. 3. Patent left internal mammary artery graft to left anterior descending coronary artery. 4. Patent sequential saphenous vein graft to diagonal branch and obtuse marginal branch and patent saphenous vein graft to distal right coronary artery. Review of Systems Constitutional: no symptoms reported Respiratory: no symptoms reported Cardiovascular: no symptoms reported Gastrointestinal: no symptoms reported Physical Exam Physical Exam Vital Signs Vital Signs - First Documented 06/10/22 06/10/22 18:30 23:15 Temp 37.8 Pulse 81 Resp 16 B/P (MAP) 125/77 (93) Pulse Ox 97 O2 Delivery Room Air Capillary Refill : Less Than 3 Seconds Height, Weight, BMI Height: 5'10.00" Weight: 190lbs. 0oz. [id number]; 26.91 BMI Method:Stated General Appearance: No Apparent Distress, WD/WN HEENT: PERRL/EOMI, Pharynx Normal Neck: Normal Inspection, Supple Respiratory: Lungs Clear, No Respiratory Distress Cardiovascular: Regular Rate, Rhythm, No Murmur Gastrointestinal: Normal Bowel Sounds, Soft Extremity: Normal Inspection, No Pedal Edema Neurologic/Psychiatric: Alert, Normal Mood/Affect, Aphasia; No Facial Droop, No Motor Weakness Skin: Normal Color, Warm/Dry Results Results/Procedures Labs Laboratory Tests 06/10/22 18:36 06/11/22 03:43 Patient resulted labs reviewed. Imaging: Reviewed Imaging Report Assessment/Plan Admission Diagnosis Acute ischemic stroke Admission Status: Inpatient Order (span 2 midnights) Reason for Inpatient Admission: Stroke evaluation Assessment and Plan Acute ischemic stroke Cryptogenic stroke Aortic valve replacement Anticoagulated on coumadin Patent foramen ovale CT with left frontal stroke Unable to perform MRI due to AICD INR therapeutic, 2.8 Continue coumadin CTA with patent carotids Echo with borderline EF Bubble study positive Continue ASA and statin Cardiology following HTN T2DM HLD CAD Continue home meds DVT prophylaxis: already receiving therapeutic anticoagulation Diagnosis/Problems Diagnosis/Problems (1) Cryptogenic stroke Status: Acute (2) Acute ischemic stroke Status: Acute (3) PFO (patent foramen ovale) Status: Acute (4) Anticoagulated on Coumadin Status: Acute (5) History of aortic valve replacement with metallic valve Status: Chronic YUNIOR CHAUHAN MD Jun 11, 2022 21:33
[2022-06-11] MEDS ORDERED: warFARin 5 MG (COUMADIN) TAB PO SCH ×2 (22:00)
[2022-06-11] MEDS ORDERED: ROSUVASTATIN 10 MG (CRESTOR) TABLET PO SCH (22:00)
[2022-06-11] MEDS ORDERED: RT-ALBUTEROL/IPRATROPIUM 3 ML (DUONEB) VIAL INH PRN (22:45)
[2022-06-12] VITALS: BP 137/75
[2022-06-12] MEDS: ACETAMINOPHEN 500 MG TAB (TYLENOL) PO PRN (03:41)
[2022-06-12 04:00] VITALS: BP 126/98
[2022-06-12 06:24] LABS: ALBUMIN 3.2 GM/DL (3.2-4.5); POTASSIUM 3.7 MMOL/L (3.6-5.0)
[2022-06-12 06:25] LABS: CALCIUM 8.1 MG/DL (8.5-10.1)
[2022-06-12 06:27] LABS: TOTAL PROTEIN 5.9 GM/DL (6.4-8.2)
[2022-06-12 06:28] LABS: BILIRUBIN,TOTAL 1.1 MG/DL (0.1-1.0)
[2022-06-12 06:30] LABS: CREATININE SERUM 1.03 MG/DL (0.60-1.30)
[2022-06-12 06:31] LABS: INR 2.2 (0.8-1.4); PROTHROMBIN TIME PATIENT 25.1 SEC (12.2-14.7)
[2022-06-12 06:33] LABS: BASOPHILS % (AUTO) 0 % (0-10); EOSINOPHILS # (AUTO) 0.1 10^3/uL (0.0-0.3); EOSINOPHILS % (AUTO) 1 % (0-10); HEMATOCRIT 30 % (40-54); HEMOGLOBIN 9.9 g/dL (13.3-17.7); LYMPHOCYTES # (AUTO) 0.8 10^3/uL (1.0-4.0); LYMPHOCYTES % (AUTO) 10 % (12-44); MEAN CORPUSCULAR HEMOGLOBIN 28 pg (25-34); MEAN CORPUSCULAR HGB CONC 33 g/dL (32-36); MEAN CORPUSCULAR VOLUME 87 fL (80-99); MEAN PLATELET VOLUME 10.6 fL (9.0-12.2); MONOCYTES # (AUTO) 0.7 10^3/uL (0.0-1.0); MONOCYTES % (AUTO) 8 % (0-12); NEUTROPHILS # (AUTO) 6.7 10^3/uL (1.8-7.8); NEUTROPHILS % (AUTO) 81 % (42-75); PLATELET COUNT 184 10^3/uL (130-400); WHITE BLOOD COUNT 8.3 10^3/uL (4.3-11.0)
[2022-06-12] MEDS ORDERED: PANTOPRAZOLE 40 MG (PROTONIX) TAB PO SCH (07:00)
[2022-06-12 07:45] VITALS: BP 138/75
--- NOTE | 2022-06-12 08:30 | Cardiology Progress Note ---
Progress Note-Cardiology Events since last exam Date Seen by Provider: Jun 12, 2022 Time Seen by Provider: 08:26 Events since last exam I am following him due to possible cerebrovascular accident. He is still having some expressive aphasia. He complains of some left arm weakness although the ER note said he had right arm weakness. One of his daughters tells me that he was not having as much weakness in his right hand but that he was trying to eat lasagna without using utensils. He denies chest discomfort, dyspnea, palpitations, syncope, or ankle edema. Certain portions of this document may have been dictated utilizing voice recognition technology. Inherent to this technology, typographical and gra mmatical errors may exist. As much as I am diligent to identify and correct these mistakes, some errors may remain in the document. Vitals Last set of Vitals Signs Vital Signs 06/11/22 06/12/22 06/12/22 22:38 04:00 07:45 Temp 36.5 Pulse 74 Resp 16 B/P (MAP) 138/75 (96) Pulse Ox 98 O2 Delivery Room Air FiO2 21 Labs Labs Laboratory Tests 06/12/22 05:28 Exam Vital Signs Vital Signs Date Time Temp Pulse Resp B/P (MAP) Pulse Ox O2 Delivery O2 Flow Rate FiO2 06/12/22 07:45 36.5 74 16 138/75 (96) 98 06/12/22 04:00 Room Air 06/11/22 22:38 21 Physical Exam General: Alert. No acute distress. Eye: No xanthelasma. HENT: Normocephalic. Neck: Jugular venous pressure does not appear elevated. Respiratory: Lungs are clear to auscultation. Respirations are non-labored. Breath sounds are equal. Symmetrical chest wall expansion. Cardiovascular: Normal rate. Regular rhythm. Metallic S2. 2/6 systolic ejection murmur. No gallop. No edema. Gastrointestinal: Soft. Normal bowel sounds. Skin: Warm. Dry. Neurologic: Alert and oriented to person, place, time. Cranial nerves 3-11 grossly intact. Slight expressive aphasia. Psychiatric: Cooperative. Appropriate mood & affect. Labs Laboratory Tests Test 06/12/22 05:28 06/12/22 09:35 Range/Units White Blood Count 8.3 4.3-11.0 10^3/uL Red Blood Count 3.48 L 4.30-5.52 10^6/uL Hemoglobin 9.9 L 13.3-17.7 g/dL Hematocrit 30 L 40-54 % Mean Corpuscular Volume 87 80-99 fL Mean Corpuscular Hemoglobin 28 25-34 pg Mean Corpuscular Hemoglobin Concent 33 32-36 g/dL Red Cell Distribution Width 15.2 H 10.0-14.5 % Platelet Count 184 130-400 10^3/uL Mean Platelet Volume 10.6 9.0-12.2 fL Immature Granulocyte % (Auto) 0 % Neutrophils (%) (Auto) 81 H 42-75 % Lymphocytes (%) (Auto) 10 L 12-44 % Monocytes (%) (Auto) 8 0-12 % Eosinophils (%) (Auto) 1 0-10 % Basophils (%) (Auto) 0 0-10 % Neutrophils # (Auto) 6.7 1.8-7.8 10^3/uL Lymphocytes # (Auto) 0.8 L 1.0-4.0 10^3/uL Monocytes # (Auto) 0.7 0.0-1.0 10^3/uL Eosinophils # (Auto) 0.1 0.0-0.3 10^3/uL Basophils # (Auto) 0.0 0.0-0.1 10^3/uL Immature Granulocyte # (Auto) 0.0 0.0-0.1 10^3/uL Prothrombin Time 25.1 H 12.2-14.7 SEC INR Comment 2.2 H 0.8-1.4 Sodium Level 135 135-145 MMOL/L Potassium Level 3.7 3.6-5.0 MMOL/L Chloride Level 106 98-107 MMOL/L Carbon Dioxide Level 21 21-32 MMOL/L Anion Gap 8 5-14 MMOL/L Blood Urea Nitrogen 15 7-18 MG/DL Creatinine 1.03 0.60-1.30 MG/DL Estimat Glomerular Filtration Rate 78 BUN/Creatinine Ratio 15 Glucose Level 117 H 70-105 MG/DL Calcium Level 8.1 L 8.5-10.1 MG/DL Corrected Calcium 8.7 8.5-10.1 MG/DL Total Bilirubin 1.1 H 0.1-1.0 MG/DL Aspartate Amino Transf (AST/SGOT) 30 5-34 U/L Alanine Aminotransferase (ALT/SGPT) 23 0-55 U/L Alkaline Phosphatase 76 40-136 U/L Total Protein 5.9 L 6.4-8.2 GM/DL Albumin 3.2 3.2-4.5 GM/DL Vancomycin Level Trough 5.5 L 10.0-20.0 UG/ML Diagnosis/Problems Diagnosis/Problems (1) Acute cerebrovascular accident Assessment & Plan: His head CT and CT angiogram did not show any acute abnormalities but he has persistent expressive aphasia and some right-sided weakness as well as what seems to be some worsening of his short-term memory recall. This is concerning for another stroke. He does have a defibrillator and his device is not MRI compatible. He has been adequately anticoagulated on warfarin which he takes for his aortic valve replacement. If anything, his INR has been elevated recently and his head CT did not show any evidence of intracerebral hemorrhage. I recommend he continue on aspirin and warfarin. His INR may be elevated due to the prostate supplement he takes which contains saw palmetto. There have been case reports about saw palmetto causing an increased INR in patients toaking warfarin. He has been advised to stop taking this supplement. From a cardiac standpoint, he can be discharged to home. (2) Elevated troponin Status: Acute Assessment & Plan: He underwent a recent cardiac catheterization as outlined above that did not show any disease requiring revascularization. He has a previous history of CABG. His troponin levels are elevated but flat. I suspect this is noncardiac elevation of the troponin due to the acute kidney injury and possibly superimposed stroke. I do not see any evidence that he has suffered a non-ST elevation myocardial infarction. (3) Paroxysmal atrial fibrillation Assessment & Plan: I did a previous device interrogation in the office a few weeks ago that showed high atrial rates. This could be due to atrial fibrillation. He just needs to continue warfarin. A Watchman device would be of questionable benefit and would also be high risk due to his previous open heart surgeries. (4) Coronary artery disease without angina pectoris Assessment & Plan: He is not having any angina. As above, he has an elevated troponin level that I suspect may be noncardiac elevation of the troponin and its not represent myocardial infarction. He should continue on the current guideline directed medical therapy with aspirin, beta karolyn and statin medication. (5) Ventricular tachycardia Assessment & Plan: He has been having nonsustained ventricular tachycardia. Fortunately, this has not triggered any device discharges. He is awaiting a visit with electrophysiology at [facility] for consi deration of possible ablation of the ventricular tachycardia. His appointment was today and his daughter will get this rescheduled. (6) Thoracic aortic aneurysm without rupture Assessment & Plan: He had a previous surgical repair and this appeared intact o n his chest CT from this admission. (7) Primary hypertension Assessment & Plan: He was taking losartan and nebivolol at home. These should be continued. I would avoid aggressively lowering his blood pressure at this time in light of the possible cerebrovascular accident. (8) Mixed hyperlipidemia Assessment & Plan: Continue statin medication. (9) Mechanical heart valve present Status: Chronic Assessment & Plan: Continue warfarin. (10) Acute kidney injury superimposed on chronic kidney disease Assessment & Plan: He received IV fluids and his renal function is improving. (11) Patent foramen ovale Assessment & Plan: His echocardiogram showed a positive bubble study consistent with a possible patent foramen ovale. Given that he has multiple other reasons to have a stroke, I do not see any indication for consideration of closing the possible PFO at this time. ELLIE DUBON JR, MD Jun 12, 2022 08:30
[2022-06-12] MEDS ORDERED: DULoxetine 30 MG (CYMBALTA) CAP PO SCH (09:00)
[2022-06-12] MEDS ORDERED: FENOFIBRATE 134 MG (LOFIBRA) CAPSULE PO SCH (09:00)
[2022-06-12] MEDS ORDERED: LOSARTAN 50 MG (COZAAR) TAB PO SCH (09:00)
[2022-06-12] MEDS ORDERED: LORATADINE (CLARITIN) 10 MG TAB PO SCH (09:00)
[2022-06-12] MEDS ORDERED: TROUGH ORDER-PHARMACY XX NR (09:30)
[2022-06-12] MEDS ORDERED: ASPI-1238 PO (09:51)
[2022-06-12] MEDS ORDERED: ALBU0.63 IH (09:51)
[2022-06-12] MEDS: ASPIRIN E.C. 81 MG (ECOTRIN) TAB PO SCH (09:53)
--- NOTE | 2022-06-12 10:17 | Occ Therapy Progress Note ---
Therapy Progress Note OT orders received and chart reviewed. OT visited with pt who indicates he is at his PLOF. BUE 5/5 MMT, and ROM WFL. Pt reports he showered, dressed, oral care and toileted independently and has no concerns with his ability to complete ADLS at this time. No skilled OT services indicated at this time, d/c from OT. 1, visit d/c CLYDE OSUNA OT Jun 12, 2022 10:17
--- NOTE | 2022-06-12 10:44 | Speech Therapy Progress Note ---
Therapy Progress Note Speech pathology attempted the evaluation for a second time at 1030 on this date. At this time, the patient is in the restroom. Following the restroom, respiratory therapy is present to provide a breathing treatment. Speech pathology will re-attempt as able and schedule allows. STERLING SOMMERS Jun 12, 2022 10:44
--- NOTE | 2022-06-12 11:17 | Physical Therapy Progress Note ---
Therapy Progress Note Patient was observed ambulating independently in hallway talking on his cell phone. No skilled PT indicated. AR TERRAZAS PT Jun 12, 2022 11:17
[2022-06-12 11:45] VITALS: BP 138/75
--- NOTE | 2022-06-12 12:31 | Discharge Summary ---
Discharge Summary Hospital Course Was the Problem List Reviewed?: Yes Problems/Dx: (1) Acute cerebrovascular accident (2) Elevated troponin Status: Acute (3) Paroxysmal atrial fibrillation (4) Coronary artery disease without angina pectoris (5) Ventricular tachycardia (6) Thoracic aortic aneurysm without rupture (7) Primary hypertension (8) Mixed hyperlipidemia (9) Mechanical heart valve present Status: Chronic (10) Acute kidney injury superimposed on chronic kidney disease (11) Patent foramen ovale Hospital Course Date of Admission: Jun 10, 2022 at 21:50 Admission Diagnosis : Acute ischemic stroke Family Physician/Provider: Misty Montoya Date of Discharge: 06/12/22 Discharge Diagnosis: Acute ischemic stroke, expressive aphasia Hospital Course: Raoul Wong is a 71 year old male with PMH HTN, T2DM, HLD, CAD s/p CABG, history of TIA/CVA, mechanical aortic valve replacement on coumadin, ventricular tachycardia, who presented with stroke like symptoms. He was having some word finding difficulty and expressive aphasia. CT revealed a likely new area of infarction in the left frontal lobe. He was started on aspirin. He was continued on Crestor. He had a CTA which showed patent carotids. He had an echo which was consistent with PFO. His INR has been therapeutic, 2.8 on arrival and 2.2 the following morning. He has been compliant with his medications. He started taking a supplement for his prostate which can affect his INR. The saw palmetto can either increase or decrease INR unpredictably. This may have led to him becoming subtherapeutic and leading to his stroke. He should follow up with stroke neurology. He has been unable to get in due to prolonged wait times to see neurology. He was also referred to outpatient speech therapy. He should have his INR rechecked on Saturday. He has a standing order at [facility]. He may need to be started on additional medication for his prostate. He should follow up with his PCP, Sonia Montoya, in about a week. He should follow up with Dr. Mendez in about a week. He was discharged home in stable condition. Labs and Pending Lab Test: Laboratory Tests 06/12/22 05:28: White Blood Count 8.3, Red Blood Count 3.48L, Hemoglobin 9.9L, Hematocrit 30L, Mean Corpuscular Volume 87, Mean Corpuscular Hemoglobin 28, Mean Corpuscular Hemoglobin Concent 33, Red Cell Distribution Width 15.2H, Platelet Count 184, Mean Platelet Volume 10.6, Immature Granulocyte % (Auto) 0, Neutrophils (%) (Auto) 81H, Lymphocytes (%) (Auto) 10L, Monocytes (%) (Auto) 8, Eosinophils (%) (Auto) 1, Basophils (%) (Auto) 0, Neutrophils # (Auto) 6.7, Lymphocytes # (Auto) 0.8L, Monocytes # (Auto) 0.7, Eosinophils # (Auto) 0.1, Basophils # (Auto) 0.0, Immature Granulocyte # (Auto) 0.0, Prothrombin Time 25.1H, INR Comment 2.2H, Sodium Level 135, Potassium Level 3.7, Chloride Level 106, Carbon Dioxide Level 21, Anion Gap 8, Blood Urea Nitrogen 15, Creatinine 1.03, Estimat Glomerular Filtration Rate 78, BUN/Creatinine Ratio 15, Glucose Level 117H, Calcium Level 8.1L, Corrected Calcium 8.7, Total Bilirubin 1.1H, Aspartate Amino Transf (AST/SGOT) 30, Alanine Aminotransferase (ALT/SGPT) 23, Alkaline Phosphatase 76, Total Protein 5.9L, Albumin 3.2 06/12/22 09:35: Vancomycin Level Trough 5.5L Microbiology 06/10/22 Urine Culture - Preliminary, Resulted NO GROWTH 06/10/22 Blood Culture - Preliminary, Resulted No growth Home Meds Active Albuterol Sulfate 0.63 Mg/3 Ml Vial.neb 0.63 Mg IH BID PRN 30 Days Aspirin EC (Aspirin) 81 Mg Tablet.dr 81 Mg PO DAILY 30 Days Reported Neuriva Original 100-100Mg Cap (Coffee Xt/Phosphatidyl Serine) 100 Mg-100 Mg Capsule 1 Each PO DAILY Warfarin Sodium 5 Mg Tablet 5 Mg PO , Jardiance (Empagliflozin) 10 Mg Tablet 10 Mg PO HS Jantoven (Warfarin Sodium) 5 Mg Tablet 2.5 Mg PO ROACH,MO,WE,TH,FR TAKES OF A 5MG TABLET Desmopressin Acetate 0.2 Mg Tablet 0.6 Mg PO HS TAKES 3 0.2MG TABLETS Fluticasone Propionate 16 Gm Lima.susp 1-2 Lima NSEACH DAILY PRN Tizanidine HCl 4 Mg Tablet 4 Mg PO Q8H PRN Probiotic (Lactobacillus Combination No.4) 1 Each Capsule 1 Each PO DAILY Nebivolol HCl 5 Mg Tablet 5 Mg PO DAILY Losartan Potassium 50 Mg Tablet 50 Mg PO DAILY Potassium (Potassium Gluconate) 99 Mg Tablet 396 Mg PO DAILY TAKES 4 (99MG) TABS Duloxetine HCl 60 Mg Capsule.dr 60 Mg PO DAILY Rosuvastatin Calcium 10 Mg Tablet 10 Mg PO Q48H Alfuzosin HCl ER (Alfuzosin HCl) 10 Mg Tab.er.24h 10 Mg PO HS Pantoprazole Sodium 40 Mg Tablet.dr 40 Mg PO DAILY Neurontin (Gabapentin) 300 Mg Capsule 300 Mg PO HS Loratadine 10 Mg Tablet 10 Mg PO DAILY Daily Value (Multivitamin) 1 Each Tablet 1 Tab PO DAILY Vitamin C (Ascorbate Calcium) 500 Mg Tablet 500 Mg PO DAILY Vitamin B-12 (Cyanocobalamin (Vitamin B-12)) 1,000 Mcg Tablet 3,000 Mcg PO DAILY TAKES 3 TABLETS Fenofibrate (Fenofibrate Nanocrystallized) 145 Mg Tablet 145 Mg PO DAILY Assessment/Pt Instructions See instructions Discharge Planning: >30 minutes discharge planning Discharge Instructions Discharge Diet: Low Sodium Diet Activity as Tolerated: Yes Consultations Cardiology Discharge Physical Examination Vital Signs Vital Signs Date Time Temp Pulse Resp B/P (MAP) Pulse Ox O2 Delivery O2 Flow Rate FiO2 06/12/22 11:45 36.5 74 16 138/75 98 Room Air 06/11/22 22:38 21 General Appearance: No Apparent Distress, WD/WN Respiratory: Lungs Clear, No Respiratory Distress Cardiovascular: Regular Rate, Rhythm, No Murmur, Other (mechanical heart sounds) Gastrointestinal: Normal Bowel Sounds, Soft Extremity: Normal Inspection, No Pedal Edema Skin: Normal Color, Warm/Dry Neurologic/Psychiatric: Alert, Normal Mood/Affect, Aphasia (expressive, word finding difficulty) Allergies: Coded Allergies: No Known Drug Allergies (Unverified , 12/17/16) Discharge Summary Date of Admission Jun 10, 2022 at 21:50 Date of Discharge Discharge Date: Jun 12, 2022 Discharge Time: 12:14 Admission Diagnosis Acute ischemic stroke Consults/Procedures Consulations Cardiology Discharge Diagnosis Acute ischemic stroke Cryptogenic stroke Aortic valve replacement Anticoagulated on coumadin Patent foramen ovale HTN T2DM HLD CAD (1) Acute cerebrovascular accident (2) Elevated troponin Status: Acute (3) Paroxysmal atrial fibrillation (4) Coronary artery disease without angina pectoris (5) Ventricular tachycardia (6) Thoracic aortic aneurysm without rupture (7) Primary hypertension (8) Mixed hyperlipidemia (9) Mechanical heart valve present Status: Chronic (10) Acute kidney injury superimposed on chronic kidney disease (11) Patent foramen ovale YUNIOR CHAUHAN MD Jun 12, 2022 12:23
[2022-06-12] MEDS ORDERED: warFARin 5 MG (COUMADIN) TAB PO SCH (18:00)
[2022-06-12] MEDS ORDERED: DESMOPRESSIN ACETATE PO SCH (21:00)
[2022-06-12] MEDS ORDERED: TAMSULOSIN 0.4 MG (FLOMAX) CAP PO SCH (21:00)
[2022-06-12] MEDS ORDERED: EMPAGLIFLOZIN 10 MG TABLET (JARDIANCE) PO SCH (21:00)
[2022-06-12] MEDS ORDERED: GABAPENTIN 300 MG (NEURONTIN) CAP PO SCH (21:00)
== END 2022-06-12 11:45 | disposition home or self-care (01) | DRG 64 ==
LOC: EDUNIT# 18:24 → ER 18:27 → ICU 21:50 → CSD 06-11 15:00
PROVIDERS: ADMIT Family Medicine; ATTEND Internal Medicine
DX: I63.9 Cerebral infarction, unspecified (principal); I21.4 Non-ST elevation (NSTEMI) myocardial infarction; I47.20 Ventricular tachycardia, unspecified; N17.9 Acute kidney failure, unspecified; Q21.12 Patent foramen ovale; R65.10 Systemic inflammatory response syndrome (SIRS) of non-infectious origin without acute organ dysfunction; R47.01 Aphasia; I48.0 Paroxysmal atrial fibrillation; I25.10 Atherosclerotic heart disease of native coronary artery without angina pectoris; I71.20 Thoracic aortic aneurysm, without rupture, unspecified; I10 Essential (primary) hypertension; E78.2 Mixed hyperlipidemia; Z95.2 Presence of prosthetic heart valve; N18.9 Chronic kidney disease, unspecified; I12.9 Hypertensive chronic kidney disease with stage 1 through stage 4 chronic kidney disease, or unspecified chronic kidney disease; Z95.1 Presence of aortocoronary bypass graft; Z86.73 Personal history of transient ischemic attack (TIA), and cerebral infarction without residual deficits; Z79.01 Long term (current) use of anticoagulants; I25.5 Ischemic cardiomyopathy; Z95.810 Presence of automatic (implantable) cardiac defibrillator; Z87.891 Personal history of nicotine dependence; I25.2 Old myocardial infarction; K21.9 Gastro-esophageal reflux disease without esophagitis; K57.90 Diverticulosis of intestine, part unspecified, without perforation or abscess without bleeding; K58.9 Irritable bowel syndrome, unspecified; M19.90 Unspecified osteoarthritis, unspecified site; G89.29 Other chronic pain; M54.9 Dorsalgia, unspecified; F41.9 Anxiety disorder, unspecified; D64.9 Anemia, unspecified; Z79.82 Long term (current) use of aspirin; Z79.899 Other long term (current) drug therapy; Z20.822 Contact with and (suspected) exposure to COVID-19; G83.21 Monoplegia of upper limb affecting right dominant side; R29.701 NIHSS score 1
CPT/HCPCS: 0042T; 36415; 70450; 70496; 70498; 71045; 71250; 80053; 80061; 80202; 80320; 81000; 82607; 82728; 82746; 82805; 82947; 83540; 83550; 83605; 83735; 84145; 84484; 85025; 85379; 85610; 85730; 87040; 87077; 87088; 87636; 93005; 93041; 93306; 94640

== ENCOUNTER 2022-06-17 01:10 | Emergency (ER) | payer MEDICARE, OTHER ==
[~2022-06-17 01:10] MED LIST changes: +ALBU0.63 IH
[2022-06-17 01:32] LABS: BASOPHILS % (AUTO) 0 % (0-10); EOSINOPHILS # (AUTO) 0.2 10^3/uL (0.0-0.3); EOSINOPHILS % (AUTO) 2 % (0-10); HEMATOCRIT 29 % (40-54); HEMOGLOBIN 9.5 g/dL (13.3-17.7); LYMPHOCYTES # (AUTO) 1.1 10^3/uL (1.0-4.0); LYMPHOCYTES % (AUTO) 10 % (12-44); MEAN CORPUSCULAR HEMOGLOBIN 29 pg (25-34); MEAN CORPUSCULAR HGB CONC 32 g/dL (32-36); MEAN CORPUSCULAR VOLUME 89 fL (80-99); MEAN PLATELET VOLUME 10.3 fL (9.0-12.2); MONOCYTES # (AUTO) 0.8 10^3/uL (0.0-1.0); MONOCYTES % (AUTO) 7 % (0-12); NEUTROPHILS # (AUTO) 8.9 10^3/uL (1.8-7.8); NEUTROPHILS % (AUTO) 80 % (42-75); PLATELET COUNT 219 10^3/uL (130-400); WHITE BLOOD COUNT 11.1 10^3/uL (4.3-11.0)
--- NOTE | 2022-06-17 01:32 | ED Neurological Problem ---
General Stated Complaint: POSSIBLE STROKE Source: family, EMS, old records History of Present Illness Date Seen by Provider: Jun 17, 2022 Time Seen by Provider: 01:12 Initial Comments PT ARRIVES VIA EMS FROM HOME WITH SON, AND 2 DAUGHTERS ARRIVE VIA POV PT PRESENTS WITH CONFUSION AND REPEATING THINGS LAST KNOWN WELL TIME WAS 2129 TONIGHT SON WOKE UP TO HEARING PT YELL "HELP ME" AND PT IS REPEATING THIS OVER AND OVER. SON REPORTS THAT PT HAS NOT SLEPT IN 4 DAYS, ONLY 4 HOURS TOTAL IN THE LAST 4 DAYS UP ALL DAY AND NIGHT--RESTLESS, PACING, COUGHING, ETC. ACCUCHECK 157 FOR EMS PT HAS HAD MULTIPLE STROKES AND TIA'S, AND WAS JUST ADMITTED HERE 06/10-06/12/22 FOR STROKE SYMPTOMS, AND HAD AN ELEVATED TROPONIN AT THAT TIME. HIS STROKE SYMPTOMS AT THAT TIME WERE EXPRESSIVE APHASIA--MOSTLY PROBLEMS WITH WORD-FINDING. FAMILY HAD ALSO REPORTED THAT HE HAD PROBLEMS USING HIS RIGHT HAND TO FEED HIMSELF AT THAT TIME. HIS FAMILY REPORTS THAT ALL OF THOSE SYMPTOMS COMPLETELY RESOLVED, AND HE WAS DOING WELL, AND THEY WERE ALL TOGETHER TONIGHT FOR GERALDINE SULLIVAN, AND HE WAS TALKING AND ACTING COMPLETELY NORMAL, HE WAS ABLE TO FEED HIMSELF AND USE HIS RIGHT HAND WITHOUT ANY DIFFICULTY. PT HAS A MECHANICAL HEART VALVE AND IS ON COUMADIN. HE ALSO HAS A PACEMAKER + DEFIBRILLATOR, AND CANNOT HAVE AN MRI. HE HAS A P.F.O. PER MOST RECENT ECHOCARDIOGRAM HE HAD A CARDIAC CATH IN , WHICH SHOWED MILD DISEASE AND NO INTERVENTION WAS DONE. PT HAS BEEN HAVING ONGOING COUGH AND HAS HAD FEVER THIS WEEK. WAS SEEN BY DATA CENTER TECHNICIAN ON SATURDAY FOR THIS AND WAS STARTED ON ALBUTEROL NEBULIZER TREATMENTS, PHENERGAN DM, AND THEN PHENERGAN WITH CODEINE, AND DOXYCYCLINE FAMILY THOUGHT HE WAS DOING BETTER, AND REPORT HE WAS DOING WELL EARLIER TONIGHT. PCP: HECTOR ROLAND AT [facility] IN [place]. MEN'S BASKETBALL COACH: DR. DUBON. Allergies and Home Medications Allergies Coded Allergies: No Known Drug Allergies (Unverified , 12/17/16) Patient Home Medication List Albuterol Sulfate (Albuterol Sulfate) 0.63 Mg/3 Ml Vial.neb, 0.63 MG IH BID PRN for SHORTNESS OF BREATH Prescribed by: YUNIOR CHAUHAN on 06/12/22 0951 Alfuzosin HCl (Alfuzosin HCl ER) 10 Mg Tab.er.24h, 10 MG PO HS, (Reported) Entered as Reported by: YUNIER MUNGUIA on 09/11/21 1437 Ascorbate Calcium (Vitamin C) 500 Mg Tablet, 500 MG PO DAILY, (Reported) Entered as Reported by: GREER GEORGE on 03/12/16 1021 Aspirin (Aspirin EC) 81 Mg Tablet.dr, 81 MG PO DAILY Prescribed by: YUNIOR CHAUHAN on 06/12/22 0951 Coffee Xt/Phosphatidyl Serine (Neuriva Original 100-100Mg Cap) 100 Mg-100 Mg Capsule, 1 EACH PO DAILY, (Reported) Entered as Reported by: GEM DANIELS on 06/11/22 1610 Cyanocobalamin (Vitamin B-12) (Vitamin B-12) 1,000 Mcg Tablet, 3,000 MCG PO DAILY, (Reported) Entered as Reported by: GREER GEORGE on 03/12/16 1021 Desmopressin Acetate (Desmopressin Acetate) 0.2 Mg Tablet, 0.6 MG PO HS, (Reported) Entered as Reported by: KEENAN MORE on 03/22/22 1044 Duloxetine HCl (Duloxetine HCl) 60 Mg Capsule.dr, 60 MG PO DAILY, (Reported) Entered as Reported by: YUNIER MUNGUIA on 09/11/21 1437 Empagliflozin (Jardiance) 10 Mg Tablet, 10 MG PO HS, (Reported) Entered as Reported by: KEENAN MORE on 03/22/22 1044 Fenofibrate Nanocrystallized (Fenofibrate) 145 Mg Tablet, 145 MG PO DAILY, (Reported) Entered as Reported by: GREER GEORGE on 03/12/16 1020 Fluticasone Propionate (Fluticasone Propionate) 16 Gm [place].susp, 1-2 SPRAY NSEACH DAILY PRN for CONGESTION, (Reported) Entered as Reported by: GEM DANIELS on 09/14/21 1553 Gabapentin (Neurontin) 300 Mg Capsule, 300 MG PO HS, (Reported) Entered as Reported by: YUNIER MUNGUIA on 09/11/21 1437 Lactobacillus Combination No.4 (Probiotic) 1 Each Capsule, 1 EACH PO DAILY, (Reported) Entered as Reported by: GEM DANIELS on 09/14/21 1551 Loratadine (Loratadine) 10 Mg Tablet, 10 MG PO DAILY, (Reported) Entered as Reported by: GREER GEORGE on 03/12/16 1021 Losartan Potassium (Losartan Potassium) 50 Mg Tablet, 50 MG PO DAILY, (Reported) Entered as Reported by: GEM DANIELS on 09/14/21 1551 Multivitamin (Daily Value) 1 Each Tablet, 1 TAB PO DAILY, (Reported) Entered as Reported by: GREER GEORGE on 03/12/16 1021 Nebivolol HCl (Nebivolol HCl) 5 Mg Tablet, 5 MG PO DAILY, (Reported) Entered as Reported by: GEM DANIELS on 09/14/21 1551 Pantoprazole Sodium (Pantoprazole Sodium) 40 Mg Tablet.dr, 40 MG PO DAILY, (Reported) Entered as Reported by: YUNIER MUNGUIA on 09/11/21 1437 Potassium Gluconate (Potassium) 99 Mg Tablet, 396 MG PO DAILY, (Reported) Entered as Reported by: YUNIER MUNGUIA on 09/11/21 1437 Rosuvastatin Calcium (Rosuvastatin Calcium) 10 Mg Tablet, 10 MG PO Q48H, (Reported) Entered as Reported by: YUNIER MUNGUIA on 09/11/21 1437 Tizanidine HCl (Tizanidine HCl) 4 Mg Tablet, 4 MG PO Q8H PRN for MUSCLE SPASMS, (Reported) Entered as Reported by: GEM DANIELS on 09/14/21 1553 Warfarin Sodium (Jantoven) 5 Mg Tablet, 2.5 MG PO ROACH,MO,WE,TH,FR, (Reported) Entered as Reported by: KEENAN MORE on 03/22/22 1044 Warfarin Sodium (Warfarin Sodium) 5 Mg Tablet, 5 MG PO ,SA, (Reported) Entered as Reported by: GEM DANIELS on 06/11/22 1610 Review of Systems Review of Systems Constitutional: other (UNABLE TO OBTAIN ANY INFORMATION FROM PT) Past Brjlmiz-Cvczfc-Qnprdg Hx Immunizations Up To Date Tetanus Booster (TDap): Unknown First/Initial COVID19 Vaccinat: n/a Second COVID19 Vaccination John: n/a Third COVID19 Vaccination Date: n/a Seasonal Allergies Seasonal Allergies: Yes Past Medical History Surgery/Hospitalization HX: PACEMAKER/DEFIB, AAA, CABG, STROKE, MECHANICAL HEART VALVE, TIA Surgeries: Yes (heart valve replacement, KNEE SCOPE, FOOT SX, SHOULDER SX, L ING HERNIA) Abdominal, Adenoidectomy, Cardiac, CABG, Defibrillator, Orthopedic, Pacemaker, Tonsillectomy, Valve Replacement Respiratory: Yes Sleep Apnea Currently Using CPAP: No Cardiac: Yes (ASCENDING AORTIC ANEURYSM; V-FIB; VIANEY; CAD W/CABG; AORTIC VALVE REPLACEME) Aneurysm, Cardiomyopathy, Coronary Artery Disease, Heart Attack, High Cholesterol, Hypertension, Irregular Heartbeat, Valvular Heart Disease Neurological: Yes Stroke, TIA Reproductive Disorders: No Sexually Transmitted Disease: No HIV/AIDS: No Genitourinary: No Gastrointestinal: Yes Gastroesophageal Reflux, Diverticulosis, Hemorrhoids, Polyps, Irritable Bowel Musculoskeletal: Yes Arthritis, Chronic Back Pain Endocrine: Yes Diabetes, Non-Insulin dep HEENT: No Loss of Vision: Bilateral Hearing Impairment: Denies Cancer: No Psychosocial: Yes Anxiety Integumentary: No Blood Disorders: No Adverse Reaction/Blood Tranf: No (N/A) Family Medical History FH: heart disease 19 FATHER ( in 1989 ) FH: stroke 19 FATHER, Onset:40's - 50 Myocardial infarction 19 FATHER, Onset:60 years & older PAST SURGICAL HISTORY: 2005--5 VESSEL CABG AND AORTIC VALVE REPLACEMENT PACEMAKER + DEFIBRILLATOR PLACEMENT WITH MOST RECENT GENERATOR CHANGE IN 2019 LEFT INGUINAL HERNIA REPAIR 07/23/2007--RIGHT KNEE SCOPE BY DR. JOSEPH 07/23/2007--REMOVAL OF BROKEN STERNAL WIRE BY DR. GRIFFITHS 09/27/2008--COLONOSCOPY 12/21/2016--RIGHT FOOT SURGERY 01/05/2017--LEFT SHOULDER SURGERY BY DR. JOSEPH 2018--ASCENDING AORTIC ANEURYSM REPAIR 11/24/2021--COLONOSCOPY WITH POLYPECTOMY BY DR. KENDRICK CARDIAC CATH 03/22/[address] DUBON: RESULTS: HEMODYNAMICS: The aortic pressure was 123/68 mmHg. The mechanical aortic valve was not crossed. CORONARY ANGIOGRAPHY: Left main coronary artery: There was a 90% stenosis proximally with JANETT-3 flow. Left anterior descending coronary artery: Totally occluded proximally. Left circumflex coronary artery: Totally occluded in the midsegment after the takeoff of the first obtuse marginal branch. There was a small first obtuse marginal branch which contained a long 80% stenosis proximally followed by 2 additional 80% stenosis in the midsegment. There was competitive flow seen in the distal segment of the branch from the bypass graft. Right coronary artery: Dominant and totally occluded proximal. BYPASS GRAFT ANGIOGRAPHY: Left internal mammary artery graft to left anterior descending coronary artery: Widely patent with good distal runoff. The iliamna vessel distal to the touchdown of the graft was small in caliber. Saphenous vein graft to diagonal branch and obtuse marginal branch: This was a sequence of graft that first touchdown on a diagonal branch and then an obtuse marginal branch. There was mild disease in the proximal segment of the graft at no more than 30% stenotic and the distal iliamna branches were widely patent beyond the touchdown of the graft. Saphenous vein graft to distal right coronary artery: There was a 30% stenosis in the proximal segment of the graft and the distal iliamna vessels were patent with mild diffuse disease at no more than 20% stenotic. IMPRESSION: 1. Normal central aortic pressure. 2. Severe iliamna three-vessel coronary artery disease as outlined above. The patient is essentially graft dependent. 3. Patent left internal mammary artery graft to left anterior descending coronary artery. 4. Patent sequential saphenous vein graft to diagonal branch and obtuse marginal branch and patent saphenous vein graft to distal right coronary artery. Physical Exam Vital Signs Vital Signs - First Documented 06/17/22 01:12 Temp 36.8 Pulse 77 Resp 22 B/P (MAP) 132/70 (90) Pulse Ox 97 O2 Delivery Room Air Capillary Refill : Height, Weight, BMI Height: 5'10.00" Weight: 190lbs. 0oz. 86.800623sq; 27.53 BMI Method:Stated Stroke Onset of Symptoms Date of Onset of Symptoms: Jun 16, 2022 Onset of Symptoms: No Symptoms onset unknown: Yes NIH Stroke Scale Assessment Level of Consciousness: 0=Alert (0), Level of Consciousness-Questions: 2=Answer neither question (2), LOC Commands: 2=Performs neither task (2), Gaze: Normal (0), Facial Movement (Facial Paresis): 0=Normal symmetrical mnt (0), Motor Function-Arms Right: 0=No drift (0), Motor Function-Arms Left: 0=No drift (0), Motor Function-Legs Right: 0=No drift (0), Motor Function- Legs Left: 0=No drift (0), Limb Ataxia: 0=Absent (0), Best Language: 1=Mild to moderat aphasia (1), Dysarthria: 0=Normal (0), Extinction & Inattention: 1=Visual,tactile,auditory (1), Total: 6 Stroke Thrombolytic Exclusion Age 18 or Over: Yes Acute intenal hemorrhage: No History of CVA: Yes Uncontrolled Coagulation Defec: No Intracranial Hemorrhage: No Severe Hypertension: No GI or Bleed: No Subarachnoid Hemorrhage: No Intracranial Neoplasm/Aneurysm: No Oral Anticoagulants: Yes Surgery or Trauma: No Puncture of Non-Compressible V: No Recent CPR: No Diabetic Hemorrhagic Retinopat: No Organ Biopsy: No Recent Obstetric Delivery: No Glucose: No Significant Hepatic Dysfunctio: No NIH Stoke Scale >22: No Bacterial Endocarditis: No Pericarditis: No Improving Symptoms: No Platelets: No TPA Contraindication: No IV - TPa Received IV - TPa Procedure Performed?: No (DUE TO TIME OF ONSET, AND AFTER DISCUSSION WITH STROKE NEUROLOGIST AT , WHO DOES NOT RECOMMEND ANY THROMBOLYTICS. ) Focused Exam Lactate Level 06/17/22 01:20: Lactic Acid Level 1.12 Lactic Acid Level Laboratory Tests Test 06/17/22 01:20 Lactic Acid Level 1.12 MMOL/L (0.50-2.00) Progress/Results/Core Measures Results/Orders Lab Results Laboratory Tests Test 06/17/22 01:20 06/17/22 01:47 06/17/22 01:48 06/17/22 02:04 Range/Units White Blood Count 11.1 H 4.3-11.0 10^3/uL Red Blood Count 3.30 L 4.30-5.52 10^6/uL Hemoglobin 9.5 L 13.3-17.7 g/dL Hematocrit 29 L 40-54 % Mean Corpuscular Volume 89 80-99 fL Mean Corpuscular Hemoglobin 29 25-34 pg Mean Corpuscular Hemoglobin Concent 32 32-36 g/dL Red Cell Distribution Width 16.1 H 10.0-14.5 % Platelet Count 219 130-400 10^3/uL Mean Platelet Volume 10.3 9.0-12.2 fL Immature Granulocyte % (Auto) 1 % Neutrophils (%) (Auto) 80 H 42-75 % Lymphocytes (%) (Auto) 10 L 12-44 % Monocytes (%) (Auto) 7 0-12 % Eosinophils (%) (Auto) 2 0-10 % Basophils (%) (Auto) 0 0-10 % Neutrophils # (Auto) 8.9 H 1.8-7.8 10^3/uL Lymphocytes # (Auto) 1.1 1.0-4.0 10^3/uL Monocytes # (Auto) 0.8 0.0-1.0 10^3/uL Eosinophils # (Auto) 0.2 0.0-0.3 10^3/uL Basophils # (Auto) 0.0 0.0-0.1 10^3/uL Immature Granulocyte # (Auto) 0.1 0.0-0.1 10^3/uL Prothrombin Time 18.3 H 12.2-14.7 SEC INR Comment 1.5 H 0.8-1.4 Activated Partial Thromboplast Time 41 H 24-35 SEC D-Dimer 2.21 H 0.00-0.49 UG/ML Sodium Level 138 135-145 MMOL/L Potassium Level 4.0 3.6-5.0 MMOL/L Chloride Level 107 98-107 MMOL/L Carbon Dioxide Level 21 21-32 MMOL/L Anion Gap 10 5-14 MMOL/L Blood Urea Nitrogen 26 H 7-18 MG/DL Creatinine 1.28 0.60-1.30 MG/DL Estimat Glomerular Filtration Rate 60 BUN/Creatinine Ratio 20 Glucose Level 116 H 70-105 MG/DL Lactic Acid Level 1.12 0.50-2.00 MMOL/L Calcium Level 8.4 L 8.5-10.1 MG/DL Corrected Calcium 9.0 8.5-10.1 MG/DL Magnesium Level 1.8 1.6-2.4 MG/DL Total Bilirubin 0.8 0.1-1.0 MG/DL Aspartate Amino Transf (AST/SGOT) 122 H 5-34 U/L Alanine Aminotransferase (ALT/SGPT) 161 H 0-55 U/L Alkaline Phosphatase 233 H 40-136 U/L Troponin I 0.785 *H <0.028 NG/ML Total Protein 6.2 L 6.4-8.2 GM/DL Albumin 3.3 3.2-4.5 GM/DL Procalcitonin 0.11 H <0.10 NG/ML Serum Alcohol < 10 <10 MG/DL Glucometer 120 H 70-110 MG/DL Ammonia 23 11-32 UMOL/L Influenza Type A (RT-PCR) Not Detected Not Detecte Influenza Type B (RT-PCR) Not Detected Not Detecte SARS-CoV-2 RNA (RT-PCR) Not Detected Not Detecte Test 06/17/22 02:42 06/17/22 03:26 Range/Units Blood Gas Puncture Site R UPPER ARM Blood Gas Patient Temperature 36.8 Arterial Blood pH 7.44 H 7.37-7.43 Arterial Blood Partial Pressure CO2 32 L 35-45 MMHG Arterial Blood Partial Pressure O2 77 L 79-93 MMHG Arterial Blood HCO3 22 L 23-27 MMOL/L Arterial Blood Total CO2 22.9 21.0-31.0 MMOL/L Arterial Blood Oxygen Saturation 97 94-100 % Arterial Blood Base Excess -1.7 -2.5-2.5 MMOL/L Todd Test NEG Blood Gas Ventilator Setting NO Blood Gas Inspired Oxygen RA Urine Color YELLOW Urine Clarity CLEAR Urine pH 6.5 5-9 Urine Specific [place] 1.015 L 1.016-1.022 Urine Protein NEGATIVE NEGATIVE Urine Glucose (UA) 3+ H NEGATIVE Urine Ketones NEGATIVE NEGATIVE Urine Nitrite NEGATIVE NEGATIVE Urine Bilirubin NEGATIVE NEGATIVE Urine Urobilinogen 0.2 < = 1.0 MG/DL Urine Leukocyte Esterase NEGATIVE NEGATIVE Urine RBC (Auto) NEGATIVE NEGATIVE Urine RBC NONE /HPF Urine WBC NONE /HPF Urine Crystals NONE /LPF Urine Bacteria NEGATIVE /HPF Urine Casts NONE /LPF Urine Mucus NEGATIVE /LPF Urine Culture Indicated NO Urine Opiates Screen POSITIVE H NEGATIVE Urine Oxycodone Screen NEGATIVE NEGATIVE Urine Methadone Screen NEGATIVE NEGATIVE Urine Propoxyphene Screen NEGATIVE NEGATIVE Urine Barbiturates Screen NEGATIVE NEGATIVE Ur Tricyclic Antidepressants Screen NEGATIVE NEGATIVE Urine Phencyclidine Screen NEGATIVE NEGATIVE Urine Amphetamines Screen NEGATIVE NEGATIVE Urine Methamphetamines Screen NEGATIVE NEGATIVE Urine Benzodiazepines Screen NEGATIVE NEGATIVE Urine Cocaine Screen NEGATIVE NEGATIVE Urine Cannabinoids Screen NEGATIVE NEGATIVE Micro Results Microbiology 06/17/22 Blood Culture - Preliminary, Resulted No growth 06/17/22 Blood Culture - Preliminary, Resulted No growth My Orders Orders - DEN MARX DO Cbc With Automated Diff (06/17/22 01:12) Protime With Inr (06/17/22 01:12) Partial Thromboplastin Time (06/17/22 01:12) Comprehensive Metabolic Panel (06/17/22 01:12) Fibrin Degradation Products (06/17/22 01:12) Troponin I [place] (06/17/22 01:12) Ua Culture If Indicated (06/17/22 01:12) Chest 1 View, Ap/Pa Only (06/17/22 01:12) Ekg Tracing (06/17/22 01:12) Nothing By Mouth (06/17/22 Breakfast) Accucheck Stat ONCE (06/17/22 01:12) Ed Iv/Invasive Line Start (06/17/22 01:12) Ed Iv/Invasive Line Start (06/17/22 01:12) Vital Signs Stroke Patient Q15M (06/17/22 01:12) Ct Head Wo-R/O Stroke (06/17/22 01:12) O2 (06/17/22 01:12) Intake & Output 06,14, (06/17/22 01:12) Monitor-Rhythm Ecg Trace Only (06/17/22 01:12) Dysphagia Screening Tool [id number] (06/17/22 01:12) Lorazepam Injection (Ativan Injection) (06/17/22 01:36) Catheter(Urinary) Insert & Ass 03,15 (06/17/22 01:43) Lidocaine 2% (Urojet) (Xylocaine Urojet) (06/17/22 01:45) Lorazepam Injection (Ativan Injection) (06/17/22 01:45) Ammonia (06/17/22 01:45) Drug Screen Stat (Urine) (06/17/22 01:45) Haloperidol Injection (Haldol Injectio (06/17/22 02:00) Diphenhydramine Injection (Benadryl Inje (06/17/22 02:00) Alcohol (06/17/22 01:20) Magnesium (06/17/22 01:20) Diphenhydramine Injection (Benadryl Inje (06/17/22 01:51) Haloperidol Injection (Haldol Injectio (06/17/22 01:51) Albuterol/Ipra Inhalation Soln (Duoneb I (06/17/22 02:15) Dexamethasone Injection (Decadron Injec (06/17/22 02:15) Rt Request For Service (06/17/22 02:01) Svn Small Volume Nebulizer (06/17/22 02:01) Arterial Blood Gas (06/17/22 02:01) Ct Angio Head/Neck (06/17/22 02:10) Procalcitonin (Pct) (06/17/22 02:27) Blood Culture (06/17/22 02:27) Covid 19 Inhouse Test (06/17/22 02:27) Lactic Acid Analyzer (06/17/22 02:27) Influenza A And B By Pcr (06/17/22 02:27) Isolation Central Supply Req (06/17/22 02:27) Cefepime Injection (Maxipime Injection) (06/17/22 02:30) Lorazepam Injection (Ativan Injection) (06/17/22 02:30) Diphenhydramine Injection (Benadryl Inje (06/17/22 03:15) Haloperidol Injection (Haldol Injectio (06/17/22 03:30) Restraints: Behavioral/Violent .once (06/17/22 04:39) Behavioral Restraints Q15 M Ch Q15M (06/17/22 04:39) Behavioral Restraint Q2hr Chec Q2H (06/17/22 04:39) Renewal Ordered Needed (Q3h Ad Q3H (06/17/22 04:39) Ziprasidone Injection (Geodon Injection) (06/17/22 04:45) Water (Sterile) For Injection (Sterile W (06/17/22 04:45) Ziprasidone Injection (Geodon Injection) (06/17/22 05:15) Water (Sterile) For Injection (Sterile W (06/17/22 05:15) Medications Given in ED Vital Signs/I&O 06/17/22 06/17/22 06/17/22 06/17/22 01:12 02:15 02:30 02:45 Temp 36.8 Pulse 77 Resp 22 16 16 16 B/P (MAP) 132/70 (90) Pulse Ox 97 O2 Delivery Room Air 06/17/22 06/17/22 06/17/22 06/17/22 03:00 03:09 03:15 03:30 Resp 16 16 16 Pulse Ox 98 O2 Delivery Room Air 06/17/22 06/17/22 06/17/22 06/17/22 03:45 04:30 04:45 05:00 Resp 16 16 16 16 12/06/17/22 06/17/22 06/17/22 05:15 05:30 05:45 06:00 Resp 16 16 16 16 06/17/22 06/17/22 06/17/22 06/17/22 06:15 06:31 06:46 07:00 Pulse 69 Resp 16 16 16 16 B/P (MAP) 121/77 (92) Pulse Ox 99 O2 Delivery Nasal Cannula O2 Flow Rate 2.00 06/17/22 06/17/22 06/17/22 06/17/22 07:00 07:15 07:30 07:45 Resp 16 20 20 20 06/17/22 06/17/22 06/17/22 06/17/22 07:45 08:00 08:15 08:30 Pulse 71 Resp 20 20 20 20 B/P (MAP) 142/75 (97) Pulse Ox 100 O2 Delivery Nasal Cannula O2 Flow Rate 2.00 06/17/22 06/17/22 06/17/22 06/17/22 08:42 08:48 09:00 09:15 Resp 22 22 18 20 06/17/22 09:25 Temp 36.7 Pulse 73 Resp 18 B/P (MAP) 134/71 Pulse Ox 97 O2 Delivery Nasal Cannula O2 Flow Rate 2.00 2.00 Progress Progress Note : Progress Note PPE WORN COVID AND FLU TESTING DONE STROKE PROTOCOL INITIATED ON ARRIVAL PT IS EXTREMELY UNCOOPERATIVE, AND COMBATIVE, WON'T STAY ON THE BED REQUIRES 4-6 PERSON TO RESTRAIN--PT PLACED IN 4 POINT LEATHER RESTRAINTS PT REQUIRED AT MINIMUM 1 ON 1 NURSING CARE, AND AT MANY TIMES THROUGHOUT ER STAY, THERE REQUIRED 3-4 PEOPLE IN ROOM TO CARE FOR PATIENT. Departure Communication (Admissions) 0204--CALLED [facility]. CT IMAGES HAVE BEEN CLOUDED TO THEM 0207--SPOKE WITH DR. LARA, STROKE NEUROLOGIST, HE ADVISES NO THROMBOLYTICS, AND PROCEED WITH CTA OF HEAD/NECK. WILL CALL HIM BACK WITH THOSE RESULTS. 0458--CALLED [facility]. CTA IMAGES HAVE BEEN CLOUDED TO THEM. PLACED ON HOLD. WAS INFORMED AT 0507 THAT THEY WOULD CALL BACK. 0600--[facility] CALLED BACK, DR. RONDON HAS ACCEPTED PT FOR ADMIT. EMS WILL NOT BE AVAILABLE FOR TRANSPORT UNTIL AFTER 0800 Impression Primary Impression: Altered mental status Additional Impressions: RECENT ISCHEMIC STROKE, POSSIBLE NEW ISCHEMIC STROKE MECHANICAL HEART VALVE ON COUMADIN Bronchitis Sleep deprivation Elevated troponin Disposition: 02 XFER SHT-TRM HOSP Condition: Stable Transfer Transfer Reason: Exceeds level of care (NEED FOR MULTISPECIALTY CARE) Transfer Facility: [place], [place] Method of Transfer: EMS Departure-Patient Inst. Referrals: NO,LOCAL PHYSICIAN (PCP) Primary Care Physician DEN MARX DO Jun 17, 2022 01:32
[2022-06-17] MEDS ORDERED: LORazepam INJ 2 MG/ML (ATIVAN) VIAL ONE (01:36)
[2022-06-17] MEDS ORDERED: LIDOCAINE UROJET 2% GEL 10 ML PKG TOP ONE (01:45)
[2022-06-17] MEDS ORDERED: LORazepam INJ 2 MG/ML (ATIVAN) VIAL IVP ONE ×2 (01:45→02:30)
[2022-06-17 01:46] LABS: ALBUMIN 3.3 GM/DL (3.2-4.5); CHLORIDE 107 MMOL/L (98-107); SODIUM 138 MMOL/L (135-145)
[2022-06-17 01:47] LABS: CALCIUM 8.4 MG/DL (8.5-10.1)
[2022-06-17 01:48] LABS: GLUCOSE 116 MG/DL (70-105)
[2022-06-17 01:49] LABS: TOTAL PROTEIN 6.2 GM/DL (6.4-8.2)
[2022-06-17 01:50] LABS: CARBON DIOXIDE 21 MMOL/L (21-32)
[2022-06-17 01:51] LABS: BILIRUBIN,TOTAL 0.8 MG/DL (0.1-1.0)
[2022-06-17] MEDS ORDERED: diphenhydrAMINE 50 MG/ML INJ (BENADRYL) ONE (01:51)
[2022-06-17] MEDS ORDERED: HALOPERIDOL 5 MG/ML (HALDOL) VIAL ONE (01:51)
[2022-06-17 01:52] LABS: ALKALINE PHOSPHATASE 233 U/L (40-136); CREATININE SERUM 1.28 MG/DL (0.60-1.30); FIBRIN DEGRADATION PRODUCTS 2.21 UG/ML (0.00-0.49); GFR ESTIMATED 60; INR 1.5 (0.8-1.4); PROTHROMBIN TIME PATIENT 18.3 SEC (12.2-14.7)
[2022-06-17 01:53] LABS: BUN/CREATININE RATIO 20
[2022-06-17 01:55] LABS: ALANINE AMINOTRANSFERASE 161 U/L (0-55)
[2022-06-17] MEDS ORDERED: diphenhydrAMINE 50 MG/ML INJ (BENADRYL) IVP ONE ×2 (02:00→03:15)
[2022-06-17] MEDS ORDERED: HALOPERIDOL 5 MG/ML (HALDOL) VIAL IV ONE ×2 (02:00→03:30)
[2022-06-17 02:14] LABS: MAGNESIUM 1.8 MG/DL (1.6-2.4)
[2022-06-17] MEDS ORDERED: RT-ALBUTEROL/IPRATROPIUM 3 ML (DUONEB) VIAL INH ONE (02:15)
[2022-06-17] MEDS ORDERED: CEFEPIME INJECTION 2,000 MG in NS (IVPB) 50 ML IV ONE (02:30)
[2022-06-17 02:48] LABS: ABG BASE EXCESS -1.7 MMOL/L (-2.5-2.5); ABG OXYGEN SATURATION 97 % (94-100); ABG PCO2 32 MMHG (35-45); ABG PH 7.44 (7.37-7.43); ABG PO2 77 MMHG (79-93); ABG TCO2 22.9 MMOL/L (21.0-31.0)
[2022-06-17 02:52] LABS: ALLENS TEST NEG
[2022-06-17 02:54] LABS: INSPIRED O2 RA; PATIENT TEMP 36.8; VENTILATOR NO
[2022-06-17 03:45] LABS: BILIRUBIN,URINE NEGATIVE (NEGATIVE); CLARITY,URINE CLEAR; COLOR,URINE YELLOW; GLUCOSE, URINE (UA) 3+ (NEGATIVE); KETONES,URINE NEGATIVE (NEGATIVE); LEUKOCYTE ESTERASE ,URINE NEGATIVE (NEGATIVE); NITRITE,URINE NEGATIVE (NEGATIVE); PH,URINE 6.5 (5-9); PROTEIN,URINE NEGATIVE (NEGATIVE)
[2022-06-17 03:57] LABS: AMPHETAMINE SCREEN, URINE NEGATIVE (NEGATIVE); BARBITURATE SCREEN URINE NEGATIVE (NEGATIVE); BENZODIAZEPINES SCREEN URINE NEGATIVE (NEGATIVE); CANNABINOID SCREEN, URINE NEGATIVE (NEGATIVE); COCAINE SCREEN URINE NEGATIVE (NEGATIVE); METHADONE STAT NEGATIVE (NEGATIVE); OPIATE SCREEN URINE POSITIVE (NEGATIVE); OXYCODONE STAT NEGATIVE (NEGATIVE); PROPOXYPHENE STAT NEGATIVE (NEGATIVE); TRICYCLIC ANTIDEPRESSANTS SCRE NEGATIVE (NEGATIVE)
[2022-06-17 03:58] LABS: BACTERIA,URINE NEGATIVE /HPF
[2022-06-17] MEDS ORDERED: ZIPRASIDONE 20 MG INJ (GEODON) VIAL IM ONE ×2 (04:45→05:15)
[2022-06-17] MEDS ORDERED: WATER (STERILE) FOR INJ 10 ML BTL INJ SCH ×2 (04:45→05:15)
--- NOTE | 2022-06-17 06:51 | Diagnostic Imaging Report ---
HISTORY: Stroke symptoms, neurological deficit. COMPARISON: None TECHNIQUE: Frontal view of the chest FINDINGS: Lung volumes are low. There is mild cardiomegaly with mild central vascular congestion. Left-sided automatic implantable cardiac defibrillator leads are in expected position. Valve prosthesis noted. Sternotomy wires are noted. There is no effusion or pneumothorax seen. IMPRESSION: 1. Low lung volumes. Mild cardiomegaly with mild central vascular congestion. Dictated by: Dictated on workstation # [id number]
--- NOTE | 2022-06-17 07:07 | Diagnostic Imaging Report ---
PROCEDURE: CT head wo r/o stroke. TECHNIQUE: Multiple contiguous axial images were obtained through the brain without the use of intravenous contrast. Auto Exposure Controls were utilized during the CT exam to meet ALARA standards for radiation dose reduction. INDICATION: "Neurological deficit" Compared with study 06/10/2022. Old left frontal cortical encephalomalacia chronic. Interval appearance of a likely subacute infarct in the left parietal lobe best seen on image 51 series 2. This is without hemorrhagic transformation or mass effect. Its very well visualized and convincingly greater than 24 hours old. Some chronic background atrophy stable. No katlin hydrocephalus. There is intracranial atherosclerotic vascular calcifications. There are no abnormal extra-axial fluid collections. IMPRESSION: Remote left frontal lobe encephalomalacia chronic, well-visualized left parietal cortical infarct is subacute without hemorrhagic transformation or mass effect. Vascular calcifications and mild senescent atrophy stable. Agree with preliminary. Dictated by: Dictated on workstation # [id number]
--- NOTE | 2022-06-17 07:29 | Diagnostic Imaging Report ---
PROCEDURE: CT angiography of the head and CT angiography of the neck with and without contrast. TECHNIQUE: Contiguous noncontrast images were obtained from the skull base through the vertex. After intravenous contrast administration, helical CT angiography of the neck was performed. Source data was reformatted into 3D MIP projections. Delayed post contrast acquisition was also obtained. Auto Exposure Controls were utilized during the CT exam to meet ALARA standards for radiation dose reduction. INDICATION: "Stroke like symptoms". No description of what though symptoms are to provide any assistance at exam interpretation. Is compared with study 06/10/2018 exam is substantially degraded by motion artifact. CT HEAD: Delayed postcontrast enhanced CT head. Areas of left hemispheric encephalomalacia in the MCA territory consistent with remote insult stable. No abnormal enhancement or contrast extravasation. No findings to suggest a hemorrhage. No hydrocephalus, shift or herniation. CT angiogram neck: Cervical vertebral arteries have a tortuous course symmetric and codominant widely patent. The bilateral common and internal carotids have a tortuous course. There are calcified plaques at the carotid bulbs and bifurcations. No appreciable hemodynamically significant stenosis found. However significant motion artifact decreases sensitivity. No segmental occlusion and no dissection. CT angiogram head: Non-stenosing calcified plaques in the left greater than right intradural vertebral arteries are present. The basilar patent. Bilateral biomedical analytical scientist patent. There is calcified plaques non-stenosing in the cavernous segments of the intracranial carotids. The A1 segments, the a common and the paired anterior cerebral arteries patent. Bilateral middle cerebral arterial segments as well as their primary branches appeared patent at this motion degraded exam. No filling defect or large vessel occlusion. No aneurysm could be identified and no vascular malformation. IMPRESSION: Stable remote left hemispheric post ischemic changes, no hemodynamically significant stenosis, large vessel occlusion or acute arterial pathology is revealed at this motion degraded exam. In particular no findings to explain the presenting complaint of "stroke like symptoms" however those symptoms may manifest in this patient. Agree with preliminary Dictated by: Dictated on workstation # [id number]
[2022-06-17 09:25] VITALS: BP 134/71
== END 2022-06-17 09:25 | disposition short-term general hospital (02) ==
LOC: EDUNIT# 01:10 → ER 01:11
DX: R41.82 Altered mental status, unspecified (principal); J40 Bronchitis, not specified as acute or chronic; R74.8 Abnormal levels of other serum enzymes; Z20.822 Contact with and (suspected) exposure to COVID-19; Z72.820 Sleep deprivation; Z79.01 Long term (current) use of anticoagulants; Z86.73 Personal history of transient ischemic attack (TIA), and cerebral infarction without residual deficits; Z95.2 Presence of prosthetic heart valve
CPT/HCPCS: 51702; 70450; 70496; 70498; 71045; 80053; 80306; 81000; 82140; 82805; 82947; 83605; 83735; 84145; 84484; 85025; 85379; 85610; 85730; 87040; 87636; 93041; 94640; 99291; G0480; 36415; 80320; 93005

== ENCOUNTER 2022-12-31 18:08 | Emergency (ER) | payer MEDICARE, OTHER ==
[~2022-12-31] VITALS: Ht 175 cm; Wt 62.0 kg
[~2022-12-31 18:08] MED LIST changes: +LOSA-415 PO; -LOSA50TA2 PO
--- NOTE | 2022-12-31 18:28 | ED General ---
General Stated Complaint: PSYCH Source of Information: Patient History of Present Illness Date Seen by Provider: Dec 31, 2022 Time Seen by Provider: 18:08 Initial Comments 72-year-old male presenting by EMS from [facility] due to agitation with staff there. He had reportedly just been discharged from [facility] and arrived at [facility] around 1 PM. He had been agitated with staff and was trying to throw furniture and hit the staff. They were finally able to get medications in him about 30 minutes prior to EMS transporting him. EMS reports that he was not agitated or violent with them. He is calm and c ooperative here in the emergency department but is demented and oriented to self only. He has no complaints here and denies any pain. The nurse called [facility] unit and spoke with staff there since he just left at 1 pm. they advised that they have had him for several weeks and that the patient has been in and out of [facility] in last 6 months. Even when he was at [facility] he was having times that it was difficult to manage him. He has sundowners and will get agitated and try and throw things. He had been discharged from [facility] to longer term care centers but they each had sent him back to [facility] as he was more than they could manage. After being at [facility] for 4 hours they called 911 to have him transported to the emergency department because the said that they did not have staff or ability to manage him. Associated Systoms: No Chest Pain, No Cough, No Diaphoresis, No Headaches, No Loss of Appetite, No Malaise, No Nausea/Vomiting, No Shortness of Air, No Weakness Allergies and Home Medications Allergies Coded Allergies: No Known Drug Allergies (Unverified , 12/17/16) Patient Home Medication List Home Medication List Reviewed: Yes Albuterol Sulfate (Albuterol Sulfate) 0.63 Mg/3 Ml Vial.neb, 0.63 MG IH BID PRN for SHORTNESS OF BREATH Prescribed by: YUNIOR CHAUHAN on 06/12/22 0951 Alfuzosin HCl (Alfuzosin HCl ER) 10 Mg Tab.er.24h, 10 MG PO HS, (Reported) Entered as Reported by: YUNIER MUNGUIA on 09/11/21 1437 Ascorbate Calcium (Vitamin C) 500 Mg Tablet, 500 MG PO DAILY, (Reported) Entered as Reported by: GREER GEORGE on 03/12/16 1021 Aspirin (Aspirin EC) 81 Mg Tablet.dr, 81 MG PO DAILY Prescribed by: YUNIOR CHAUHAN on 06/12/22 0951 Coffee Xt/Phosphatidyl Serine (Neuriva Original 100-100Mg Cap) 100 Mg-100 Mg Capsule, 1 EACH PO DAILY, (Reported) Entered as Reported by: GEM DANIELS on 06/11/22 1610 Cyanocobalamin (Vitamin B-12) (Vitamin B-12) 1,000 Mcg Tablet, 3,000 MCG PO DAILY, (Reported) Entered as Reported by: GREER GEORGE on 03/12/16 1021 Desmopressin Acetate (Desmopressin Acetate) 0.2 Mg Tablet, 0.6 MG PO HS, (Reported) Entered as Reported by: KEENAN MORE on 03/22/22 1044 Duloxetine HCl (Duloxetine HCl) 60 Mg Capsule.dr, 60 MG PO DAILY, (Reported) Entered as Reported by: YUNIER MUNGUIA on 09/11/21 1437 Empagliflozin (Jardiance) 10 Mg Tablet, 10 MG PO HS, (Reported) Entered as Reported by: KEENAN MORE on 03/22/22 1044 Fenofibrate Nanocrystallized (Fenofibrate) 145 Mg Tablet, 145 MG PO DAILY, (Reported) Entered as Reported by: GREER GEORGE on 03/12/16 1020 Fluticasone Propionate (Fluticasone Propionate) 16 Gm [place].susp, 1-2 SPRAY NSEACH DAILY PRN for CONGESTION, (Reported) Entered as Reported by: GEM DANIELS on 09/14/21 1553 Gabapentin (Neurontin) 300 Mg Capsule, 300 MG PO HS, (Reported) Entered as Reported by: YUNIER MUNGUIA on 09/11/21 1437 Lactobacillus Combination No.4 (Probiotic) 1 Each Capsule, 1 EACH PO DAILY, (Reported) Entered as Reported by: GEM DANIELS on 09/14/21 155 Loratadine (Loratadine) 10 Mg Tablet, 10 MG PO DAILY, (Reported) Entered as Reported by: GREER GEORGE on 03/12/16 1021 Losartan Potassium (Losartan Potassium) 50 Mg Tablet, 50 MG PO DAILY, (Reported) Entered as Reported by: GEM DANIELS on 09/14/21 1551 Multivitamin (Daily Value) 1 Each Tablet, 1 TAB PO DAILY, (Reported) Entered as Reported by: GREER GEORGE on 03/12/16 1021 Nebivolol HCl (Nebivolol HCl) 5 Mg Tablet, 5 MG PO DAILY, (Reported) Entered as Reported by: GEM DANIELS on 09/14/21 1551 Pantoprazole Sodium (Pantoprazole Sodium) 40 Mg Tablet.dr, 40 MG PO DAILY, (Reported) Entered as Reported by: YUNIER MUNGUIA on 09/11/21 1437 Potassium Gluconate (Potassium) 99 Mg Tablet, 396 MG PO DAILY, (Reported) Entered as Reported by: YUNIER MUNGUIA on 09/11/21 1437 Rosuvastatin Calcium (Rosuvastatin Calcium) 10 Mg Tablet, 10 MG PO Q48H, (Reported) Entered as Reported by: YUNIER MUNGUIA on 09/11/21 1437 Tizanidine HCl (Tizanidine HCl) 4 Mg Tablet, 4 MG PO Q8H PRN for MUSCLE SPASMS, (Reported) Entered as Reported by: GEM DANIELS on 09/14/21 1553 Warfarin Sodium (Jantoven) 5 Mg Tablet, 2.5 MG PO ROACH,MO,WE,TH,FR, (Reported) Entered as Reported by: KEENAN MORE on 03/22/22 1044 Warfarin Sodium (Warfarin Sodium) 5 Mg Tablet, 5 MG PO ,SA, (Reported) Entered as Reported by: GEM DANIELS on 06/11/22 1610 Review of Systems Review of Systems Constitutional: No chills, No fever EENTM: no symptoms reported Respiratory: no symptoms reported Cardiovascular: no symptoms reported Gastrointestinal: no symptoms reported Genitourinary: no symptoms reported Musculoskeletal: no symptoms reported Skin: no symptoms reported Psychiatric/Neurological: Emotional Problems (dementia with sundowners, history of alcohol abuse in the past, increased agitation and dementia since having prior strokes) Past Nnteivv-Yntbwl-Qimpfy Hx Immunizations Up To Date Tetanus Booster (TDap): Unknown First/Initial COVID19 Vaccinat: n/a Second COVID19 Vaccination John: n/a Third COVID19 Vaccination Date: n/a Seasonal Allergies Seasonal Allergies: Yes Past Medical History Surgery/Hospitalization HX: PACEMAKER/DEFIB, AAA, CABG, STROKE, MECHANICAL HEART VALVE, TIA Surgeries: Yes (heart valve replacement, KNEE SCOPE, FOOT SX, SHOULDER SX, L ING HERNIA) Abdominal, Adenoidectomy, Cardiac, CABG, Defibrillator, Orthopedic, Pacemaker, Tonsillectomy, Valve Replacement Respiratory: Yes Sleep Apnea Currently Using CPAP: No Cardiac: Yes (ASCENDING AORTIC ANEURYSM; V-FIB; VIANEY; CAD W/CABG; AORTIC VALVE REPLACEME) Aneurysm, Cardiomyopathy, Coronary Artery Disease, Heart Attack, High Cholesterol, Hypertension, Irregular Heartbeat, Valvular Heart Disease Neurological: Yes Stroke, TIA Reproductive Disorders: No Sexually Transmitted Disease: No HIV/AIDS: No Genitourinary: No Gastrointestinal: Yes Gastroesophageal Reflux, Diverticulosis, Hemorrhoids, Polyps, Irritable Bowel Musculoskeletal: Yes Arthritis, Chronic Back Pain Endocrine: Yes Diabetes, Non-Insulin dep HEENT: No Loss of Vision: Bilateral Hearing Impairment: Denies Cancer: No Psychosocial: Yes Anxiety Integumentary: No Blood Disorders: No Adverse Reaction/Blood Tranf: No (N/A) Family Medical History FH: heart disease 19 FATHER ( in 1989 ) FH: stroke 19 FATHER, Onset:40's - 50 Myocardial infarction 19 FATHER, Onset:60 years & older PAST SURGICAL HISTORY: 2005--5 VESSEL CABG AND AORTIC VALVE REPLACEMENT PACEMAKER + DEFIBRILLATOR PLACEMENT WITH MOST RECENT GENERATOR CHANGE IN 2019 LEFT INGUINAL HERNIA REPAIR 07/23/2007--RIGHT KNEE SCOPE BY DR. JOSEPH 07/23/2007--REMOVAL OF BROKEN STERNAL WIRE BY DR. GRIFFITHS 09/27/2008--COLONOSCOPY 12/21/2016--RIGHT FOOT SURGERY 01/05/2017--LEFT SHOULDER SURGERY BY DR. JOSEPH 2018--ASCENDING AORTIC ANEURYSM REPAIR 11/24/2021--COLONOSCOPY WITH POLYPECTOMY BY DR. KENDRICK CARDIAC CATH 03/22/[address] DUBON: RESULTS: HEMODYNAMICS: The aortic pressure was 123/68 mmHg. The mechanical aortic valve was not crossed. CORONARY ANGIOGRAPHY: Left main coronary artery: There was a 90% stenosis proximally with JANETT-3 flow. Left anterior descending coronary artery: Totally occluded proximally. Left circumflex coronary artery: Totally occluded in the midsegment after the takeoff of the first obtuse marginal branch. There was a small first obtuse marginal branch which contained a long 80% stenosis proximally followed by 2 additional 80% stenosis in the midsegment. There was competitive flow seen in the distal segment of the branch from the bypass graft. Right coronary artery: Dominant and totally occluded proximal. BYPASS GRAFT ANGIOGRAPHY: Left internal mammary artery graft to left anterior descending coronary artery: Widely patent with good distal runoff. The [place] vessel distal to the touchdown of the graft was small in caliber. Saphenous vein graft to diagonal branch and obtuse marginal branch: This was a sequence of graft that first touchdown on a diagonal branch and then an obtuse marginal branch. There was mild disease in the proximal segment of the graft at no more than 30% stenotic and the distal [place] branches were widely patent beyond the touchdown of the graft. Saphenous vein graft to distal right coronary artery: There was a 30% stenosis in the proximal segment of the graft and the distal [place] vessels were patent with mild diffuse disease at no more than 20% stenotic. IMPRESSION: 1. Normal central aortic pressure. 2. Severe [place] three-vessel coronary artery disease as outlined above. The patient is essentially graft dependent. 3. Patent left internal mammary artery graft to left anterior descending coronary artery. 4. Patent sequential saphenous vein graft to diagonal branch and obtuse marginal branch and patent saphenous vein graft to distal right coronary artery. Physical Exam Vital Signs Vital Signs - First Documented 12/31/22 18:34 Temp 36.7 Pulse 84 Resp 20 B/P (MAP) 117/73 (88) Pulse Ox 100 O2 Delivery Room Air Capillary Refill : Height, Weight, BMI Height: 5'10.00" Weight: 190lbs. 0oz. 86.923662sr; 27.53 BMI Method:Stated General Appearance: No Apparent Distress, WD/WN HEENT: PERRL/EOMI, Pharynx Normal Neck: Full Range of Motion, Normal Inspection, Non Tender, Supple Respiratory: Chest Non Tender, Lungs Clear, Normal Breath Sounds, No Accessory Muscle Use, No Respiratory Distress Cardiovascular: Normal Peripheral Pulses, Extra Beats Gastrointestinal: Normal Bowel Sounds, No Pulsatile Mass, Non Tender, Soft Extremity: Normal Capillary Refill, Normal Inspection, No Pedal Edema Neurologic/Psychiatric: Alert; No Oriented x3 (oriented to self only) Skin: Normal Color, Warm/Dry Progress/Results/Core Measures Suspected Sepsis SIRS Temperature: Pulse: Respiratory Rate: Laboratory Tests 12/31/22 18:37: White Blood Count 3.8L Blood Pressure / Mean: Laboratory Tests 12/31/22 18:37: Creatinine 1.76H, INR Comment 1.4, Platelet Count 174, Total Bilirubin 0.6 Results/Orders Lab Results Laboratory Tests Test 12/31/22 18:37 Range/Units White Blood Count 3.8 L 4.3-11.0 10^3/uL Red Blood Count 3.33 L 4.30-5.52 10^6/uL Hemoglobin 9.8 L 13.3-17.7 g/dL Hematocrit 31 L 40-54 % Mean Corpuscular Volume 94 80-99 fL Mean Corpuscular Hemoglobin 29 25-34 pg Mean Corpuscular Hemoglobin Concent 31 L 32-36 g/dL Red Cell Distribution Width 17.9 H 10.0-14.5 % Platelet Count 174 130-400 10^3/uL Mean Platelet Volume 9.9 9.0-12.2 fL Immature Granulocyte % (Auto) 0 % Neutrophils (%) (Auto) 54 42-75 % Lymphocytes (%) (Auto) 25 12-44 % Monocytes (%) (Auto) 17 H 0-12 % Eosinophils (%) (Auto) 4 0-10 % Basophils (%) (Auto) 1 0-10 % Neutrophils # (Auto) 2.0 1.8-7.8 10^3/uL Lymphocytes # (Auto) 0.9 L 1.0-4.0 10^3/uL Monocytes # (Auto) 0.6 0.0-1.0 10^3/uL Eosinophils # (Auto) 0.2 0.0-0.3 10^3/uL Basophils # (Auto) 0.0 0.0-0.1 10^3/uL Immature Granulocyte # (Auto) 0.0 0.0-0.1 10^3/uL Prothrombin Time 18.1 H 12.2-14.7 SEC INR Comment 1.4 0.8-1.4 Activated Partial Thromboplast Time 43 H 24-35 SEC Sodium Level 143 135-145 MMOL/L Potassium Level 4.4 3.6-5.0 MMOL/L Chloride Level 104 98-107 MMOL/L Carbon Dioxide Level 27 21-32 MMOL/L Anion Gap 12 5-14 MMOL/L Blood Urea Nitrogen 36 H 7-18 MG/DL Creatinine 1.76 H 0.60-1.30 MG/DL Estimat Glomerular Filtration Rate 41 BUN/Creatinine Ratio 20 Glucose Level 129 H 70-105 MG/DL Calcium Level 9.0 8.5-10.1 MG/DL Corrected Calcium 9.1 8.5-10.1 MG/DL Total Bilirubin 0.6 0.1-1.0 MG/DL Aspartate Amino Transf (AST/SGOT) 25 5-34 U/L Alanine Aminotransferase (ALT/SGPT) 12 0-55 U/L Alkaline Phosphatase 59 40-136 U/L Total Protein 6.6 6.4-8.2 GM/DL Albumin 3.9 3.2-4.5 GM/DL Salicylates Level < 0.3 L 5.0-20.0 MG/DL Acetaminophen Level < 10 L 10-30 UG/ML Serum Alcohol < 10 <10 MG/DL My Orders Orders - MYAH PETERSON MD Cbc With Automated Diff (12/31/22 18:33) Comprehensive Metabolic Panel (12/31/22 18:33) Alcohol (12/31/22 18:33) Acetaminophen (12/31/22 18:33) Salicylate (12/31/22 18:33) Ekg Tracing (12/31/22 18:33) Ct Head Wo (12/31/22 18:33) Chest 1 View Ap/Pa Only (12/31/22 18:33) Protime With Inr (12/31/22 18:44) Partial Thromboplastin Time (12/31/22 18:44) Bh Status Checks/Observation O Q15M (12/31/22 18:55) Ziprasidone Injection (Geodon Injection) (12/31/22 19:30) Water (Sterile) For Injection (Sterile W (12/31/22 19:30) Vital Signs/I&O 12/31/22 12/31/22 18:34 20:00 Temp 36.7 36.6 Pulse 84 80 Resp 20 20 B/P (MAP) 117/73 (88) 118/72 Pulse Ox 100 100 O2 Delivery Room Air Room Air Capillary Refill : Progress Note #1: Progress Note Potential diagnosis of electrolyte imbalance, acute stroke, UTI, chronic dementia with behavioral health. Obtain labs to check complete blood count, comprehensive metabolic profile, coagulation factors, alcohol level, salicylate level, acetaminophen level, urinalysis, urine drug screen. CT scan of the head without contrast to look for acute changes, 1 view chest x-ray to evaluate for possible pneumonia or acute pathology. The nurses had checked with [facility] and they advised that the patient has a longstanding history of having agitation and behavioral issues felt to be secondary to history of alcoholism and strokes. He tends to pace and has sundowners. He can get agitated and try and throw things. He had done fairly well with [facility] previously. Call and been placed to [facility] unit and they reported they would need all of the labs and notes to review before they could say if they would have a better availability or capability to take the patient. Can try to reach out to [facility] for mental health screening but due to the patient's dementia and only being oriented to self I did not feel that he would be somebody that could be screened by a video conference. Called been placed to [facility] since they had accepted him for admit there but had him less than 5 hours prior to calling EMS and they are refusing to take him back in their facility. Progress Note #2: Time: 19:19 Progress Note Patient's electrocardiogram shows atrial fibrillation with intraventricular conduction delay. CT scan of the head does not show any acute process. His chest x-ray also shows no acute process. Labs show stable blood count with white blood cell count of 3.8. He does have some anemia with hemoglobin of 9.8. His comprehensive metabolic profile showed some renal insufficiency with BUN of 36 and a creatinine of 1.76. Glucose was normal at 129. His coagulation factors showed an elevated pro time to 18.1 with an INR of 1.4. PTT is 43. His alcohol and acetaminophen levels were less than 10 and aspirin level was less than 0.3. Medically he is clear and stable. Progress Note #3: Time: 19:30 Progress Note Chelsie North from [facility] called back and spoke with the nurses. She advised that they could take the patient back tonight but requested that he get Haldol or some medicine to help medicate him and help him remain calm and rest tonight. Then tomorrow they plan to check with [facility] or other facilities to see about possible transfer from [facility] to another facility. ECG Initial ECG Impression Date: Dec 31, 2022 Initial ECG Impression Time: 18:40 Initial ECG Rate: 106 Initial ECG Rhythm: A Fib/Flutter Initial ECG Comparisson: Changed (Previous tracings show paced rhythm) Comment Patient's electrocardiogram shows atrial fibrillation with intraventricular conduction delay. Heart rate is 106 bpm. QT interval 400 ms with a QTc interval 462 ms. He has no acute ST elevation. Previous tracings were showing paced rhythm. Diagnostic Imaging Diagonstic Imaging: Xray Plain Films/CT/US/NM/MRI: chest Comments NAME: MADI SAMUELS MED REC#: [id number] PT STATUS: REG ER : 1950 PHYSICIAN: MYAH PETERSON MD ADMIT DATE: 12/31/22/ER FS Draft Date of Exam:12/31/22 CHEST 1 VIEW AP/PA ONLY INDICATION: Altered mental status Frontal chest obtained at 0637 p.m. and compared to 06/17/2022. There is cardiomegaly and poststernotomy change with prosthetic aortic valve. There is no focal infiltrate or pneumothorax or pleural fluid. Compared to the prior study, the pacemaker battery has been removed, there are abandoned pacemaker leads overlying the cardiac silhouette. IMPRESSION: Cardiomegaly and postoperative changes as above with no pneumothorax or pleural fluid or acute infiltrate. Removal of pacemaker battery compared to the previous study, with abandoned pacemaker leads remaining in place. Dictated on workstation # [id number] Dict: 12/31/221903 Trans: 12/31/221915 [facility] [id number] Interpreted by: SASHA GONZALEZ MD Electronically signed by: Reviewed: Reviewed by Ar Diagonstic Imaging: CT Plain Films/CT/US/NM/MRI: head Comments [facility] [place] NAME: MADI SAMUELS MED REC#: [id number] PT STATUS: REG ER : 1950 PHYSICIAN: MYAH PETERSON MD ADMIT DATE: 12/31/22/ER FS Draft Date of Exam:12/31/22 CT HEAD WO INDICATION: Agitation and confusion, altered mental status. TECHNIQUE: Multiple contiguous axial images were obtained through the brain without the use of intravenous contrast. Auto Exposure Controls were utilized during the CT exam to meet ALARA standards for radiation dose reduction. COMPARISON: Comparison made with 06/17/2022. FINDINGS: There is diffuse atrophic change. There are multiple old infarcts including in the right temporal lobe and parietal lobe as well as the left posterior frontal lobe and anterior frontal lobe. There is no subdural or epidural collection. There is no acute hemorrhage. Ventricles are normal in size. There are chronic ischemic changes in the deep white matter. IMPRESSION: Atrophic changes. There are some chronic ischemic changes in the deep white matter. There are multiple old bilateral infarcts, as above. There is no definite acute intracranial finding. Dictated on workstation # [id number] Dict: 12/31/221901 Trans: 12/31/221910 [facility]6 [id number] Interpreted by: SASHA GONZALEZ MD Electronically signed by: Reviewed: Reviewed by Me Departure Impression Primary Impression: Dementia Qualified Codes: F03.C18 - Unspecified dementia, severe, with other behavioral disturbance Additional Impression: Aggressive behavior due to dementia Disposition: 01 HOME, SELF-CARE Condition: Stable Departure-Patient Inst. Decision time for Depature: 19:35 Referrals: NO,LOCAL PHYSICIAN (PCP/Family) Primary Care Physician Patient Instructions: Dementia ED Add. Discharge Instructions: Continue his medications as directed by [facility] from [place] [facility] where he was discharged earlier today. Use medicines as prescribed for continued care. MYAH PETERSON MD Dec 31, 2022 18:28
[2022-12-31 18:46] LABS: BASOPHILS % (AUTO) 1 % (0-10); EOSINOPHILS # (AUTO) 0.2 10^3/uL (0.0-0.3); EOSINOPHILS % (AUTO) 4 % (0-10); HEMATOCRIT 31 % (40-54); HEMOGLOBIN 9.8 g/dL (13.3-17.7); LYMPHOCYTES # (AUTO) 0.9 10^3/uL (1.0-4.0); LYMPHOCYTES % (AUTO) 25 % (12-44); MEAN CORPUSCULAR HEMOGLOBIN 29 pg (25-34); MEAN CORPUSCULAR HGB CONC 31 g/dL (32-36); MEAN CORPUSCULAR VOLUME 94 fL (80-99); MEAN PLATELET VOLUME 9.9 fL (9.0-12.2); MONOCYTES # (AUTO) 0.6 10^3/uL (0.0-1.0); MONOCYTES % (AUTO) 17 % (0-12); NEUTROPHILS % (AUTO) 54 % (42-75); PLATELET COUNT 174 10^3/uL (130-400); WHITE BLOOD COUNT 3.8 10^3/uL (4.3-11.0)
[2022-12-31 19:06] LABS: INR 1.4 (0.8-1.4); PROTHROMBIN TIME PATIENT 18.1 SEC (12.2-14.7)
[2022-12-31 19:07] LABS: ACETAMINOPHEN < 10 UG/ML (10-30); ALANINE AMINOTRANSFERASE 12 U/L (0-55); ALBUMIN 3.9 GM/DL (3.2-4.5); ALKALINE PHOSPHATASE 59 U/L (40-136); BILIRUBIN,TOTAL 0.6 MG/DL (0.1-1.0); BUN/CREATININE RATIO 20; CARBON DIOXIDE 27 MMOL/L (21-32); CHLORIDE 104 MMOL/L (98-107); CREATININE SERUM 1.76 MG/DL (0.60-1.30); GFR ESTIMATED 41; GLUCOSE 129 MG/DL (70-105); POTASSIUM 4.4 MMOL/L (3.6-5.0); SALICYLATE < 0.3 MG/DL (5.0-20.0); SODIUM 143 MMOL/L (135-145); TOTAL PROTEIN 6.6 GM/DL (6.4-8.2)
--- NOTE | 2022-12-31 19:11 | Diagnostic Imaging Report ---
INDICATION: Agitation and confusion, altered mental status. TECHNIQUE: Multiple contiguous axial images were obtained through the brain without the use of intravenous contrast. Auto Exposure Controls were utilized during the CT exam to meet ALARA standards for radiation dose reduction. COMPARISON: Comparison made with 06/17/2022. FINDINGS: There is diffuse atrophic change. There are multiple old infarcts including in the right temporal lobe and parietal lobe as well as the left posterior frontal lobe and anterior frontal lobe. There is no subdural or epidural collection. There is no acute hemorrhage. Ventricles are normal in size. There are chronic ischemic changes in the deep white matter. IMPRESSION: Atrophic changes. There are some chronic ischemic changes in the deep white matter. There are multiple old bilateral infarcts, as above. There is no definite acute intracranial finding. Dictated by: Dictated on workstation # [id number]
--- NOTE | 2022-12-31 19:16 | Diagnostic Imaging Report ---
INDICATION: Altered mental status Frontal chest obtained at 0637 p.m. and compared to 06/17/2022. There is cardiomegaly and poststernotomy change with prosthetic aortic valve. There is no focal infiltrate or pneumothorax or pleural fluid. Compared to the prior study, the pacemaker battery has been removed, there are abandoned pacemaker leads overlying the cardiac silhouette. IMPRESSION: Cardiomegaly and postoperative changes as above with no pneumothorax or pleural fluid or acute infiltrate. Removal of pacemaker battery compared to the previous study, with abandoned pacemaker leads remaining in place. Dictated by: Dictated on workstation # [id number]
[2022-12-31] MEDS ORDERED: ZIPRASIDONE 20 MG INJ (GEODON) VIAL IM STA (19:30)
[2022-12-31] MEDS ORDERED: WATER (STERILE) FOR INJ 10 ML BTL INJ SCH (19:30)
[2022-12-31 20:00] VITALS: BP 118/72
== END 2022-12-31 20:00 | disposition home or self-care (01) ==
LOC: EDUNIT# 18:08 → ER FS 18:09
DX: F03.918 Unspecified dementia, unspecified severity, with other behavioral disturbance (principal); I48.91 Unspecified atrial fibrillation; D64.9 Anemia, unspecified; N28.9 Disorder of kidney and ureter, unspecified
CPT/HCPCS: 36415; 70450; 71045; 80053; 85025; 85610; 85730; G0480 ×3; 80320; 80329; 93005

== ENCOUNTER 2023-01-03 14:03 | Emergency (ER) | payer MEDICARE, OTHER ==
--- NOTE | 2023-01-03 14:05 | ED Psychosocial ---
General Stated Complaint: COMBATIVE History of Present Illness Date Seen by Provider: Jan 03, 2023 Time Seen by Provider: 14:05 Initial Comments 72-year-old male with PMH of dementia and known behavioral issues, is sent here from his senior care for placement for dementia related behavioral issues. In the ER patient has been cooperative, calm, and pleasant. Patient is very talkative. Patient does not have any complaints at this time, and he does not appear to be confused. Patient is able to answer all questions asked, and follows all commands. Patient is able to ambulate and appears capable of self- care. Allergies and Home Medications Allergies Coded Allergies: No Known Drug Allergies (Unverified , 12/17/16) Patient Home Medication List Home Medication List Reviewed: Yes Albuterol Sulfate (Albuterol Sulfate) 0.63 Mg/3 Ml Vial.neb, 0.63 MG IH BID PRN for SHORTNESS OF BREATH Prescribed by: YUNIOR CHAUHAN on 06/12/22 0951 Alfuzosin HCl (Alfuzosin HCl ER) 10 Mg Tab.er.24h, 10 MG PO HS, (Reported) Entered as Reported by: YUNIER MUNGUIA on 09/11/21 1437 Ascorbate Calcium (Vitamin C) 500 Mg Tablet, 500 MG PO DAILY, (Reported) Entered as Reported by: GREER GEORGE on 03/12/16 1021 Aspirin (Aspirin EC) 81 Mg Tablet., 81 MG PO DAILY Prescribed by: YUNIOR CHAUHAN on 06/12/22 0951 Coffee Xt/Phosphatidyl Serine (Neuriva Original 100-100Mg Cap) 100 Mg-100 Mg Capsule, 1 EACH PO DAILY, (Reported) Entered as Reported by: GEM DANIELS on 06/11/22 1610 Cyanocobalamin (Vitamin B-12) (Vitamin B-12) 1,000 Mcg Tablet, 3,000 MCG PO DAILY, (Reported) Entered as Reported by: GREER GEORGE on 03/12/16 1021 Desmopressin Acetate (Desmopressin Acetate) 0.2 Mg Tablet, 0.6 MG PO HS, (Reported) Entered as Reported by: KEENAN MORE on 03/22/22 1044 Duloxetine HCl (Duloxetine HCl) 60 Mg Capsule., 60 MG PO DAILY, (Reported) Entered as Reported by: YUNIER MUNGUIA on 09/11/21 1437 Empagliflozin (Jardiance) 10 Mg Tablet, 10 MG PO HS, (Reported) Entered as Reported by: KEENAN MORE on 03/22/22 1044 Fenofibrate Nanocrystallized (Fenofibrate) 145 Mg Tablet, 145 MG PO DAILY, (Reported) Entered as Reported by: GREER GEORGE on 03/12/16 1020 Fluticasone Propionate (Fluticasone Propionate) 16 Gm Diagonal.susp, 1-2 SPRAY NSEACH DAILY PRN for CONGESTION, (Reported) Entered as Reported by: GEM DANIELS on 09/14/21 1553 Gabapentin (Neurontin) 300 Mg Capsule, 300 MG PO HS, (Reported) Entered as Reported by: YUNIER MUNGUIA on 09/11/21 1437 Lactobacillus Combination No.4 (Probiotic) 1 Each Capsule, 1 EACH PO DAILY, (Reported) Entered as Reported by: GEM DANIELS on 09/14/21 1551 Loratadine (Loratadine) 10 Mg Tablet, 10 MG PO DAILY, (Reported) Entered as Reported by: GREER GEORGE on 03/12/16 1021 Losartan Potassium (Losartan Potassium) 50 Mg Tablet, 50 MG PO DAILY, (Reported) Entered as Reported by: GEM DANIELS on 09/14/21 1551 Multivitamin (Daily Value) 1 Each Tablet, 1 TAB PO DAILY, (Reported) Entered as Reported by: GREER GEORGE on 03/12/16 1021 Nebivolol HCl (Nebivolol HCl) 5 Mg Tablet, 5 MG PO DAILY, (Reported) Entered as Reported by: GEM DANIELS on 09/14/21 1551 Pantoprazole Sodium (Pantoprazole Sodium) 40 Mg Tablet.dr, 40 MG PO DAILY, (Reported) Entered as Reported by: YUNIER MUNGUIA on 09/11/21 1437 Potassium Gluconate (Potassium) 99 Mg Tablet, 396 MG PO DAILY, (Reported) Entered as Reported by: YUNIER MUNGUIA on 09/11/21 1437 Rosuvastatin Calcium (Rosuvastatin Calcium) 10 Mg Tablet, 10 MG PO Q48H, ( Reported) Entered as Reported by: YUNIER MUNGUIA on 09/11/21 1437 Tizanidine HCl (Tizanidine HCl) 4 Mg Tablet, 4 MG PO Q8H PRN for MUSCLE SPASMS, (Reported) Entered as Reported by: GEM DANIELS on 09/14/21 1553 Warfarin Sodium (Jantoven) 5 Mg Tablet, 2.5 MG PO ROACH,MO,WE,TH,FR, (Reported) Entered as Reported by: KEENAN MORE on 03/22/22 1044 Warfarin Sodium (Warfarin Sodium) 5 Mg Tablet, 5 MG PO ,SA, (Reported) Entered as Reported by: GEM DANIELS on 06/11/22 1610 Review of Systems Constitutional: no symptoms reported, see HPI Past [id number] Hx Immunizations Up To Date Tetanus Booster (TDap): Unknown First/Initial COVID19 Vaccinat: n/a Second COVID19 Vaccination John: n/a Third COVID19 Vaccination Date: n/a Seasonal Allergies Seasonal Allergies: Yes Past Medical History Surgery/Hospitalization HX: PACEMAKER/DEFIB, AAA, CABG, STROKE, MECHANICAL HEART VALVE, TIA Surgeries: Yes (heart valve replacement, KNEE SCOPE, FOOT SX, SHOULDER SX, L ING HERNIA) Abdominal, Adenoidectomy, Cardiac, CABG, Defibrillator, Orthopedic, Pacemaker, Tonsillectomy, Valve Replacement Respiratory: Yes Sleep Apnea Currently Using CPAP: No Cardiac: Yes (ASCENDING AORTIC ANEURYSM; V-FIB; VIANEY; CAD W/CABG; AORTIC VALVE REPLACEME) Aneurysm, Cardiomyopathy, Coronary Artery Disease, Heart Attack, High Cholesterol, Hypertension, Irregular Heartbeat, Valvular Heart Disease Neurological: Yes Stroke, TIA Reproductive Disorders: No Sexually Transmitted Disease: No HIV/AIDS: No Genitourinary: No Gastrointestinal: Yes Gastroesophageal Reflux, Diverticulosis, Hemorrhoids, Polyps, Irritable Bowel Musculoskeletal: Yes Arthritis, Chronic Back Pain Endocrine: Yes Diabetes, Non-Insulin dep HEENT: No Loss of Vision: Bilateral Hearing Impairment: Denies Cancer: No Psychosocial: Yes Anxiety Integumentary: No Blood Disorders: No Adverse Reaction/Blood Tranf: No (N/A) Family Medical History FH: heart disease 19 FATHER ( in 1989 ) FH: stroke 19 FATHER, Onset:40's - 50 Myocardial infarction 19 FATHER, Onset:60 years & older PAST SURGICAL HISTORY: 2005--5 VESSEL CABG AND AORTIC VALVE REPLACEMENT PACEMAKER + DEFIBRILLATOR PLACEMENT WITH MOST RECENT GENERATOR CHANGE IN 2019 LEFT INGUINAL HERNIA REPAIR 07/23/2007--RIGHT KNEE SCOPE BY DR. JOSEPH 07/23/2007--REMOVAL OF BROKEN STERNAL WIRE BY DR. GRIFFITHS 09/27/2008--COLONOSCOPY 12/21/2016--RIGHT FOOT SURGERY 01/05/2017--LEFT SHOULDER SURGERY BY DR. JOSEPH 2018--ASCENDING AORTIC ANEURYSM REPAIR 11/24/2021--COLONOSCOPY WITH POLYPECTOMY BY DR. KENDRICK CARDIAC CATH 03/22/[address] DUBON: RESULTS: HEMODYNAMICS: The aortic pressure was 123/68 mmHg. The mechanical aortic valve was not crossed. CORONARY ANGIOGRAPHY: Left main coronary artery: There was a 90% stenosis proximally with JANETT-3 flow. Left anterior descending coronary artery: Totally occluded proximally. Left circumflex coronary artery: Totally occluded in the midsegment after the takeoff of the first obtuse marginal branch. There was a small first obtuse marginal branch which contained a long 80% stenosis proximally followed by 2 additional 80% stenosis in the midsegment. There was competitive flow seen in the distal segment of the branch from the bypass graft. Right coronary artery: Dominant and totally occluded proximal. BYPASS GRAFT ANGIOGRAPHY: Left internal mammary artery graft to left anterior descending coronary artery: Widely patent with good distal runoff. The [place] vessel distal to the touchdown of the graft was small in caliber. Saphenous vein graft to diagonal branch and obtuse marginal branch: This was a sequence of graft that first touchdown on a diagonal branch and then an obtuse marginal branch. There was mild disease in the proximal segment of the graft at no more than 30% stenotic and the distal [place] branches were widely patent beyond the touchdown of the graft. Saphenous vein graft to distal right coronary artery: There was a 30% stenosis in the proximal segment of the graft and the distal [place] vessels were patent with mild diffuse disease at no more than 20% stenotic. IMPRESSION: 1. Normal central aortic pressure. 2. Severe [place] three-vessel coronary artery disease as outlined above. The patient is essentially graft dependent. 3. Patent left internal mammary artery graft to left anterior descending coronary artery. 4. Patent sequential saphenous vein graft to diagonal branch and obtuse marginal branch and patent saphenous vein graft to distal right coronary artery. Physical Exam Vital Signs - First Documented 01/03/23 14:03 Temp 36.2 Pulse 96 Resp 16 B/P (MAP) 113/65 (81) Pulse Ox 99 O2 Delivery Room Air Capillary Refill : Height, Weight, BMI Height: 5'10.00" Weight: 190lbs. 0oz. [id number]; 20.00 BMI Method:Stated General Appearance: WD/WN, no apparent distress HEENT: PERRL/EOMI Neck: full range of motion Respiratory: chest non-tender, lungs clear, normal breath sounds, no respiratory distress Cardiovascular: regular rate, rhythm, no edema Gastrointestinal: non tender, soft Extremities: normal range of motion Neurologic/Psychiatric: efficiency manager II-XII nml as tested, no motor/sensory deficits, alert, normal mood/affect, oriented x 3 Appearance/Memory: appropriate appearance, appropriate insight, neat Behavior/Eye Contact: cooperative, good eye contact, normal speech (Patient has normal speech, he is very talkative) Thoughts/Hallucinations: normal thought pattern, no apparent hallucination Skin: normal color Progress/Results/Core Measures Results/Orders Lab Results Laboratory Tests Test 01/03/23 14:15 01/03/23 15:46 Range/Units White Blood Count 4.4 4.3-11.0 10^3/uL Red Blood Count 3.73 L 4.30-5.52 10^6/uL Hemoglobin 10.9 L 13.3-17.7 g/dL Hematocrit 35 L 40-54 % Mean Corpuscular Volume 95 80-99 fL Mean Corpuscular Hemoglobin 29 25-34 pg Mean Corpuscular Hemoglobin Concent 31 L 32-36 g/dL Red Cell Distribution Width 18.0 H 10.0-14.5 % Platelet Count 197 130-400 10^3/uL Mean Platelet Volume 10.4 9.0-12.2 fL Immature Granulocyte % (Auto) 0 % Neutrophils (%) (Auto) 57 42-75 % Lymphocytes (%) (Auto) 27 12-44 % Monocytes (%) (Auto) 11 0-12 % Eosinophils (%) (Auto) 5 0-10 % Basophils (%) (Auto) 1 0-10 % Neutrophils # (Auto) 2.5 1.8-7.8 10^3/uL Lymphocytes # (Auto) 1.2 1.0-4.0 10^3/uL Monocytes # (Auto) 0.5 0.0-1.0 10^3/uL Eosinophils # (Auto) 0.2 0.0-0.3 10^3/uL Basophils # (Auto) 0.0 0.0-0.1 10^3/uL Immature Granulocyte # (Auto) 0.0 0.0-0.1 10^3/uL Sodium Level 144 135-145 MMOL/L Potassium Level 4.3 3.6-5.0 MMOL/L Chloride Level 105 98-107 MMOL/L Carbon Dioxide Level 26 21-32 MMOL/L Anion Gap 13 5-14 MMOL/L Blood Urea Nitrogen 30 H 7-18 MG/DL Creatinine 1.73 H 0.60-1.30 MG/DL Estimat Glomerular Filtration Rate 42 BUN/Creatinine Ratio 17 Glucose Level 86 70-105 MG/DL Calcium Level 9.3 8.5-10.1 MG/DL Corrected Calcium 9.0 8.5-10.1 MG/DL Total Bilirubin 0.6 0.1-1.0 MG/DL Aspartate Amino Transf (AST/SGOT) 31 5-34 U/L Alanine Aminotransferase (ALT/SGPT) 15 0-55 U/L Alkaline Phosphatase 70 40-136 U/L Total Protein 7.5 6.4-8.2 GM/DL Albumin 4.4 3.2-4.5 GM/DL Salicylates Level < 0.3 L 5.0-20.0 MG/DL Acetaminophen Level < 10 L 10-30 UG/ML Urine Color YELLOW Urine Clarity CLEAR Urine pH 6.0 5-9 Urine Specific [place] 1.020 1.016-1.022 Urine Protein NEGATIVE NEGATIVE Urine Glucose (UA) 3+ H NEGATIVE Urine Ketones NEGATIVE NEGATIVE Urine Nitrite NEGATIVE NEGATIVE Urine Bilirubin NEGATIVE NEGATIVE Urine Urobilinogen 0.2 < = 1.0 MG/DL Urine Leukocyte Esterase NEGATIVE NEGATIVE Urine RBC (Auto) NEGATIVE NEGATIVE Urine RBC NONE /HPF Urine WBC RARE /HPF Urine Squamous Epithelial Cells NONE /HPF Urine Crystals NONE /LPF Urine Bacteria NEGATIVE /HPF Urine Casts NONE /LPF Urine Mucus SMALL H /LPF Urine Culture Indicated NO Urine Opiates Screen NEGATIVE NEGATIVE Urine Oxycodone Screen NEGATIVE NEGATIVE Urine Methadone Screen NEGATIVE NEGATIVE Urine Propoxyphene Screen NEGATIVE NEGATIVE Urine Barbiturates Screen NEGATIVE NEGATIVE Ur Tricyclic Antidepressants Screen NEGATIVE NEGATIVE Urine Phencyclidine Screen NEGATIVE NEGATIVE Urine Amphetamines Screen NEGATIVE NEGATIVE Urine Methamphetamines Screen NEGATIVE NEGATIVE Urine Benzodiazepines Screen POSITIVE H NEGATIVE Urine Cocaine Screen NEGATIVE NEGATIVE Urine Cannabinoids Screen NEGATIVE NEGATIVE My Orders Orders - NICHOLE,GERI L MD Acetaminophen (01/03/23 14:05) Cbc With Automated Diff (01/03/23 14:05) Comprehensive Metabolic Panel (01/03/23 14:05) Drug Screen Stat (Urine) (01/03/23 14:05) Salicylate (01/03/23 14:05) Ua Culture If Indicated (01/03/23 14:05) Lorazepam Injection (Ativan Injection) (01/03/23 19:15) Haloperidol Injection (Haldol Injectio (01/03/23 20:15) Diphenhydramine Injection (Benadryl Inje (01/03/23 20:15) Diphenhydramine Injection (Benadryl Inje (01/03/23 20:14) Haloperidol Injection (Haldol Injectio (01/03/23 20:14) Medications Given in ED Current Medications Medications Dose Ordered Sig/Cassandra Route Start Time Stop Time Status Last Admin Dose Admin Diphenhydramine HCl 25 mg ONCE ONCE IVP 01/03/23 20:15 01/03/23 20:16 DC 01/03/23 20:21 25 MG Haloperidol Lactate 5 mg ONCE ONCE IV 01/03/23 20:15 01/03/23 20:16 DC 01/03/23 20:21 5 MG Vital Signs/I&O 01/03/23 14:03 Temp 36.2 Pulse 96 Resp 16 B/P (MAP) 113/65 (81) Pulse Ox 99 O2 Delivery Room Air Progress Progress Note : Progress Note DEMENTIA : - Labs unremarkable -Patient has been cooperative and pleasant the entire time he has been in the ER. Patient has not caused problems for anyone and is not agitated or combative or aggressive, and has not needed any sedating or psych medication at all in the ER, Until evening when the ER became too busy and the nurses were unable to keep re-directing him. senior care was very resistant to accepting the pt back and the pt has spent over 7 hours in the ER due to this reason. - Pt to be discharged back to his memory care facility. - Follow up with PCP in the morning Departure Impression Primary Impression: Dementia Qualified Codes: F03.A0 - Unspecified dementia, mild, without behavioral disturbance, psychotic disturbance, mood disturbance, and anxiety Disposition: 03 XFER SNF Condition: Stable Departure-Patient Inst. Referrals: NO,LOCAL PHYSICIAN (PCP/Family) Primary Care Physician Patient Instructions: Tips for caregivers of people with Alzheimer disease, Dementia ED Add. Discharge Instructions: - Labs unremarkable -Patient has been cooperative and pleasant the entire time he has been in the ER. Patient has not caused problems for anyone and is not agitated or combative or aggressive, and has not needed any sedating or psych medication at all in the ER, Until evening when the ER became too busy and the ER nurses were unable to keep re-directing him. senior care was very resistant to accepting the pt back and the pt has spent over 7 hours in the ER due to this reason. - Pt to be discharged back to his memory care facility. - Follow up with PCP in the morning GERI VARELA MD Jan 03, 2023 14:05
[2023-01-03 14:26] LABS: BASOPHILS % (AUTO) 1 % (0-10); EOSINOPHILS # (AUTO) 0.2 10^3/uL (0.0-0.3); EOSINOPHILS % (AUTO) 5 % (0-10); HEMATOCRIT 35 % (40-54); HEMOGLOBIN 10.9 g/dL (13.3-17.7); LYMPHOCYTES # (AUTO) 1.2 10^3/uL (1.0-4.0); LYMPHOCYTES % (AUTO) 27 % (12-44); MEAN CORPUSCULAR HEMOGLOBIN 29 pg (25-34); MEAN CORPUSCULAR HGB CONC 31 g/dL (32-36); MEAN CORPUSCULAR VOLUME 95 fL (80-99); MEAN PLATELET VOLUME 10.4 fL (9.0-12.2); MONOCYTES # (AUTO) 0.5 10^3/uL (0.0-1.0); MONOCYTES % (AUTO) 11 % (0-12); NEUTROPHILS # (AUTO) 2.5 10^3/uL (1.8-7.8); NEUTROPHILS % (AUTO) 57 % (42-75); PLATELET COUNT 197 10^3/uL (130-400); WHITE BLOOD COUNT 4.4 10^3/uL (4.3-11.0)
[2023-01-03 14:46] LABS: ALANINE AMINOTRANSFERASE 15 U/L (0-55); ALBUMIN 4.4 GM/DL (3.2-4.5); ALKALINE PHOSPHATASE 70 U/L (40-136); BILIRUBIN,TOTAL 0.6 MG/DL (0.1-1.0); BUN/CREATININE RATIO 17; CALCIUM 9.3 MG/DL (8.5-10.1); CARBON DIOXIDE 26 MMOL/L (21-32); CHLORIDE 105 MMOL/L (98-107); CREATININE SERUM 1.73 MG/DL (0.60-1.30); GFR ESTIMATED 42; GLUCOSE 86 MG/DL (70-105); POTASSIUM 4.3 MMOL/L (3.6-5.0); SODIUM 144 MMOL/L (135-145); TOTAL PROTEIN 7.5 GM/DL (6.4-8.2)
[2023-01-03 14:47] LABS: ACETAMINOPHEN < 10 UG/ML (10-30); SALICYLATE < 0.3 MG/DL (5.0-20.0)
[2023-01-03 15:55] LABS: BILIRUBIN,URINE NEGATIVE (NEGATIVE); CLARITY,URINE CLEAR; COLOR,URINE YELLOW; GLUCOSE, URINE (UA) 3+ (NEGATIVE); KETONES,URINE NEGATIVE (NEGATIVE); LEUKOCYTE ESTERASE ,URINE NEGATIVE (NEGATIVE); NITRITE,URINE NEGATIVE (NEGATIVE); PROTEIN,URINE NEGATIVE (NEGATIVE)
[2023-01-03 16:03] LABS: BACTERIA,URINE NEGATIVE /HPF; WBC,URINE RARE /HPF
[2023-01-03 16:05] LABS: AMPHETAMINE SCREEN, URINE NEGATIVE (NEGATIVE); BARBITURATE SCREEN URINE NEGATIVE (NEGATIVE); BENZODIAZEPINES SCREEN URINE POSITIVE (NEGATIVE); CANNABINOID SCREEN, URINE NEGATIVE (NEGATIVE); COCAINE SCREEN URINE NEGATIVE (NEGATIVE); METHADONE STAT NEGATIVE (NEGATIVE); OPIATE SCREEN URINE NEGATIVE (NEGATIVE); OXYCODONE STAT NEGATIVE (NEGATIVE); PROPOXYPHENE STAT NEGATIVE (NEGATIVE); TRICYCLIC ANTIDEPRESSANTS SCRE NEGATIVE (NEGATIVE)
[2023-01-03] MEDS ORDERED: LORazepam INJ 2 MG/ML (ATIVAN) VIAL IVP STA (19:15)
[2023-01-03] MEDS ORDERED: diphenhydrAMINE 50 MG/ML INJ (BENADRYL) ONE (20:14)
[2023-01-03] MEDS ORDERED: HALOPERIDOL 5 MG/ML (HALDOL) VIAL ONE (20:14)
[2023-01-03] MEDS ORDERED: HALOPERIDOL 5 MG/ML (HALDOL) VIAL IV ONE (20:15)
[2023-01-03] MEDS ORDERED: diphenhydrAMINE 50 MG/ML INJ (BENADRYL) IVP ONE (20:15)
[2023-01-03 21:24] VITALS: BP 121/69
== END 2023-01-03 21:24 ==
LOC: EDUNIT# 14:03 → ER FS 14:04
DX: F03.94 Unspecified dementia, unspecified severity, with anxiety (principal); Z28.310 Unvaccinated for COVID-19
CPT/HCPCS: 36415; 80053; 80306; 81000; 85025; 99284; G0480 ×2; 80329

== ENCOUNTER → 2023-02-16 | Outpatient (CLI) | payer MEDICARE, OTHER ==
[2023-02-16 15:40] LABS: CLARITY,URINE CLEAR; COLOR,URINE YELLOW; GLUCOSE, URINE (UA) 3+ (NEGATIVE); PH,URINE 5.5 (5-9); PROTEIN,URINE NEGATIVE (NEGATIVE)
[2023-02-16 15:41] LABS: BACTERIA,URINE NEGATIVE /HPF; BILIRUBIN,URINE 1+ (NEGATIVE); KETONES,URINE 1+ (NEGATIVE); LEUKOCYTE ESTERASE ,URINE NEGATIVE (NEGATIVE); NITRITE,URINE NEGATIVE (NEGATIVE)
== END ==
LOC: LABNPT 15:21
PROVIDERS: ATTEND Internal Medicine
DX: Z01.89 Encounter for other specified special examinations (principal)
CPT/HCPCS: 81000